=== PATIENT | female | born 1950 | race Hispanic/Latino ===

== ENCOUNTER 2017-09-24 14:03 | Observation (INO) | payer OTHER ==
[~2017-09-24] VITALS: Ht 152.4 cm; Wt 60.5 kg
[~2017-09-24 14:03] MED LIST: VYTORIN 10-101 EACH PO; Z.0.GABAPENTIN100 MG PO
--- OUTSIDE RECORDS SUMMARY | 2017-09-24 14:07 | XMS REPORT ---
Author Author [facility] Address Unknown Phone Unavailable Care Team Providers Care Law Librarian Name Role Phone MEGAN JEAN BAPTISTE Unavailable Unavailable Problems This patient has no known problems. Allergies, Adverse Reactions, Alerts This patient has no known allergies or adverse reactions. Medications This patient has no known medications. Results Test Description Test Time Test Comments Text Results Atomic Results Result Comments MAMMOGRAPHY DIGITAL SCR BILAT [place] [address] Patient Name: JIM LEA MR #: [id number] : 1950 Age/Sex: 66/F Req #: [id number] [facility] Physician: Ordered by: ITA MCMAHAN, MEGAN Liang MD Report #: [id number] Location: MAMMO Room/Bed: Procedure: [id number] MG/MAMMOGRAPHY DIGITAL SCR BILAT Exam Date: Exam Time: 1213 REPORT STATUS: Signed #[id number] - [id number] #BILATERAL DIGITAL SCREENING MAMMOGRAM WITH CAD : 02/15/2017 CLINICAL: Routine screening. Comparison is made to exams dated: 02/11/2016 mammogram, 02/05/2015 mammogram and 12/05/2013 mammogram - [facility]. Current study contains 4 films. There are scattered fibroglandular elements in both breasts. Current study was also evaluated with a Computer Aided Detection (CAD) system. There is a benign calcification in the left breast. No significant masses, calcifications, or other findings are seen in either breast. There has been no significant interval change. IMPRESSION: BENIGN There is no mammographic evidence of malignancy. A 1 year screening mammogram is recommended. The patient will be notified by letter of the results. Jolene mcdermott/delfino:03/03/2017 10:32:51 Demonstrator Sales: Emily GIBSON(Tab)(Jn), [facility] letter sent: Compared to Prior B9 Mammogram BI-RADS: 2 Benign Dictated By: JOLENE PALMER DO 1032 COPY TO: MEGAN JEAN BAPTISTE
[2017-09-24 15:05] LABS: BASOPHILS % 0.3 % (0.0-1.0); EOSINOPHILS % 0.3 % (0.0-6.0); LYMPHOCYTES # (AUTO) 5.5 (1.0-3.2); LYMPHOCYTES % 43.7 % (18.0-39.1); MEAN CORPUSCULAR HEMOGLOBIN 31.5 pg (28-32); MEAN CORPUSCULAR HGB CONC 33.3 g/dL (31-35); MEAN CORPUSCULAR VOLUME 94.6 fL (81-99); MONOCYTES # (AUTO) 1.1 (0.2-0.8); NEUTROPHILS # (AUTO) 5.8 (2.1-6.9); NEUTROPHILS % 46.1 % (38.7-80.0); PLATELET COUNT 198 x10e3/uL (140-360); RED BLOOD COUNT 4.44 x10e6/uL (3.6-5.1); RED CELL DISTRIBUTION WIDTH 12.4 % (11.7-14.4)
--- NOTE | 2017-09-24 15:10 | Diagnostic Imaging Report ---
Exam: Head CT without contrast History: Facial numbness. Comparison studies: None Technique: Axial images were obtained from the skull base to the vertex. Coronal and sagittal images reconstructed from the axial data. Intravenous contrast: None Findings: Scalp: No abnormalities. Bones: No fractures, blastic or lytic lesions. Brain sulci: Appropriate for age. Ventricles: Normal in size and configuration. No hydrocephalus. Extra-axial spaces: No masses, no fluid collection. Parenchyma: New mass, acute hemorrhage or acute or chronic cortical vascular insults. Subtle hypodensity in the right frontal jimenez radiata is nonspecific but may reflect mild chronic microvascular ischemic changes. Sellar/suprasellar region: No abnormalities. Craniocervical junction: Patent foramen magnum. No Chiari one malformation. Incidental findings: Atherosclerotic calcifications in the carotid siphons. IMPRESSION: 1. No acute intracranial abnormalities. 2. Specifically, no mass, acute hemorrhage or acute cortical vascular insult. 3. Mild chronic microvascular ischemic changes. Signed by: Dr. Rod Hager M.D. on 09/24/2017 3:07 PM
[2017-09-24 15:13] LABS: CLARITY,URINE CLEAR (CLEAR); COLOR,URINE YELLOW (YELLOW)
[2017-09-24 15:14] LABS: BILIRUBIN,URINE NEGATIVE (NEGATIVE); KETONES,URINE NEGATIVE (NEGATIVE); LEUKOCYTE ESTERASE ,URINE TRACE (NEGATIVE); NITRITE,URINE NEGATIVE (NEGATIVE); PROTEIN,URINE DIPSTICK NEGATIVE (NEGATIVE); URINE UROBILINOGEN 0.2 mg/dL (0.2 - 1)
[2017-09-24 15:17] LABS: INR 1.07; PROTHROMBIN TIME 13.1 seconds (11.9-14.5)
--- NOTE | 2017-09-24 15:17 | Diagnostic Imaging Report ---
EXAMINATION: CHEST SINGLE (PORTABLE) INDICATION: \S\CHEST PAIN \S\[id number] \S\1420 \S\Y COMPARISON: None FINDINGS: AP view TUBES and LINES: None. LUNGS: Lungs are well inflated. Lungs are clear. There is no evidence of pneumonia or pulmonary edema. PLEURA: No pleural effusion or pneumothorax. HEART AND MEDIASTINUM: The cardiomediastinal silhouette is unremarkable. BONES AND SOFT TISSUES: No acute osseous lesion. Ligamentous anchors overlying the right humeral head. Soft tissues are unremarkable. UPPER ABDOMEN: No free air under the diaphragm. IMPRESSION: No acute thoracic abnormality. Signed by: DR. Derick Willson MD on 09/24/2017 3:13 PM
[2017-09-24 15:18] LABS: PARTIAL THROMBOPLASTIN TIME 26.5 seconds (23.8-35.5)
[2017-09-24 15:26] LABS: ALANINE AMINOTRANSFERASE 35 IU/L (0-55); ALBUMIN 4.8 g/dL (3.5-5.0); ALBUMIN/GLOBULIN RATIO 1.4 (0.8-2.0); ALKALINE PHOSPHATASE 69 IU/L (40-150); ANION GAP 15.3 mmol/L (8-16); BLOOD UREA NITROGEN 15 mg/dL (7-26); BUN/CREATININE RATIO 20 (6-25); CALCIUM 10.7 mg/dL (8.4-10.2); CARBON DIOXIDE 28 mmol/L (22-29); CHLORIDE 100 mmol/L (98-107); CREATINE KINASE 152 IU/L (29-168); CREATININE, SERUM 0.74 mg/dL (0.57-1.11); EST GLOMERULAR FILTRATION RATE > 60 ML/MIN (60-); GLUCOSE 78 mg/dL (74-118); POTASSIUM 3.3 mmol/L (3.5-5.1); SODIUM 140 mmol/L (136-145)
[2017-09-24 15:31] LABS: EPITHELIAL CELLS,URINE FEW /LPF; MUCUS,URINE FEW (RARE); RBC,URINE 0-5 /HPF (0-5)
[2017-09-24 16:39] LABS: EOSINOPHILS % (MANUAL) 1 % (0-7); LYMPHOCYTES % (MANUAL) 63 % (19-48); MONOCYTES % (MANUAL) 5 % (3.4-9.0); NEUTROPHILS % (MANUAL) 30 % (40-74); NUCLEATED RED BLOOD CELLS 1; PLATELET ESTIMATE ADEQUATE; PLATELET MORPHOLOGY COMMENT NORMAL; RBC MORPHOLOGY COMMENT NORMAL
[2017-09-24] MEDS ORDERED: NIFEDIPINE 10 MG CAP PO ONE (18:00)
[2017-09-24] MEDS ORDERED: ASPIRIN 81 MG CHEW TAB PO ONE (18:45)
[2017-09-24] MEDS ORDERED: ONDANSETRON HCL INJ 2 MG/ML VIAL IV PRN (18:45)
[2017-09-24] MEDS ORDERED: NIFEDIPINE 10 MG CAP PO PRN (18:45)
[2017-09-24] MEDS: SODIUM CHLORIDE 0.9% 1000ML 1,000 ML IV SCH (19:01)
[2017-09-24 21:12] VITALS: BP 144/67
[2017-09-24 21:26] VITALS: BP 144/67
[2017-09-24 21:27] VITALS: BP 144/67
[2017-09-25] VITALS: BP 118/58
[2017-09-25] MEDS: SODIUM CHLORIDE 0.9% 1000ML 1,000 ML IV SCH (01:53)
[2017-09-25 02:35] LABS: CREATINE KINASE MB 1.5 ng/mL (0-5.0)
[2017-09-25 04:00] VITALS: BP 110/75
[2017-09-25 06:37] LABS: BASOPHILS % 0.6 % (0.0-1.0); EOSINOPHILS # (AUTO) 0.2 (0.0-0.4); EOSINOPHILS % 2.1 % (0.0-6.0); HEMATOCRIT 40.3 % (34.2-44.1); HEMOGLOBIN 13.2 g/dL (12.0-16.0); LYMPHOCYTES # (AUTO) 3.9 (1.0-3.2); LYMPHOCYTES % 55.6 % (18.0-39.1); MEAN CORPUSCULAR HEMOGLOBIN 31.2 pg (28-32); MEAN CORPUSCULAR HGB CONC 32.8 g/dL (31-35); MEAN CORPUSCULAR VOLUME 95.3 fL (81-99); MONOCYTES # (AUTO) 0.7 (0.2-0.8); MONOCYTES % 9.2 % (4.4-11.3); NEUTROPHILS # (AUTO) 2.3 (2.1-6.9); NEUTROPHILS % 32.1 % (38.7-80.0); PLATELET COUNT 184 x10e3/uL (140-360); RED BLOOD COUNT 4.23 x10e6/uL (3.6-5.1); RED CELL DISTRIBUTION WIDTH 12.7 % (11.7-14.4)
[2017-09-25 06:53] LABS: ANION GAP 12.4 mmol/L (8-16); BLOOD UREA NITROGEN 13 mg/dL (7-26); BUN/CREATININE RATIO 18 (6-25); CARBON DIOXIDE 27 mmol/L (22-29); CHLORIDE 107 mmol/L (98-107); CHOL/HDL RATIO 2.4 (3.0-3.6); CHOLESTEROL 166 MD/DL (0-199); CREATININE, SERUM 0.73 mg/dL (0.57-1.11); EST GLOMERULAR FILTRATION RATE > 60 ML/MIN (60-); GLUCOSE 89 mg/dL (74-118); HDL CHOLESTEROL 70 MG/DL (40-60); LDL CHOLESTEROL 74 MG/DL (60-130); MAGNESIUM 2.2 MG/DL (1.3-2.1); POTASSIUM 4.4 mmol/L (3.5-5.1); SODIUM 142 mmol/L (136-145); TRIGLYCERIDES 108 MG/DL (0-149)
[2017-09-25 07:37] VITALS: BP 142/70
[2017-09-25] MEDS ORDERED: ASPIRIN 81 MG ENTERIC COATED PO SCH (09:00)
[2017-09-25] MEDS ORDERED: LISINOPRIL 20 MG TAB PO SCH (09:00)
[2017-09-25 10:38] LABS: CREATINE KINASE MB 1.3 ng/mL (0-5.0)
[2017-09-25] MEDS ORDERED: LORAZEPAM INJ 2 MG/ML VIAL IV ONE (11:00)
[2017-09-25 11:38] VITALS: BP 184/88
--- NOTE | 2017-09-25 12:36 | Diagnostic Imaging Report ---
Exam: Brain MRI without IV contrast History: Right facial paresthesias. Comparison studies: Head CT 09/24/2017. Technique: Sagittal and axial T2 FS, axial T1 FLAIR, axial and coronal T2 FLAIR, axial T2*GRE and axial DWI. Intravenous contrast: None Findings: Scalp: Normal in signal. No masses. Bone marrow: Normal in signal intensity. Brain sulci: Appropriate for age. Ventricles: Normal in size. No hydrocephalus. Extra axial spaces: Mildly prominent extra-axial CSF space at the posterior left paramedian frontal convexity may represent small congenital arachnoid cyst. No other mass or fluid collection. Parenchyma: No mass, hemorrhage or acute ischemia. A few scattered T2 FLAIR hyperintense foci in the supratentorial white matter are nonspecific but most likely reflect mild chronic microvascular ischemic changes in a patient this age. Suprasellar region: No abnormalities. Craniocervical junction: Patent foramen magnum. No Chiari malformation. Vessels: Normal flow-voids in the arteries and sinuses. IMPRESSION: 1. No acute intracranial abnormalities. 2. Mild supratentorial chronic microvascular ischemic changes. Signed by: Dr. Rod Hager M.D. on 09/25/2017 12:32 PM
[2017-09-25 15:47] VITALS: BP 145/74
[2017-09-25 19:57] VITALS: BP 133/75
--- NOTE | 2017-09-25 22:59 | Discharge Summary ---
PRIMARY CARE DOCTOR: Dr. Alexis Kahn FINAL DIAGNOSIS: Right facial numbness of unclear etiology. SECONDARY DIAGNOSIS: Uncontrolled hypertension. URANIUM PROCESSING SUPERVISOR(S): Dr. Winter, neurology. PROCEDURES/STUDIES PERFORMED 1. MRI of the brain. 2. Head CT. HISTORY: Per [facility] and [facility]. HOSPITAL COURSE: Her right facial numbness lasted about 8 hours and resolved on its own. Patient was evaluated by neurology. We do not think that this is a transient ischemic attack. It is difficult to know for sure whether it was the uncontrolled hypertension that is causing her symptoms or her symptom was causing the hypertension. At this time, patient's blood pressure is controlled. At this time, we will now adjust her blood pressure medicine. Patient was instructed to follow up with her primary care doctor to continue to monitor her blood pressure. CONDITION ON DISCHARGE: Stable. DISCHARGE MEDICATIONS: Please see medication reconciliation form. FRAN MARTINEZ M.D. Job#: [id number] AMILCAR
[2017-09-26] VITALS: BP 147/84
--- NOTE | 2017-09-26 00:10 | Consultation ---
DATE OF CONSULTATION: September 25, 2017 NEUROLOGY CONSULT NOTE HISTORY OF PRESENT ILLNESS: Ms. Nicolas is a 66-year-old right-hand dominant woman with past medical history significant for hypertension and hyperlipidemia, who presented to the emergency center at [facility] on September 24, 2017 with numbness over the right side of the face. On September 22, 2017, the patient experienced the gradual onset of numbness over the right side of the face, especially the right V2 and V3 distributions. Ms. Nicolas does not endorse a visual field cut or other disturbance, dysarthria, aphasia, facial droop, hemiparesis, hemihypesthesia, gait or balance impairment, dizziness or confusion associated with the right facial numbness. She does report a headache, which is described as follows: The pain was located across the forehead and did not radiate. The pain was described as throbbing and rated an 8/10. Ms. Nicolas does not report photophobia, phonophobia, nausea or vomiting associated with the headache. The patient does not report a history of migraines or other headaches. She has not experienced similar symptoms previously. The facial numbness and headache persisted for approximately 7 hours. Ms. Nicolas reports the symptoms began to resolve when she took a blood pressure medication. Upon admission to the emergency center, the patient is afebrile with a blood pressure of 216/109 mmHg and the pulse was 65 beats per minute. The documentation of patient's general physical and neurological examination is not available for review at this time. A CT of the brain without contrast was performed, but did not show evidence of recent large territorial ischemia, hemorrhage, mass or mass effect. Ms. Nicolas was admitted to [facility] under observation status for further evaluation and treatment of her symptoms. REVIEW OF SYSTEMS: Facial numbness over the right V2 and V3 distributions, headache. Otherwise, the 12 point review of systems is negative. PAST MEDICAL HISTORY: Hypertension, hyperlipidemia. PAST SURGICAL HISTORY: Right rotator cuff repair, partial hysterectomy, hemorrhoidectomy. PAST HOSPITALIZATIONS: Surgeries/procedures as listed, childbirth times 2. FAMILY HISTORY: The patient's paternal and maternal grandparents are . Their medical histories are unknown. Ms. Nicolas's father is from coronary artery disease. Her mother is alive. She has coronary artery disease. Ms. Nicolas has multiple siblings. All are alive and healthy. The patient's 2 children are alive and healthy. SOCIAL HISTORY: The patient is . She completed school through the 6th grade in [place], which is equivalent to graduating high school in the [place]. 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 She does not report current or prior tobacco, alcohol or recreational drug use. HOME MEDICATION(S): Vytorin 10 per 10 mg by mouth daily. ALLERGIES: NO KNOWN DRUG ALLERGIES. NO KNOWN FOOD ALLERGIES. NO KNOWN ALLERGIES TO LATEX. NO KNOWN ALLERGIES TO IODINE OR OTHER CONTRAST MATERIALS. PHYSICAL EXAMINATION VITAL SIGNS: Height 60 inches. Weight 133 pounds. BMI 26.0 kg per meter squared. Blood pressure 133/75 mmHg. Pulse 71 beats per minute. Respiratory rate 20 breaths per minute. Oxygen saturation 97% on room air. GENERAL: The patient is awake and alert, does not appear distressed. HEENT: Normocephalic, atraumatic. Pupils are equal, round, and reactive to light. Moist mucous membranes. NECK: Supple. No appreciable thyromegaly, no appreciable carotid bruits. CARDIOVASCULAR: S1, S2. Regular rate and rhythm. No murmurs, rubs or gallops. RESPIRATORY: Clear to auscultation bilaterally. No wheezes, rhonchi or rales. EXTREMITIES: The skin is warm and dry. No clubbing, cyanosis or edema. The posterior tibial and dorsalis pedis pulses are 2+ and symmetric. SKIN: No rashes or lesions. NEUROLOGIC MEMORY/ATTENTION: The patient is awake and alert, oriented to person, place, time, and situation. CRANIAL NERVES: Cranial nerve I--not tested. Cranial nerve II, III, IV--pupils are equal and round react briskly to light (from 4 mm to 2 mm), extraocular movements intact. No nystagmus. Cranial nerve V--sensation to light touch and pinprick is intact in the bilateral V1 through V3 distributions. Strength of the temporalis and masseter muscles is within normal limits. Cranial nerve VII--the face is symmetric as are all facial movements. Strength is within normal limits. Cranial nerve VIII--hearing is intact to finger rub bilaterally. Cranial nerve XI, X--the soft palate elevates equally and symmetrically. Cranial nerve XI--normal strength of the bilateral sternocleidomastoid and trapezius muscles. Cranial nerve XII--the tongue protrudes midline and moves symmetrically from side to side. STRENGTH: Bulk is normal. Strength is 5/5 in the bilateral deltoids, biceps triceps, wrist flexors and extensors, finger flexors and extensors, intrinsic hand muscles, hip flexors, knee flexors and extensors, ankle dorsiflexion and plantar flexion, and intrinsic foot muscles. Tone is normal. DTRs: Deep tendon reflexes are 1+ and symmetric at the triceps biceps, brachioradialis, patellas and Achilles. Plantar responses are flexor bilaterally. Absent clonus. SENSATION: Sensation is intact to light touch and pinprick in both arms and both legs. CEREBELLAR: [id number]-[id number] and heel-carter movements are intact without dysmetria or other impairment. GAIT: Gait deferred. SPEECH: Spontaneous speech is normal without appreciable dysarthria or aphasia. Repetition is intact. INVOLUNTARY MOVEMENTS: None. PRONATOR DRIFT: None. LABORATORY DATA: Sodium 142, potassium 4.4, chloride 107, carbon dioxide 27, anion gap 12.4, BUN 13, creatinine 0.73, estimated GFR greater than 60, BUN to creatinine ratio 18, glucose 89, calcium 9.0, magnesium 2.2, total bilirubin 0.7, AST 30, ALT 35, alkaline phosphatase 69, total protein 8.3, albumin 4.8, globulin 3.5, albumin to globulin ratio 1.4. CK 152, 78, 64. CK-MB 2.10, 1.501, 1.30. Troponin-I less than 0.001, 0.004, 0.003. Total cholesterol 166, triglycerides 108, LDL cholesterol 74, HDL cholesterol 70. The CBC with differential and platelets reveals a white blood cell count of 7.08, with 32.1% lymphocytes, with 32.1% neutrophils, 55.6% lymphocytes, 9.2% monocytes, 2.1% eosinophils, and 0.6% basophils. The hemoglobin, hematocrit are 13.2 and 40.3, respectively. The platelet count is 184,000. PT 13.1, INR 1.07, PTT 26.5. A urinalysis reveals trace leukocyte esterase, 6 to 10 white blood cells. DIAGNOSTIC STUDIES 1. EKG, September 24, 2017: Normal sinus rhythm at 66 beats per minute. 2. CT of the brain without contrast September 24, 2017: On my review, there is no evidence of recent large territorial ischemia, hemorrhage, mass or mass effect. There are findings compatible with mild chronic small vessel ischemic disease. 3. Chest x-ray September 24, 2017: No acute thoracic abnormality. 4. MRI of brain, September 25, 2017: There is no evidence of recent large territorial ischemia hemorrhage, mass or mass effect. There are nonspecific T2/FLAIR hyperintensities compatible with mild chronic small vessel ischemic disease. 5. Echocardiogram, September 25, 2017: Ejection fraction 60% to 65%. Moderate aortic insufficiency. Mild mitral regurgitation and tricuspid regurgitation. 6. Bilateral carotid artery ultrasound with Dopplers, September 25, 2017: There is no evidence of atherosclerosis or hemodynamically significant stenosis. ASSESSMENT AND PLAN: Ms. Nicolas is a 66-year-old woman with past medical history significant for hypertension and hyperlipidemia admitted with right facial numbness (specifically, the right V2 and V3 distributions) and headache. Ms. Nicolas's symptoms resolved following treatment with an antihypertensive medication. The patient's neurological examination is nonfocal. Her laboratory data and other diagnostic studies have been reviewed and are documented above. Based on the patient's history and nonfocal neurological examination, there is low suspicion for a transient ischemic attack/stroke. Given her symptoms resolved following administration of antihypertensive medication, a diagnosis of hypertensive emergency is probable. Another possible diagnosis is complex migraine. Ms. Nicolas did report a severe throbbing headache associated with numbness in the right V2 and V3 distributions. At present, the patient's symptoms have resolved. As stated above, her neurological examination is nonfocal. There are no other recommendations from the neurology service at this time. Ms. Nicolas should follow up with her primary care physician for continued treatment of hypertension and hyperlipidemia. The patient may be discharged to home. Thank you for this consultation. TIME SPENT: 50 minutes. Job#: [id number] CQ LITZY
[2017-09-26 04:00] VITALS: BP 127/83
[2017-09-26 07:15] VITALS: BP 127/83
[2017-09-26 07:51] VITALS: BP 143/70
--- NOTE | 2017-09-26 11:12 | Cardiology Report ---
DATE OF STUDY: September 25, 2017 ECHOCARDIOGRAM M-MODE: Top normal left atrial size. Normal left ventricular wall thickness and contractility. Aortic sclerosis. Normal mitral and tricuspid valves. No pericardial effusion. SECTOR SCAN: Mildly enlarged left atrium. Normal left ventricular wall thickness and contractility. Normal aortic, mitral and tricuspid valves. No pericardial effusion. CARDIAC DOPPLER STUDY WITH COLOR: There is 1 to 2+ aortic regurgitation. Trace mitral and tricuspid regurgitation. CONCLUSIONS 1. Mild to moderate aortic regurgitation. 2. Trace mitral regurgitation with borderline dilated left atrium. 3. Trace tricuspid regurgitation. 4. Left ventricular ejection fraction is approximately 60%. Job#: [id number] cc: FRAN MARTINEZ MD
--- NOTE | 2017-09-26 11:15 | Cardiology Report ---
DATE OF STUDY: September 25, 2017 DOPPLER SCAN OF THE CAROTIDS Left carotid artery shows mild intimal thickening and plaquing without high-grade stenosis or flow impairment. Left vertebral flow appears antegrade. Right carotid artery shows mild intimal thickening and plaquing without high-grade stenosis or flow impairment. Right vertebral flow appears to be antegrade. CONCLUSIONS 1. No high-grade stenosis bilaterally. 2. Mild intimal thickening and plaquing bilaterally. 3. Vertebral flow appears to be in normal direction bilaterally. Job#: [id number] cc: FRAN MARTINEZ MD
== END 2017-09-26 08:05 | disposition home or self-care (01) ==
LOC: ER 14:03 → ERHOLD 18:56 → IMCU 20:37
PROVIDERS: ADMIT Internal Medicine; ATTEND Internal Medicine
DX: R20.2 Paresthesia of skin (principal); I10 Essential (primary) hypertension; R20.0 Anesthesia of skin; E78.5 Hyperlipidemia, unspecified; I16.1 Hypertensive emergency; N39.0 Urinary tract infection, site not specified
CPT/HCPCS: 36415; 70551; 80048; 80061; 82550; 82553; 83735; 84484; 85025; 93005; 93306; 93880; 99284; G0378 ×3; J2060; J7030 ×2

== ENCOUNTER 2017-09-28 23:15 | Emergency (ER) | payer OTHER ==
[~2017-09-28] VITALS: Ht 152.4 cm; Wt 60.3 kg
--- OUTSIDE RECORDS SUMMARY | 2017-09-28 23:19 | XMS REPORT | Summary of Care ---
Author Author [facility] Outpatient Imaging - [facility] Address Unknown Phone Unavailable Encounter HQ Hayes(JERRI) [id number] Date(s): 09/24/15 - 09/24/15 [facility] Outpatient Imaging - [facility] [address] [place] [address]- Discharge Disposition: Home Attending Physician: Sawyer Beal MD Vital Signs No data available for this section Problem List Condition Effective Dates Status Health Status Informant Hypercholesterolemia Active (Confirmed) Rotator cuff Active tear(Confirmed) Allergies, Adverse Reactions, Alerts Substance Reaction Severity Status NKDA Active NKFA Active Medications No data available for this section Results No data available for this section Immunizations No data available for this section Procedures Procedure Date Related Diagnosis Body Site Injection procedure for shoulder arthrography 09/24/[address]/MRI shoulder arthrography Miscellaneous operations1 1right shoulder surgery Social History Social History Type Response Smoking Status Never smoker; Exposure to Tobacco Smoke None; Cigarette Smoking Last 365 Days No; Reg Smoking Cessation Counseling Yes Assessment and Plan No data available for this section
--- OUTSIDE RECORDS SUMMARY | 2017-09-28 23:19 | XMS REPORT | Summary of Care ---
Author Author [facility] Outpatient Imaging - [place] Organization [facility] - [place] Address Unknown Phone Unavailable Encounter HQ Yudy_el(FIN) [id number] Date(s): 03/26/15 - 03/26/15 [facility] Outpatient Imaging - [place] [address] [place], [place] [id number] [place] [address] [phone] Discharge Disposition: Home Attending Physician: Ricci Moore MD Vital Signs No data available for [...] Procedures Procedure Date Related Diagnosis Body Site Miscellaneous operations1 1right shoulder surgery Social History Social History Type Response Smoking Status Never smoker; Exposure to Tobacco Smoke None; Cigarette Smoking Last 365 Days No; Reg Smoking Cessation Counseling Yes Assessment and Plan No data available for this section
--- OUTSIDE RECORDS SUMMARY | 2017-09-28 23:19 | XMS REPORT | Summary of Care ---
Author Organization Unknown Address Unknown Phone Unavailable Encounter GRUPO Koo(JERRI) [id number] Date(s): 10/08/14 - 10/09/14 [facility] [address] [place] [address]- Discharge Diagnosis: Atelectasis of right lung Discharge Disposition: Home Physician Attending: Latosha Darling DO Vital Signs 1 2 3 Most recent to oldest [Reference Range]: 152.4 cm (10/08/14 10:27 PM) Height 98.3 DegF (10/09/14 5:18 AM) 98.3 DegF (10/09/14 1:25 AM) 97.9 DegF (10/08/14 11:00 PM) Temperature Oral [96.4-99.1 DegF] 102/53 mmHg (10/09/14 5:18 AM) 146/80 mmHg *HI* (10/09/14 1:25 AM) 125/60 mmHg (10/08/14 11:00 PM) Blood Pressure [90-140/60-90 mmHg] 18 BRMIN (10/09/14 5:18 AM) 15 BRMIN (10/09/14 4:16 AM) 18 BRMIN (10/09/14 1:25 AM) Respiratory Rate [14-20 BRMIN] 78 bpm (10/09/14 5:18 AM) 81 bpm (10/09/14 1:25 AM) 73 bpm (10/08/14 11:00 PM) Peripheral Pulse Rate [60-100 bpm] 57.273 kg (10/08/14 10:27 PM) Weight 24.66 m2 (10/08/14 10:27 PM) Body Mass Index Problem List Condition Effective Dates Status Health Status Informant Hypercholesterolemia Active (Confirmed) Rotator cuff Active tear(Confirmed) Allergies, Adverse Reactions, Alerts Substance Reaction Severity Status NKDA Active NKFA Active Medications Ativan 0.25 mg, Route: IVP, Drug form: INJ, ONCE, Dosing Weight 57.273, kg, Priority: STAT, Start date: 10/09/14 2:22:00, Stop date: 10/09/14 2:22:00 Start Date: 10/09/14 Stop Date: 10/09/14 Status: Completed Levaquin 750 mg oral tablet 750 mg=1 tab, PO, Q24H, X 7 day, # 7 tab, 0 Refill(s) Start Date: 10/09/14 Stop Date: 10/16/14 Status: Ordered Results ELECTROLYTES Most recent to 1 oldest [Reference Range]: Sodium Lvl [135-145 134 mEq/L mEq/L] *LOW* (10/09/14 1:50 AM) Potassium Lvl 4.1 mEq/L [3.5-5.1 mEq/L] (10/09/14 1:50 AM) Chloride Lvl [95-109 100 mEq/L mEq/L] (10/09/14 1:50 AM) CO2 [24-32 mEq/L] 26 mEq/L (10/09/14 1:50 AM) AGAP [10.0-20.0 12.1 mEq/L mEq/L] (10/09/14 1:50 AM) CHEM PANEL Most recent to 1 oldest [Reference Range]: Creatinine Lvl 0.8 mg/dL [0.5-1.4 mg/dL] (10/09/14 1:50 AM) eGFR 79 mL/min/1.73m2 1 *NA* (10/09/14 1:50 AM) BUN [7-22 mg/dL] 13 mg/dL (10/09/14 1:50 AM) Glucose Lvl [70-99 174 mg/dL 2 mg/dL] *HI* (10/09/14 1:50 AM) Calcium Lvl 8.4 mg/dL [8.5-10.5 mg/dL] *LOW* (10/09/14 1:50 AM) 1Result Comment: The eGFR is calculated using the CKD-EPI formula. In most young , healthy individuals the eGFR will be >90 mL/min/1.73m2. The eGFR declines with age. An eGFR of 60-89 may be normal in some populations, particularly the elderly, for whom the CKD-EPI formula has not been extensively validated. Use of the eGFR is not recommended in the following populations: Individuals with unstable creatinine concentrations, including patients and those with serious co-morbid conditions. Patients with extremes in muscle mass or diet. The data above are obtained from the National Kidney Disease Education Program ( NKDEP) which additionally recommends that when the eGFR is used in patients with extremes of body mass index for purposes of drug dosing, the eGFR should be multiplied by the estimated BMI. 2Interpretive Data: Adult reference range values reflect the clinical guidelines of the [place] [employer]. CARDIAC ENZYMES Most recent to 1 oldest [Reference Range]: Troponin-I 0.03 ng/mL [0.00-0.40 ng/mL] (10/09/14 1:50 AM) HEMATOLOGY Most recent to 1 oldest [Reference Range]: WBC [3.7-10.4 K/CMM] 12.4 K/CMM *HI* (10/09/14 1:50 AM) RBC [4.20-5.40 3.33 M/CMM M/CMM] *LOW* (10/09/14 1:50 AM) Hgb [12.0-16.0 g/dL] 10.7 g/dL *LOW* (10/09/14 1:50 AM) Hct [36.0-48.0 %] 31.0 % *LOW* (10/09/14 1:50 AM) MCV [80.0-98.0 fL] 93.3 fL (10/09/14 1:50 AM) MCH [27.0-31.0 pg] 32.1 pg *HI* (10/09/14 1:50 AM) MCHC [32.0-36.0 34.4 g/dL g/dL] (10/09/14 1:50 AM) RDW [11.5-14.5 %] 13.0 % (10/09/14 1:50 AM) Platelet [133-450 164 K/CMM K/CMM] (10/09/14 1:50 AM) MPV [7.4-10.4 fL] 9.7 fL (10/09/14 1:50 AM) Segs [45.0-75.0 %] 79.4 % *HI* (10/09/14 1:50 AM) Lymphocytes 14.7 % [20.0-40.0 %] *LOW* (10/09/14 1:50 AM) Monocytes [2.0-12.0 5.3 % %] (10/09/14 1:50 AM) Eosinophils [0.0-4.0 0.1 % %] (10/09/14 1:50 AM) Basophils [0.0-1.0 0.5 % %] (10/09/14 1:50 AM) Segs-Bands # 9.9 K/CMM [1.5-8.1 K/CMM] *HI* (10/09/14 1:50 AM) Lymphocytes # 1.8 K/CMM [1.0-5.5 K/CMM] (10/09/14 1:50 AM) Monocytes # [0.0-0.8 0.7 K/CMM K/CMM] (10/09/14 1:50 AM) Basophils # [0.0-0.2 0.1 K/CMM K/CMM] (10/09/14 1:50 AM) PT [12.0-14.7 14.0 seconds seconds] (10/09/14 1:50 AM) INR [0.85-1.17] 1.08 3 (10/09/14 1:50 AM) 3Interpretive Data: RECOMMENDED RANGES FOR PROTIME INR: 2.0-3.0 for most medical and surgical thromboembolic states. 2.5-3.5 for artificial heart valves and recurrent embolism. INR SHOULD BE USED ONLY FOR PATIENTS ON STABLE ANTICOAGULANT THERAPY. Immunizations No data available for this section Procedures Procedure Date Related Diagnosis Body Site Miscellaneous operations1 1right shoulder surgery Social History Social History Type Response Smoking Status Never smoker; Exposure to Tobacco Smoke None; Cigarette Smoking Last 365 Days No; Reg Smoking Cessation Counseling Yes Assessment and Plan No data available for this section
--- OUTSIDE RECORDS SUMMARY | 2017-09-28 23:19 | XMS REPORT | Continuity of Care Document ---
Author Author [facility] Organization [facility] Address [address] [place] [address] Phone Unavailable Care Team Providers Care Civil Engineering Design Draftsperson Name Role Phone MEGAN JEAN BAPTISTE PCP Insurance Providers Guarantor Krysta Lea Address [address] [place] [address] Email PTDECLINED [facility]ayer [facility] Policy Number [id number] Subscriber's Name Krysta Lea Relationship 18 Self / Same As Patient Group Number [id number] Group Name [facility] Effective Date 01 Advance Directives Directive Response Recorded Date/Time Does the patient have an advance directive? No 09/24/17 9:33pm If yes, is advance directive on file with [facility]? No 09/24/17 9:33pm If not on file with [facility] will patient provide a copy? No 09/24/17 9:33pm Do you have a Directive to Physician? No 09/24/17 3:03pm Do you have a Medical Power of Water Quality Control Engineer? No 09/24/17 3:03pm Do you have an out of hospital Do Not Resuscitate Order? No 09/24/17 3:03pm Do you have any special needs we should be aware of? No 09/24/17 3:03pm Do you have a support person here with you today? Yes 09/24/17 3:03pm Did patient receive Notice of Privacy Practices? Yes 09/24/17 3:03pm Did patient receive patient rights and responsibilities? Yes 09/24/17 3:03pm Problems No problem information available. Medications Current Home Medications Medication Dose Units Route Directions Days Qty Instructions Start Date Ezetimibe/Simvastatin (Vytorin 10-10 Mg Tablet) 1 Each Tablet Unknown Dose Oral Daily Past Home Medications Medication Directions Ordered Status Gabapentin 100 Mg Capsule, 100 Mg Oral Daily Discontinued Social History Social History Problem Response Recorded Date/Time Onset Date Status Hx Psychiatric Problems No 09/24/2017 9:33pm Not Applicable Not Applicable Smoking Status Start Date Stop Date Never Smoker Hospital Discharge Instructions No hospital discharge instruction information available. Plan of Care Discharge Date 09/26/17 8:05am Disposition HOME, SELF-CARE Instructions/Education Provided Hypertension Prescriptions See Medication Section Additional Instructions/Education follow up with PCP within 1 week Resume activity and diet as tolerated continue home medications Functional Status Query Response Date Recorded Assistive Devices None September 24, 2017 9:27pm Ambulation Ability Independent September 24, 2017 9:27pm Toileting Ability Independent September 24, 2017 9:27pm Allergies, Adverse Reactions, Alerts No known allergies. Immunizations No immunization information available. Vital Signs Acute Vital Signs Vital Response Date/Time Temperature (Fahrenheit) 97.5 degrees F (97.6 - 99.5) 09/26/2017 7:51am Pulse Pulse Rate (adult) 66 bpm (60 - 90) 09/26/2017 7:51am Respiratory Rate 19 bpm (12 - 24) 09/26/2017 7:51am Blood Pressure 143/70 mm Hg 09/26/2017 7:51am Height 5 ft 0 in 09/24/2017 9:13pm Weight 133.31 lb 09/26/2017 1:22am Body Mass Index 26.0 kg/m^2 09/26/2017 1:22am Results Laboratory Results Test Name Result Units Flags Reference Collection Date/Time Result Date/ Time Comments White Blood Count 7.08 x10e3/uL 4.8-10.8 09/25/2017 6:09/25/2017 6 :46am Red Blood Count 4.23 x10e6/uL 3.6-5.1 09/25/2017 6:09/25/2017 6: 46am Hemoglobin 13.2 g/dL 12.0-16.0 09/25/2017 6:09/25/2017 6:46am Hematocrit 40.3 % 34.2-44.1 09/25/2017 6:09/25/2017 6:46am Mean Corpuscular Volume 95.3 fL 81-99 09/25/2017 6:09/25/2017 6: 46am Mean Corpuscular Hemoglobin 31.2 pg 28-32 09/25/2017 6:09/25/2017 6:46am Mean Corpuscular Hemoglobin Concent 32.8 g/dL 31-35 09/25/2017 6:09/25/2017 6:46am Red Cell Distribution Width 12.7 % 11.7-14.4 09/25/2017 6:2017 6:46am Platelet Count 184 x10e3/uL 140-360 09/25/2017 6:09/25/2017 6: 46am Neutrophils (%) (Auto) 32.1 % L 38.7-80.0 09/25/2017 6:09/25/2017 6 :46am Lymphocytes (%) (Auto) 55.6 % H 18.0-39.1 09/25/2017 6:09/25/2017 6 :46am Monocytes (%) (Auto) 9.2 % 4.4-11.3 09/25/2017 6:09/25/2017 6: 46am Eosinophils (%) (Auto) 2.1 % 0.0-6.0 09/25/2017 6:09/25/2017 6: 46am Basophils (%) (Auto) 0.6 % 0.0-1.0 09/25/2017 6:09/25/2017 6:46am IM GRANULOCYTES % 0.4 % 0.0-1.0 09/25/2017 6:09/25/2017 6:46am Neutrophils # (Auto) 2.3 2.1-6.9 09/25/2017 6:10am 09/25/2017 6:46am Lymphocytes # (Auto) 3.9 H 1.0-3.2 09/25/2017 6:10am 09/25/2017 6: 46am Monocytes # (Auto) 0.7 0.2-0.8 09/25/2017 6:10am 09/25/2017 6:46am Eosinophils # (Auto) 0.2 0.0-0.4 09/25/2017 6:10am 09/25/2017 6:46am Basophils # (Auto) 0.0 0.0-0.1 09/25/2017 6:10am 09/25/2017 6:46am Absolute Immature Granulocyte (auto 0.03 x10e3/uL 0-0.1 09/25/2017 6: 10am 09/25/2017 6:46am Differential Total Cells Counted 100 09/24/2017 2:30pm 09/24/2017 4 :39pm Neutrophils % (Manual) 30 % L 40-74 09/24/2017 2:30pm 09/24/2017 4:39pm Lymphocytes % (Manual) 63 % H 19-48 09/24/2017 2:30pm 09/24/2017 4:39pm Monocytes % (Manual) 5 % 3.4-9.0 09/24/2017 2:30pm 09/24/2017 4:39pm Eosinophils % (Manual) 1 % 0-7 09/24/2017 2:30pm 09/24/2017 4:39pm Reactive Lymphocytes 1 09/24/2017 2:30pm 09/24/2017 4:39pm Nucleated Red Blood Cells 1 09/24/2017 2:30pm 09/24/2017 4:39pm Platelet Estimate ADEQUATE 09/24/2017 2:30pm 09/24/2017 4:39pm Platelet Morphology Comment NORMAL 09/24/2017 2:30pm 09/24/2017 4: 39pm Red Cell Morphology Comment NORMAL 09/24/2017 2:30pm 09/24/2017 4: 39pm Prothrombin Time 13.1 seconds 11.9-14.5 09/24/2017 2:30pm 09/24/2017 3: 18pm Prothromb Time International Ratio 1.07 09/24/2017 2:2017 3:18pm Oral Anticoagulant Therapy INR Values: 1. Low Intensity Therapy 1.5 - 2.0 2. Moderate Intensity Therapy 2.0 - 3.0 3. High Intensity Therapy(1) 2.5 - 3.5 4. High Intensity Therapy(2) 3.0 - 4.0 5. Panic Value INR > 5.0 Activated Partial Thromboplast Time 26.5 seconds 23.8-35.5 09/24/2017 2: 09/24/2017 3:18pm Urine Color YELLOW YELLOW 09/24/2017 2:09/24/2017 3:14pm Urine Clarity CLEAR CLEAR 09/24/2017 2:09/24/2017 3:14pm Urine Specific [place] 1.010 1.010-1.025 09/24/2017 2:2017 3:14pm Urine pH 7 5 - 7 09/24/2017 2:09/24/2017 3:14pm Urine Leukocyte Esterase TRACE H NEGATIVE 09/24/2017 2:2017 3:14pm Urine Nitrite NEGATIVE NEGATIVE 09/24/2017 2:09/24/2017 3:14pm Urine Protein NEGATIVE NEGATIVE 09/24/2017 2:09/24/2017 3:14pm Urine Glucose (UA) NEGATIVE NEGATIVE 09/24/2017 2:09/24/2017 3: 14pm Urine Ketones NEGATIVE NEGATIVE 09/24/2017 2:09/24/2017 3:14pm Urine Urobilinogen 0.2 mg/dL 0.2 - 1 09/24/2017 2:09/24/2017 3: 14pm Urine Bilirubin NEGATIVE NEGATIVE 09/24/2017 2:09/24/2017 3: 14pm Urine Blood NEGATIVE NEGATIVE 09/24/2017 2:09/24/2017 3:14pm Urine WBC 6-10 /HPF H 0-5 09/24/2017 2:09/24/2017 3:31pm Urine RBC 0-5 /HPF 0-5 09/24/2017 2:09/24/2017 3:31pm Urine Bacteria NONE /HPF NONE 09/24/2017 2:09/24/2017 3:31pm Urine Epithelial Cells FEW /LPF NONE 09/24/2017 2:09/24/2017 3: 31pm Urine Mucus FEW H RARE 09/24/2017 2:09/24/2017 3:31pm Sodium Level 142 mmol/L 136-145 09/25/2017 6:09/25/2017 7:11am Potassium Level 4.4 mmol/L # 3.5-5.1 09/25/2017 6:09/25/2017 7:11am Chloride Level 107 mmol/L 98-107 09/25/2017 6:09/25/2017 7:11am Carbon Dioxide Level 27 mmol/L -09/25/2017 6:09/25/2017 7: 11am Anion Gap 12.4 mmol/L 8-09/25/2017 6:09/25/2017 7:11am Blood Urea Nitrogen 13 mg/dL 11-2209/25/2017 6:09/25/2017 7:11am Creatinine 0.73 mg/dL 0.57-1.11 09/25/2017 6:09/25/2017 7:11am BUN/Creatinine Ratio 18 10-2209/25/2017 6:09/25/2017 7:11am Estimat Glomerular Filtration Rate > 60 ML/MIN 09/25/2017 6: 7:11am Ranges were taken from the National Kidney Disease Education Program and the National Kid[employer] Foundation literature. Reference ranges: 60 or greater: Normal 16-59 (for 3 consecutive months): Chronic kidney disease 15 or less: Kidney failure Glucose Level 89 mg/dL 74-118 09/25/2017 6:09/25/2017 7:11am Calcium Level 9.0 mg/dL # 8.4-10.2 09/25/2017 6:09/25/2017 7:11am Magnesium Level 2.2 MG/DL H 1.3-2.1 09/25/2017 6:09/25/2017 7:11am Total Bilirubin 0.7 mg/dL 0.2-1.2 09/24/2017 2:09/24/2017 3:26pm Aspartate Amino Transf (AST/SGOT) 30 IU/L 5-34 09/24/2017 2:302017 3:26pm Alanine Aminotransferase (ALT/SGPT) 35 IU/L 0-55 09/24/2017 2:30pm 3:26pm Total Protein 8.3 g/dL H 6.5-8.1 09/24/2017 2:30pm 09/24/2017 3:26pm Albumin 4.8 g/dL 3.5-5.0 09/24/2017 2:30pm 09/24/2017 3:26pm Globulin 3.5 g/dL 2.3-3.5 09/24/2017 2:30pm 09/24/2017 3:26pm Albumin/Globulin Ratio 1.4 0.8-2.0 09/24/2017 2:30pm 09/24/2017 3: 26pm Alkaline Phosphatase 69 IU/L 40-150 09/24/2017 2:30pm 09/24/2017 3: 26pm Triglycerides Level 108 MG/DL 0-149 09/25/2017 6:10am 09/25/2017 7: 11am Cholesterol Level 166 MD/DL 0-199 09/25/2017 6:10am 09/25/2017 7:11am Less than 200 mg/dL Low Risk 201 - 239 mg/dL Borderline Risk 240 mg/dl and greater High Risk LDL Cholesterol 74 MG/DL 60-130 09/25/2017 6:10am 09/25/2017 7:11am HDL Cholesterol 70 MG/DL H 40-60 09/25/2017 6:10am 09/25/2017 7:11am Cholesterol/HDL Ratio 2.4 L 3.0-3.6 09/25/2017 6:10am 09/25/2017 7: 11am Creatine Kinase 64 IU/L 29-168 09/25/2017 10:05am 09/25/2017 10:34am Creatine Kinase MB 1.30 ng/mL 0-5.0 09/25/2017 10:05am 09/25/2017 10: 41am Troponin I 0.003 ng/mL 0-0.300 09/25/2017 10:05am 09/25/2017 10:41am Procedures Procedure Status Date Provider(s) Computed tomography of brain without radiopaque contrast Active 09/24/17 SHARON RHOADES NP Magnetic resonance imaging of brain without contrast Active 09/25/17 YAO MCKENZIE MD Encounters Encounter Location Arrival/Admit Date Discharge/Depart Date Attending Provider Discharged Inpatient (obs[facility] 09/24/17 6:56pm 8:05am FRAN MARTINEZ MD Registered Clinic [facility] 02/15/17 11:45am MEGAN JEAN BAPTISTE
--- OUTSIDE RECORDS SUMMARY | 2017-09-28 23:19 | XMS REPORT | Summary of Care ---
Author Author [facility] Outpatient Imaging [facility] Outpatient [facility] Address Unknown Phone Unavailable Encounter [facility] Yudy_el(JERRI) [id number] Date(s): 12/08/14 - 12/08/14 [facility] Outpatient Imaging [address] [id number]- [phone] Discharge Disposition: Home Attending Physician: Josué Garcia Vital Signs No data available for this [...]
--- OUTSIDE RECORDS SUMMARY | 2017-09-28 23:19 | XMS REPORT | Summary of Care ---
Author Organization Unknown Address Unknown Phone Unavailable Encounter GRU[facility] Koo(JERRI) [id number] Date(s): 10/08/14 - 10/08/[address] [address]- Discharge Disposition: Home Physician Attending: Sawyer Beal MD Physician_Referring: Sawyer Beal MD Vital Signs 1 2 3 Most recent to oldest [Reference Range]: 152.4 cm (10/07/14 2:27 PM) Height 122/58 mmHg (10/08/14 3:25 PM) 112/56 mmHg (10/08/14 3:15 PM) 132/59 mmHg (10/08/14 3:00 PM) Blood Pressure [90-140/60-90 mmHg] 16 BRMIN (10/08/14 3:25 PM) 15 BRMIN (10/08/14 3:15 PM) 14 BRMIN (10/08/14 3:00 PM) Respiratory Rate [14-20 BRMIN] 71 bpm (10/08/14 11:15 AM) Peripheral Pulse Rate [60-100 bpm] 58.182 kg (10/07/14 2:27 PM) Weight 25.05 m2 (10/07/14 2:27 PM) Body Mass Index Problem List Condition Effective Dates Status Health Status Informant Hypercholesterolemia Active (Confirmed) Rotator cuff Active tear(Confirmed) Allergies, Adverse Reactions, Alerts Substance Reaction Severity Status NKDA Active NKFA Active Medications acetaminophen 1,000 mg, 100 mL, Route: IVPB, Drug form: INJ, ONCE, Dosing Weight 58.182, kg, PRN Pain Score 1-3, Start date: 10/08/14 11:20:00, Duration: 1 doses or times, Stop date: Limited # of times Notes: Infuse over 15 minutesDo not exceed 4gm/day of acetaminophen MEDICATION WASTE Product Size: 1000 mgProduct Wasted: ___ mg Start Date: 10/08/14 Stop Date: 10/08/14 Status: Discontinued albuterol 0.083% inhalation solution 4.98 mg, 6 mL, Route: NEB, Drug form: SOLN, RQ8H, Dosing Weight 58.182, kg, PRN Wheezing, Start date: 10/08/14 11:20:00, Duration: 30 day, Stop date: 11/07/14 11:19:00 Notes: SEE RT DOCUMENTATION (Same as: Sana) Start Date: 10/08/14 Stop Date: 10/08/14 Status: Discontinued albuterol 0.083% inhalation solution 2.49 mg, 3 mL, Route: NEB, Drug form: SOLN, Q20Min, Dosing Weight 58.182, kg, PRN Wheezing, Priority: STAT, Start date: 10/08/14 11:20:00, Duration: 30 day, Stop date: 11/07/14 11:19:00 Notes: SEE RT DOCUMENTATION (Same as: Sana) Start Date: 10/08/14 Stop Date: 10/08/14 Status: Discontinued Ancef 2 gm, 100 mL, Route: IVPB, Drug form: INJ, ONCE, Dosing Weight 58.182, kg, Start date: 10/08/14 11:38:00, Duration: 1 doses or times, Stop date: 10/08/14 11:38:00 Notes: Same as: Ancef Start Date: 10/08/14 Stop Date: 10/08/14 Status: Completed flumazenil 0.2 mg, 2 mL, Route: IVP, Drug form: INJ, PRN, Dosing Weight 58.182, kg, PRN Benzodiazepine Reversal, Initial dose, Start date: 10/08/14 11:20:00, Duration: 30 day, Stop date: 11/07/14 11:19:00 Notes: (Same as: Romazicon) Start Date: 10/08/14 Stop Date: 10/08/14 Status: Discontinued hydrALAZINE 10 mg, 0.5 mL, Route: IVP, Drug form: INJ, Q20Min, Dosing Weight 58.182, kg, PRN Elevated BP, Start date: 10/08/14 11:20:00, Duration: 2 doses or times, Stop date: Limited # of times Notes: (Same as: Apresoline)Push over 5 minutes Start Date: 10/08/14 Stop Date: 10/08/14 Status: Discontinued hydromorphone 0.5 mg, 0.25 mL, Route: IVP, Drug form: INJ, Q5Min, Dosing Weight 58.182, kg, PRN Pain Score 7-10, Start date: 10/08/14 11:20:00, Duration: 4 doses or times, Stop date: Limited # of times Notes: (Same as: Dilaudid) Start Date: 10/08/14 Stop Date: 10/08/14 Status: Discontinued Lactated Ringers Injection IV 1,000 mL 1,000 mL, Rate: 25 ml/hr, Infuse over: 40 hr, Route: IV, Dosing Weight 58.182 kg , Total Volume: 1,000, Start date: 10/08/14 11:38:00, Duration: 30 day, Stop date: 11/07/14 11:37:00 Start Date: 10/08/14 Stop Date: 10/08/14 Status: Discontinued lidocaine 1% 0.5 mL, Route: INTRADERM, Dosing Weight 58.182, kg, ONCALL, Start date: 12:00:00, Duration: 1 doses or times Start Date: 10/08/14 Stop Date: 10/08/14 Status: Completed meperidine 12.5 mg, 0.25 mL, Route: IVP, Drug form: INJ, Q30Min, Dosing Weight 58.182, kg, PRN Other -See Comment, For shivering, Start date: 10/08/14 11:20:00, Duration: 2 doses or times, Stop date: Limited # of times Notes: (Same As: Demerol) Start Date: 10/08/14 Stop Date: 10/08/14 Status: Discontinued morphine Sulfate 2 mg, 0.25 mL, Route: IVP, Drug form: INJ, Q5Min, Dosing Weight 58.182, kg, PRN Pain Score 4-6, Start date: 10/08/14 11:20:00, Duration: 5 doses or times, Stop date: Limited # of times Notes: (Same as: MORPhine Sulfate) Start Date: 10/08/14 Stop Date: 10/08/14 Status: Discontinued naloxone 0.04 mg, 0.1 mL, Route: IVP, Drug form: INJ, Q2MIN, Dosing Weight 58.182, kg, PRN Narcotic Reversal, Start date: 10/08/14 11:20:00, Duration: 8 doses or times , Stop date: Limited # of times Notes: Same as Narcan Start Date: 10/08/14 Stop Date: 10/08/14 Status: Discontinued ondansetron 4 mg, 2 mL, Route: IVP, Drug form: INJ, ONCE, Dosing Weight 58.182, kg, PRN Nausea & Vomiting, Start date: 10/08/14 11:20:00 Notes: (Same as: Zofran) MEDICATION WASTE Product Size: 4 mgProduct Wasted: ___ mg Start Date: 10/08/14 Stop Date: 10/08/14 Status: Discontinued promethazine + Sodium Chloride 0.9% IV 50 mL 6.25 mg, 0.25 mL, Route: IVPB, ONCE, Dosing Weight 58.182, kg, PRN Nausea & Vomiting, Start date: 10/08/14 11:20:00 Notes: Do not give IV push. (Same as: Phenergan) Start Date: 10/08/14 Stop Date: 10/08/14 Status: Discontinued Vytorin 10 mg-20 mg oral tablet 1 tab, PO, Daily, # 30 tab, 0 Refill(s) Start Date: 10/07/14 Status: Ordered Results CHEM PANEL Most recent to 1 oldest [Reference Range]: Glucose Lvl [70-99 74 mg/dL 1 mg/dL] (10/07/14 3:23 PM) 1Interpretive Data: Adult reference range values reflect the clinical guidelines of the [place] [employer]. HEMATOLOGY Most recent to 1 oldest [Reference Range]: Hgb [12.0-16.0 g/dL] 12.7 g/dL (10/07/14 3:23 PM) Hct [36.0-48.0 %] 38.8 % (10/07/14 3:23 PM) Immunizations No data available for this section Procedures Procedure Date Related Diagnosis Body Site Miscellaneous operations1 1right shoulder surgery Social History Social History Type Response Smoking Status Never smoker; Exposure to Tobacco Smoke None; Cigarette Smoking Last 365 Days No; Reg Smoking Cessation Counseling Yes Assessment and Plan No data available for this section
--- OUTSIDE RECORDS SUMMARY | 2017-09-28 23:19 | XMS REPORT | Summary of Care ---
Author Organization Unknown Address Unknown Phone Unavailable Encounter [facility]ER[facility]) [id number] Date(s): 10/14/14 - 10/15/14 [id number] [place] [address]- Discharge Disposition: Home Physician Attending: Quirino Stuart MD Physician Admitting: Quirino Stuart MD Vital Signs 1 2 3 Most recent to oldest [Reference Range]: 152.4 cm (10/14/14 8:20 PM) 154.94 cm (10/14/14 12:23 PM) Height 98.1 DegF (10/15/14 4:38 PM) 98.5 DegF (10/15/14 12:28 PM) 99.4 DegF *HI* (10/15/14 7:57 AM) Temperature Oral [96.4-99.1 DegF] 130/84 mmHg (10/15/14 4:38 PM) 137/82 mmHg (10/15/14 3:26 PM) 126/79 mmHg (10/15/14 12:28 PM) Blood Pressure [90-140/60-90 mmHg] 18 BRMIN (10/15/14 4:38 PM) 20 BRMIN (10/15/14 3:26 PM) 18 BRMIN (10/15/14 12:28 PM) Respiratory Rate [14-20 BRMIN] 80 bpm (10/15/14 4:38 PM) 76 bpm (10/15/14 3:26 PM) 65 bpm (10/15/14 12:28 PM) Peripheral Pulse Rate [60-100 bpm] 58.1 kg (10/14/14 8:20 PM) 59.091 kg (10/14/14 12:23 PM) Weight 25.02 m2 (10/14/14 8:20 PM) 24.61 m2 (10/14/14 12:23 PM) Body Mass Index Problem List Condition Effective Dates Status Health Status Informant Hypercholesterolemia Active (Confirmed) Rotator cuff Active tear(Confirmed) Allergies, Adverse Reactions, Alerts Substance Reaction Severity Status NKDA Active NKFA Active Medications acetaminophen 650 mg, 2 tab, Route: PO, Drug form: TAB, Q4H, Dosing Weight 59.091, kg, PRN Pain 1-3/Temp > 100.4 F, Start date: 10/14/14 17:58:00, Duration: 30 day, Stop date: 11/13/14 17:57:00 Notes: Do not exceed 4 gm/day. (Same as: Tylenol) Start Date: 10/14/14 Stop Date: 10/15/14 Status: Discontinued acetaminophen-hydrocodone 325 mg-5 mg oral tablet 1 tab, Route: PO, Drug Form: TAB, Dosing Weight 59.091, kg, Q4H, PRN Pain Score 1-3, Start date: 10/14/14 17:58:00, Duration: 30 day, Stop date: 11/13/14 17:57: 00 Notes: (Same as: Crosby 325/5) Do not exceed 4gm/day of acetaminophen. Start Date: 10/14/14 Stop Date: 10/15/14 Status: Discontinued BD Normal Saline Flush 10 mL, Route: IV, Drug Form: INJ, PRN, PRN Line Flush, Start date: 10/14/14 19: 23:00, Duration: 30 day, Stop date: 11/13/14 19:22:00 Notes: (Same as: BD Posiflush) Start Date: 10/14/14 Stop Date: 10/15/14 Status: Discontinued BD Normal Saline Flush 5 mL, Route: IV, Drug Form: INJ, PRN, PRN Line Flush, Start date: 10/14/14 19:23 :00, Duration: 30 day, Stop date: 11/13/14 19:22:00 Notes: (Same as: BD Posiflush) Start Date: 10/14/14 Stop Date: 10/15/14 Status: Discontinued docusate 100 mg, 1 cap, Route: PO, Drug form: CAP, BID, Dosing Weight 59.091, kg, PRN Constipation, Start date: 10/14/14 17:58:00, Duration: 30 day, Stop date: 17:57:00 Notes: (Same as: Colace) (Do Not Crush) Start Date: 10/14/14 Stop Date: 10/15/14 Status: Discontinued enoxaparin 40 mg, 0.4 mL, Route: SUB-Q, Drug form: INJ, [id number], Dosing Weight 59.091, kg , Start date: 10/14/14 18:00:00, Duration: 30 day, Stop date: 11/12/14 18:00:00 Notes: (Same as: Lovenox) Start Date: 10/14/14 Stop Date: 10/15/14 Status: Discontinued ezetimibe-simvastatin 02/16 1 tab, Route: PO, Drug Form: TAB, Dosing Weight 59.091, kg, Daily, Start date: 10/15/14 9:00:00, Duration: 30 day, Stop date: 11/13/14 9:00:00 Start Date: 10/15/14 Stop Date: 10/14/14 Status: Deleted ondansetron 4 mg, 2 mL, Route: IVP, Drug form: INJ, Q4H, Dosing Weight 59.091, kg, PRN Nausea & Vomiting, Start date: 10/14/14 17:58:00, Duration: 30 day, Stop date: 11/13/14 17:57:00 Notes: (Same as: Zofran) MEDICATION WASTE Product Size: 4 mgProduct Wasted: ___ mg Start Date: 10/14/14 Stop Date: 10/15/14 Status: Discontinued Saline Flush 0.9% 10 ml, Route: IVP, Drug Form: INJ, Dosing Weight 59.091, kg, PRN, PRN Line Flush , Start date: 10/14/14 17:59:00, Duration: 30 day, Stop date: 11/13/14 17:58:00 Start Date: 10/14/14 Stop Date: 10/14/14 Status: Deleted Saline Flush 0.9% 10 ml, Route: IVP, Drug Form: INJ, Dosing Weight 59.091, kg, Q12H, Start date: 10/14/14 21:00:00, Duration: 30 day, Stop date: 11/13/14 9:00:00 Start Date: 10/14/14 Stop Date: 10/14/14 Status: Deleted Saline Flush 0.9% 10 mL, Route: IVP, Drug Form: INJ, Dosing Weight 59.091, kg, PRN, PRN Line Flush , Start date: 10/14/14 13:36:00, Duration: 30 day, Stop date: 11/13/14 13:35:00 Notes: (Same as: BD Posiflush) Start Date: 10/14/14 Stop Date: 10/14/14 Status: Discontinued Sodium Chloride 0.9% IV 25 mL, Route: IV, Start date: 10/14/14 19:23:00, Duration: 30 day, Stop date: 19:22:00, PRN Line Flush Start Date: 10/14/14 Stop Date: 10/15/14 Status: Discontinued Zetia 10 mg, 1 tab, Route: PO, Drug form: TAB, QPM, Start date: 10/15/14 17:00:00, Duration: 30 day, Stop date: 11/13/14 17:00:00 Notes: (Same as: Zetia) Start Date: 10/15/14 Stop Date: 10/15/14 Status: Discontinued Zocor 20 mg, 1 tab, Route: PO, Drug form: TAB, QPM, Start date: 10/15/14 17:00:00, Duration: 30 day, Stop date: 11/13/14 17:00:00 Notes: (Same as: Zocor) Start Date: 10/15/14 Stop Date: 10/15/14 Status: Discontinued Results ELECTROLYTES 1 2 3 Most recent to oldest [Reference Range]: 141 mEq/L (10/15/14 3:08 AM) 141 mEq/L (10/14/14 1:50 PM) Sodium Lvl [135-145 mEq/L] 3.7 mEq/L (10/15/14 3:08 AM) 3.4 mEq/L *LOW* (10/14/14 1:50 PM) Potassium Lvl [3.5-5.1 mEq/L] 108 mEq/L (10/15/14 3:08 AM) 106 mEq/L (10/14/14 1:50 PM) Chloride Lvl [95-109 mEq/L] 25 mEq/L (10/15/14 3:08 AM) 26 mEq/L (10/14/14 1:50 PM) CO2 [24-32 mEq/L] 11.7 mEq/L (10/15/14 3:08 AM) 12.4 mEq/L (10/14/14 1:50 PM) AGAP [10.0-20.0 mEq/L] CHEM PANEL 1 2 3 Most recent to oldest [Reference Range]: 0.6 mg/dL (10/15/14 3:08 AM) 0.6 mg/dL (10/14/14 1:50 PM) Creatinine Lvl [0.5-1.4 mg/dL] 98 mL/min/1.73m2 1 *NA* (10/15/14 3:08 AM) 98 mL/min/1.73m2 2 *NA* (10/14/14 1:50 PM) eGFR 21 mg/dL (10/15/14 3:08 AM) 23 mg/dL *HI* (10/14/14 1:50 PM) BUN [7-22 mg/dL] 38 *HI* (10/14/14 1:50 PM) B/C Ratio [6-25] 111 mg/dL 3 *HI* (10/15/14 3:08 AM) 110 mg/dL 4 *HI* (10/14/14 1:50 PM) Glucose Lvl [70-99 mg/dL] 7.9 g/dL (10/14/14 1:50 PM) Total Protein [6.4-8.4 g/dL] 4.0 g/dL (10/14/14 1:50 PM) Albumin Lvl [3.5-5.0 g/dL] 3.9 g/dL (10/14/14 1:50 PM) Globulin [2.0-4.0 g/dL] 1.0 (10/14/14 1:50 PM) A/G Ratio [0.7-1.6] 8.5 mg/dL (10/15/14 3:08 AM) 8.9 mg/dL (10/14/14 1:50 PM) Calcium Lvl [8.5-10.5 mg/dL] 2.3 mg/dL (10/15/14 3:08 AM) 2.2 mg/dL (10/14/14 1:50 PM) Magnesium Lvl [1.8-2.4 mg/dL] 53 unit/L (10/14/14 1:50 PM) ALT [0-65 unit/L] 46 unit/L *HI* (10/14/14 1:50 PM) AST [0-37 unit/L] 93 unit/L (10/14/14 1:50 PM) Alk Phos [39-136 unit/L] 0.4 mg/dL (10/14/14 1:50 PM) Bili Total [0.2-1.3 mg/dL] 1Result Comment: The eGFR is calculated using [...] should be multiplied by the estimated BMI. 2Result Comment: The eGFR is calculated using the [...] should be multiplied by the estimated BMI. 3Interpretive Data: Adult reference range values reflect the clinical guidelines of the [place] [employer]. 4Interpretive Data: Adult reference range values reflect the clinical guidelines of the [place] [employer]. CARDIAC ENZYMES 1 2 3 Most recent to oldest [Reference Range]: 61 unit/L (10/15/14 3:05 AM) 88 unit/L (10/14/14 1:50 PM) Total CK [12-191 unit/L] 0.7 ng/mL (10/14/14 1:50 PM) CK MB [0.5-3.6 ng/mL] 0.8 (10/14/14 1:50 PM) CK MB Index [0.0-2.5] <0.02 ng/mL (10/15/14 3:05 AM) <0.02 ng/mL (10/14/14 1:50 PM) Troponin-I [0.00-0.40 ng/mL] 22 pg/mL 5 (10/14/14 1:50 PM) BNP [<=100 pg/mL] 5Interpretive Data: Elevated results are in line with increasing severity of congestive heart failure. Minor elevations between 100 and 300 may be seen with Myocardial Ischemia, Sodium retaining drugs, and compensated/treated heart failure. URINE AND STOOL 1 2 3 Most recent to oldest [Reference Range]: Clear (10/14/14 1:50 PM) UA Turbidity [Clear] Colorless *NA* (10/14/14 1:50 PM) UA Color [Yellow] 7.0 (10/14/14 1:50 PM) UA pH [5.0-8.0] 1.005 (10/14/14 1:50 PM) UA Spec Grav [<=1.030] Negative mg/dL *NA* (10/14/14 1:50 PM) UA Glucose [Negative mg/dL] Negative (10/14/14 1:50 PM) UA Blood [Negative] Negative mg/dL *NA* (10/14/14 1:50 PM) UA Ketones [Negative mg/dL] Negative mg/dL (10/14/14 1:50 PM) UA Protein [Negative mg/dL] <=1.0 mg/dL *NA* (10/14/14 1:50 PM) UA Urobilinogen [0.1-1.0 mg/dL] Negative *NA* (10/14/14 1:50 PM) UA Bili [Negative] Trace *ABN* (10/14/14 1:50 PM) UA Leuk Est [Negative] Negative (10/14/14 1:50 PM) UA Nitrite [Negative] 3 /HPF (10/14/14 1:50 PM) UA WBC [0-5 /HPF] 1 /HPF (10/14/14 1:50 PM) UA RBC [0-2 /HPF] Few /HPF *NA* (10/14/14 1:50 PM) UA Bacteria [None Seen /HPF] Occasional /LPF *NA* (10/14/14 1:50 PM) UA Sq Epi [Few /LPF] HEMATOLOGY 1 2 3 Most recent to oldest [Reference Range]: 5.9 K/CMM (10/15/14 3:08 AM) 7.1 K/CMM (10/14/14 1:50 PM) WBC [3.7-10.4 K/CMM] 2.99 M/CMM *LOW* (10/15/14 3:08 AM) 3.38 M/CMM *LOW* (10/14/14 1:50 PM) RBC [4.20-5.40 M/CMM] 9.2 g/dL *LOW* (10/15/14 3:08 AM) 10.7 g/dL *LOW* (10/14/14 1:50 PM) Hgb [12.0-16.0 g/dL] 28.4 % *LOW* (10/15/14 3:08 AM) 31.9 % *LOW* (10/14/14 1:50 PM) Hct [36.0-48.0 %] 94.7 fL (10/15/14 3:08 AM) 94.4 fL (10/14/14 1:50 PM) MCV [80.0-98.0 fL] 30.9 pg (10/15/14 3:08 AM) 31.6 pg *HI* (10/14/14 1:50 PM) MCH [27.0-31.0 pg] 32.6 g/dL (10/15/14 3:08 AM) 33.5 g/dL (10/14/14 1:50 PM) MCHC [32.0-36.0 g/dL] 13.8 % (10/15/14 3:08 AM) 13.4 % (10/14/14 1:50 PM) RDW [11.5-14.5 %] 219 K/CMM (10/15/14 3:08 AM) 218 K/CMM (10/15/14 3:08 AM) 256 K/CMM (10/14/14 1:50 PM) Platelet [133-450 K/CMM] 9.8 fL (10/15/14 3:08 AM) 9.4 fL (10/14/14 1:50 PM) MPV [7.4-10.4 fL] 45.0 % (10/15/14 3:08 AM) 64.2 % (10/14/14 1:50 PM) Segs [45.0-75.0 %] 0.0 % (10/15/14 3:08 AM) Bands [0.0-11.0 %] 40.0 % (10/15/14 3:08 AM) 25.3 % (10/14/14 1:50 PM) Lymphocytes [20.0-40.0 %] 0.0 % (10/15/14 3:08 AM) Atypical Lymphs [<=0.0 %] 9.0 % (10/15/14 3:08 AM) 7.4 % (10/14/14 1:50 PM) Monocytes [2.0-12.0 %] 6.0 % *HI* (10/15/14 3:08 AM) 2.4 % (10/14/14 1:50 PM) Eosinophils [0.0-4.0 %] 0.7 % (10/14/14 1:50 PM) Basophils [0.0-1.0 %] 2.7 K/CMM (10/15/14 3:08 AM) 4.5 K/CMM (10/14/14 1:50 PM) Segs-Bands # [1.5-8.1 K/CMM] 2.4 K/CMM (10/15/14 3:08 AM) 1.8 K/CMM (10/14/14 1:50 PM) Lymphocytes # [1.0-5.5 K/CMM] 0.5 K/CMM (10/15/14 3:08 AM) 0.5 K/CMM (10/14/14 1:50 PM) Monocytes # [0.0-0.8 K/CMM] 0.4 K/CMM (10/15/14 3:08 AM) 0.2 K/CMM (10/14/14 1:50 PM) Eosinophils # [0.0-0.5 K/CMM] 0.0 K/CMM (10/14/14 1:50 PM) Basophils # [0.0-0.2 K/CMM] 1+ *ABN* (10/15/14 3:08 AM) 1+ *ABN* (10/14/14 1:50 PM) Macrocyte [None Seen] Moderate *ABN* (10/15/14 3:08 AM) Large Plt [None Seen] 12.3 seconds (10/14/14 1:50 PM) PT [12.0-14.7 seconds] 0.92 6 (10/14/14 1:50 PM) INR [0.85-1.17] 1.24 ug/mL FEU 7 *NA* (10/14/14 1:50 PM) D-Dimer 33.3 seconds 8 (10/15/14 3:08 AM) 20.6 seconds 9 *LOW* (10/14/14 1:50 PM) PTT [22.9-35.8 seconds] 6Interpretive Data: RECOMMENDED RANGES FOR PROTIME INR: 2.0-3.0 for most medical and surgical thromboembolic states. 2.5-3.5 for artificial heart valves and recurrent embolism. INR SHOULD BE USED ONLY FOR PATIENTS ON STABLE ANTICOAGULANT THERAPY. 7Interpretive Data: In DIC, quantitative D-Dimer is generally greater than 0.66 ug/mL FEU. Values of quantitative D-Dimer less than 0.40 ug/mL FEU have been reported to be associated with a low probability of deep vein thrombosis/pulmonary embolism. This test alone should not be used to rule out DVT/PE. 8Interpretive Data: Heparin Therapeutic Range: 57 - 92 Seconds 9Interpretive Data: Heparin Therapeutic Range: 57 - 92 Seconds Immunizations No data available for this section Procedures Procedure Date Related Diagnosis Body Site Miscellaneous operations1 1right shoulder surgery Social History Social History Type Response Smoking Status Never smoker; Exposure to Tobacco Smoke None; Cigarette Smoking Last 365 Days No; Reg Smoking Cessation Counseling Yes Assessment and Plan No data available for this section
[2017-09-29] MEDS ORDERED: NIFEDIPINE 10 MG CAP PO PRN (00:30)
[2017-09-29 00:45] LABS: BASOPHILS % 0.4 % (0.0-1.0); EOSINOPHILS # (AUTO) 0.4 (0.0-0.4); EOSINOPHILS % 5.5 % (0.0-6.0); HEMATOCRIT 41.3 % (34.2-44.1); LYMPHOCYTES # (AUTO) 2.3 (1.0-3.2); LYMPHOCYTES % 29.5 % (18.0-39.1); MEAN CORPUSCULAR HEMOGLOBIN 31.1 pg (28-32); MEAN CORPUSCULAR HGB CONC 33.9 g/dL (31-35); MEAN CORPUSCULAR VOLUME 91.8 fL (81-99); MONOCYTES % 12.6 % (4.4-11.3); NEUTROPHILS % 51.7 % (38.7-80.0); PLATELET COUNT 174 x10e3/uL (140-360); RED CELL DISTRIBUTION WIDTH 12.1 % (11.7-14.4)
[2017-09-29 01:04] LABS: ALANINE AMINOTRANSFERASE 56 IU/L (0-55); ALBUMIN 4.7 g/dL (3.5-5.0); ALBUMIN/GLOBULIN RATIO 1.4 (0.8-2.0); ALKALINE PHOSPHATASE 78 IU/L (40-150); ANION GAP 13.2 mmol/L (8-16); BLOOD UREA NITROGEN 10 mg/dL (7-26); BUN/CREATININE RATIO 14 (6-25); CALCIUM 10.2 mg/dL (8.4-10.2); CARBON DIOXIDE 28 mmol/L (22-29); CHLORIDE 98 mmol/L (98-107); CREATINE KINASE 86 IU/L (29-168); CREATININE, SERUM 0.74 mg/dL (0.57-1.11); EST GLOMERULAR FILTRATION RATE > 60 ML/MIN (60-); GLUCOSE 128 mg/dL (74-118); POTASSIUM 4.2 mmol/L (3.5-5.1); SODIUM 135 mmol/L (136-145)
--- NOTE | 2017-09-29 02:07 | Diagnostic Imaging Report ---
CHEST 2 VIEWS, Technique: CHEST 2 VIEWS Comparison: 09/24/2017 Clinical history: \S\HTN, TINGLING TO FACE \[id number] \S\0130 \S\Y DISCUSSION: Stable appearance of the heart, mediastinum, lungs and pleural spaces. Right humeral anchor screws again noted. IMPRESSION: No acute abnormality Signed by: Dr Carlotta Demarco MD on 09/29/2017 2:04 AM
[2017-09-29 02:58] VITALS: BP 132/76
[2017-09-29 12:46] LABS: INR 0.93; PARTIAL THROMBOPLASTIN TIME 25.4 seconds (23.8-35.5); PROTHROMBIN TIME 10.2 seconds (11.9-14.5)
== END 2017-09-29 03:10 | disposition home or self-care (01) ==
LOC: ER 23:15
DX: I10 Essential (primary) hypertension (principal); R51 Headache; R20.0 Anesthesia of skin
CPT/HCPCS: 36415; 71046; 80053; 82550; 82553; 84484; 85025; 85610; 85730; 99284

== ENCOUNTER → 2017-11-19 | Outpatient (CLI) | payer OTHER | LOC: MAMMO 08:16 | PROVIDERS: ATTEND Family Medicine | DX: Z12.31 Encounter for screening mammogram for malignant neoplasm of breast (principal) ==

== ENCOUNTER → 2017-12-14 | Outpatient (CLI) | payer OTHER ==
[~2017-12-14] MED LIST changes: +IOPAMIDOL 370 MG/ML 200 ML INFUS..BTL INJ ONE; +SODIUM CHLORIDE 0.9% 100 ML 100 ML ONE
[2017-12-14 10:32] LABS: BLOOD UREA NITROGEN 16 mg/dL (7-26); BUN/CREATININE RATIO 21 (6-25); CREATININE, SERUM 0.76 mg/dL (0.57-1.11); EST GLOMERULAR FILTRATION RATE > 60 ML/MIN (60-)
--- NOTE | 2017-12-14 13:16 | Diagnostic Imaging Report ---
PROCEDURE: CTA ABD/PEL/BILATERAL LOWER EXT RUNOFF W \T\ W/O CONTRAST COMPARISON:None. INDICATIONS:RIGHT LEG CLAUDICATION TECHNIQUE: Multi-detector CT technology with Dose Reduction was employed. Images were obtained after the administration of 100 cc of Isovue-370 intravenously. For optimization of anatomic evaluation, multiplanar and volume rendering reconstructions were performed. Advanced 3-D off-line postprocessing were performed on a dedicated stand-alone workstation under the direct supervision of the interpreting physician. FINDINGS: Abdominal aorta and iliac vessels: Scattered atherosclerotic changes are present throughout the abdominal aorta and bilateral lower extremity runoff. The superior mesenteric, inferior mesenteric, and celiac arteries are patent. Bilateral renal arteries are patent. The common, internal, and external iliac arteries are patent bilaterally. Femoral-popliteal and run off vessels: Right side: Occlusion of the right SFA just past its origin with a large profunda collateral reconstituting the SFA at the abductor canal. Patent popliteal artery and three-vessel runoff extending to the foot. Left side: The SFA is patent. Popliteal artery is patent. Anterior tibial and peroneal arteries extend to the foot. Posterior tibial artery occludes in the proximal calf. Abdominal and Pelvic soft-tissues and organs: Lung bases: No focal consolidation or parenchymal mass. No pleural effusion or pneumothorax Liver: Normal parenchyma. No focal mass. Two adjacent cysts are present in segment III-IV of the liver. Biliary: Normal gallbladder. No intrahepatic or extrahepatic biliary duct dilation. Spleen: No splenomegaly. No focal mass. Pancreas: Normal enhancement. No pancreatic duct dilation. No focal mass or peripancreatic soft tissue inflammatory changes. Adrenal Glands: No adrenal nodules. Kidneys: No obstructing calculi, hydronephrosis, or solid mass. GI: The stomach, small bowel and colon are unremarkable. No air-fluid levels. Normal appendix. A moderate amount of retained feces limits intraluminal evaluation of the colon. Peritoneum/Retroperitoneum: No pneumoperitoneum or free intraperitoneal fluid. No lymphadenopathy. No drainable fluid collection. Reproductive Organs: Normal. Musculoskeletal: No acute sclerotic or lucent lesion. Degenerative changes of the lumbar spine. Loose body in the right knee joint. CONCLUSION: 1. Occlusion of the left SFA with reconstitution distally by profunda collaterals. 2. Three vessel runoff extending to the right foot. 3. Patent left SFA with a two-vessel calf runoff and occlusion of the proximal posterior tibial artery. Karthik Nava D.O. Dictated by: Karthik Nava D.O. on 12/14/2017 at 13:22 Electronically approved by: Karthik Nava D.O. on 12/14/2017 at 13:22
== END ==
LOC: CT 09:40
PROVIDERS: ATTEND Surgery
DX: I73.9 Peripheral vascular disease, unspecified (principal)
CPT/HCPCS: 36415; 75635; 82565; 84520; Q9967

== ENCOUNTER → 2017-12-25 | Day surgery (SDC) | payer OTHER ==
[2017-12-24 13:14] LABS: BASOPHILS % 0.7 % (0.0-1.0); EOSINOPHILS # (AUTO) 0.4 (0.0-0.4); EOSINOPHILS % 6.7 % (0.0-6.0); HEMATOCRIT 37.1 % (34.2-44.1); HEMOGLOBIN 12.8 g/dL (12.0-16.0); LYMPHOCYTES # (AUTO) 2.7 (1.0-3.2); LYMPHOCYTES % 45.2 % (18.0-39.1); MEAN CORPUSCULAR HEMOGLOBIN 31.8 pg (28-32); MEAN CORPUSCULAR HGB CONC 34.5 g/dL (31-35); MEAN CORPUSCULAR VOLUME 92.3 fL (81-99); MONOCYTES # (AUTO) 0.6 (0.2-0.8); MONOCYTES % 9.7 % (4.4-11.3); NEUTROPHILS # (AUTO) 2.2 (2.1-6.9); NEUTROPHILS % 37.4 % (38.7-80.0); PLATELET COUNT 199 x10e3/uL (140-360); RED BLOOD COUNT 4.02 x10e6/uL (3.6-5.1); RED CELL DISTRIBUTION WIDTH 12.4 % (11.7-14.4)
[2017-12-24 13:33] LABS: ALANINE AMINOTRANSFERASE 44 IU/L (0-55); ALBUMIN 4.3 g/dL (3.5-5.0); ALBUMIN/GLOBULIN RATIO 1.2 (0.8-2.0); ALKALINE PHOSPHATASE 70 IU/L (40-150); ANION GAP 15.9 mmol/L (8-16); BLOOD UREA NITROGEN 14 mg/dL (7-26); BUN/CREATININE RATIO 18 (6-25); CALCIUM 10.6 mg/dL (8.4-10.2); CARBON DIOXIDE 29 mmol/L (22-29); CHLORIDE 98 mmol/L (98-107); CHOL/HDL RATIO 2.4 (3.0-3.6); CHOLESTEROL 163 MD/DL (0-199); CREATININE, SERUM 0.77 mg/dL (0.57-1.11); EST GLOMERULAR FILTRATION RATE > 60 ML/MIN (60-); GLUCOSE 94 mg/dL (74-118); HDL CHOLESTEROL 68 MG/DL (40-60); LDL CHOLESTEROL 70 MG/DL (60-130); POTASSIUM 3.9 mmol/L (3.5-5.1); SODIUM 139 mmol/L (136-145); TRIGLYCERIDES 127 MG/DL (0-149)
[~2017-12-25] VITALS: Ht 152.4 cm; Wt 60.8 kg
[2017-12-25] VITALS (17 sets, daily range): BP systolic 67–149; BP diastolic 38–76
[~2017-12-25] MED LIST changes: +ALPRAZOLAM 0.5 MG TAB ONE; +AMLODIPINE BESYL5 MG PO; +CARVEDILOL12.5 MG PO; +DIPHENHYDRAMINE HCL 25 MG CAP ONE; +FENTANYL CITRATE/PF 100MCG/2 ML INJ ONE; +FLUMAZENIL 0.5MG/ 5ML VIAL ONE; +HEPARIN SOD (PORCINE) 1000 UNIT/ML 30ML ONE; +HEPARIN SOD/SOD CHLORIDE 2,000 ML ONE; +HYDROCHLOROTHIA25 MG PO; +IOPAMIDOL 300MG/ML 100 ML INFUS..BTL IV ONE; -IOPAMIDOL 370 MG/ML 200 ML INFUS..BTL INJ ONE; +LIDOCAINE HCL 2% LOCAL 20 ML VIAL ONE; +METOPROLOL SUCC25 MG PO; +MIDAZOLAM HCL 2 MG/2 ML VIAL ONE; +NALOXONE HCL INJ 0.4 MG/ML AMP ONE; +NITROGLYCERIN/D5W 200 MCG/ML 250 ML ONE; +PROTAMINE SULFATE 10 MG/ML 5 ML VIAL ONE; -SODIUM CHLORIDE 0.9% 100 ML 100 ML ONE; +SODIUM CHLORIDE 0.9% 1000ML 1,000 ML ONE; +SODIUM CHLORIDE 0.9% 50ML 50 ML ONE; +VERAPAMIL HCL 2.5 MG/ML 2 ML VIAL ONE; +VYTORIN 10-201 EACH PO
--- OUTSIDE RECORDS SUMMARY | 2018-01-31 04:44 | XMS REPORT | Clinical Summary ---
Author Author [employer] [facility] [employer] Address Unknown Phone Unavailable Care Team Providers Care Ordnance Mechanic Name Role Phone Andrew Kahn MD PCP Allergies No Known Allergies Current Medications Prescription Sig. Disp. Refills Start End Date Status Date carvedilol (COREG) 6.25 Take 1 tablet (6.25 mg 60 tablet 3 10/15/19 11/14/19 MG tablet total) by mouth 2 (two) 18 18 times a day for 30 days. amLODIPine (NORVASC) 5 mg Take 1 tablet (5 mg 60 tablet 3 10/15/19 11/14/19 tablet total) by mouth 2 (two) 18 18 times a day for 30 days. hydroCHLOROthiazide Take 1 tablet (25 mg 30 tablet 0 10/15/19 (HYDRODIURIL) 25 MG total) by mouth daily for 18 18 tablet 30 days. ALPRAZolam (XANAX) 0.25 Take 1 tablet (0.25 mg 5 tablet 0 10/15/19 10/20/19 MG tablet total) by mouth nightly 18 18 as needed for anxiety for up to 5 days. Active Problems Problem Noted Date Chest pain 10/12/2017 Essential hypertension 10/12/2017 Mixed hyperlipidemia 10/12/2017 Encounters Date Type Specialty Care Team Description 10/14/2017 Patient Quality Nicol Madrigal RN Outreach 10/12/2017 Emergency General Internal Medicine Jose Yi Essential hypertension Piter Jones MD (Primary Dx); 10/14/2017 Ida Boyd Sr., Chest pain, unspecified MD type; Bradycardia; Anxiety; Other chest pain; Mixed hyperlipidemia after 12/24/2016 Social History Tobacco Use Types Packs/Day Years Used Date Never Smoker Smokeless Tobacco: Never Used Alcohol Use Drinks/Week oz/Week Comments No Sex Assigned at Date Recorded Not on file Last Filed Vital Signs Vital Sign Reading Time Taken Blood Pressure 109/55 10/14/2017 10:22 AM CDT Pulse 60 10/14/2017 10:22 AM CDT Temperature 36.2 C (97.1 F) 10/14/2017 10:22 AM CDT Respiratory Rate 18 10/14/2017 10:22 AM CDT Oxygen Saturation 98% 10/14/2017 10:22 AM CDT Inhaled Oxygen - - Concentration Weight - - Height - - Body Mass Index - - Plan of Treatment Health Maintenance Due Date Last Done Comments BREAST CANCER SCREENING 12/09/2001 COLON CANCER SCREENING 12/09/2001 SHINGRIX VACCINE (#1) 12/09/2001 ZOSTER VACCINE 2011 PNEUMOCOCCAL 12/09/2016 POLYSACCHARIDE VACCINE AGE 65 AND OVER PNEUMOCOCCAL-13 12/09/2016 INFLUENZA VACCINE 11/28/2017 Procedures Procedure Name Priority Date/Time Associated Diagnosis Comments ECG 12-LEAD STAT 10/14/2017 Results for this 10:15 AM CDT procedure are in the results section. MAGNESIUM LEVEL Routine 10/14/2017 Results for this 4:00 AM CDT procedure are in the results section. CORTISOL LEVEL, RANDOM Routine 10/14/2017 Results for this 4:00 AM CDT procedure are in the results section. ZZESTIMATED GFR Routine 10/14/2017 Results for this 4:00 AM CDT procedure are in the results section. BASIC METABOLIC PANEL Routine 10/14/2017 Results for this 4:00 AM CDT procedure are in the results section. HC COMPLETE BLD COUNT Routine 10/14/2017 Results for this W/AUTO DIFF 4:00 AM CDT procedure are in the results section. ECG 12-LEAD Routine 10/13/2017 Results for this 5:56 PM CDT procedure are in the results section. ECG 12-LEAD Routine 10/13/2017 Results for this 5:55 PM CDT procedure are in the results section. ECHOCARDIOGRAM 2D Routine 10/13/2017 Results for this COMPLETE W MMODE SPECTRAL 9:14 AM CDT procedure are in the COLOR DOPPLER ([id number]) results section. HC COMPLETE BLD COUNT Routine 10/13/2017 Results for this W/AUTO DIFF 6:00 AM CDT procedure are in the results section. CORTISOL LEVEL, AM Routine 10/13/2017 Results for this 4:00 AM CDT procedure are in the results section. ZZESTIMATED GFR Routine 10/13/2017 Results for this 4:00 AM CDT procedure are in the results section. T4, FREE Routine 10/13/2017 Results for this 4:00 AM CDT procedure are in the results section. THYROID STIMULATING Routine 10/13/2017 Results for this HORMONE 4:00 AM CDT procedure are in the results section. LIPID PANEL Routine 10/13/2017 Results for this 4:00 AM CDT procedure are in the results section. BASIC METABOLIC PANEL Routine 10/13/2017 Results for this 4:00 AM CDT procedure are in the results section. VMA AND HVA, URINE Routine 10/12/2017 Results for this 10:41 PM CDT procedure are in the results section. 17-KETOSTEROIDS, URINE Routine 10/12/2017 Results for this 10:41 PM CDT procedure are in the results section. US RENAL DOPPLER STAT 10/12/2017 Results for this 8:30 PM CDT procedure are in the results section. US RENAL STAT 10/12/2017 Results for this 8:30 PM CDT procedure are in the results section. TROPONIN STAT 10/12/2017 Results for this 6:57 PM CDT procedure are in the results section. XR CHEST 2 VW STAT 10/12/2017 Results for this 2:47 PM CDT procedure are in the results section. THYROID STIMULATING STAT 10/12/2017 Results for this HORMONE 2:17 PM CDT procedure are in the results section. T4, FREE STAT 10/12/2017 Results for this 2:17 PM CDT procedure are in the results section. ZZESTIMATED GFR STAT 10/12/2017 Results for this 2:17 PM CDT procedure are in the results section. B NATRIURETIC PEPTIDE STAT 10/12/2017 Results for this 2:17 PM CDT procedure are in the results section. TROPONIN STAT 10/12/2017 Results for this 2:17 PM CDT procedure are in the results section. COMPREHENSIVE METABOLIC STAT 10/12/2017 Results for this PANEL 2:17 PM CDT procedure are in the results section. HC COMPLETE BLD COUNT STAT 10/12/2017 Results for this W/AUTO DIFF 2:17 PM CDT procedure are in the results section. ECG 12-LEAD STAT 10/12/2017 Results for this 1:41 PM CDT procedure are in the results section. after 12/24/2016 Results * ECG 12 lead (10/14/2017 10:15 AM) Only the most recent of 4 results within the time period is included. Ventricular rate 62 [facility] Atrial rate 62 [facility] UT interval 142 [facility] QRSD interval 72 [facility] QT interval 420 [facility] QTC interval 426 [facility] P axis 1 -26 [facility] QRS axis 1 5 [facility] T wave axis 14 [facility] EKG impression Normal sinus [facility] MUSE rhythm-Nonspecific ST abnormality-Abnormal ECG-In automated comparison with ECG of 14-OCT-2017 10:13,-No significant change was found- Performing Organization Address City/[facility] Phone Number [facility] [address] [place] [address] * Estimated GFR (10/14/2017 4:00 AM) Only the most recent of 3 results within the time period is included. GFR Non Af Amer >90 mL/min/1.73 m2 [facility] DEPARTMENT OF PATHOLOGY AND GENOMIC MEDICINE GFR Af Amer >90 mL/min/1.73 m2 [facility] DEPARTMENT OF Comment: PATHOLOGY AND Chronic kidney disease: <60 GENOMIC MEDICINE mL/min/1.73m2 Kidney failure: <15 mL/min/1.73m2 The estimated GFR is calculated from the IDMS-traceable Modification of Diet in Renal Disease Equation. The accuracy of the calculation is poor when the creatinine is normal. Calculated values >90 mL/min/1.73m2 are not reported. This equation has not been validated in children (<18 years), women, the elderly (>70 years), or ethnic groups other than Caucasians and Americans. Specimen Plasma specimen Performing Organization Address City/[facility]ode Phone Number [facility] DEPARTMENT OF [address] [place] [address] PATHOLOGY AND GENOMIC MEDICINE * CBC with platelet and differential (10/14/2017 4:00 AM) Only the most recent of 3 results within the time period is included. WBC 6.73 4.50 - 11.00 k/uL [facility] DEPARTMENT OF PATHOLOGY AND GENOMIC MEDICINE RBC 4.23 4.20 - 5.50 m/uL [facility] DEPARTMENT OF PATHOLOGY AND GENOMIC MEDICINE HGB 13.2 12.0 - 16.0 g/dL [facility] DEPARTMENT OF PATHOLOGY AND GENOMIC MEDICINE HCT 38.8 37.0 - 47.0 % [facility] DEPARTMENT OF PATHOLOGY AND GENOMIC MEDICINE MCV 91.7 82.0 - 100.0 fL [facility] DEPARTMENT OF PATHOLOGY AND GENOMIC MEDICINE MCH 31.2 27.0 - 34.0 pg [facility] DEPARTMENT OF PATHOLOGY AND GENOMIC MEDICINE MCHC 34.0 31.0 - 37.0 g/dL [facility] DEPARTMENT OF PATHOLOGY AND GENOMIC MEDICINE RDW - SD 41.4 37.0 - 55.0 fL [facility] DEPARTMENT OF PATHOLOGY AND GENOMIC MEDICINE MPV 11.9 8.8 - 13.2 fL [facility] DEPARTMENT OF PATHOLOGY AND GENOMIC MEDICINE Platelet count 204 150 - 400 k/uL [facility] DEPARTMENT OF PATHOLOGY AND GENOMIC MEDICINE Nucleated RBC 0.00 /100 WBC [facility] DEPARTMENT OF PATHOLOGY AND GENOMIC MEDICINE Neutrophils 59.3 39.0 - 69.0 % [facility] DEPARTMENT OF PATHOLOGY AND GENOMIC MEDICINE Lymphocytes 30.8 25.0 - 45.0 % [facility] DEPARTMENT OF PATHOLOGY AND GENOMIC MEDICINE Monocytes 8.2 0.0 - 10.0 % [facility] DEPARTMENT OF PATHOLOGY AND GENOMIC MEDICINE Eosinophils 1.3 0.0 - 5.0 % [facility] DEPARTMENT OF PATHOLOGY AND GENOMIC MEDICINE Basophils 0.3 0.0 - 1.0 % [facility] DEPARTMENT OF PATHOLOGY AND GENOMIC MEDICINE Immature granulocytes 0.1Comment: "Immature 0.0 - 1.0 % [facility] DEPARTMENT OF granulocytes" (promyelocytes, PATHOLOGY AND myelocytes, metamyelocytes) GENOMIC MEDICINE Specimen Blood Performing Organization Address City/[facility] [place] [address] PATHOLOGY AND GENOMIC MEDICINE * Magnesium level (10/14/2017 4:00 AM) Magnesium 2.1 1.6 - 2.4 mg/dL [facility] DEPARTMENT OF PATHOLOGY AND GENOMIC MEDICINE Specimen Plasma specimen Narrative Performed At MG ADDED BY SOFI FRYE/Mau 10/14/2017 10:26 NA [facility] DEPARTMENT OF PATHOLOGY AND GENOMIC MEDICINE Performing Organization Address City/[facility]/[place] [address] PATHOLOGY AND GENOMIC MEDICINE * Cortisol level, random (10/14/2017 4:00 AM) Cortisol, random 6 ug/dL [facility] DEPARTMENT OF Comment: PATHOLOGY AND Reference Ranges are not GENOMIC MEDICINE established for non-timed Cortisol levels. Reference Range for Timed Cortisol: 6 - 10 AM 6 - 18 ug/dl 4 - 8 PM 3 - 11 ug/dl Specimen Plasma specimen Performing Organization Address [facility] [address] PATHOLOGY AND GENOMIC MEDICINE * Basic metabolic panel (10/14/2017 4:00 AM) Only the most recent of 2 results within the time period is included. Sodium 135 135 - 148 mEq/L [facility] DEPARTMENT OF PATHOLOGY AND GENOMIC MEDICINE Potassium 3.4 (L) 3.5 - 5.0 mEq/L [facility] DEPARTMENT OF PATHOLOGY AND GENOMIC MEDICINE Chloride 95 (L) 98 - 112 mEq/L [facility] DEPARTMENT OF PATHOLOGY AND GENOMIC MEDICINE CO2 23 (L) 24 - 31 mEq/L [facility] DEPARTMENT OF PATHOLOGY AND GENOMIC MEDICINE Anion gap 17@ANIO (H) 7 - 15 mEq/L [facility] DEPARTMENT OF PATHOLOGY AND GENOMIC MEDICINE BUN 17 8 - 23 mg/dL [facility] DEPARTMENT OF PATHOLOGY AND GENOMIC MEDICINE Creatinine 0.6 0.5 - 0.9 mg/dL [facility] DEPARTMENT OF PATHOLOGY AND GENOMIC MEDICINE Glucose 112 (H) 65 - 99 mg/dL [facility] DEPARTMENT OF PATHOLOGY AND GENOMIC MEDICINE Calcium 9.7 8.8 - 10.2 mg/dL [facility] DEPARTMENT OF PATHOLOGY AND GENOMIC MEDICINE Specimen Plasma specimen Performing Organization Address [facility] [place] [address] PATHOLOGY AND GENOMIC MEDICINE * Echocardiogram complete w contrast and 3D if needed (10/13/2017 9:14 AM) Narrative Performed At Echocardiography Report [facility] [address] [place] [address] Pat.Name: KRYSTA LEA Pat.ID: [id number] .Date: 10/13/2017 Refer.MD: IDA BOYD MD Exam Time: 8:35:00 AM Study Type:Routine Echo Height: 60in Weight: 135lb BSA: 1.58 m2 Age: 8 1950,66Y Sex: FEMALE BP: 132/58 HR: 48 bpm Sonogrphr: SUNDAY Garvin Pat. Stat.:Inpatient Room: [facility] Study Status:Final Echo Event ID:[id number] Order ID: [id number] Reason for Study:Chest Pain Procedures:2D Echo, Colorflow Doppler, Intravenous Definity Contrast Race: C SUMMARY: LV EF is normal. Overall wall motion is normal. Mild aortic regurgitation. FINDINGS: LV: LV size is normal. LV EF is normal. Overall wall motion is normal. Estimated EF is 55-59%. RV: RV size is normal. RV systolic function is normal. LA: LA size is normal. RA: RA size is normal. AO: Aortic root diameter is normal. KAY: No pericardial effusion. AV: No structural AV abnormalities noted. Mild aortic regurgitation. MV: No structural MV abnormalities noted. PV: Pulmonic valve not well seen. TV: No structural TV abnormalities noted. A trace of tricuspid regurgitation Prakash: LV relaxation is reduced, appropriate for age. LV filling pressure is normal. MEASUREMENTS: 2D Parasternal Long [place] LVOT 1.9 cm LA Ds 3.5 cm LVIDd 3.7 cm Index 2.4 cm/m Ao An 2.3 cm LVIDs 2.3 cm Ao Rtd 2.8 cm Index 1.8 cm/m LV%fs 37.8 % LV Mass 104.6 g (87-129) IVSd 1 cm LVM Index 66.2 g/m2 LVPWd 0.9 cm RWT 0.5 LA Sng Plane LA Area 16.7 cm2 (8.8-23.4) LA Vol 46.4 ml Index 29.4 ml/m LA LngAx 4.9 cm DOPPLER LVOT Stroke Vol LVOT 1.9 cm LVOT CO 3.3 l/min LVOT TVI 24.5 cm LVOT CI 2.1 l/m/m2 LVOT Tm 431 msec HR 47 bpm LVOT SV 69.5 ml Signed 10/13/2017 04:13 PM Anurag Valdes M.D. Procedure Note Interface, Radiology Results In - 10/13/2017 4:13 PM CDT Echocardiography Report [address] [place] [address] Pat.Name: KRYSTA LEA Pat.ID: [id number] .Date: 10/13/2017 Refer.MD: IDA BOYD MD Exam Time: 8:35:00 AM Study Type:Routine Echo Height: 60in Weight: 135lb BSA: 1.58 m2 Age: 8 1950,66Y Sex: FEMALE BP: 132/58 HR: 48 bpm Sonogrphr: SUNDAY Garvin Pat. Stat.:Inpatient Room: [facility] Study Status:Final Echo Event ID:[id number] Order ID: [id number] Reason for Study:Chest Pain Procedures:2D Echo, Colorflow Doppler, Intravenous Definity Contrast Race: C SUMMARY: LV EF is normal. Overall wall motion is normal. Mild aortic regurgitation. FINDINGS: LV: LV size is normal. LV EF is normal. Overall wall motion is normal. Estimated EF is 55-59%. RV: RV size is normal. RV systolic function is normal. LA: LA size is normal. RA: RA size is normal. AO: Aortic root diameter is normal. KAY: No pericardial effusion. AV: No structural AV abnormalities noted. Mild aortic regurgitation. MV: No structural MV abnormalities noted. PV: Pulmonic valve not well seen. TV: No structural TV abnormalities noted. A trace of tricuspid regurgitation Prakash: LV relaxation is reduced, appropriate for age. LV filling pressure is normal. MEASUREMENTS: 2D Parasternal Long [place] LVOT 1.9 cm LA Ds 3.5 cm LVIDd 3.7 cm Index 2.4 cm/m Ao An 2.3 cm LVIDs 2.3 cm Ao Rtd 2.8 cm Index 1.8 cm/m LV%fs 37.8 % LV Mass 104.6 g (87-129) IVSd 1 cm LVM Index 66.2 g/m2 LVPWd 0.9 cm RWT 0.5 LA Sng Plane LA Area 16.7 cm2 (8.8-23.4) LA Vol 46.4 ml Index 29.4 ml/m LA LngAx 4.9 cm DOPPLER LVOT Stroke Vol LVOT 1.9 cm LVOT CO 3.3 l/min LVOT TVI 24.5 cm LVOT CI 2.1 l/m/m2 LVOT Tm 431 msec HR 47 bpm LVOT SV 69.5 ml Signed 10/13/2017 04:13 PM Anurag Valdes M.D. Performing Organization Address City/[facility]/Zipcode Phone Number [facility] [address] [place] [address] * Cortisol level, AM (10/13/2017 4:00 AM) Cortisol, AM 12 6 - 18 ug/dL [facility] DEPARTMENT OF PATHOLOGY AND GENOMIC MEDICINE Specimen Plasma specimen Performing Organization Address City/[facility]/Zipcode Phone Number [facility] DEPARTMENT [address] [address] PATHOLOGY AND GENOMIC MEDICINE * Thyroid stimulating hormone (10/13/2017 4:00 AM) Only the most recent of 2 results within the time period is included. TSH 3.70 0.27 - 4.20 uIU/mL [facility] DEPARTMENT OF PATHOLOGY AND GENOMIC MEDICINE Specimen Plasma specimen Performing Organization Address City/[facility] [place] [address] PATHOLOGY AND GENOMIC MEDICINE * T4, free (10/13/2017 4:00 AM) Only the most recent of 2 results within the time period is included. T4, free 1.3 0.9 - 1.7 ng/dL [facility] DEPARTMENT OF PATHOLOGY AND GENOMIC MEDICINE Specimen Plasma specimen Performing Organization Address City/[facility] [place] [address] PATHOLOGY AND GENOMIC MEDICINE * Lipid panel (10/13/2017 4:00 AM) Cholesterol 191 <200 mg/dL [facility] DEPARTMENT OF PATHOLOGY AND GENOMIC MEDICINE Triglycerides 125 <150 mg/dL [facility] DEPARTMENT OF PATHOLOGY AND GENOMIC MEDICINE HDL cholesterol 72 >40 mg/dL [facility] DEPARTMENT OF PATHOLOGY AND GENOMIC MEDICINE LDL cholesterol 95Comment: Result obtained by <100 mg/dL [facility] DEPARTMENT OF direct LDL measurement PATHOLOGY AND GENOMIC MEDICINE Lipid panel SeeBelow [facility] DEPARTMENT OF interpretation Comment: PATHOLOGY AND Total Cholesterol GENOMIC MEDICINE (mg/dL) <200 Desirable 200-239 Borderline -high >=240 High Triglycerides (mg/dL) <150 Normal 150-199 Borderline -high 200-499 High >=500 Very high HDL Cholesterol (mg/dL) <40 Low (male) <40 Low (female) LDL Cholesterol (mg/dL) <100 Optimal 100-129 Near or above optimal 130-159 Borderline -high 160-189 High >=190 Very high Risk Catergories that modify LDL goals. Risk Catergories LDL goal (mg/dL) CHD and CHD risk equivalent <100 (10-year risk >20%) Multiple (2+) risk factors <130 (10-year risk=<20%) 0-1 risk factors <160 (<10-year risk) Defining levels of lipids in metabolic syndrome Triglycerides >=150 mg/dL HDL Cholesterol Men <40 mg/dL Women <40 mg/dL Non-HDL cholesterol is a second target for therapy in persons with high triglycerides (>=200 mg/dL) Specimen Plasma specimen Performing Organization Address City/State/Zipcode Phone Number [facility] DEPARTMENT OF [address] [place] [address] PATHOLOGY AND GENOMIC MEDICINE * VMA and HVA, urine (10/12/2017 10:41 PM) Collection length Random hr [facility] Comment: Corrected result; previously reported as RANDOM on 10/15/2017 at 09:09 by V/AUT Corrected result; previously reported as 2247 on 10/13/2017 at 00:17 by V/AUT Total volume, urine Random mL [facility] Comment: Corrected result; previously reported as RANDOM on 10/15/2017 at 09:09 by V/AUT Corrected result; previously reported as 120 on 10/13/2017 at 00:17 by V/AUT VMA, urine Not Applicable 0.0 - 7.0 mg/d [facility] HVA, urine Not Applicable 0.0 - 15.0 mg/d [facility] Creatinine, urine mg/dL 25 mg/dL [facility] Comment: Performed by [facility], [address] [place] [id number] [email or web address], Preet Shelton MD - Lab. Director Creatinine, urine mg/day Not Applicable 500 - 1400 mg/d [facility] VMA and HVA See Note [facility] interpretation Comment: INTERPRETIVE INFORMATION: VMA and HVA, Urine Vanillylmandelic acid (VMA) and homovanillic acid (HVA) results are expressed as a ratio to creatinine excretion (mg/g [employer]PER). VMA and HVA mass per day (mg/d) is not reported on specimens from patients younger than 18 years of age, for random specimens, urine collection periods other than 24 hours, or for urine volumes less than 400 mL/d. No reference interval is available for results reported in units of mg/L. Slight or moderate increases in catecholamine metabolites may be due to extreme anxiety, essential hypertension, intense physical exercise, or drug interactions. Significant increase of one or more catecholamine metabolites (several times the upper reference limit) is associated with an increased probability of a secreting neuroendocrine tumor. Test developed and characteristics determined by [facility]. See Compliance Statement B: I-MD/CS VMA, urine 2 0 - 6 mg/gCR [facility] Comment: REFERENCE INTERVAL: VMA, Urine mg/g GROUNDS KEEPER Access complete set of age- and/or gender-specific reference intervals for this test in the [facility] Test Directory ([facility]). HVA, urine 4 0 - 8 mg/gCR [facility] Comment: REFERENCE INTERVAL: HVA, Urine mg/g GROUNDS KEEPER Access complete set of age- and/or gender-specific reference intervals for this test in the [facility] Test Directory ([facility]). Performed by [facility], [address] [place] [address] [email or web address], Preet Shelton MD - Lab. Director Specimen Urine Performing Organization Address City/State/Zipcode Phone Number [facility] [address] [place] [address] * 17-Ketosteroids, urine (10/12/2017 10:41 PM) Collection length Random hr [facility] Comment: Corrected result; previously reported as RANDOM on 10/15/2017 at 09:09 by V/AUT Corrected result; previously reported as 2247 on 10/13/2017 at 00:17 by V/AUT Total volume, urine Random mL [facility] Comment: Corrected result; previously reported as RANDOM on 10/15/2017 at 09:09 by V/AUT Corrected result; previously reported as 120 on 10/13/2017 at 00:17 by V/AUT 17-ketosteroids mg/l <1.0 mg/L [facility] Comment: INTERPRETIVE INFORMATION: 17-Ketosteroids, Urine Reference intervals for random urine samples (mg/L)are not available. 17-ketosteroids mg/day Not Applicable 3.2 - 10.6 mg/d [facility] Comment: The optimal specimen for this test is a 24-hour urine collection. Mass per day calculations are only reported if the collection time is between 20 and 28 hours. Because the collection time is outside the optimal time interval we have not calculated the excretion rate per day. Please call Client Services at extension [phone] for recalculation if this information is incorrect. REFERENCE INTERVAL: 17-Ketosteroids - mg/day Access complete set of age- and/or gender-specific reference intervals for this test in the [facility] Test Directory ([facility]). Creatinine, urine mg/dL 25 mg/dL [facility] Comment: Performed by [facility], [address] [place] [address] [email or web address], Preet Shelton MD - Lab. Director Creatinine, urine mg/day Not Applicable 500 - 1400 mg/d [facility] Specimen Urine Performing Organization Address City/State/Zipcode Phone Number [facility] [address] [place] [address] * US Renal Doppler (10/12/2017 8:30 PM) Narrative Performed At EXAMINATION: US RENAL DOPPLER RADIANT CLINICAL HISTORY: HTN renal artery stenosis rule out TECHNIQUE: Examination includes a full duplex Doppler scan of the renal vessels (real-time B mode grayscale, Doppler spectral analysis, and Doppler color flow imaging). COMPARISON: None. FINDINGS: Abdominal aorta peak systolic velocity: 93 centimeters per second Main right renal artery peak systolic velocity: 100.6 centimeters per second. Ratio with abdominal aorta: 1.1 The left renal artery peak systolic velocity: 67.3 centimeters per second. Ratio with abdominal aorta: 0.7 Early systolic peaks: Present bilaterally. Main renal veins:Patent bilaterally. RIGHT kidney: Acceleration time: 0.04-0.05 seconds Acceleration index: 229.0-353.1 centimeters per second squared Resistive index: 0.62-0.74 LEFT kidney: Acceleration time: 0.03-0.05 seconds Acceleration index: 270.5-379.6 centimeters per second squared Resistive index: 0.71-0.73 IMPRESSION: No ultrasound findings of significant renal artery stenosis. [id number] Procedure Note Interface, Radiology Results Incoming - 10/12/2017 9:19 PM CDT EXAMINATION: US RENAL DOPPLER CLINICAL HISTORY: HTN renal artery stenosis rule out TECHNIQUE: Examination includes a full duplex Doppler scan of the renal vessels (real-time B mode grayscale, Doppler spectral analysis, and Doppler color flow imaging). COMPARISON: None. FINDINGS: Abdominal aorta peak systolic velocity: 93 centimeters per second Main right renal artery peak systolic velocity: 100.6 centimeters per second. Ratio with abdominal aorta: 1.1 The left renal artery peak systolic velocity: 67.3 centimeters per second. Ratio with abdominal aorta: 0.7 Early systolic peaks: Present bilaterally. Main renal veins:Patent bilaterally. RIGHT kidney: Acceleration time: 0.04-0.05 seconds Acceleration index: 229.0-353.1 centimeters per second squared Resistive index: 0.62-0.74 LEFT kidney: Acceleration time: 0.03-0.05 seconds Acceleration index: 270.5-379.6 centimeters per second squared Resistive index: 0.71-0.73 IMPRESSION: No ultrasound findings of significant renal artery stenosis. [id number] Performing Organization Address [facility] [place] [facility] [address] [place] [address] * US Renal (10/12/2017 8:30 PM) Narrative Performed At EXAMINATION: US RENAL [facility] CLINICAL HISTORY: HTN r o renal artery stenosis COMPARISON: None. FINDINGS: Ultrasound the kidneys and urinary bladder. The right kidney measures 10.2 x 4.0 x 4.4 cm with a cortical thickness of 1.1 cm. The left kidney measures 11.0 x 4.9 x 4.8 cm with a cortical thickness of 1.4 cm. Cortical echogenicity is within normal limits bilaterally. No stones or hydronephrosis bilaterally. No obvious renal mass. No perinephric fluid collections. Color flow detected to both kidneys. The urinary bladder is fluid-filled. IMPRESSION: No sonographic abnormality. [facility]-[id number] Procedure Note [facility], Radiology Results Incoming - 10/12/2017 9:16 PM CDT EXAMINATION: US RENAL CLINICAL HISTORY: HTN r o renal artery stenosis COMPARISON: None. FINDINGS: Ultrasound the kidneys and urinary bladder. The right kidney measures 10.2 x 4.0 x 4.4 cm with a cortical thickness of 1.1 cm. The left kidney measures 11.0 x 4.9 x 4.8 cm with a cortical thickness of 1.4 cm. Cortical echogenicity is within normal limits bilaterally. No stones or hydronephrosis bilaterally. No obvious renal mass. No perinephric fluid collections. Color flow detected to both kidneys. The urinary bladder is fluid-filled. IMPRESSION: No sonographic abnormality. [facility]-[id number] Performing Organization Address [facility] Phone Number [facility] [address] [place] [address] * Troponin (10/12/2017 6:57 PM) Only the most recent of 2 results within the time period is included. Troponin <0.30 0.00 - 0.30 ng/mL [facility] DEPARTMENT OF Comment: PATHOLOGY AND 0.30 - 1.49 GENOMIC MEDICINE ng/ml May indicate increased risk of acute coronary syndrome. >=1.5 ng/ml Consistent with acute myocardial infarction. The diagnostic value of a single normal or non-diagnostic result is questionable. Serial samples at 2-6 hour intervals are required to rule out acute myocardial injury. Specimen Plasma specimen Performing Organization Address City/[facility] Phone Number [facility] DEPARTMENT OF [address] [place] [phone] PATHOLOGY AND GENOMIC MEDICINE * XR Chest 2 Vw (10/12/2017 2:47 PM) Narrative Performed At EXAMINATION: XR CHEST 2 VW [facility] CLINICAL HISTORY: SHORTNESS OF BREATH COMPARISON: None. FINDINGS: Two views of the chest demonstrate normal cardiomediastinal silhouette. Pulmonary vasculature is within normal limits. Minimum left basilar platelike subsegmental atelectasis is seen. There is no evidence of consolidation or pleural effusion.. Regional osseous structures is unremarkable. IMPRESSION: Minimum left basilar platelike subsegmental atelectasis. No radiographic evidence of acute cardiopulmonary process or pneumonia. [id number] Procedure Note Interface, Radiology Results Incoming - 10/12/2017 2:52 PM CDT EXAMINATION: XR CHEST 2 VW CLINICAL HISTORY: SHORTNESS OF BREATH COMPARISON: None. FINDINGS: Two views of the chest demonstrate normal cardiomediastinal silhouette. Pulmonary vasculature is within normal limits. Minimum left basilar platelike subsegmental atelectasis is seen. There is no evidence of consolidation or pleural effusion.. Regional osseous structures is unremarkable. IMPRESSION: Minimum left basilar platelike subsegmental atelectasis. No radiographic evidence of acute cardiopulmonary process or pneumonia. [id number] Performing Organization Address City/[facility]/Zipcode Phone Number [facility] [address] [place] [address] * B natriuretic peptide (10/12/2017 2:17 PM) BNP 268 (H) 0 - 100 pg/mL [facility] DEPARTMENT OF PATHOLOGY AND GENOMIC MEDICINE Specimen Blood Performing Organization Address City/[facility]/Zipcode Phone Number [place] [phone] [place] [address] PATHOLOGY AND GENOMIC MEDICINE * Comprehensive metabolic panel (10/12/2017 2:17 PM) Sodium 137 135 - 148 mEq/L [facility] DEPARTMENT OF PATHOLOGY AND GENOMIC MEDICINE Potassium 4.1 3.5 - 5.0 mEq/L [facility] DEPARTMENT OF PATHOLOGY AND GENOMIC MEDICINE Chloride 100 98 - 112 mEq/L [facility] DEPARTMENT OF PATHOLOGY AND GENOMIC MEDICINE CO2 25 24 - 31 mEq/L [facility] DEPARTMENT OF PATHOLOGY AND GENOMIC MEDICINE Anion gap 12@ANIO 7 - 15 mEq/L [facility] DEPARTMENT OF PATHOLOGY AND GENOMIC MEDICINE BUN 12 8 - 23 mg/dL [facility] DEPARTMENT OF PATHOLOGY AND GENOMIC MEDICINE Creatinine 0.9 0.5 - 0.9 mg/dL [facility] DEPARTMENT OF PATHOLOGY AND GENOMIC MEDICINE Glucose 105 (H) 65 - 99 mg/dL [facility] DEPARTMENT OF PATHOLOGY AND GENOMIC MEDICINE Calcium 9.0 8.8 - 10.2 mg/dL [facility] DEPARTMENT OF PATHOLOGY AND GENOMIC MEDICINE Protein 6.7 6.3 - 8.3 g/dL [facility] DEPARTMENT OF Comment: PATHOLOGY AND GENOMIC MEDICINE 4.6-7.0 g/dL 1 week 4.4-7.6 g/dL 7 months-1year 5.1-7.3 g/dL 1-2 years 5.6-7 .5 g/dL >3 years 6.0-8 .0 g/dL 18-150 6.3-8.3 g/dL Albumin 3.7 3.5 - 5.0 g/dL [facility] DEPARTMENT OF PATHOLOGY AND GENOMIC MEDICINE A/G ratio 1.2 0.7 - 3.8 [facility] DEPARTMENT OF PATHOLOGY AND GENOMIC MEDICINE Alkaline phosphatase 66 35 - 104 U/L [facility] DEPARTMENT OF PATHOLOGY AND GENOMIC MEDICINE AST 72 (H) 10 - 35 U/L [facility] DEPARTMENT OF PATHOLOGY AND GENOMIC MEDICINE ALT 54 (H) 5 - 50 U/L [facility] DEPARTMENT OF PATHOLOGY AND GENOMIC MEDICINE Total bilirubin 0.3 0.0 - 1.2 mg/dL [facility] DEPARTMENT OF PATHOLOGY AND GENOMIC MEDICINE Specimen Plasma specimen Performing Organization Address City/State/Zipcode Phone Number [facility] DEPARTMENT [address] [place] [address] PATHOLOGY AND GENOMIC MEDICINE after 12/24/2016 Insurance Payer Benefit Subscriber ID Type Phone Address Plan / Group ABHINAV LA OPEN xxxxxxxxxxx O ACCESS/NET WORK
--- OUTSIDE RECORDS SUMMARY | 2018-01-31 04:45 | XMS REPORT | Continuity of Care Document ---
Author Author [facility] Organization [facility] Address [address] [place] [address] Phone Unavailable Care Team Providers Care Machinist Helper Name Role Phone MEGAN JEAN BAPTISTE PCP Insurance Providers Guarantor Krysta Lea Address [address] [place] [address] Email [email or web address] [facility] Policy Number [id number] Subscriber's Name Krysta Lea Relationship 18 Self / Same As Patient Group Number [id number] Group Name [facility] Effective Date 01 Advance Directives Directive Response Recorded Date/Time Does the patient have an advance directive? No 09/24/17 9:33pm If yes, is advance directive on file with [facility]? No 09/24/17 9:33pm If not on file with [facility] will patient provide a copy? Yes 09/29/17 4:18am Do you have a Directive to Physician? No 09/29/17 4:18am Do you have a Medical Power of Manager Cosmetic? No 09/29/17 4:18am Do you have an out of hospital Do Not Resuscitate Order? No 09/29/17 4:18am Do you have any special needs we should be aware of? No 09/29/17 4:18am Do you have a support person here with you today? Yes 09/29/17 4:18am Did patient receive Notice of Privacy Practices? Yes 09/29/17 4:18am Did patient receive patient rights and responsibilities? Yes 09/29/17 4:18am Problems No problem information available. Medications Current [...] No 09/24/2017 9:33pm Not Applicable Not Applicable Hospital Discharge Instructions No hospital discharge instruction information available. Plan of Care Discharge Date 09/29/17 3:10am Disposition HOME, SELF-CARE Condition at Discharge Stable Instructions/Education Provided Hypertension Forms Provided Work/School Excuse Prescriptions See Medication Section Additional Instructions/Education TAKE MEDICATION PRESCRIBED FOLLOW UP WITH YOUR DOCTOR NEXT WEEK Functional Status No functional status information available. Allergies, Adverse Reactions, Alerts No known allergies. Immunizations No immunization information available. Vital Signs Acute Vital Signs Vital Response Date/Time Temperature (Fahrenheit) 97.9 degrees F (97.6 - 99.5) 09/29/2017 2:58am Pulse Pulse Rate (adult) 76 bpm (60 - 90) 09/29/2017 2:58am Respiratory Rate 18 bpm (12 - 24) 09/29/2017 2:58am Blood Pressure 132/76 mm Hg 09/29/2017 2:58am Height 5 ft 0 in 09/28/2017 11:42pm Weight 133 lb 09/28/2017 11:42pm Body Mass Index 26.0 kg/m^2 09/28/2017 11:42pm Results Laboratory Results Test Name Result Units Flags Reference Collection Date/Time Result Date/ Time Comments Differential Total Cells Counted 100 09/24/2017 2:30pm 09/24/2017 4 :39pm Neutrophils % (Manual) 30 % L 40-74 09/24/2017 2:30pm 09/24/2017 4:39pm Lymphocytes % (Manual) 63 % H 19-48 09/24/2017 2:30pm 09/24/2017 4:39pm Monocytes % (Manual) 5 % 3.4-9.0 09/24/2017 2:30pm 09/24/2017 4:39pm Eosinophils % (Manual) 1 % 0-7 09/24/2017 2:3009/24/2017 4:39pm Reactive Lymphocytes 1 09/24/2017 2:09/24/2017 4:39pm Nucleated Red Blood Cells 1 09/24/2017 2:09/24/2017 4:39pm Platelet Estimate ADEQUATE 09/24/2017 2:30pm 09/24/2017 4:39pm Platelet Morphology Comment NORMAL 09/24/2017 2:30pm 09/24/2017 4: 39pm Red Cell Morphology Comment NORMAL 09/24/2017 2:30pm 09/24/2017 4: 39pm Prothrombin Time 13.1 seconds 11.9-14.5 09/24/2017 2:3009/24/2017 3: 18pm Prothromb Time International Ratio 1.07 [...] CLEAR CLEAR 09/24/2017 2:09/24/2017 3:14pm Urine Specific [place] 1.010 1.010-1.025 09/24/2017 2:2017 3:14pm Urine pH [...] Mucus FEW H RARE 09/24/2017 2:09/24/2017 3:31pm Magnesium Level 2.2 MG/DL H 1.3-2.1 09/25/2017 6:10am 09/25/2017 7:11am Triglycerides Level 108 MG/DL 0-149 09/25/2017 6:10a09/25/2017 7: 11am Cholesterol Level 166 MD/DL 0-199 09/25/2017 6:09/25/2017 7:11am Less than 200 mg/dL Low Risk 201 - 239 mg/dL Borderline Risk 240 mg/dl and greater High Risk LDL Cholesterol 74 MG/DL 60-130 09/25/2017 6:10a09/25/2017 7:11am HDL Cholesterol 70 MG/DL H 40-60 09/25/2017 6:10a09/25/2017 7:11am Cholesterol/HDL Ratio 2.4 L 3.0-3.6 09/25/2017 6:10a09/25/2017 7: 11am White Blood Count 7.76 x10e3/uL 4.8-10.8 09/29/2017 12:26am 09/29/2017 12:50am Red Blood Count 4.50 x10e6/uL 3.6-5.1 09/29/2017 12:26am 09/29/2017 12: 50am Hemoglobin 14.0 g/dL 12.0-16.0 09/29/2017 12:09/29/2017 12:50am Hematocrit 41.3 % 34.2-44.1 09/29/2017 12:09/29/2017 12:50am Mean Corpuscular Volume 91.8 fL 81-99 09/29/2017 12:09/29/2017 12: 50am Mean Corpuscular Hemoglobin 31.1 pg 28-32 09/29/2017 12:2017 12:50am Mean Corpuscular Hemoglobin Concent 33.9 g/dL 31-35 09/29/2017 12:09/29/2017 12:50am Red Cell Distribution Width 12.1 % 11.7-14.4 09/29/2017 12:2017 12:50am Platelet Count 174 x10e3/uL 140-360 09/29/2017 12:09/29/2017 12: 50am Neutrophils (%) (Auto) 51.7 % 38.7-80.0 09/29/2017 12:09/29/2017 12:50am Lymphocytes (%) (Auto) 29.5 % 18.0-39.1 09/29/2017 12:09/29/2017 12:50am Monocytes (%) (Auto) 12.6 % H 4.4-11.3 09/29/2017 12:09/29/2017 12 :50am Eosinophils (%) (Auto) 5.5 % 0.0-6.0 09/29/2017 12:09/29/2017 12: 50am Basophils (%) (Auto) 0.4 % 0.0-1.0 09/29/2017 12:09/29/2017 12: 50am IM GRANULOCYTES % 0.3 % 0.0-1.0 09/29/2017 12:09/29/2017 12:50am Neutrophils # (Auto) 4.0 2.1-6.9 09/29/2017 12:09/29/2017 12: 50am Lymphocytes # (Auto) 2.3 1.0-3.2 09/29/2017 12:09/29/2017 12: 50am Monocytes # (Auto) 1.0 H 0.2-0.8 09/29/2017 12:09/29/2017 12: 50am Eosinophils # (Auto) 0.4 0.0-0.4 09/29/2017 12:09/29/2017 12: 50am Basophils # (Auto) 0.0 0.0-0.1 09/29/2017 12:09/29/2017 12:50am Absolute Immature Granulocyte (auto 0.02 x10e3/uL 0-0.1 09/29/2017 12: 09/29/2017 12:50am Sodium Level 135 mmol/L L 136-145 09/29/2017 12:09/29/2017 1:12am Potassium Level 4.2 mmol/L 3.5-5.1 09/29/2017 12:09/29/2017 1: 12am Chloride Level 98 mmol/L 98-107 09/29/2017 12:09/29/2017 1:12am Carbon Dioxide Level 28 mmol/L 22-29 09/29/2017 12:09/29/2017 1: 12am Anion Gap 13.2 mmol/L 8-16 09/29/2017 12:09/29/2017 1:12am Blood Urea Nitrogen 10 mg/dL 7-09/29/2017 12:09/29/2017 1:12am Creatinine 0.74 mg/dL 0.57-1.11 09/29/2017 12:09/29/2017 1:12am BUN/Creatinine Ratio 14 6-25 09/29/2017 12:09/29/2017 1:12am Estimat Glomerular Filtration Rate > 60 ML/MIN 60- 09/29/2017 12:09/29/2017 1:12am Ranges were taken from the National Kidney Disease Education Program and the National Kidney Foundation literature. Reference ranges: 60 or greater: Normal 16-59 (for 3 consecutive months): Chronic kidney disease 15 or less: Kidney failure Glucose Level 128 mg/dL H 74-118 09/29/2017 12:09/29/2017 1:12am Calcium Level 10.2 mg/dL 8.4-10.2 09/29/2017 12:09/29/2017 1:12am Total Bilirubin 0.8 mg/dL 0.2-1.2 09/29/2017 12:09/29/2017 1:12am Aspartate Amino Transf (AST/SGOT) 54 IU/L H 5-34 09/29/2017 12:05/2017 1:12am Alanine Aminotransferase (ALT/SGPT) 56 IU/L H 0-55 09/29/2017 12: 1:12am Total Protein 8.1 g/dL 6.5-8.1 09/29/2017 12:09/29/2017 1:12am Albumin 4.7 g/dL 3.5-5.0 09/29/2017 12:09/29/2017 1:12am Globulin 3.4 g/dL 2.3-3.5 09/29/2017 12:09/29/2017 1:12am Albumin/Globulin Ratio 1.4 0.8-2.0 09/29/2017 12:09/29/2017 1: 12am Alkaline Phosphatase 78 IU/L 40-150 09/29/2017 12:09/29/2017 1: 12am Creatine Kinase 86 IU/L 29-168 09/29/2017 12:09/29/2017 1:12am Creatine Kinase MB 2.30 ng/mL 0-5.0 09/29/2017 12:09/29/2017 1: 12am Troponin I < 0.001 ng/mL 0-0.300 09/29/2017 12:09/29/2017 1:12am Procedures Procedure Status Date Provider(s) Computed tomography of brain without radiopaque contrast Active 09/24/17 SHARON RHOADES NP Magnetic resonance imaging of brain without contrast Active 09/25/17 YAO MCKENZIE MD X-ray of chest, two views Active 09/29/17 HUGH CABELLO MD Encounters Encounter Location Arrival/Admit Date Discharge/Depart Date Attending Provider Departed Emergency Room [facility] 09/28/17 11:15pm 09/29 3:10am HUGH CABELLO MD Discharged Inpatient (obs) [facility] 09/24/17 6:56pm 8:05am FRAN MARTINEZ MD Registered Clinic [facility] 02/15/17 11:45am MEGAN JEAN BAPTISTE
--- NOTE | 2018-02-01 14:44 | Operative Report ---
DATE OF PROCEDURE: December 25, 2017 INDICATIONS: Peripheral arterial disease. PROCEDURES PERFORMED: 1. Abdominal aortogram. 2. Bilateral lower extremity angiograms. 3. Deployment of left groin Mynx. Access obtained in the left femoral artery. 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 Attempts to cross the right superficial femoral artery chronic total occlusion failed despite multiple attempts. Ultrasound-guided access was then obtained in the right anterior tibial artery. Retrograde dissection was performed. However, we were unable to recannulate the femoral artery. The patient's left groin was repaired using Mynx. She was referred to vascular surgery for fem/pop bypass. Job#: [id number]
== END | disposition home or self-care (01) ==
LOC: CATH LAB 12:49
PROVIDERS: ATTEND Internal Medicine
DX: I70.203 Unspecified atherosclerosis of native arteries of extremities, bilateral legs (principal); I70.92 Chronic total occlusion of artery of the extremities
CPT/HCPCS: 36415; 37224; 75716; 80053; 80061; 85025; C1769 ×3; C1887; J1644; J2001; J2250; J2720; J7030; Q9967; J2310

== ENCOUNTER → 2018-03-22 | Outpatient (CLI) | payer OTHER ==
[~2018-03-22] MED LIST changes: -ALPRAZOLAM 0.5 MG TAB ONE; -DIPHENHYDRAMINE HCL 25 MG CAP ONE; -FENTANYL CITRATE/PF 100MCG/2 ML INJ ONE; -FLUMAZENIL 0.5MG/ 5ML VIAL ONE; -HEPARIN SOD (PORCINE) 1000 UNIT/ML 30ML ONE; -HEPARIN SOD/SOD CHLORIDE 2,000 ML ONE; -IOPAMIDOL 300MG/ML 100 ML INFUS..BTL IV ONE; -LIDOCAINE HCL 2% LOCAL 20 ML VIAL ONE; -MIDAZOLAM HCL 2 MG/2 ML VIAL ONE; -NALOXONE HCL INJ 0.4 MG/ML AMP ONE; -NITROGLYCERIN/D5W 200 MCG/ML 250 ML ONE; -PROTAMINE SULFATE 10 MG/ML 5 ML VIAL ONE; -SODIUM CHLORIDE 0.9% 1000ML 1,000 ML ONE; -SODIUM CHLORIDE 0.9% 50ML 50 ML ONE; -VERAPAMIL HCL 2.5 MG/ML 2 ML VIAL ONE
--- NOTE | 2018-03-22 14:29 | Diagnostic Imaging Report ---
EXAM: Renal Duplex Ultrasound INDICATION: Hypertensive urgency. Renal artery stenosis? COMPARISON: None TECHNIQUE: Color Doppler and waveform spectral analysis were obtained of the right and left kidneys. FINDINGS: Examination is somewhat limited due to lack of visualization of the distal aorta, proximal right renal artery and left renal artery at the ostium due to shadowing from overlying gas. Aorta PSV = 89.2 cm/sec maximally at the level of the celiac artery/SMA Right Kidney: 10.9 cm in length. Main renal artery PSV: Proximal = not measured Mid = 28.3 cm/sec Distal = 40 cm/sec Intrarenal (segmental or interlobar) arteries: Acceleration time: Normal Resistive index: Normal RA PSV/aorta PSV ratio (RAR) = 0.54 Left Kidney: 11.2 cm in length. Main renal artery PSV: Proximal = 61.5 cm/sec Mid = 56.2 cm/sec Distal = 48.1 cm/sec Intrarenal (segmental or interlobar) arteries: Acceleration time: Normal Resistive index: Normal RA PSV/aorta PSV ratio (RAR) = 0.69 Main Renal Veins: Flow Present Incidental note is made of a mildly complex septated left hepatic lobe cyst measuring 2.8 x 1.5 x 2.3 cm. IMPRESSION: No sonographic evidence of renal artery stenosis or renal thrombosis. Signed by: Dr. Nicolas Enriquez M.D. on 03/22/2018 2:25 PM
== END ==
LOC: US 10:19
PROVIDERS: ATTEND Internal Medicine Interventional Cardiology
DX: I10 Essential (primary) hypertension (principal)
CPT/HCPCS: 93976

== ENCOUNTER → 2018-03-28 | Outpatient (CLI) | payer OTHER ==
--- NOTE | 2018-04-04 08:21 | Diagnostic Imaging Report ---
#[id number] - [id number] #BILATERAL DIGITAL SCREENING MAMMOGRAM WITH CAD: 03/28/2018 CLINICAL: Routine screening. Comparison is made to exams dated: 02/15/2017 mammogram and 02/05/2015 mammogram - [facility]. Current study contains 4 films. The tissue of both breasts is predominantly fatty. Current study was also evaluated with a Computer Aided Detection (CAD) system. There is a benign calcification in the left breast. No significant masses, calcifications, or other findings are seen in either breast. There has been no significant interval change. IMPRESSION: BENIGN There is no mammographic evidence of malignancy. A 1 year screening mammogram is recommended. The patient will be notified by letter of the results. Karthik mcdermott/valerie:04/03/2018 12:48:33 Hamper Maker: Emily MOSLEY)(Jn), [facility] letter sent: Compared to Prior B9 Mammogram BI-RADS: 2 Benign
== END ==
LOC: MAMMO 14:04
PROVIDERS: ATTEND Family Medicine
DX: Z12.31 Encounter for screening mammogram for malignant neoplasm of breast (principal)
CPT/HCPCS: 77067

== ENCOUNTER → 2019-04-09 | Outpatient (CLI) | payer OTHER | LOC: MAMMO 14:13 | PROVIDERS: ATTEND Family Medicine | DX: Z12.31 Encounter for screening mammogram for malignant neoplasm of breast (principal) | CPT/HCPCS: 77067 ==

== ENCOUNTER 2020-03-02 15:24 | Observation (INO) | payer MEDICARE, OTHER ==
[~2020-03-02] VITALS: Ht 152.4 cm; Wt 63.5 kg
[2020-03-02] MEDS ORDERED: ASPIRIN 81 MG CHEW TAB PO ONE (15:45)
--- NOTE | 2020-03-02 15:47 | NUR ---
PATIENT EVALUATED BY DR. ESPARZA PRIOR TO GOING TO CT HEAD SCAN
--- NOTE | 2020-03-02 16:15 | Emergency Department Note ---
History of Present Illnes History of Present Illness Chief Complaint: Neurological History of Present Illness This is a 69 year old female sent to the ED from [facility] for bilateral lower extremity paresthesias. Patient states she is having some weakness in upper and lower extremities that began several hours ago. Patient states symptoms are partially resolved. Chief Complaint Comment 2 1/2 HRS AGO BEGAN HAVING INTERMITTENT NUMBNESS AND TINGLING TO HER FACE ARMS AND LEGS ALONG WITH WEAKNESS. HER TOOK HER TO DR. SEE OFFICE AND THEY SENT HERHERE. PATIENT AMBULATED IN TO ER. 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 Any updates have been documented here. Past Medical History Recent Fever: No Clinical Suspicion of Infectio: No New/Unexplained Change in Ment: No Past Medical History: Hypertension, Hyperlipedemia Other Medical History: CHOLESTEROL PAD Past Surgical History: Appendectomy, Hysterectomy Other Surgery: RIGHT SHOULDER LIPO FEM POP BYPASS Social History Smoking Cessation: Never Smoker Counseling Performed: No Alcohol Use: None Any Illegal Drug Use: No Physically hurt or threatened: No Other Last Tetanus: 08/07/2012 Any Pre-Existing Lines (PICC,: No Review of Systems Review of Systems Constitutional: Reports no symptoms, Reports weakness EENTM: Reports no symptoms Cardiovascular: Reports no symptoms Respiratory: Reports no symptoms Gastrointestinal: Reports no symptoms Genitourinary: Reports no symptoms Musculoskeletal: Reports no symptoms Integumentary: Reports no symptoms Neurological: Reports as per HPI, Reports paresthesia Psychological: Reports no symptoms Endocrine: Reports no symptoms Hematological/Lymphatic: Reports no symptoms Physical Exam Related Data Allergies: Coded Allergies: No Known Allergies (Unverified , 09/24/17) Triage Vital Signs Vital Signs Date Time Temp Pulse Resp B/P (MAP) Pulse Ox O2 Delivery O2 Flow Rate FiO2 03/02/20 15:37 98.7 50 18 180/62 100 Room Air Vital signs reviewed: Yes Physical Exam CONSTITUTIONAL Constitutional: Present well-developed, Present well-nourished HENT HENT: Present normocephalic, Present atraumatic, Present oropharynx clear/moist, Present nose normal HENT L/R: Present left ext ear normal, Present right ext ear normal EYES Eyes: Reports PERRL, Reports conjunctivae normal NECK Neck: Present ROM normal PULMONARY Pulmonary: Present effort normal, Present breath sounds normal CARDIOVASCULAR Cardiovascular: Present regular rhythm, Present heart sounds normal, Present capillary refill normal, Present normal rate GASTROINTESTINAL Abdominal: Present soft, Present nontender, Present bowel sounds normal GENITOURINARY Genitourinary: Present exam deferred SKIN Skin: Present warm, Present dry MUSCULOSKELETAL Musculoskeletal: Present ROM normal NEUROLOGICAL Neurological: Present alert, Present oriented x 3, Present no gross motor or sensory deficits PSYCHOLOGICAL Psychological: Present mood/affect normal, Present judgement normal Results Laboratory Lab results reviewed: Yes Imaging Imaging results reviewed: Yes Assessment & Plan Medical Decision Making MDM 61-year-old female arrived to the ED with nonspecific paresthesias to bilateral lower extremities. Concerns of possible CVA versus TIA. Patient admitted for further workup and management. 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 03/03/20 Reported Medications Carvedilol (CARVEDILOL) 12.5 Mg Tablet, 6.25 MG PO BID, #60 TAB 12/24/17 Ezetimibe/Simvastatin (VYTORIN 10-20 MG TABLET) 1 Each Tablet, 1 TAB PO 12/24/17 Discontinued Reported Medications Potassium Chloride (POTASSIUM CHLORIDE) 10 Meq Tab.er.prt, 50 MEQ PO BID, TAB 03/03/20 Amlodipine Besylate (AMLODIPINE BESYLATE) 5 Mg Tablet, 5 MG PO BID, #30 TAB 12/24/17 Hydrochlorothiazide (HYDROCHLOROTHIAZIDE) 25 Mg Tablet, 25 MG PO DAILY, #30 TAB 12/24/17 Medications in the ED Aspirin 81 mg PRN ONCE PO ; Start 03/02/20 at 15:45; Stop 03/02/20 at 15:46; Status DC RISHI ESPARZA DO Mar 02, 2020 16:20
--- NOTE | 2020-03-02 16:26 | Diagnostic Imaging Report ---
Examination: CT head without contrast Clinical Indication: ^Y ^CVA ^[id number] ^1530. Technique: Transaxial noncontrast images from the skull base through the vertex were obtained. Sagittal and coronal reformatted images were done. Dose modulation, iterative reconstruction, and/or weight based adjustment of the mA/kV was utilized to reduce the radiation dose to as low as reasonably achievable. Comparison: Brain MRI dated 09/25/[address] dated 09/24/2017. Findings: Scalp: No abnormalities. Bones: Intact. No fractures. No blastic or lytic lesions. Brain sulci: Appropriate for patient's age. Ventricles: Normal in size and configuration. No hydrocephalus. . Extra-axial space: No abnormalities. Parenchyma: There are patchy areas of low-attenuation within subcortical and periventricular white matter, nonspecific, but could represent microvascular ischemic disease. No masses, hemorrhage, or acute or chronic cortical based vascular insults. Suprasellar region: No abnormalities. Craniocervical junction: The foramen magnum is patent. No Chiari one malformation. Impression: 1. No acute intracranial finding when compared to prior head CT dated 09/24/2017. 2. Mild chronic microvascular ischemic change. Signed by: Dr. Sherry Hicks M.D. on 03/02/2020 4:23 PM
--- NOTE | 2020-03-02 16:30 | NUR ---
IV STICKS X 2, UNSUCCESFUL. PATIENT REFUSING ANOTHER IV. HER BP IS 180'S. DR. ESPARZA AWARE AND SPOKE WITH BURAK AND TOLD HER PRESSURE RUNS HIGH
--- NOTE | 2020-03-02 16:40 | NUR ---
LAB AT BEDSIDE OBTAINING BLOOD
[2020-03-02 16:52] LABS: BASOPHILS % 0.4 % (0.0-1.0); EOSINOPHILS # (AUTO) 0.3 (0.0-0.4); EOSINOPHILS % 4.1 % (0.0-6.0); LYMPHOCYTES # (AUTO) 2.2 (1.0-3.2); LYMPHOCYTES % 28.7 % (18.0-39.1); MEAN CORPUSCULAR HEMOGLOBIN 31.3 pg (28-32); MEAN CORPUSCULAR HGB CONC 33.3 g/dL (31-35); MONOCYTES # (AUTO) 0.8 (0.2-0.8); MONOCYTES % 10.8 % (4.4-11.3); NEUTROPHILS # (AUTO) 4.2 (2.1-6.9); NEUTROPHILS % 55.7 % (38.7-80.0); PLATELET COUNT 175 x10e3/uL (140-360); RED BLOOD COUNT 3.83 x10e6/uL (3.6-5.1); RED CELL DISTRIBUTION WIDTH 12.4 % (11.7-14.4)
[2020-03-02 17:02] LABS: INR 0.94; PROTHROMBIN TIME 13.1 seconds (11.9-14.5)
[2020-03-02 17:04] LABS: BILIRUBIN,URINE NEGATIVE (NEGATIVE); CLARITY,URINE CLEAR (CLEAR); COLOR,URINE YELLOW (YELLOW); KETONES,URINE NEGATIVE (NEGATIVE); LEUKOCYTE ESTERASE ,URINE NEGATIVE (NEGATIVE); NITRITE,URINE NEGATIVE (NEGATIVE); PROTEIN,URINE DIPSTICK NEGATIVE (NEGATIVE); URINE UROBILINOGEN 0.2 mg/dL (0.2 - 1)
[2020-03-02 17:11] LABS: ALANINE AMINOTRANSFERASE 39 IU/L (0-55); ALBUMIN 4.4 g/dL (3.5-5.0); ALBUMIN/GLOBULIN RATIO 1.4 (0.8-2.0); ALKALINE PHOSPHATASE 72 IU/L (40-150); ANION GAP 14.3 mmol/L (8-16); BLOOD UREA NITROGEN 22 mg/dL (7-26); BUN/CREATININE RATIO 26 (6-25); CALCIUM 9.2 mg/dL (8.4-10.2); CARBON DIOXIDE 28 mmol/L (22-29); CHLORIDE 98 mmol/L (98-107); CREATINE KINASE 187 IU/L (29-168); CREATININE, SERUM 0.85 mg/dL (0.57-1.11); EST GLOMERULAR FILTRATION RATE > 60 ML/MIN (60-); GLUCOSE 112 mg/dL (74-118); POTASSIUM 4.3 mmol/L (3.5-5.1); SODIUM 136 mmol/L (136-145)
[2020-03-02 17:20] LABS: EPITHELIAL CELLS,URINE RARE /LPF; RBC,URINE 0-5 /HPF (0-5)
[2020-03-02 17:21] LABS: MUCUS,URINE FEW (RARE)
--- NOTE | 2020-03-02 18:10 | NUR ---
Patient arrived on floor via wheelchair, no apparent distress, pt oriented with the room, pt denies pain 0/10.
[2020-03-02 18:23] VITALS: BP 161/63
--- NOTE | 2020-03-02 19:16 | NUR ---
Report given to on coming nurse. Pt lying in bed semi-fowlers and no apparent distress. Pt denies pain 0/10.
[2020-03-02 20:00] VITALS: BP 135/67
[2020-03-02] MEDS ORDERED: ONDANSETRON HCL INJ 2MG/ML 2ML 2 MG/ML VIAL IV PRN (20:00)
[2020-03-02] MEDS ORDERED: HYDRALAZINE HCL 20 MG/ML VIAL IV PRN (20:00)
[2020-03-02] MEDS ORDERED: ACETAMINOPHEN 325 MG TAB PO PRN (20:00)
[2020-03-02 20:10] VITALS: BP 150/63
--- NOTE | 2020-03-02 20:10 | NUR ---
As per the request from radiology tried to reach [facility] regarding MRI stat.but could not.call placed to [facility] regarding mri stat .told ok to do in the morning.
[2020-03-02] MEDS ORDERED: EZETIMIBE 10 MG TAB PO SCH (21:00)
[2020-03-02] MEDS ORDERED: SIMVASTATIN 20 MG TAB PO SCH (21:00)
--- NOTE | 2020-03-02 21:25 | NUR ---
Admission assessment done.aaox4.no resp.distress noted.no pain voiced.tele #[address]iv to right forarm is patent.bed locked and in lowest position.phone and call light within reach.instructed to call for assistance as needed.
[2020-03-02 22:04] VITALS: BP 135/67
[2020-03-02 22:32] VITALS: BP 135/67
[2020-03-03] VITALS (9 sets, daily range): BP systolic 129–150; BP diastolic 59–70
--- NOTE | 2020-03-03 00:09 | NUR ---
Blood sanford and sent to the lab for cardiac markers.patient tolerated well.
[2020-03-03 00:32] LABS: CREATINE KINASE MB 2.2 ng/mL (0-5.0)
[2020-03-03] MEDS ORDERED: POTASSIUM CHLO10 ME1 PO (01:12)
--- NOTE | 2020-03-03 06:09 | NUR ---
CONSULTS NOTIFIED TO .
[2020-03-03 06:46] LABS: CHOL/HDL RATIO 2.5 (3.0-3.6)
[2020-03-03 06:55] LABS: CREATINE KINASE MB 1.8 ng/mL (0-5.0)
--- NOTE | 2020-03-03 07:00 | Diagnostic Imaging Report ---
EXAMINATION: CHEST SINGLE (PORTABLE) INDICATION: ^Y ^cva ^[id number] ^1530 COMPARISON: 09/29/2017 FINDINGS: AP view TUBES and LINES: None. LUNGS: Lungs are well inflated. Mild left basilar haziness. Mild central vascular congestion. Unchanged right upper lung field tiny nodular density, likely a calcified granuloma. PLEURA: No pleural effusion or pneumothorax. HEART AND MEDIASTINUM: The cardiomediastinal silhouette is unremarkable. BONES AND SOFT TISSUES: No acute osseous lesion. Right humeral head anchor screws and lucency are again seen. Soft tissues are unremarkable. UPPER ABDOMEN: No free air under the diaphragm. IMPRESSION: Mild left basilar haziness, could represent prominent cardiac fat-pad or lingular atelectasis/scarring. Less likely to represent pneumonia. Mild central vascular congestion. Signed by: Dr. Abdirashid Chacon MD on 03/03/2020 6:57 AM
[2020-03-03] MEDS ORDERED: AMLODIPINE BESYLATE 5 MG TAB PO SCH (09:00)
[2020-03-03] MEDS ORDERED: CARVEDILOL 12.5 MG TAB PO SCH (09:00)
[2020-03-03] MEDS ORDERED: HYDROCHLOROTHIAZIDE 25 MG TAB PO SCH (09:00)
[2020-03-03] MEDS ORDERED: ATIVAN0.5 MG PO (09:08)
[2020-03-03] MEDS ORDERED: ESIDRIX25 MG PO (09:08)
[2020-03-03] MEDS: FAMOTIDINE 20 MG TAB PO SCH ×2 (10:31→16:23)
[2020-03-03] MEDS ORDERED: LORAZEPAM INJ 2 MG/ML VIAL IV PRN (11:00)
--- NOTE | 2020-03-03 11:54 | NUR ---
tele removed for mri
--- NOTE | 2020-03-03 12:10 | NUR ---
Discontinuing PT services since patient is independent in functional mobility. Thank you Addendum: 03/03/20 at 1211 by Huy broderick PT Amended: Links added.
--- NOTE | 2020-03-03 12:21 | Consultation ---
DATE OF CONSULTATION: 03/03/2020 Cardiac consultation note REASON FOR CONSULT: Weakness, dizziness, and possible TIA. CHIEF COMPLAINT: Weakness, dizziness, numbness and tingling around mouth. HISTORY OF PRESENT ILLNESS: The patient is a 69-year-old female, no prior cardiovascular issues, hypertension, and PAD who presents with episode at home of generalized weakness, dizziness, and numbness and tingling around her face and mouth. Denies any loss of consciousness or fall or trauma. No previous history of cardiovascular issues. Denies any palpitations. REVIEW OF SYSTEMS: No fevers, chills, or cough. SOCIAL HISTORY: Does not smoke, drink, or abuse drugs. FAMILY HISTORY: Noncontributory. OUTPATIENT MEDICATIONS: Reviewed. ALLERGIES: NO KNOWN DRUG ALLERGIES. PHYSICAL EXAMINATION: VITAL SIGNS: Temperature afebrile, pulse 57, respiratory rate 20, blood pressure 142/61, and saturating 98% on room air. GENERAL: A well-developed, well-nourished, no acute distress. CARDIOVASCULAR: Regular rate and rhythm. No murmurs, rubs, or gallops. LUNGS: Clear to auscultation anteriorly. ABDOMEN: Soft, nontender, nondistended. NEURO AND PSYCH: Alert, oriented to person, place, and time. Normal affect. INPATIENT MEDICATIONS: Reviewed. LABORATORY DATA: Reviewed. Troponins were negative. TELEMETRY: The telemetry data was personally reviewed and interpreted by me demonstrates sinus bradycardia, heart rates in the 45 range, improves with activity to about 70-75. IMAGING DATA: Reviewed. Carotid Dopplers and echocardiogram are essentially normal. CT head showed no acute findings. MRI brain is pending. ASSESSMENT: 1. Bradycardia. 2. Presyncope. 3. Possible transient ischemic attack. 4. Hypertension. 5. Hyperlipidemia. PLAN: We will change her carvedilol over to amlodipine to help avoid any bradycardia issues. MRI of the brain is pending. Echo so far did not show any major abnormalities and carotid Dopplers did not show any significant stenoses. If MRI brain is suspicious for any embolic strokes, we will consider performing a SHRUTHI. Otherwise, continue current cardiovascular medications. Thank you for this consult. We will continue to follow. MD LAUREN ChoudhuryP/MODNagi /[id number]
--- NOTE | 2020-03-03 14:45 | Diagnostic Imaging Report ---
Examination: MRI BRAIN WO CONTRAST History: Weakness Comparison studies: Head CT performed March 02, 2020 Technique: Sagittal T2; axial DWI, FLAIR, GRE or SWI, T1, Coronal FLAIR. Intravenous contrast: None Findings: Significant motion artifact on several sequences. Scalp: No abnormal signal. No masses. Bone marrow: Normal in signal intensity. Brain volume: Adequate for age. No volume loss. Ventricles: Normal in size and configuration. No hydrocephalus. Extra-axial spaces: No abnormalities. Parenchyma: There are patchy and punctate areas of T2/FLAIR hyperintensity in the periventricular and subcortical white matter, nonspecific. No masses, hemorrhage, or acute vascular insults. Suprasellar and sellar region: No abnormalities. Craniocervical junction: No abnormalities. The foramen magnum is patent. No Chiari malformations. Vessels: Normal flow-voids in the arteries and sinuses. Additional findings:None. IMPRESSION: Despite limitation, no acute intracranial abnormalities. Chronic microvascular ischemic change. Signed by: Dr. Sherry Hicks M.D. on 03/03/2020 2:42 PM
[2020-03-04] MEDS ORDERED: AMLODIPINE BESYLATE 5 MG TAB PO SCH (09:00)
--- OUTSIDE RECORDS SUMMARY | 2020-03-04 19:06 | XMS REPORT | Clinical Summary ---
Author Author [facility] Address Unknown Phone Unavailable Care Team Providers Care Boat Outfitting Supervisor Name Role Phone PCP Unavailable Allergies No Known Allergies Medications End Date Status Medication Sig Dispensed Refills Start Date Active ezetimibe-simvastatin Take 1 tablet 3 11/05/19 1 (VYTORIN) 10-20 mg per by mouth 8 tablet daily. Active ALPRAZolam (XANAX) 0.25 Take 0.25 mg 0 10/14/ 201 MG tablet by mouth 8 daily as needed for ANXIETY. Active carvedilol (COREG) 6.25 Take 6.25 mg 4 12/11/ 201 MG tablet by mouth 2 8 (two) times daily. Active hydroCHLOROthiazide Take 25 mg by 0 (HYDRODIURIL) 25 MG mouth daily. tablet Active amLODIPine (NORVASC) 5 MG Take 5 mg by 2 /0 /201 tablet mouth daily. 8 Active omega-3 acid ethyl esters Take 2 3 /0 (LOVAZA) 1 gram capsule capsules by 8 mouth 2 (two) times daily. Active potassium chloride SA Take 20 mEq 0 01/13/20 1 (K-DUR,KLOR-CON) 20 MEQ by mouth 8 tablet daily. 05/29/2019 gabapentin (NEURONTIN) Take 1 120 capsule 0 300 MG capsule capsule (300 9 mg total) by mouth nightly May increase to BID after a week or two if there is no improvement. Active Problems Problem Noted Date PVD (peripheral vascular disease) with claudication 01/21/2018 Social History Date Tobacco Use Types Packs/Day Years Used Never Smoker Smokeless Tobacco: Never Used Tobacco Cessation: Counseling Given: No Drinks/Week oz/Week Comments Alcohol Use No Sex Assigned at Date Recorded Not on file Last Filed Vital Signs Not on file Plan of Treatment Health Maintenance Due Date Last Done Comments BREAST CANCER SCREENING 1950 COLON CANCER SCREENING 1950 COLONOSCOPY PNEUMOCOCCAL 65+ YRS (1 12/09/2016 of 1 - [id number]) INFLUENZA VACCINE (#1) 2019 Implants Device Identifier Shelf Expiration Date Model / Serial / L ot Implanted Type Area Manufactur er [id number] / / [id number] Surgcel 2x14in Lf Strl - Cement/Tyrone Right: Leg J [id number] ler/Adhesi &J:ETHICON Implanted: Qty: 1 on 01/21/2018 by Sheree Olivas MD at [facility] [id number] 08/02/2021 [id number] / [id number] / Grft Eptfe-Heparin Rng 2km30vf Graft/Patc Right: Leg WL GORE & [id number] - [id number] ASSC:MED Implanted: Qty: 1 on 01/21/2018 by Sheree Perez MD at [facility] Results Not on fileafter 03/02/2019 Insurance Type Payer Benefit Subscriber ID Effective Phone Address Plan / Dates Group HMO/POS CIGNA - MGD CARE CIGNA [id number] 2017-P HMO/POS/OP resent EN ACCESS Advance Directives For more information, please contact: [phone] Date Inactivated Comments Code Status Date Activated 01/24/2018 5:18 PM Full Code 01/21/2018 4:24 PM This code status was determined by: Patient 01/21/2018 4:24 PM Full Code 01/21/2018 9:00 AM This code status was determined by: Patient
--- OUTSIDE RECORDS SUMMARY | 2020-03-04 19:06 | XMS REPORT | Clinical Summary ---
Author Author [facility] Address Unknown Phone Unavailable Care Team Providers Care Passenger Service Manager Name Role Phone Alexis Kahn MD PCP Allergies No Known Active Allergies Medications No known medications Active Problems Problem Noted Date Chest pain 10/12/2017 Essential hypertension 10/12/2017 Mixed hyperlipidemia 10/12/2017 Medical History Medical History Date Comments Hypertension HLD (hyperlipidemia) Social History Date Tobacco Use Types Packs/Day Years Used Never Smoker Smokeless Tobacco: Never Used Drinks/Week oz/Week Comments Alcohol Use No Sex Assigned at Date Recorded Not on file Last Filed Vital Signs Not on file Plan of Treatment Health Maintenance Due Date Last Done Comments BREAST CANCER SCREENING 12/09/2001 COLONOSCOPY SCREENING 12/09/2001 SHINGLES VACCINES (#1) 12/09/2001 65+ PNEUMOCOCCAL VACCINE 12/09/2016 (1 of 1 - PPSV23) INFLUENZA VACCINE 11/29/2019 Results Not on fileafter 03/02/2019 Insurance Type Payer Benefit Subscriber ID Effective Phone Address Plan / Dates Group HMO CIGNA CIGNA OPEN [id number] 2005-P ACCESS/NET resent WORK Advance Directives For more information, please contact: [phone] 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
--- OUTSIDE RECORDS SUMMARY | 2020-03-04 19:06 | XMS REPORT | Continuity of Care Document ---
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 NEAR SYNCOPE, SOB Active 10/14/[address] [facility] Discharge Diagnosis: Atelectasis of right lung 10/09/2014 10/12/2014 [facility] CHEST DISCOMFRONT Active 10/08/2014 [facility] [id number], RIGHT SHOULDER ROTATO Active 10/06/[address] [facility] Hypercholesterolemia (disorder) Active Problem [facility] [place],[facility] [place],[facility] Rotator cuff syndrome (disorder) Active Problem [facility] [place],[facility] Day,[facility] Medications Medication Details Route Status Patient Instructions Ordering Provider Order Date Source Zocor Notes: (Same as: Zocor) Inactive 10/15/[address] [facility] Zetia Notes: (Same as: Francisco Javier) Inactive 10/15/[address] [facility] ezetimibe 10 MG / Simvastatin 20 MG Oral Tablet 1 tab, Route: PO, Drug Form: TAB, Dosing Weight 59.091, kg, Daily, Start date: 10/15/14 9:00:00, Duration: 30 day, Stop date: 11/13/14 9:00:00 No Longer Active 10/15/[address] [facility] Saline Flush 0.9% 10 ml, Route : IVP, Drug Form: INJ, Dosing Weight 59.091, kg, Q12H, Start date: 10/14/14 21:00:00, Duration: 30 day, Stop date: 11/13/14 9:00:00 Inactive 10/15/[address] [facility] Sodium Chloride 0.9% IV 25 mL, Route: IV, Start date: 10/14/14 19:23:00, Duration: 30 day, Stop date: 11/13/14 19:22:00, PRN Line Flush No Longer Active 10/15/[address] [facility] BD Normal Saline Flush Notes: (Same as: BD Posiflush) No Longer Active 10/15/[address] [facility] Enoxaparin Notes: (Same as: Lo venox) No Longer Active 10/14/[address] [facility] Saline Flush 0.9% 10 ml, Route : IVP, Drug Form: INJ, Dosing Weight 59.091, kg, PRN, PRN Line Flush, Start date: 10/14/14 17:59:00, Duration: 30 day, Stop date: 11/13/14 17:58:00 Inactive 10/14/[address] [facility] Docusate Notes: (Same as: Cola ce) (Do Not Crush) No Longer Active 10/14/[address] [facility] Ondansetron Notes: (Same as: Radha abdi) MEDICATION WASTE Product Size: 4 mg Product Wasted: ___ mg No Longer Active 10/14/[address] [facility] Acetaminophen 325 MG / Hydrocodone Bandar trate 5 MG Oral Tablet Notes: (Same as: [place] 325/5) Do not ex ceed 4gm/day of acetaminophen. No Longer Active 10/14/[address] [facility] Acetaminophen Notes: Do not ex ceed 4 gm/day. (Same as: Tylenol) No Longer Active 10/14/[address] [facility] Saline Flush 0.9% Notes: (Same as: BD Posiflush) Inactive 10/14/[address] [facility] Levofloxacin 750 MG Oral Tablet [Levaquin] 750 mg = 1 tab, PO, Q24H, X 7 day, # 7 tab, 0 Refill(s) Active 10/09/2014 [facility] Ativan 0.25 mg, Route: IVP, Dr ug form: INJ, ONCE, Dosing Weight 57.273, kg, Priority: STAT, Start date: 10/09/14 2:22:00, Stop date: 10/09/14 2:22:00 Inactive 10/09/2014 [facility] lidocaine 1% 0.5 mL, Route: IN TRADERM, Dosing Weight 58.182, kg, ONCALL, Start date: 10/08/14 12:00:00, Duration: 1 doses or times Inactive 10/08/[address] [facility] Calcium Chloride 0.0014 MEQ/ML / Potassi um Chloride 0.004 MEQ/ML / Sodium Chloride 0.103 MEQ/ML / Sodium Lactate 0.028 MEQ/ML Injectable Solution 1,000 mL, Rate: 25 ml/hr, Infuse over: 4 0 hr, Route: IV, Dosing Weight 58.182 kg, Total Volume: 1,000, Start date: 10/08/14 11:38:00, Duration: 30 day, Stop date: 11/07/14 11:37:00 Inactive 10/08/[address] [facility] Ancef Notes: Same as: Ancef Inactive 10/08/[address] [facility] Albuterol 0.83 MG/ML Inhalant Solution Notes: SEE RT DOCUMENTATION (Same as: Proventil) Inactive 10/08/[address] [facility] Ondansetron Notes: (Same as: Radha abdi) MEDICATION WASTE Product Size: 4 mg Product Wasted: ___ mg Inactive 10/08/[address] [facility] Promethazine Notes: Do not giv e IV push. (Same as: Phenergan) Inactive 10/08/[address] [facility] Naloxone Notes: Same as Narcan Inactive 10/08/[address] [facility] Flumazenil Notes: (Same as: Ro mazicon) Inactive 10/08/[address] [facility] Meperidine Notes: (Same As: De merol) Inactive 10/08/[address] [facility] Hydromorphone Notes: (Same as: Dilaudid) Inactive 10/08/[address] [facility] Morphine Notes: (Same as: MORP bhavana Sulfate) Inactive 10/08/[address] [facility] Acetaminophen Notes: Infuse ov er 15 minutes Do not exceed 4gm/day of acetaminophen MEDICATION WASTE Product Size: 1000 mg Product Wasted: ___ mg Inactive 10/08/[address] [facility] Hydralazine Notes: (Same as: A presoline) Push over 5 minutes Inactive 10/08/[address] [facility] ezetimibe 10 MG / Simvastatin 20 MG Oral Tablet [Vytorin 02/16] 1 tab, PO, Daily, # 30 tab, 0 Refill(s) Active 10/07/[address] [facility] Allergies, Adverse Reactions, Alerts Substance Category Reaction Severity Reaction type Status Date Reported Comments Source NKFA Assertion Drug allergy Active [facility] Immunizations No Data Provided for This Section Results Order Name Results Value Reference Range Date Interpretation Comments Source CHEM PANEL Magnesium Lvl 2.3 1.8 - 2.4 10/15/[address] [facility] ELECTROLYTES AGAP 11.7 10.0 - 20.0 10/15/[address] [facility] ELECTROLYTES Glucose Lvl 111 70 - 99 10/15/2014 <sup>3</sup>Interpretive Data: Adult ref erence range values reflect the clinical guidelines
of the [place] [employer]. [facility] ELECTROLYTES BUN 21 7 - 22 10/15/[address] [facility] ELECTROLYTES CO2 25 24 - 32 10/15/[address] [facility] ELECTROLYTES eGFR 98 10/15/2014 <sup>1</sup>Result Comment: The eGFR is calculated using the CKD-EPI formula. In most young, healthy individuals the eGFR will be >90 mL/min/1.73m2. The eGFR declines with age. An eGFR of 60-89 may be normal in some populations, particularly the elderly, for whom the CKD-EPI formula has not been extensively validated. Use of the eGFR is not recommended in the following populations:& lt;br/>
Individuals with unstable creatinine concentrations, including patients and those with serious co-morbid conditions.

Patients with extremes in muscle mass or diet.

The data above are obtained from the National Kidney Disease Education Program (NKDEP) which additionally recommends that when the eGFR is used in patients with extremes of body mass index for purposes of drug dosing, the eGFR should be multiplied by the estimated BMI. [facility] ELECTROLYTES Sodium Lvl 141 135 - 145 10/15/[address] [facility] ELECTROLYTES Calcium Lvl 8.5 8.5 - 10.5 10/15/[address] [facility] ELECTROLYTES Chloride Lvl 108 95 - 109 10/15/[address] [facility] ELECTROLYTES Potassium Lvl 3.7 3.5 - 5.1 10/15/[address] [facility] ELECTROLYTES Creatinine Lvl 0.6 0.5 - 1.4 10/15/2014 [facility] MCHC 32.6 32.0 - 36.0 10/15/2014 [facility] RDW 13.8 11.5 - 14.5 10/15/2014 [facility] Platelet 219 133 - 450 10/15/2014 [facility] MPV 9.8 7.4 - 10.4 10/15/2014 [facility] Hgb 9.2 12.0 - 16.0 10/15/2014 [facility] Hct 28.4 36.0 - 48.0 10/15/[address] [facility] HEMATOLOGY MCV 94.7 80.0 - 98.0 10/15/2014 [facility] MCH 30.9 27.0 - 31.0 10/15/[address] [facility] HEMATOLOGY WBC 5.9 3.7 - 10.4 10/15/2014 [facility] RBC 2.99 4.20 - 5.40 10/15/2014 [facility] PTT 33.3 22.9 - 35.8 10/15/2014 <sup>8</sup>Interpretive Data: Heparin T herapeutic Range: 57 - 92 Seconds [facility] Platelet 218 133 - 450 10/15/2014 [facility] Eosinophils # 0.4 0.0 - 0.5 10/15/2014 [facility] Segs-Bands # 2.7 1.5 - 8.1 10/15/2014 [facility] Lymphocytes # 2.4 1.0 - 5.5 10/15/2014 [facility] Monocytes # 0.5 0.0 - 0.8 10/15/2014 [facility] Large Plt Moder ate *ABN* (10/15/14 3:08 AM) None Seen 10/15/2014 [facility] Eosinophils 6.0 0.0 - 4.0 10/15/2014 [facility] Atypical Lymphs 0.0 <=0.0 % 10/15/2014 [facility] Macrocyte 1+ *ABN* (10/15/14 3:08 AM) None Seen 10/15/2014 [facility] Monocytes 9.0 2.0 - 12.0 10/15/[address] [facility] HEMATOLOGY Segs 45.0 45.0 - 75.0 10/15/[address] [facility] HEMATOLOGY Bands 0.0 0.0 - 11.0 10/15/[address] [facility] HEMATOLOGY Lymphocytes 40.0 20.0 - 40.0 10/15/[address] [facility] CARDIAC ENZYMES Total CK 61 12 - 191 10/15/[address] [facility] CARDIAC ENZYMES Troponin-I <0.02 0.00 - 0.40 10/15/[address] [facility] CARDIAC ENZYMES CK MB Index 0.8 0.0 - 2.5 10/14/[address] [facility] CARDIAC ENZYMES Troponin-I <0.02 0.00 - 0.40 10/14/[address] [facility] CARDIAC ENZYMES Total CK 88 12 - 191 10/14/[address] [facility] CARDIAC ENZYMES CK MB 0.7 0.5 - 3.6 10/14/[address] [facility] CARDIAC ENZYMES BNP 22 <=100 pg/mL 10/14/2014 <sup>5</sup>Interpretive Data: Elevated results are in line with increasing severity of
congestive heart failure. Minor elevations between 100 and 300
may be seen with Myocardial Ischemia, Sodium retaining drugs,
and compensated/treated heart failure. [facility] CHEM PANEL eGFR 98 10/14/2014 <sup>2</sup>Result Comment: The eGFR is calculated using the CKD-EPI formula. In most young, healthy individuals the eGFR will be >90 mL/min/1.73m2. The eGFR declines with age. An eGFR of 60-89 may be normal in some populations, particularly the elderly, for whom the CKD-EPI formula has not been extensively validated. Use of the eGFR is not recommended in the following populations:& lt;br/>
Individuals with unstable creatinine concentrations, including patients and those with serious co-morbid conditions.

Patients with extremes in muscle mass or diet.

The data above are obtained from the National Kidney Disease Education Program (NKDEP) which additionally recommends that when the eGFR is used in patients with extremes of body mass index for purposes of drug dosing, the eGFR should be multiplied by the estimated BMI. [facility] CHEM PANEL Chloride Lvl 106 95 - 109 10/14/[address] [facility] CHEM PANEL Creatinine Lvl 0.6 0.5 - 1.4 10/14/[address] [facility] CHEM PANEL Calcium Lvl 8.9 8.5 - 10.5 10/14/[address] [facility] CHEM PANEL Sodium Lvl 141 135 - 145 10/14/[address] [facility] CHEM PANEL Potassium Lvl 3.4 3.5 - 5.1 10/14/[address] [facility] CHEM PANEL Bili Total 0.4 0.2 - 1.3 10/14/[address] [facility] CHEM PANEL AGAP 12.4 10.0 - 20.0 10/14/[address] [facility] CHEM PANEL B/C Ratio 38 6 - 25 10/14/[address] [facility] CHEM PANEL Globulin 3.9 2.0 - 4.0 10/14/[address] [facility] CHEM PANEL A/G Ratio 1.0 0.7 - 1.6 10/14/[address] [facility] CHEM PANEL ALT 53 0 - 65 10/14/[address] [facility] CHEM PANEL AST 46 0 - 37 10/14/[address] [facility] CHEM PANEL Alk Phos 93 39 - 136 10/14/[address] [facility] CHEM PANEL Glucose Lvl 110 70 - 99 10/14/2014 <sup>4</sup>Interpretive Data: Adult ref erence range values reflect the clinical guidelines
of the [place] [employer]. [facility] CHEM PANEL Total Protein 7.9 6.4 - 8.4 10/14/[address] [facility] CHEM PANEL Albumin Lvl 4.0 3.5 - 5.0 10/14/[address] [facility] CHEM PANEL BUN 23 7 - 22 10/14/[address] [facility] CHEM PANEL CO2 26 24 - 32 10/14/[address] [facility] CHEM PANEL Magnesium Lvl 2.2 1.8 - 2.4 10/14/[address] [facility] HEMATOLOGY D-Dimer 1.24 10/14/2014 <sup>7</sup>Interpretive Data: In DIC, quantitative D-Dimer is generally greater than
0.66 ug/mL FEU. Values of quantitative D-Dimer less than
0.40 ug/mL FEU have been reported to be associated with a low
probability of deep vein thrombosis/pulmonary embolism.
This test alone should not be used to rule out DVT/PE. [facility] HEMATOLOGY INR 0.92 0.85 - 1.17 10/14/2014 <sup>6</sup>Interpretive Data: RECOMMEND ED RANGES FOR PROTIME INR:
2.0- 3.0 for most medical and surgical thromboembolic states.
2.5-3.5 for artificial heart valves and recurrent embolism.

INR SHOULD BE USED ONLY FOR PATIENTS ON STABLE ANTICOAGULANT THERAPY. [facility] HEMATOLOGY PT 12.3 12.0 - 14.7 10/14/2014 [facility] PTT 20.6 22.9 - 35.8 10/14/2014 <sup>9</sup>Interpretive Data: Heparin T herapeutic Range: 57 - [address] [facility] HEMATOLOGY Platelet 256 133 - 450 10/14/2014 [facility] MPV 9.4 7.4 - 10.4 10/14/2014 [facility] RDW 13.4 11.5 - 14.5 10/14/[address] [facility] HEMATOLOGY MCV 94.4 80.0 - 98.0 10/14/2014 [facility] Hct 31.9 36.0 - 48.0 10/14/2014 [facility] Hgb 10.7 12.0 - 16.0 10/14/2014 [facility] MCHC 33.5 32.0 - 36.0 10/14/2014 [facility] MCH 31.6 27.0 - 31.0 10/14/[address] [facility] HEMATOLOGY RBC 3.38 4.20 - 5.40 10/14/2014 [facility] WBC 7.1 3.7 - 10.4 10/14/2014 [facility] Macrocyte 1+ *ABN* (10/14/14 1:50 PM) None Seen 10/14/[address] [facility] HEMATOLOGY Basophils # 0.0 0.0 - 0.2 10/14/[address] [facility] HEMATOLOGY Eosinophils # 0.2 0.0 - 0.5 10/14/[address] [facility] HEMATOLOGY Segs 64.2 45.0 - 75.0 10/14/[address] [facility] HEMATOLOGY Monocytes 7.4 2.0 - 12.0 10/14/[address] [facility] HEMATOLOGY Lymphocytes 25.3 20.0 - 40.0 10/14/[address] [facility] HEMATOLOGY Basophils 0.7 0.0 - 1.0 10/14/[address] [facility] HEMATOLOGY Eosinophils 2.4 0.0 - 4.0 10/14/2014 [facility] Monocytes # 0.5 0.0 - 0.8 10/14/[address] [facility] HEMATOLOGY Lymphocytes # 1.8 1.0 - 5.5 10/14/[address] [facility] HEMATOLOGY Segs-Bands # 4.5 1.5 - 8.1 10/14/[address] [facility] URINE AND STOOL UA Urobilinogen <=1.0 mg/dL 0.1 - 1.0 10/14/[address] [facility] URINE AND STOOL UA Leuk Est Trace *ABN* (10/14/14 1:50 PM) Negative 10/14/[address] [facility] URINE AND STOOL UA RBC 1 0 - 2 10/14/[address] [facility] URINE AND STOOL UA Nitrite Negative (10/14/14 1:50 PM) Negative 10/14/[address] [facility] URINE AND STOOL UA Blood Negative (10/14/14 1:50 PM) Negative 10/14/[address] [facility] URINE AND STOOL UA Sq Epi Occasional /LPF Few /LPF 10/14/[address] [facility] URINE AND STOOL UA WBC 3 0 - 5 10/14/[address] [facility] URINE AND STOOL UA Bacteria Few /HPF None Seen /HPF 10/14/[address] [facility] URINE AND STOOL UA Color Colorless *NA* (10/14/14 1:50 PM) Yellow 10/14/[address] [facility] URINE AND STOOL UA pH 7.0 5.0 - 8.0 10/14/[address] [facility] URINE AND STOOL UA Turbidity Clear (10/14/14 1:50 PM) Clear 10/14/[address] [facility] URINE AND STOOL UA Ketones Negative mg/dL Negative mg/dL 10/14/2014 [facility] URINE AND STOOL UA Spec Grav 1.005 <=1.030 10/14/[address] [facility] URINE AND STOOL UA Bili Negative *NA* (10/14/14 1:50 PM) Negative 10/14/[address] [facility] URINE AND STOOL UA Protein Negative mg/dL Negative mg/dL 10/14/2014 [facility] URINE AND STOOL UA Glucose Negative mg/dL Negative mg/dL 10/14/2014 [facility] CARDIAC ENZYMES Troponin-I 0.03 0.00 - 0.40 10/09/2014 [facility] CHEM PANEL BUN 13 7 - 22 10/09/2014 [facility] CHEM PANEL eGFR 79 10/09/2014 <sup>1</sup>Result Comment: The eGFR is calculated using the CKD-EPI formula. In most young, healthy individuals the eGFR will be >90 mL/min/1.73m2. The eGFR declines with age. An eGFR of 60-89 may be normal in some populations, particularly the elderly, for whom the CKD-EPI formula has not been extensively validated. Use of the eGFR is not recommended in the following populations:& lt;br/>
Individuals with unstable creatinine concentrations, including patients and those with serious co-morbid conditions.

Patients with extremes in muscle mass or diet.

The data above are obtained from the National Kidney Disease Education Program (NKDEP) which additionally recommends that when the eGFR is used in patients with extremes of body mass index for purposes of drug dosing, the eGFR should be multiplied by the estimated BMI. [facility] CHEM PANEL Glucose Lvl 174 70 - 99 10/09/2014 <sup>2</sup>Interpretive Data: Adult ref erence range values reflect the clinical guidelines
of the [place] [employer]. [facility] CHEM PANEL Creatinine Lvl 0.8 0.5 - 1.4 10/09/2014 [facility] CHEM PANEL Sodium Lvl 134 135 - 145 10/09/2014 [facility] CHEM PANEL Potassium Lvl 4.1 3.5 - 5.1 10/09/2014 [facility] CHEM PANEL Chloride Lvl 100 95 - 109 10/09/2014 [facility] CHEM PANEL CO2 26 24 - 32 10/09/2014 [facility] CHEM PANEL Calcium Lvl 8.4 8.5 - 10.5 10/09/2014 [facility] CHEM PANEL AGAP 12.1 10.0 - 20.0 10/09/2014 [facility] HEMATOLOGY PT 14.0 12.0 - 14.7 10/09/2014 [facility] HEMATOLOGY INR 1.08 0.85 - 1.17 10/09/2014 <sup>3</sup>Interpretive Data: RECOMMEND ED RANGES FOR PROTIME INR:
2.0- 3.0 for most medical and surgical thromboembolic states.
2.5-3.5 for artificial heart valves and recurrent embolism.

INR SHOULD BE USED ONLY FOR PATIENTS ON STABLE ANTICOAGULANT THERAPY. [facility] HEMATOLOGY Hgb 10.7 12.0 - 16.0 10/09/2014 [facility] RBC 3.33 4.20 - 5.40 10/09/2014 [facility] HEMATOLOGY WBC 12.4 3.7 - 10.4 10/09/2014 [facility] RDW 13.0 11.5 - 14.5 10/09/2014 [facility] MCHC 34.4 32.0 - 36.0 10/09/2014 [facility] Platelet 164 133 - 450 10/09/2014 [facility] MPV 9.7 7.4 - 10.4 10/09/2014 [facility] MCH 32.1 27.0 - 31.0 10/09/2014 [facility] Hct 31.0 36.0 - 48.0 10/09/2014 [facility] MCV 93.3 80.0 - 98.0 10/09/2014 [facility] HEMATOLOGY Segs 79.4 45.0 - 75.0 10/09/2014 [facility] Lymphocytes 14.7 20.0 - 40.0 10/09/2014 [facility] Monocytes 5.3 2.0 - 12.0 10/09/2014 [facility] HEMATOLOGY Eosinophils 0.1 0.0 - 4.0 10/09/2014 [facility] Basophils 0.5 0.0 - 1.0 10/09/2014 [facility] Basophils # 0.1 0.0 - 0.2 10/09/2014 [facility] Segs-Bands # 9.9 1.5 - 8.1 10/09/2014 [facility] Monocytes # 0.7 0.0 - 0.8 10/09/2014 [facility] Lymphocytes # 1.8 1.0 - 5.5 10/09/2014 [facility] CHEM PANEL Glucose Lvl 74 70 - 99 10/07/2014 <sup>1</sup>Interpretive Data: Adult ref erence range values reflect the clinical guidelines
of the [place] [employer]. [facility] HEMATOLOGY Hct 38.8 36.0 - 48.0 10/07/[address] [facility] HEMATOLOGY Hgb 12.7 12.0 - 16.0 10/07/[address] [facility] Pathology Reports No Data Provided for This Section Diagnostic Reports Report Value Date Source Abdomen complete US Patient Na me: JIM LEA : 1950; Age: 67 years y/o Female MR: [id number] Study: Abdomen complete US 08/09/2018 7:13 CDT Ordering Physician: Ling Ritchie MD Comparison: None Clinical Indication: - Generalized abdominal pain; The pancreas head and body have a normal sonographic appearance; the tail is obscured by shadowing from overlying bowel gas. The visualized abdominal aorta and IVC are unremarkable. No gallstones are demonstrated. The gallbladder has a normal sonographic appearance. Septated cyst is present at the left hepatic lobe measuring 2.5 x 2.5 x 2.0 cm. The liver has an otherwise normal sonographic appearance. The span of the liver is 11 cm. No intrahepatic duct dilatation demonstrated. Common duct caliber is 5 mm which is normal. The right kidney measures 9.3 x 4.5 x 5cm. Left kidney measures 11.2 x 4.7 x 4.9cm. The spleen measures 7.7 x 3.1 x 3.8 cm. Granulomatous calcification at the spleen. Kidneys and spleen have an otherwise normal sonographic appearance. Flow at the main portal vein is hepatopedal. IMPRESSION: 1. No gallstones. 2. Septated cyst is present at the left hepatic lobe measuring 2.5 x 2.5 x 2.0 cm. 3. Splenic granulomatous calcifications. SL: [id number] 08/09/2018 [facility] Shoulder w contrast MRI EXAM: MR ARTHROGRAM RIGHT SHOULDER DATE: 09/24/2015 9:31 AM CDT INDICATION: dislocation COMPARISON: Right shoulder MR arthrogram 12/08/2014 TECHNIQUE: Fluoroscopy-guided arthrogram was performed prior to MRI. Please see the corresponding report for further details. Axial, oblique coronal, and oblique sagittal MR images of the shoulder. IV contrast: None. FINDINGS: ROTATOR CUFF AND ASSOCIATED STRUCTURES Rotator cuff: Postsurgical changes from supraspinatus rotator cuff repair. There has been partial thickness re-tear at the site of repair with retraction of the articular sided fibers by a maximum of 3 cm to the level of the medial humeral head (series 701 images 7, 8). There is a focal full-thickness perforation at the site of repair. Tendinosis of the subscapularis without marlin tearing. Bursa: Small subacromial-subdeltoid bursal effusion. Musculature: There is moderate supraspinatus atrophy, unchanged from prior exam. Acromioclavicular joint: There are moderate degenerative changes of the acromioclavicular joint. A type 1 acromion configuration is noted. There is no anterior or lateral acromial downsloping. OSSEOUS STRUCTURES Small Hill-Sachs lesion is present. There is mild bone marrow edema at the posterior superior humeral head. LONG BICIPITAL TENDON Postsurgical changes from biceps tenodesis are noted. GLENOHUMERAL JOINT Joint fluid: There is small glenohumeral joint effusion. Cartilage and Bone: Mild fissuring of the anterior-inferior glenoid cartilage in the region of labral screw placement. Labrum: Scarring of the anteroinferior labrum. There is synovial thickening adjacent to the anterior-inferior labrum (series 501 image 11, series 701 images 7-11). No displaced labral tear. No paralabral cysts are seen. Other support structures: No capsular or ligamentous abnormality is seen. OTHER FINDINGS: None. IMPRESSION: 1. Partial-thickness articular sided re- tear of the supraspinatus rotator cuff repair with 3 cm of maximal tendon retraction. There is moderate atrophy of the supraspinatus muscle. 2. Prior anteroinferior labral repair. T here is scarring of the anteroinferior labrum with adjacent synovitis. No displaced labral tear. 3. Fissuring of the cartilage in the ant eroinferior glenoid at site of labral suture anchors. 4. Small acute on chronic Hill-Sachs les ion. 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 Appropriate time out procedures were performed. The skin was prepped and draped in the usual fashion under aseptic precautions. 1% lidocaine was utilized for local anesthesia. Under fluoroscopic guidance a 25 gauge long spinal needle was used to access the shoulder joint. 1 mL of Omnipaque 240 was injected under fluoroscopic guidance to confirm intra- articular needle placement. 6 mL of a mixture of 0.1 mL Omniscan wit h 10 mL of saline, and 4 mL of 0.2% ropivacaine were drawn into a 10 mL syringe. 5 mL of this mixture was injected into the shoulder joint. No immediate complications. FLUORO TIME: 0.3 minutes FINDINGS: A normal shoulder joint was outlined IMPRESSION: Technically successful fluoroscopy-guided right shoulder injection for MR arthrogram. 09/24/2015 [facility] Bone Density DXA [employer] MA - Bone Density D[employer] MA BONE DENSITY EVALUATION: 03/26/2015 CLINICAL DATA: Post menopausal. RISK FACTORS: Maternal history of osteoporosis. FINDINGS: Bone density evaluation was performed 03/26/2015 on the AP L1-L4 region of spine using a Hologic unit. The BMD average for the exam is 0.856 g/cm2. The T-score is -1.70 and the Z-score is -0.10. This matches the World Health Organization's criteria for osteopenia and places the patient at a medium risk for fracture. An additional bone density evaluation was performed 03/26/2015 on the right femur neck using a Hologic unit. The BMD average for the exam is 0.613 g/cm2. The T-score is -2.10 and the Z-score is -0.80. This matches the World Health Organization's criteria for osteopenia and places the patient at a medium risk for fracture. An additional bone density evaluation was performed 03/26/2015 on the right hip using a Hologic unit. The BMD average for the exam is 0.690 g/cm2. The T-score is -2.10 and the Z-score is -1.00. This matches the World Health Organization's criteria for osteopenia and places the patient at a medium risk for fracture. An additional bone density evaluation was performed 03/26/2015 on the left femur neck using a Hologic unit. The BMD average for the exam is 0.611 g/cm2. The T- score is -2.10 and the Z-score is -0.90. This matches the World Health Organization's criteria for osteopenia and places the patient at a medium risk for fracture. An additional bone density evaluation was performed 03/26/2015 on the left hip using a Hologic unit. The BMD average for the exam is 0.727 g/cm2. The T-score is -1.80 and the Z-score is -0.70. This matches the World Health Organization's criteria for osteopenia and places the patient at a medium risk for fracture. IMPRESSION: OSTEOPENIA Patient is at medium risk for fracture. This exam was dictated and interpreted by [id number] for TERRENCE Montero 15. Abelardo Hou M.D., cm/valerie:03/30/2015 13:03:14 Sign Installer: Melissa MOSLEY)(Jn), [facility] 03/26/2015 [facility] Shoulder arthrogram DX EXAM: S [facility] arthrogram HISTORY: 726.2 Other Affections of Shoulder Region, Not Elsewhere Classified COMPARISON: None Fluoro time: 4 seconds Findings: Risks, benefits and alternatives of the procedure were explained to the patient and the patient consented. Time out was performed as usual. The right shoulder was prepped and draped in the usual sterile fashion after obtaining consent from the patient. 1% lidocaine without epinephrine was used for local anesthesia. Under fluoroscopic guidance, a 22 gauge LP needle was introduced into the right shoulder joint. Approximately 10 cc of a mixture of gadolinium and Omnipaque-300 was infused. The needle was removed and there were no immediate complications. Patient was taken to the MR suite for MR arthrogram. IMPRESSION: Intraarticular gadolinium injection of the right shoulder for MR arthrogram. [facility] EXAMIN ATION: MR right shoulder with contrast HISTORY: Right shoulder pain; rotator cuff tear status post repair; internal derangement; rotator cuff tear; superior glenoid labral lesion FINDINGS: Prior MRI dated 10/03/2011 is reviewed. Fluoroscopic images from arthrogram dated same day are reviewed. Multiplanar, multisequence magnetic resonance imaging of the right shoulder is performed with a local coil following the intra-articular administration of contrast which is dictated separately. Transverse, oblique coronal, and oblique sagittal images are obtained. Biceps: Instrumented biceps tenodesis as demonstrated with an orthopedic anchor along the anterior aspect of the humeral neck. Labrum: There is degenerative fraying of the inferior right glenoid labral tissue. The remainder of the right glenoid labrum is intact. Rotator cuff tendons: Postoperative changes of right rotator cuff repair are demonstrated with an orthopedic anchor within the humeral head. There is residual tendinopathy of the supraspinatus and infraspinatus tendons, but no recurrent high-grade partial-thickness or full-thickness tear. There is no tendinous retraction. The teres minor tendon is intact. There also postsurgical changes from repair of the superior fibers of the subscapularis tendon transfixed with an orthopedic anchor. There is no recurrent subscapularis tendon tear. Acromio-osseous outlet: There is a type II acromion without a subacromial spur. The coracoclavicular ligament is intact. Muscles: There is edema within the supraspinatus muscle belly is nonspecific, but may represent a low-grade muscle strain. There is otherwise normal signal intensity and muscle bulk of the rotator cuff musculature. Cartilage: There is mild degenerative arthrosis of acromioclavicular joint. There is no focal high-grade glenohumeral chondral defect. Bone: No fractures identified. Soft tissue: There is a small amount of fluid in the subacromial-subdeltoid bursa. IMPRESSION: 1. Postoperative changes of right rotato r cuff repair with residual tendinopathy of the right supraspinatus and infraspinatus tendons, but no recurrent high- grade partial-thickness tear, full-thickness tear, or tendinous retraction. 2. Postoperative changes of repair of th e superior fibers of the right subscapularis tendon transfixed with an orthopedic anchor without recurrent subscapularis tendon tear. 3. Mild nonspecific edema within the sup raspinatus muscle belly which may or present a low-grade muscle strain. Otherwise, normal signal intensity and muscle bulk of the rotator cuff musculature. 4. Instrumented right biceps tenodesis. 5. Degenerative fraying of the inferior right glenoid labral tissue without focal high-grade glenohumeral chondrosis. 6. Mild right acromioclavicular degenera tive arthrosis. 7. Mild right subacromial subdeltoid bur sitis. 12/08/2014 [facility] Carotid artery Doppler bilat US EXAM: CAROTID DOPPLER ULTRASOUND DATE: Oct 15, 2014 10:09:12 AM . CLINICAL INDICATION: Syncope and collapse. ADDITIONAL DATA: None COMPARISON: None TECHNIQUE: The extracranial carotid arteries were evaluated with color and spectral Doppler. FINDINGS: There is no significant atheromatous plaque burden identified. Right side: CCA-116 cm/sec. ICA-114 cm/sec. Ratio: 1.0. ECA-antegrade Vertebral artery-antegrade Left side: CCA-93 cm/sec. ICA-98 cm/sec. Ratio: 1.1. ECA-antegrade. Vertebral artery-antegrade IMPRESSION: No visualized plaque burden, abnormal ratio, or elevated velocity to suggest significant stenosis. According to the 2002 Consensus criteria: <50% stenosis: PSV <125 cm/sec, EDV <40cm/sec, ICA:CCA ratio <2 50-69% stenosis: PSV 125-230cm/sec, EDV 40-100cm/sec, ICA:CCA ratio 2-4 >70% stenosis: PSV >230cm/sec, EDV >100cm/sec, ICA:CCA ratio >4 10/15/[address] [facility] Brain wo contrast CT Exam: CT scan of the brain without contrast Reason for Exam: Syncope Comparison Exam: None Technique: Multiple axial images were obtained of the brain. 5 mm slices were acquired without injection of intravenous contrast. Reformatted sagittal and coronal images were obtained for additional diagnostic information. Total exam DLP = 736 mGy-cm. Discussion: No abnormal fluid collections, space-occupying lesions, hydrocephalus, or midline shift. No evidence seen for acute cortical-based ischemic infarct or intra-axial/extra-axial hematoma. No skull fractures identified. The orbits are unremarkable. The visualized portions of the paranasal sinuses are clear. Impression: 1. No acute intracranial abnormalities appreciated. 10/14/[address] [facility] Chest Pulmonary Embolism CTA EXAM: Chest CTA pulm emb HISTORY: Shortness of Breath COMPARISON: 10/09/[address] imaging of the chest was obtained using the pulmonary embolus protocol. Intravenous contrast was administered per protocol. Sagittal and coronal reformats were reviewed. DLP 233. FINDINGS: The mediastinum is unremarkable without adenopathy, mass or evidence of aneurysm. No pulmonary arterial filling defect is seen to suggest pulmonary embolus. No pericardial or pleural effusion is seen. There are mild dependent changes within the lungs. The airways are clear. No concerning osseous lesion is seen. Upper abdomen demonstrates probable hepatic cysts. IMPRESSION: No CT evidence of pulmonary embolus. 10/14/[address] [facility] Chest 1view DX Exam: Chest x-r ay, one view Reason for Exam: Chest pain Comparison Exam: Chest x-ray 10/09/2014 Discussion: Cardiomediastinal silhouette is within normal limits. Both hemidiaphragms well visualized. No pulmonary edema or pleural effusions. No focal lung consolidations. No acute bony abnormalities. The patient is status post right rotator cuff surgery. Impression: 1. No acute cardiopulmonary abnormaliti es. 10/14/[address] [facility] Chest Pulmonary Embolism CTA HISTORY: Chest pain. CHEST CT with IV contrast. 3-D CTA post process reformat imaging for evaluation pulmonary arteries. FINDINGS: No pulmonary embolus appreciated. Right diaphragm elevated. Adjacent right lower lobe atelectasis and/or infiltrate. No central bronchial obstruction or endobronchial lesion. No pleural or pericardial effusion. No mediastinal or hilar mass or adenopathy. No thoracic aortic aneurysm or dissection. Limited visualized upper abdomen demonstrates several hepatic hypodensities which are probably cysts. (Largest 2.6 cm in the left lobe.) IMPRESSION: No evidence for pulmonary embolus. Elevated right diaphragm. Right lower lobe atelectasis or infiltrate. Correlate clinically for pneumonia. SL:12 10/09/2014 [facility] Chest 2 views DX HISTORY: Shor tness of breath. Chest 2 views. No previous chest radiograph for comparison Right diaphragm elevated. Right basilar atelectasis. No pleural effusion. Heart size normal. Surgical anchor screws in the right humeral head. IMPRESSION: Right diaphragm elevated. Right basilar atelectasis. SL:10/09/2014 [facility] Consultation Notes No Data Provided for This Section Discharge Summaries No Data Provided for This Section History and Physicals No Data Provided for This Section Vital Signs Vital Sign Value Date Comments Source Temperature Oral (F) 98.1 F 10/15/[address] [facility] Heart Rate 80 10/15/[address] [facility] Respitory Rate 18 10/15/[address] [facility] Systolic (mm Hg) 130 10/15/[address] [facility] Diastolic (mm Hg) 84 10/15/[address] [facility] Systolic (mm Hg) 137 10/15/[address] [facility] Diastolic (mm Hg) 82 10/15/[address] [facility] Respitory Rate 20 10/15/[address] [facility] Heart Rate 76 10/15/[address] [facility] Systolic (mm Hg) 126 10/15/[address] [facility] Diastolic (mm Hg) 79 10/15/[address] [facility] Respitory Rate 18 10/15/[address] [facility] Heart Rate 65 10/15/[address] [facility] Temperature Oral (F) 98.5 F 10/15/[address] [facility] Temperature Oral (F) 99.4 F 10/15/[address] [facility] BMI Calculated 25.02 10/15/[address] [facility] Weight 58.1 10/15/[address] [facility] Height 152.4 cm 10/15/[address] [facility] BMI Calculated 24.61 10/14/[address] [facility] Weight 59.091 10/14/[address] [facility] Height 154.94 cm 10/14/[address] [facility] Temperature Oral (F) 98.3 F 10/09/2014 [facility] Respitory Rate 18 10/09/2014 [facility] Heart Rate 78 10/09/2014 [facility] Systolic (mm Hg) 102 10/09/2014 [facility] Diastolic (mm Hg) 53 10/09/2014 [facility] Respitory Rate 15 10/09/2014 [facility] Temperature Oral (F) 98.3 F 10/09/2014 [facility] Respitory Rate 18 10/09/2014 [facility] Systolic (mm Hg) 146 10/09/2014 [facility] Diastolic (mm Hg) 80 10/09/2014 [facility] Heart Rate 81 10/09/2014 [facility] Heart Rate 73 10/09/2014 [facility] Systolic (mm Hg) 125 10/09/2014 [facility] Diastolic (mm Hg) 60 10/09/2014 [facility] Temperature Oral (F) 97.9 F 10/09/2014 [facility] Weight 57.273 10/09/2014 [facility] BMI Calculated 24.66 10/09/2014 [facility] Height 152.4 cm 10/09/2014 [facility] Systolic (mm Hg) 122 10/08/[address] [facility] Diastolic (mm Hg) 58 10/08/[address] [facility] Respitory Rate 16 10/08/[address] [facility] Systolic (mm Hg) 112 10/08/[address] [facility] Diastolic (mm Hg) 56 10/08/[address] [facility] Respitory Rate 15 10/08/[address] [facility] Systolic (mm Hg) 132 10/08/[address] [facility] Diastolic (mm Hg) 59 10/08/[address] [facility] Respitory Rate 14 10/08/[address] [facility] Heart Rate 71 10/08/[address] [facility] Weight 58.182 10/07/[address] [facility] BMI Calculated 25.05 10/07/[address] [facility] Height 152.4 cm 10/07/[address] [facility] Encounters Location Location Details Encounter Type Encounter Number Reason For Visit Attending Provider ADM Date DC Date Status Source [facility] OBS Day Surgery [id number] Sawyer Beal 10/08/2014 10/08/2014 [facility] [id number] Latosha Darling 10/09/2014 10/09/2014 [facility] OBS Observation Patient [id number] Quirino Stuart 10/14/2014 10/16/2014 [facility] [id number] Josué Garcia 12/08/2014 12/09/2014 [facility] [place] Outpt Diag Services [id number] Ricci Moore 03/26/2015 [facility]/27/[facility] [place] Outpt Diag [facility] [id number] Sawyer Beal 09/24/2015 09/25/[facility] Outpatient [id number] Ling Maguireshima 08/09/2018 08/10/2018 [facility] Procedures Procedure Code Date Perfomer Comments Source Injection procedure for shoulder arthrog ender or enhanced CT/MRI shoulder arthrography 66561 09/24/2015 [facility] Miscellaneous operations<sup>1</sup> [id number] right shou lder surgery [facility] [place],[facility], [facility], [facility] Day,[facility] Assessment and Plan No Data Provided for This Section Plan of Care No Data Provided for This Section Social History Social History Date Source Social History TypeResponse Smoking Status Never smoker; Exposure to Tobacco Smoke None; Cigarette Smoking Last 365 Days No; Reg Smoking Cessation Counseling Yes entered on: 10/14/14 10/14/2014 [facility] Social History TypeResponse Smoking Status Never smoker; Exposure to Tobacco Smoke None; Cigarette Smoking Last 365 Days No; Reg Smoking Cessation Counseling Yes 10/14/2014 [facility] Social History TypeResponse Smoking Status Never smoker; Exposure to Tobacco Smoke None; Cigarette Smoking Last 365 Days No; Reg Smoking Cessation Counseling Yes 10/14/2014 [facility] Day Social History TypeResponse Smoking Status Never smoker; Exposure to Tobacco Smoke None; Cigarette Smoking Last 365 Days No; Reg Smoking Cessation Counseling Yes 10/14/2014 [facility] Social History TypeResponse Smoking Status Never smoker; Exposure to Tobacco Smoke None; Cigarette Smoking Last 365 Days No; Reg Smoking Cessation Counseling Yes 10/14/[address] [facility] Family History No Data Provided for This Section Advance Directives No Data Provided for This Section Functional Status No Data Provided for This Section
--- OUTSIDE RECORDS SUMMARY | 2020-03-04 19:06 | XMS REPORT | Continuity of Care Document ---
Author Author [facility] t Organization [facility] Address [address] [place] [id number] Phone Unavailable Care Team Providers Care Pipe Manufacture Supervisor Name Role Phone MEGAN JEAN BAPTISTE PCP KALE WILLAMS Attphys Unavailable RACHAEL MOODY Attphys Unavailable Tab Ritchie Attphys MELANIE SUMNER Attphys Unavailable DEBBIE PRADO Attphys Unavailable Nagi MARIE Attphys Unavailable Irma CABELLO Attphys Unavailable Byron MARTINEZ Attphys Unavailable MEGAN JEAN BAPTISTE Attphys Unavailable Evan Beal Attphys Tomeka Moore Attphys Dudley Garcia Attphys Unavailable Bright Sutart Attphys Abelino Darling Attphys KALE WILLAMS Admphys Unavailable DEBBIE PRADO Admphys Unavailable Byron MARTINEZ Admphys Unavailable Bright Stuart Admphys Payers Payer Name Policy Type Policy Number Effective Date Expiration Date Tomeka Neal o [id number] 2001 00:00:00 [facility] Problems Condition Name Condition Details Condition Category Status Onset Date Resolution Date Last Treatment Date Treating Clinician Comments Source DX: ABDOMINAL PAIN DX: ABDOMINAL PAIN Active 08/06/2018 [facility] Diagnosis Active 2018-08-06 00:00:00 2018-08-09 06:46:00 Orquidea Hogan PVD (peripheral vascular disease) with claudication PV D (peripheral vascular disease) with claudication Disease Active 2018-01-21 00:00:00 [facility] Chest pain Chest pain Disease Active 2017-10-12 00:00:00 Jose J Mccormick Essential hypertension Essential hypertension Disease Active 2017-10-12 00:00:[address] Mixed hyperlipidemia Mixed hyperlipidemia Disease Active 00:00:00 Jose J Mccormick Z13.820 - ENCOUNTER FOR SCREENING FOR OS Z13.820 - ENCOUNTER FOR SCREENING FOR OS Active 03/22/2015 SAHIL Gaspar Diagnosis Active 2015-03-22 00:01:00 2015-03-26 09:20:00 [facility] FACE NUMBNESS,NEAR SYNCOPE,SOB FACE NUMBNESS,NEAR SYNCOPE,SOB Active 10/14/2014 [facility] Diagnosis Active 2014-10-14 00:00:00 2014-10-14 18:28:00 Orquidea Hogan NEAR SYNCOPE, SOB NEAR SYNCOPE, SOB Active 10/14/2014 [facility] Diagnosis Active 2014-10-14 00:00:00 2014-10-15 13:52:00 Orquidea Hogan CHEST DISCOMFRONT CHES T DISCOMFRONT Active 10/08/2014 [facility] Diagnosis Active 2014-10-08 00:00:00 2014-10-08 23:55:00 [facility] [id number], RIGHT SHOULDER ROTATO [id number], RIGHT SHOULDER ROTATO Active 10/06/2014 [facility] Diagnosis Active 2014-10-06 00:00:00 2014-10-08 09:39:00 Orquidea Hogan Hypercholesterolemia (disorder) Hypercholesterolemia (disorder) Active Problem 08/11/2018 SAHIL Gaspar,[facility], SAHIL [facility], SAHIL Day,[facility] Problem Active 2018-08-11 22:42:03 [facility] Rotator cuff syndrome (disorder) Rotator cuff syndrome (disorder) Active Problem 08/11/2018 SAHIL Gaspar,[facility], SAHIL Day,[facility] Problem Active 2018-08-11 22:42:03 [facility] Discharge Diagnosis: Atelectasis of right lung Discharge Diagnosis: Atelectasis of right lung 10/09/2014 10/12/2014 [facility] Problem 2014-10-09 05:00:00 2014-10-12 07:09:32 2014-10-12 07:09:32 [facility] Allergies, Adverse Reactions, Alerts Allergy Name Allergy Type Status Severity Reaction(s) Onset Date Inacti ve Date Treating Clinician Comments Source No Known Allergies DA Active U 2018-07-03 00:00:00 [facility] No Known Allergies DA Active U 2018-01-12 00:00:00 [facility] No Known Allergies DA Active U 2017-09-23 00:00:00 [facility] NKFA NKFA Active [facility] Social History Social Habit Start Date Stop Date Quantity Comments Source Sex Assigned At [facility] Tobacco use and exposure 2018-02-27 00:00:00 2018-02-27 00:00:00 Jaya messer used [facility] Alcohol intake 2018-02-27 00:00:00 2018-02-27 00:00:00 Current non-drinker of alcohol (finding) [facility] Sange r Smoking Status Start Date Stop Date Source Never smoker [facility] Medications Ordered Medication Name Filled Medication Name Start Date Stop Da te Current Medication? Ordering Clinician Indication Dosage Frequency Signature (SIG) Comments Components Source hydroCHLOROthiazide (HYDRODIURIL) 25 MG tablet 2018-05-29 13:11: 33 Yes 25mg QD Take 25 mg by mouth daily. [facility] gabapentin (NEURONTIN) 300 MG capsule 2018-05-29 00:00 :00 2019-05-29 23:59:00 No 300mg QD Take 1 capsule (300 mg total) by mouth nightly May increase to BID after a week or two if there is no improvement. [facility] potassium chloride SA (K-DUR,KLOR-CON) 20 MEQ tablet 2 00:00:00 Yes 20meq QD Take 20 mEq by mouth daily. [facility] carvedilol (COREG) 6.25 MG tablet 2017-12-11 00:00:00 Yes 6.25mg Q.5D Take 6.25 mg by mouth 2 (two) times daily. [facility] amLODIPine (NORVASC) 5 MG tablet 2017-12-04 00:00:00 Yes 5mg QD Take 5 mg by mouth daily. [facility] omega-3 acid ethyl esters (LOVAZA) 1 gram capsule 2017-11-29 00:00:00 Yes 2{capsule} Q.5D Take 2 capsules by mouth 2 (two) times daily. [facility] ezetimibe-simvastatin (VYTORIN) 10-20 mg per tablet 11-04 00:00:00 Yes 1{tbl} QD Take 1 tablet by mouth daily. [facility] ALPRAZolam (XANAX) 0.25 MG tablet 2017-10-14 00:00:00 Yes .25mg Take 0.25 mg by mouth daily as needed for ANXIETY. [facility] Zocor 2014-10-15 22:00:00 No Notes: (Same a s: Zocor) [facility] Zetia 2014-10-15 22:00:00 No Notes: (Same a s: Francisco Javier) [facility] ezetimibe 10 MG / Simvastatin 20 MG Oral Tablet 2014-10-15 14:00 :00 No 1 tab, Route: PO, Drug Form: TAB, Dosing Weight 59.091, kg, Daily, Start date: 10/15/14 9:00:00, Duration: 30 day, Stop date: 11/13/14 9:00:00 Orquidea Hogan Saline Flush 0.9% 2014-10-15 02:00:00 No 10 ml, Route: IVP, Drug Form: INJ, Dosing Weight 59.091, kg, Q12H, Start date: 10/14/14 21:00:00, Duration: 30 day, Stop date: 11/13/14 9:00:00 Orquidea Hogan Sodium Chloride 0.9% IV 2014-10-15 00:23:00 No 25 mL, Route: IV, Start date: 10/14/14 19:23:00, Duration: 30 day, Stop date: 11/13/14 19:22:00, PRN Line Flush [facility] BD Normal Saline Flush 2014-10-15 00:23:00 No Notes: (Same as: BD Posiflush) [facility] Enoxaparin 2014-10-14 23:00:00 No Notes: (S burton as: Lovenox) [facility] Saline Flush 0.9% 2014-10-14 22:59:00 No 10 ml, Route: IVP, Drug Form: INJ, Dosing Weight 59.091, kg, PRN, PRN Line Flush, Start date: 10/14/14 17:59:00, Duration: 30 day, Stop date: 11/13/14 17:58:00 [facility] Docusate 2014-10-14 22:58:00 No Notes: (Same as: Colace) (Do Not Crush) [facility] Ondansetron 2014-10-14 22:58:00 No Notes: (Same as: Zofran) MEDICATION WASTE Product Size: 4 mg Product Wasted: ___ mg [facility] Acetaminophen 325 MG / Hydrocodone Bitartrate 5 MG Oral Tabl et 2014-10-14 22:58:00 No Notes: (Sa me as: [place] 325/5) Do not exceed 4gm/day of acetaminophen. [facility] Acetaminophen 2014-10-14 22:58:00 No Notes: Do not exceed 4 gm/day. (Same as: Tylenol) [facility] Saline Flush 0.9% 2014-10-14 18:36:00 No Notes: (Same as: BD Posiflush) [facility] Levofloxacin 750 MG Oral Tablet [Levaquin] 2014-10-09 09:49:00 Yes 750 mg = 1 tab, PO, Q24H, X 7 day, # 7 tab, 0 Refill(s) Orquidea Hogan Ativan 2014-10-09 07:22:00 No 0.25 mg, Route: IVP, Drug form: INJ, ONCE, Dosing Weight 57.273, kg, Priority: STAT, Start date: 10/09/14 2:22:00, Stop date: 10/09/14 2:22:00 [facility] lidocaine 1% 2014-10-08 17:00:00 No 0.5 mL, Route: INTRADERM, Dosing Weight 58.182, kg, ONCALL, Start date: 10/08/14 12:00:00, Duration: 1 doses or times [facility] Calcium Chloride 0.0014 MEQ/ML / Potassi um Chloride 0.004 MEQ/ML / Sodium Chloride 0.103 MEQ/ML / Sodium Lactate 0.028 MEQ/ML Injectable Solution 2014-10-08 16:38:00 No 1,000 mL, Rate: 25 ml/hr, Infuse over: 40 hr, Route: IV, Dosing Weight 58.182 kg, Total Volume: 1,000, Start date: 10/08/14 11:38:00, Duration: 30 day, Stop date: 11/07/14 11:37:00 Orquidea Hogan Ancef 2014-10-08 16:38:00 No Notes: Same as : Ancjosé antonio [facility] Albuterol 0.83 MG/ML Inhalant Solution 2014-10-08 16:20:00 No Notes: SEE RT DOCUMENTATION (Same as: Proventil) [facility] Ondansetron 2014-10-08 16:20:00 No Notes: (Same as: Zofran) MEDICATION WASTE Product Size: 4 mg Product Wasted: ___ mg [facility] Promethazine 2014-10-08 16:20:00 No Notes: Do not give IV push. (Same as: Phenergan) [facility] Naloxone 2014-10-08 16:20:00 No Notes: Same as Narcan [facility] Flumazenil 2014-10-08 16:20:00 No Notes: (S burton as: Romazicon) [facility] Meperidine 2014-10-08 16:20:00 No Notes: (S burton As: Demerol) [facility] Hydromorphone 2014-10-08 16:20:00 No Notes: (Same as: Dilaudid) [facility] Morphine 2014-10-08 16:20:00 No Not es: (Same as: MORPhine Sulfate) [facility] Acetaminophen 2014-10-08 16:20:00 No Notes: Infuse over 15 minutes Do not exceed 4gm/day of acetaminophen MEDICATION WASTE Product Size: 1000 mg Product Wasted: ___ mg Lisa Gandhiann Hydralazine 2014-10-08 16:20:00 No Notes: (Same as: Apresoline) Push over 5 minutes Orquidea Hoffman ezetimibe 10 MG / Simvastatin 20 MG Oral Tablet [Vytorin 10/ 20] 2014-10-07 19:29:00 Yes 1 tab, PO, Daily, # 30 tab, 0 Refill(s) [facility] Ezetimibe/Simvastatin (Vytorin 10-10 Mg Tablet) 1 Each Tablet Ezetimibe/Simvastatin (Vytorin 10-10 Mg Tablet) 1 Each Tablet Ye s Daily [facility] Gabapentin 100 Mg Capsule, 100 Mg Oral Gabapentin 100 Mg Capsule , 100 Mg Oral 2014-09-21 00:00:00 No 100 Daily [facility] Vital Signs Vital Name Observation Time Observation Value Comments Source Temperature Oral (F) 2014-10-15 21:38:00 98.1 F [facility] Heart Rate 2014-10-15 21:38:00 [facility] Respitory Rate 2014-10-15 21:38:00 [facility] Systolic (mm Hg) 2014-10-15 21:38:00 [facility] Diastolic (mm Hg) 2014-10-15 21:38:00 [facility] Systolic (mm Hg) 2014-10-15 20:26:00 Ino [facility] Diastolic (mm Hg) 2014-10-15 20:26:00 [facility] Respitory Rate 2014-10-15 20:26:00 [facility] Heart Rate 2014-10-15 20:26:00 [facility] Systolic (mm Hg) 2014-10-15 17:28:00 [facility] Diastolic (mm Hg) 2014-10-15 17:28:00 [facility] Respitory Rate 2014-10-15 17:28:00 [facility] Heart Rate 2014-10-15 17:28:00 [facility] Temperature Oral (F) 2014-10-15 17:28:00 98.5 F [facility] Temperature Oral (F) 2014-10-15 12:57:00 99.4 F [facility] BMI Calculated 2014-10-15 01:20:00 [facility] Weight 2014-10-15 01:20:00 [facility] Height 2014-10-15 01:20:00 152.4 cm [facility] BMI Calculated 2014-10-14 17:23:00 [facility] Weight 2014-10-14 17:23:00 [facility] Height 2014-10-14 17:23:00 154.94 cm [facility] Temperature Oral (F) 2014-10-09 10:18:00 98.3 F [facility] Respitory Rate 2014-10-09 10:18:00 [facility] Heart Rate 2014-10-09 10:18:00 [facility] Systolic (mm Hg) 2014-10-09 10:18:00 [facility] Diastolic (mm Hg) 2014-10-09 10:18:00 [facility] Respitory Rate 2014-10-09 09:16:00 [facility] Temperature Oral (F) 2014-10-09 06:25:00 98.3 F [facility] Respitory Rate 2014-10-09 06:25:00 [facility] Systolic (mm Hg) 2014-10-09 06:25:00 [facility] Diastolic (mm Hg) 2014-10-09 06:25:00 [facility] Heart Rate 2014-10-09 06:25:00 [facility] Heart Rate 2014-10-09 04:00:00 [facility] Systolic (mm Hg) 2014-10-09 04:00:00 [facility] Diastolic (mm Hg) 2014-10-09 04:00:00 [facility] Temperature Oral (F) 2014-10-09 04:00:00 97.9 F [facility] Weight 2014-10-09 03:27:00 [facility] BMI Calculated 2014-10-09 03:27:00 [facility] Height 2014-10-09 03:27:00 152.4 cm [facility] Systolic (mm Hg) 2014-10-08 20:25:00 [facility] Diastolic (mm Hg) 2014-10-08 20:25:00 [facility] Respitory Rate 2014-10-08 20:25:00 [facility] Systolic (mm Hg) 2014-10-08 20:15:00 [facility] Diastolic (mm Hg) 2014-10-08 20:15:00 [facility] Respitory Rate 2014-10-08 20:15:00 [facility] Systolic (mm Hg) 2014-10-08 20:00:00 [facility] Diastolic (mm Hg) 2014-10-08 20:00:00 [facility] Respitory Rate 2014-10-08 20:00:00 [facility] Heart Rate 2014-10-08 16:15:00 [facility] Weight 2014-10-07 19:27:00 [facility] BMI Calculated 2014-10-07 19:27:00 [facility] Height 2014-10-07 19:27:00 152.4 cm [facility] Procedures Procedure Date / Time Performed Performing Clinician [facility] e X-ray of chest, two views 2017-09-29 00:00:00 HUGH CABELLO [facility] Magnetic resonance imaging of brain without contrast 2017-08 00:00:00 YAO MCKENZIE [facility] Computed tomography of brain without radiopaque contrast 201 12-03-27 00:00:00 SHARON RHOADES [facility] Injection procedure for shoulder arthrog ender or enhanced CT/MRI shoulder arthrography 2015-09-24 14:20:09 [facility] Miscellaneous operations<sup>1</sup> [facility] Plan of Care Planned Activity Planned Date Details Comments Source Future Scheduled Test 2019-12-30 00:00:00 INFLUENZA VACCINE (#1) [code = INFLUENZA VACCINE (#1)] [facility] Future Scheduled Test 2019-11-29 00:00:00 INFLUENZA VACCINE [code = INFLUENZA VACCINE] [facility] Future Scheduled Test 2016-12-09 00:00:00 65+ PNEUMOCOCCAL V ACCINE (1 of 1 - PPSV23) [code = 65+ PNEUMOCOCCAL VACCINE (1 of 1 - PPSV23)] [facility] Future Scheduled Test 2016-12-09 00:00:00 PNEUMOCOCCAL 65+ Y RS (1 of 1 - [id number] PCV13) [code = PNEUMOCOCCAL 65+ YRS (1 of 1 - [id number] PCV13)] [facility] Future Scheduled Test 2001-12-09 00:00:00 BREAST CANCER SCRE ENING [code = BREAST CANCER SCREENING] [facility] Future Scheduled Test 2001-12-09 00:00:00 COLONOSCOPY SCREEN ING [code = COLONOSCOPY SCREENING] [facility] Scheduled Test 2001-12-09 00:00:00 SHINGLES VACCINES (#1) [code = SHINGLES VACCINES (#1)] [facility] Scheduled Test 1950 00:00:00 Screening for [facility] neoplasm of breast (procedure) [code = 377888519] [facility] Future Scheduled Test 1950 00:00:00 Screening for clary gnant neoplasm of colon (procedure) [code = 257261310] [facility] Encounters Start Date/Time End Date/Time Encounter Type Admission Type Attendi [facility] Care Department Encounter ID Source 2018-08-09 06:46:00 2018-08-09 23:59:00 [id number] 2018-08-09 06:46:00 2018-08-09 06:46:00 Outpatient MHSE [id number] 2017-09-28 23:15:00 2017-09-29 03:10:00 Departed Emergency Room 1 HUGH CABELLO [facility] [id number] [facility] 2017-09-24 18:56:00 2017-09-26 08:05:00 Discharged Inpatient (obs) 1 FRAN MARTINEZ [facility] [id number] [facility] 2017-02-15 11:45:00 2017-02-15 11:45:00 Registered Clinic MEGAN HOLLINS [facility] [id number] [facility] 2015-09-24 08:12:00 2015-09-24 23:59:00 Outpatient Sawyer Santos [id number] 2015-03-26 09:12:00 2015-03-26 23:59:00 Outpatient Ricci Moore HOIP HOIP [id number] 2014-12-08 08:48:00 2014-12-08 23:59:00 Outpatient Josué Garcia [id number] 2014-10-14 12:15:00 2014-10-15 20:30:00 Outpatient Quirino Stuart Zakanjana MHIE MHIE [id number] 2014-10-08 22:23:00 2014-10-09 05:47:00 Outpatient Latosha Darling MHIE MHIE [id number] 2014-10-08 09:37:00 2014-10-08 16:40:00 Outpatient Sawyer Beal IE IE [id number] Results Test Description Test Time Test Comments Results Result Comments Source MRI BRAIN WO 2020-03-03 14:40:00 [facility] : 1950 Sex: F [place] [address] Patient Name: Byron HAIDER MR #: [id number] : 1950 Age/Sex: 69/F Req #: [id number] [facility] Physician: KALE WILLAMS MD Ordered by: Osiel Ponce NP Report #: [id number] Location: MED/SURG2 Room/Bed: 208-1 Procedure: [id number] MRI/MRI BRAIN WO Exam Date: Exam Time: REPORT STATUS: Signed Examination: MRI BRAIN WO CONTRAST History: Weakness Comparison studies: Head CT performed March 02, 2020 Technique: Sagittal T2; axial DWI, FLAIR, GRE or SWI, T1, Coronal FLAIR. Intravenous contrast: None Findings: Significant motion artifact on several sequences. Scalp: No abnormal signal. No masses. Bone marrow: Normal in signal intensity. Brain volume: Adequate for age. No volume loss. Ventricles: Normal in size and configuration. No hydrocephalus. Extra- axial spaces: No abnormalities. Parenchyma: There are patchy and punctate areas of T2/FLAIR hyperintensity in the periventricular and subcort ical white matter, nonspecific. No masses, hemorrhage, or acute vascular insults. Suprasellar and sellar region: No abnormalities. Craniocervical junction: No abnormalities. The foramen magnum is patent. No Chiari malformations. Vessels: Normal flow-voids in the arteries and sinuses. Additional findings:None. IMPRESSION: Despite limitation, no acute intracranial abnormalities. Chronic microvascular ischemic change. Signed by: Dr. Sherry Hicks M.D. on 03/03/2020 2:42 PM Dictated By: SHERRY SANDERS MD 41 Transcribed By: JENISE on 03/03/201441 COPY TO: OSIEL PONCE NP CHEST SINGLE (PORTABLE) 2020-03-03 06:53:00 [facility] : 1950 Sex: F [facility] [address] [place] [address] Patient Name: Byron HAIDER MR #: [id number] : 1950 Age/Sex: 69/F Req #: [id number] [facility] Physician: KALE WILLAMS MD Ordered by: RISHI ESPARZA DO Report #: [id number] Location: [facility] Room/Bed: [facility] Procedure: [id number] DX/CHEST SINGLE (PORTABLE) Exam Date: 03/02/20 Exam Time: 1530 REPORT STATUS: Signed EXAMINATION: CHEST SINGLE (PO RTABLE) INDICATION: Y cva [id number] COMPARISON: 09/29/2017 FINDINGS: AP view TUBES and LINES: None. LUNGS: Lungs are well inflated. Mild left basilar haziness. Mild central vascular congestion. Unchanged right upper lung field tiny nodular density, likely a calcified granuloma. PLEURA: No pleural effusion or pneumothorax. HEART AND MEDIASTINUM: The cardiomediastinal silhouette is unremarkable. BONES AND SOFT TISSUES: No acute osseous lesion. Right humeral head anchor screws and lucency are again seen. Soft tissues are unremarkable. UPPER ABDOMEN: No free air under the diaphragm. IMPRESSION: Mild left basilar haziness, could represent prominent cardiac fat-pad or lingular atelectasis/scarring. Less likely to represent pneumonia. Mild central vascular congestion. Signed by: Dr. Ellen Mehta MD on 03/03/2020 6:57 AM Dictated By: ELLEN MEHTA MD 6 Transcribed By: JENISE on 03/03/20656 COPY TO: RISHI ESPARZA DO CT BRAIN WO 2020-03-02 16:21:00 [facility] : 1950 Sex: F [place] [address] Patient Name: Byron HAIDER MR #: [id number] : 1950 Age/Sex: 69/F Req #: [id number] Adm Physician: KALE WLILAMS MD Ordered by: RISHI ESPARZA DO Report #: [id number] Location: [facility] Room/Bed: [place] [address] Procedure: [id number] CT/CT BRAIN WO Exam Date: 03/02/20 Exam Time: 1530 REPORT STATUS: Signed Examination: CT head without contrast Clinical Indication: Y CVA [id number]. Technique: Transaxial noncontrast images from the skull base through the vertex were obtained. Sagittal and coronal reformatted images were done. Dose modulation, iterative reconstruction, and/or weight based adjustment of the mA/kV was utilized to reduce the radiation dose to as low as reasonably achievable. Comparison: Brain MRI dated 09/25/[address] dated 09/24/2017. Findings: Scalp: No abnormalities. Bones: Intact. No fractures. No blastic or lytic lesions. Brain sulci: Appropriate for patient's age. Ventricles: Normal in size and configuration. No hydrocephalus. . Extra-axial space: No abnormalities. Parenchyma: There are patchy areas of low-attenuation within subcortical and periventricular white matter, nonspecific, but could represent microvascular ischemic disease. No masses, hemorrhage, or acute or chronic cortical based vascular insults. Suprasellar region: No abnormalities. Craniocervical junction: The foramen magnum is patent. No Chiari one malformation. Impression: 1. No acute intracranial finding when compared to prior head CT dated 09/24/2017. 2. Mild chronic microvascular ischemic change. Signed by: Dr. Sherry Hicks M.D. on 03/02/2020 4:23 PM Dictated By: SHERRY SANDERS MD 1623 Transcribed By: JENISE on 03/02/20 1623 COPY TO: RISHI ESPARZA DO MAMMOGRAPHY DIGITAL SCR BILAT 2019-04-09 15:06:00 [place] [address] Patient Name: JIM LEA MR #: [id number] : 1950 Age/Sex: 68/F Req #: [id number] Adm Physician: Ordered by: RACHAEL MOODY MD Report #: [id number] Location: [facility] Room/Bed: Procedure: [id number] MG/MAMMOGRAPHY DIGITAL SCR BILAT Exam Date: 04/09/19 Exam Time: 1421 REPORT STATUS: Signed #[id number] - [id number] #BILATERAL DIGITAL SCREENING MAMMOGRAM WITH CAD: 04/09/2019 CLINICAL: Routine screening. Comparison is made to exams dated: 03/28/2018 mammogram and 02/15/2017 mammogram - [facility]. There are scattered fibroglandular elements in both breasts. Current study was also evaluated with a Computer Aided Detection (CAD) system. There are benign lymph nodes in both breasts. There also is a benign calcification in the left breast. No significant masses, calcifications, or other findings are seen in either breast. There has been no significant interval change. IMPRESSION: BENIGN There is no mammographic evidence of malignancy. A 1 year screening mammogram is recommended. The patient will be notified by letter of the results. MONICO marr/valerie:04/21/2019 17:23:26 Director Mobile: Emily MOSLEY)(M), [facility] letter sent: Compared to Prior B9 Mammogram BI-RADS: 2 Farzad ign Dictated By: MONICO BALLARD MD 22 Transcribed By: VALERIE on 04/21/191722 COPY TO: RACHAEL MOODY MD COMPREHENSIVE METABOLIC PANEL 2018-10-13 00:29:00 Test Item SODIUM (test code = NA) 136 mmol/L 136-145 N POTASSIUM (test code = K) 4.2 mmol/L 3.5-5.1 N CHLORIDE (test code = CL) 101 mmol/L 101-109 N CARBON DIOXIDE (test code = CO2) 29.1 mmol/L 21-32 N ANION GAP (test code = GAP) 10 mmol/L 10-20 N GLUCOSE (test code = GLU) 118 mg/dL 74-106 H BLOOD UREA NITROGEN (test code = BUN) 12 mg/dL 3-21 N CREATININE (test code = CREAT) 0.58 mg/dL 0.55-1.3 N BUN/CREATININE RATIO (test code = BUN/CREA) 20.7 10-20 H TOTAL PROTEIN (test code = PROT) 7.6 g/dL 6.5-8.4 N ALBUMIN (test code = ALB) 3.7 g/dL 3.4-4.8 N GLOBULIN (test code = GLOB) 3.9 G/DL 1-10 N ALBUMIN/GLOBULIN RATIO (test code = A/G) 0.95 RATIO 0.75-1.50 N CALCIUM (test code = CA) 8.1 mg/dL 8.4-10.2 L BILIRUBIN TOTAL (test code = BILT) 0.30 mg/dL 0.0-1.0 N SGOT/AST (test code = AST) 35 U/L 6-32 H SGPT/ALT (test code = ALT) 44 U/L 12-78 N N ote: Change in REFERENCE RANGE due to new reagent method. ALKALINE PHOSPHATASE TOTAL (test code = ALKP) 70 U/L 38-126 N [id number] 00:29:00* Test Item Value Reference Range Interpretation Comments TROPONIN-I (test code = TROPI) <0.015 ng/mL 0.00-0.056 N COMPREHENSIVE METABOLIC [id number] 00:17:00* Test Item Value Reference Range Interpretation Comments SODIUM (test code = NA) 136 mmol/L 136-145 N POTASSIUM (test code = K) 4.2 mmol/L 3.5-5.1 N CHLORIDE (test code = CL) 101 mmol/L 101-109 N CARBON DIOXIDE (test code = CO2) 29.1 mmol/L 21-32 N ANION GAP (test code = GAP) 10 mmol/L 10-20 N GLUCOSE (test code = GLU) 118 mg/dL 74-106 H BLOOD UREA NITROGEN (test code = BUN) 12 mg/dL 3-21 N CREATININE (test code = CREAT) 0.58 mg/dL 0.55-1.3 N BUN/CREATININE RATIO (test code = BUN/CREA) 20.7 10-20 H TOTAL PROTEIN (test code = PROT) gram/dL 6.4-8.2 ALBUMIN (test code = ALB) g/dL 3.4-5.0 GLOBULIN (test code = GLOB) g/dL 2.7-4.2 ALBUMIN/GLOBULIN RATIO (test code = A/G) 0.75-1.50 CALCIUM (test code = CA) 8.1 mg/dL 8.4-10.2 L BILIRUBIN TOTAL (test code = BILT) mg/dL 0.2-1.2 SGOT/AST (test code = AST) IUnit/L 15-37 SGPT/ALT (test code = ALT) U/L 10-69 ALKALINE PHOSPHATASE TOTAL (test code = ALKP) IUnit/L 45-117 [id number] 00:17:00* Test Item Value Reference Range Interpretation Comments TROPONIN-I (test code = TROPI) ng/mL 0-0.045 CBC W/AUTO [id number] 00:07:00* Test Item Value Reference Range Interpretation Comments WHITE BLOOD CELL (test code = WBC) 5.9 K/mm3 4.5-12.5 N RED BLOOD CELL (test code = RBC) 3.96 mill/mm3 3.7-5.2 N HEMOGLOBIN (test code = HGB) 12.4 gram/dL 11.5-15.5 N HEMATOCRIT (test code = HCT) 37.1 % 36.0-46.0 N MEAN CELL VOLUME (test code = MCV) 93.7 fL 80-98 N MEAN CELL HGB (test code = MCH) 31.3 picogram 27.0-33.0 N MEAN CELL HGB CONCETRATION (test code = MCHC) 33.4 gram/dL 33.0-36. 0 N RED CELL DISTRIBUTION WIDTH (test code = RDW) 12.0 % 11.6-16. 2 N RED CELL DISTRIBUTION WIDTH SD (test code = RDW-SD) 42.0 fL 37 .0-51.0 N PLATELET COUNT (test code = PLT) 179 K/mm3 150-450 N MEAN PLATELET VOLUME (test code = MPV) 10.7 fL 6.7-11.0 N NEUTROPHIL % (test code = NT%) 37.8 % 39.0-69.0 L LYMPHOCYTE % (test code = LY%) 42.2 % 25.0-55.0 N MONOCYTE % (test code = MO%) 13.3 % 0.0-10.0 H EOSINOPHIL % (test code = EO%) 6.0 % 0.0-5.0 H BASOPHIL % (test code = BA%) 0.5 % 0.0-1.0 N NEUTROPHIL # (test code = NT#) 2.23 K/mm3 1.8-7.7 N LYMPHOCYTE # (test code = LY#) 2.48 K/mm3 1.0-5.0 N MONOCYTE # (test code = MO#) 0.78 K/mm3 0-0.8 N EOSINOPHIL # (test code = EO#) 0.35 K/mm3 0.0-0.5 N BASOPHIL # (test code = BA#) 0.03 K/mm3 0.0-0.2 N MANUAL DIFF REQUIRED (test code = MDIFF) NO CBC W/O [id number] 06:48:00* Test Item Value Reference Range Interpretation Comments WHITE BLOOD CELL (test code = WBC) 7.1 K/mm3 4.5-12.5 N RED BLOOD CELL (test code = RBC) 3.94 mill/mm3 3.7-5.2 N HEMOGLOBIN (test code = HGB) 12.4 gram/dL 11.5-15.5 N HEMATOCRIT (test code = HCT) 37.6 % 36.0-46.0 N MEAN CELL VOLUME (test code = MCV) 95.4 fL 80-98 N MEAN CELL HGB (test code = MCH) 31.5 picogram 27.0-33.0 N MEAN CELL HGB CONCETRATION (test code = MCHC) 33.0 gram/dL 33.0-36. 0 N RED CELL DISTRIBUTION WIDTH (test code = RDW) 13.3 % 11.6-16. 2 N PLATELET COUNT (test code = PLT) 233 K/mm3 150-450 N MEAN PLATELET VOLUME (test code = MPV) 11.3 fL 6.7-11.0 H BASIC METABOLIC [id number] 06:29:00* Test Item Value Reference Range Interpretation Comments SODIUM (test code = NA) 140 mmol/L 136-145 N POTASSIUM (test code = K) 4.6 mmol/L 3.5-5.1 N CHLORIDE (test code = CL) 106.0 mmol/L 98-107 N CARBON DIOXIDE (test code = CO2) 28.0 mmol/L 21-32 N ANION GAP (test code = GAP) 10.6 10-20 N GLUCOSE (test code = GLU) 126 mg/dL 74-106 H BLOOD UREA NITROGEN (test code = BUN) 18 mg/dL 7-18 N GLOMERULAR FILTRATION RATE (test code = GFR) > 60 mL/min >=60 Estimated GFR by using Modified MDRD formula.Chronic kidney disease is defined as either kidney damageor GFR <60 mL/min/1.73 m2 for >3 months. CREATININE (test code = CREAT) 0.70 mg/dL 0.55-1.02 N Note change in reference range due to change in reagent. BUN/CREATININE RATIO (test code = BUN/CREA) 25.9 10-20 H CALCIUM (test code = CA) 9.1 mg/dL 8.5-10.1 N HEPATIC FUNCTION [id number] 06:29:00* Test Item Value Reference Range Interpretation Comments TOTAL PROTEIN (test code = PROT) 8.3 gram/dL 6.4-8.2 H ALBUMIN (test code = ALB) 3.5 g/dL 3.4-5.0 N GLOBULIN (test code = GLOB) 4.8 gram/dL 2.7-4.2 H ALBUMIN/GLOBULIN RATIO (test code = A/G) 0.7 0.75-1.50 L BILIRUBIN TOTAL (test code = BILT) 0.30 mg/dL 0.0-1.0 N BILIRUBIN DIRECT (test code = BILD) 0.12 mg/dL 0.0-0.20 N SGOT/AST (test code = AST) 30 IUnit/L 15-37 N SGPT/ALT (test code = ALT) 33 IUnit/L 12-78 N ALKALINE PHOSPHATASE TOTAL (test code = ALKP) 83 IUnit/L 45-117 N Note change in reference range due to change in reagent. [id number] 06:29:00* Test Item Value Reference Range Interpretation Comments LIPASE (test code = LIP) 187 U/L 73.0-393.0 N BASIC METABOLIC [id number] 06:22:00* Test Item Value Reference Range Interpretation Comments SODIUM (test code = NA) 140 mmol/L 136-145 N POTASSIUM (test code = K) 4.6 mmol/L 3.5-5.1 N CHLORIDE (test code = CL) 106.0 mmol/L 98-107 N CARBON DIOXIDE (test code = CO2) mmol/L 21-32 ANION GAP (test code = GAP) 10-20 GLUCOSE (test code = GLU) mg/dL 74-106 BLOOD UREA NITROGEN (test code = BUN) mg/dL 7-18 GLOMERULAR FILTRATION RATE (test code = GFR) mL/min >=60 CREATININE (test code = CREAT) mg/dL 0.55-1.02 BUN/CREATININE RATIO (test code = BUN/CREA) 10-20 CALCIUM (test code = CA) mg/dL 8.5-10.1 HEPATIC FUNCTION [id number] 06:22:00* Test Item Value Reference Range Interpretation Comments TOTAL PROTEIN (test code = PROT) gram/dL 6.4-8.2 ALBUMIN (test code = ALB) g/dL 3.4-5.0 GLOBULIN (test code = GLOB) gram/dL 2.7-4.2 ALBUMIN/GLOBULIN RATIO (test code = A/G) 0.75-1.50 BILIRUBIN TOTAL (test code = BILT) mg/dL 0.0-1.0 BILIRUBIN DIRECT (test code = BILD) mg/dL 0.0-0.20 SGOT/AST (test code = AST) IUnit/L 15-37 SGPT/ALT (test code = ALT) IUnit/L 12-78 ALKALINE PHOSPHATASE TOTAL (test code = ALKP) IUnit/L 45-117 [id number] 06:22:00* Test Item Value Reference Range Interpretation Comments LIPASE (test code = LIP) U/L 73.0-393.0 URINALYSIS [id number] 05:07:00* Test Item Value Reference Range Interpretation Comments UA COLOR (test code = COLU) STRAW YELLOW UA APPEARANCE (test code = APPU) CLEAR CLEAR UA GLUCOSE DIPSTICK (test code = DGLUU) NEGATIVE mg/dL NEGATIVE UA BILIRUBIN DIPSTICK (test code = BILU) NEGATIVE mg/dL NEGATIVE UA KETONE DIPSTICK (test code = KETU) Negative mg/dL NEGATIVE UA SPECIFIC GRAVITY (test code = SGU) 1.005 1.001-1.035 UA BLOOD DIPSTICK (test code = ISAIAS) Negative NEGATIVE UA PH DIPSTICK (test code = RODRIGO) 7.0 5.0-8.0 UA PROTEIN DIPSTICK (test code = PROU) Negative mg/dL NEGATIVE UA UROBILINIOGEN DIPSTICK (test code = URO) NEGATIVE mg/dL NEGATIVE UA NITRITE DIPSTICK (test code = BETTY) NEGATIVE NEGATIVE UA LEUKOCYTE ESTERASE W REFLEX (test code = LEUUR) NEGATIVE NEG ATIVE UA WBC (test code = WBCU) 0-5 #/HPF 0-5 UA RBC (test code = RBCU) 0-2 #/HPF 0-5 Urine Source? Clean CatchCOMPREHENSIVE METABOLIC [id number] 10:56:00* Test Item Value Reference Range Interpretation Comments SODIUM (test code = NA) 142 mmol/L 136-145 N POTASSIUM (test code = K) 4.3 mmol/L 3.5-5.1 N CHLORIDE (test code = CL) 103.0 mmol/L 98-107 N CARBON DIOXIDE (test code = CO2) 30.0 mmol/L 21-32 N ANION GAP (test code = GAP) 13.3 10-20 N GLUCOSE (test code = GLU) 90 mg/dL 74-106 N BLOOD UREA NITROGEN (test code = BUN) 14 mg/dL 7-18 N GLOMERULAR FILTRATION RATE (test code = GFR) > 60 mL/min >=60 Estimated GFR by using Modified MDRD formula.Chronic kidney disease is defined as either kidney damageor GFR <60 mL/min/1.73 m2 for >3 months. CREATININE (test code = CREAT) 0.60 mg/dL 0.55-1.02 N Note change in reference range due to change in reagent. BUN/CREATININE RATIO (test code = BUN/CREA) 22.1 10-20 H TOTAL PROTEIN (test code = PROT) 7.6 gram/dL 6.4-8.2 N ALBUMIN (test code = ALB) 3.9 g/dL 3.4-5.0 N GLOBULIN (test code = GLOB) 3.7 gram/dL 2.7-4.2 N ALBUMIN/GLOBULIN RATIO (test code = A/G) 1.1 0.75-1.50 N CALCIUM (test code = CA) 8.9 mg/dL 8.5-10.1 N BILIRUBIN TOTAL (test code = BILT) 0.40 mg/dL 0.0-1.0 N SGOT/AST (test code = AST) 47 IUnit/L 15-37 H SGPT/ALT (test code = ALT) 53 IUnit/L 12-78 N ALKALINE PHOSPHATASE TOTAL (test code = ALKP) 81 IUnit/L 45-117 N Note change in reference range due to change in reagent. COMPREHENSIVE METABOLIC [id number] 10:45:00* Test Item Value Reference Range Interpretation Comments SODIUM (test code = NA) 142 mmol/L 136-145 N POTASSIUM (test code = K) 4.3 mmol/L 3.5-5.1 N CHLORIDE (test code = CL) 103.0 mmol/L 98-107 N CARBON DIOXIDE (test code = CO2) mmol/L 21-32 ANION GAP (test code = GAP) 10-20 GLUCOSE (test code = GLU) mg/dL 74-106 BLOOD UREA NITROGEN (test code = BUN) mg/dL 7-18 GLOMERULAR FILTRATION RATE (test code = GFR) mL/min >=60 CREATININE (test code = CREAT) mg/dL 0.55-1.02 BUN/CREATININE RATIO (test code = BUN/CREA) 10-20 TOTAL PROTEIN (test code = PROT) gram/dL 6.4-8.2 ALBUMIN (test code = ALB) g/dL 3.4-5.0 GLOBULIN (test code = GLOB) gram/dL 2.7-4.2 ALBUMIN/GLOBULIN RATIO (test code = A/G) 0.75-1.50 CALCIUM (test code = CA) mg/dL 8.5-10.1 BILIRUBIN TOTAL (test code = BILT) mg/dL 0.0-1.0 SGOT/AST (test code = AST) IUnit/L 15-37 SGPT/ALT (test code = ALT) IUnit/L 12-78 ALKALINE PHOSPHATASE TOTAL (test code = ALKP) IUnit/L 45-117 - XR CHEST 2 [id number] 10:26:00 FAX: Marco A Calixto MD [phone] [place]: O St: PRE FAX: Rachael Abdalla MD [phone] Name: JIM LEA [facility] : 1950 Age/S: 67/F [address] [facility] Unit #: [id number] Loc: [place] [address] Phys: Marco A Dobson MD Acct: [id number] Dis Date: Status: PRE SDC PHONE #: [phone] Exam Date: 06/18/2018 09 FAX #: [phone] Reason: PRE OP EXAMS: CPT CODE: [id number] XR CHEST 2 V 57629 HISTORY: Preop. COMPARISON: July 25, 2017. AP and lateral view of the chest: No acute infiltrates, effusion or congestion. Cardiac and the mediastinal silhouette are normal. DJD of the dorsal spine IMPRESSION: No acute infiltrates, effusion or congestion. at 1026 Reported and signed by: Arnoldo Rincon M.D. CC: Marco A Dobson M.D.; Feliciano Moody Technologist: MELANY Brantley) Trnscrd Date/Time/By: 06/18/2018 (1026) : By: [email or web address] Orig Print D/T: S: 06/18/2018 (4355) PAGE 1 Signed Report CBC W/AUTO [id number] 10:13:00* Test Item Value Reference Range Interpretation Comments WHITE BLOOD CELL (test code = WBC) 4.3 K/mm3 4.5-12.5 L RED BLOOD CELL (test code = RBC) 3.98 mill/mm3 3.7-5.2 N HEMOGLOBIN (test code = HGB) 12.4 gram/dL 11.5-15.5 N HEMATOCRIT (test code = HCT) 37.7 % 36.0-46.0 N MEAN CELL VOLUME (test code = MCV) 94.7 fL 80-98 N MEAN CELL HGB (test code = MCH) 31.2 picogram 27.0-33.0 N MEAN CELL HGB CONCETRATION (test code = MCHC) 32.9 gram/dL 33.0-36. 0 L RED CELL DISTRIBUTION WIDTH (test code = RDW) 13.6 % 11.6-16. 2 N RED CELL DISTRIBUTION WIDTH SD (test code = RDW-SD) 48.2 fL 37 .0-51.0 N PLATELET COUNT (test code = PLT) 159 K/mm3 150-450 N MEAN PLATELET VOLUME (test code = MPV) 10.5 fL 6.7-11.0 N NEUTROPHIL % (test code = NT%) 34.1 % 39.0-69.0 L IMMATURE GRANULOCYTE % (test code = IG%) 0.2 % 0.0-5.0 N LYMPHOCYTE % (test code = LY%) 45.1 % 25.0-55.0 N MONOCYTE % (test code = MO%) 12.6 % 0.0-10.0 H EOSINOPHIL % (test code = EO%) 7.5 % 0.0-5.0 H BASOPHIL % (test code = BA%) 0.5 % 0.0-1.0 N NUCLEATED RBC % (test code = NRBC%) 0.0 % 0-0 N NEUTROPHIL # (test code = NT#) 1.46 K/mm3 1.8-7.7 L IMMATURE GRANULOCYTE # (test code = IG#) 0.01 x10 3/uL 0-0.03 N LYMPHOCYTE # (test code = LY#) 1.93 K/mm3 1.0-5.0 N MONOCYTE # (test code = MO#) 0.54 K/mm3 0-0.8 N EOSINOPHIL # (test code = EO#) 0.32 K/mm3 0.0-0.5 N BASOPHIL # (test code = BA#) 0.02 K/mm3 0.0-0.2 N NUCLEATED RBC # (test code = NRBC#) 0.00 K/mm3 0.0-0.1 N MAMMOGRAPHY DIGITAL SCR [id number] 15:02:00 [place] [address] Patient Name: JIM LEA MR #: [id number] : 1950 Age/Sex: 67/F Req #: [id number] [facility] Physician: Ordered by: RACHAEL MOODY MD Report #: [id number] Location: MAMMO Room/Bed: Procedure: 1129-00 05 MG/MAMMOGRAPHY DIGITAL SCR BILAT Exam Date: 03/28/18 Exam Time: 1407 REPORT STATUS: Signed #[id number] - [id number] #BILATERAL DIGITAL SCREENING MAMMOGRAM WITH CAD: 03/28/2018 CLINICAL: Routine screening. Comparison is made to exams dated: 02/15/2017 mammogram and 02/05/2015 mammogram - [facility]. Current study contains 4 films. The tissue of both renard asts is predominantly fatty. Current study was also evaluated with a Compute r Aided Detection (CAD) system. There is a benign calcification in the left breast. No significant masses, calcifications, or other findings are seen in either breast. There has been no significant interval change. IMPRESSI ON: BENIGN There is no mammographic evidence of malignancy. A 1 year screenin g mammogram is recommended. The patient will be notified by letter of the res ults. Jolene mcdermott/valerie:04/03/2018 12:48:33 Director Mobile: Emily GIBSON(R)(M), [facility] letter sent: Compared to Prior B9 Mammogram BI-RADS: 2 Benign Dictated By: JOLENE PALMER DO 47 COPY TO: SAMANTHA MOODY SE, MD RENAL/LIVER DOPPLER [id number] 14:18:[address] [place], [place] [address] Patient Name: JIM LEA MR #: [id number] : 0 1950 Age/Sex: 67/F Req #: [id number] Adm Physician: Ordered by: MELANIE SUMNER MD Report #: [id number] Location: US Room/Bed: Procedure: US/US RENAL/LIVER DOPPLER LTD Exam Date: Exam Ti me: REPORT STATUS: Signed EXAM: Renal Duplex Ultrasound INDICATION: Hypertensive urgency. Renal artery stenos is? COMPARISON: None TECHNIQUE: Color Doppler and waveform spectral analysis were obtained of the right and left kidneys. FINDINGS: Examination is somewhat limited due to lack of visualization of the distal aorta, proximal right renal artery and left renal artery at the ostium due to shadowing from overlying gas. Aorta PSV = 89.2 cm/sec maximally at the level of the celiac artery/SMA Right Kidney: 10.9 cm in length. Main renal artery PSV: Proximal = not measured Mid = 28.3 cm/sec Distal = 40 cm/sec Intrarenal (segmental or interlobar) arteries: Acceleration time: Normal Resistive ind ex: Normal RA PSV/aorta PSV ratio (RAR) = 0.54 Left Kidney: 11.2 cm in length. Main renal artery PSV: Proximal = 61.5 cm/sec Mid = 56.2 cm /sec Distal = 48.1 cm/sec Intrarenal (segmental or interlobar) arteries: Acceleration time: Normal Resistive index: Normal RA PSV/aorta PSV ratio (RAR) = 0.69 Main Renal Veins: Flow Present Incidental note is made of a mildly complex septated left hepatic lobe cyst measuring 2.8 x 1.5 x 2.3 cm. IMPRESSION: No sonographic evidence of renal artery stenosis or renal thrombosis. Signed by: Dr. Nicolas Billings M.D. on 03/22/2018 2:25 PM Dictated By: NEGRO BILLINGS MD, MD 24 Transcribed By: JENISE on 03/22/181424 CO PY TO: MELANIE SUMNER MD [id number] 07:21:00* Test Item Value Reference Range Interpretation Comments MAGNESIUM (BEAKER) (test code = 627) 2.0 mg/dL 1.6-2.6 BASIC METABOLIC [id number] 07:21:00* Test Item Value Reference Range Interpretation Comments SODIUM (BEAKER) (test code = 381) 137 meq/L 136-145 POTASSIUM (BEAKER) (test code = 379) 3.6 meq/L 3.5-5.1 CHLORIDE (BEAKER) (test code = 382) 106 meq/L 98-107 CO2 (BEAKER) (test code = 355) 24 meq/L 22-29 BLOOD UREA NITROGEN (BEAKER) (test code = 354) 6 mg/dL 7-21 L CREATININE (BEAKER) (test code = 358) 0.59 mg/dL 0.57-1.25 GLUCOSE RANDOM (BEAKER) (test code = 652) 91 mg/dL 70-105 CALCIUM (BEAKER) (test code = 697) 8.6 mg/dL 8.4-10.2 EGFR (BEAKER) (test code = 1092) 102 mL/min/1.73 sq m ESTIMATED GFR IS NOT ACCURATE CREATININE CLEARANCE IN PREDICTING GLOMERULAR FILTRATION RATE. ESTIMATED GFR IS NOT APPLICABLE FOR DIALYSIS PATIENTS. CBC W/PLT COUNT & AUTO [id number] 06:43:00* Test Item Value Reference Range Interpretation Comments WHITE BLOOD CELL COUNT (BEAKER) (test code = 775) 5.3 K/ L 3.5- 10.5 RED BLOOD CELL COUNT (BEAKER) (test code = 761) 2.98 M/ L 3.93-5 .22 L HEMOGLOBIN (BEAKER) (test code = 410) 9.5 GM/DL 11.2-15.7 L HEMATOCRIT (BEAKER) (test code = 411) 29.3 % 34.1-44.9 L MEAN CORPUSCULAR VOLUME (BEAKER) (test code = 753) 98.3 fL 79. 4-94.8 H MEAN CORPUSCULAR HEMOGLOBIN (BEAKER) (test code = 751) 31.9 pg 25.6-32.2 MEAN CORPUSCULAR HEMOGLOBIN CONC (BEAKER) (test code = 752) 32.4 GM/DL 32.2-35.5 RED CELL DISTRIBUTION WIDTH (BEAKER) (test code = 412) 13.6 % 11.7-14.4 PLATELET COUNT (BEAKER) (test code = 756) 124 K/CU MM 150-450 L MEAN PLATELET VOLUME (BEAKER) (test code = 754) 11.2 fL 9.4-12 .3 NUCLEATED RED BLOOD CELLS (BEAKER) (test code = 413) 0 /100 WBC 0 -0 NEUTROPHILS RELATIVE PERCENT (BEAKER) (test code = 429) 46 % LYMPHOCYTES RELATIVE PERCENT (BEAKER) (test code = 430) 36 % MONOCYTES RELATIVE PERCENT (BEAKER) (test code = 431) 12 % EOSINOPHILS RELATIVE PERCENT (BEAKER) (test code = 432) 5 % BASOPHILS RELATIVE PERCENT (BEAKER) (test code = 437) 1 % NEUTROPHILS ABSOLUTE COUNT (BEAKER) (test code = 670) 2.45 K/ L 1.56-6.13 LYMPHOCYTES ABSOLUTE COUNT (BEAKER) (test code = 414) 1.89 K/ L 1.18-3.74 MONOCYTES ABSOLUTE COUNT (BEAKER) (test code = 415) 0.61 K/ L 0. 24-0.36 H EOSINOPHILS ABSOLUTE COUNT (BEAKER) (test code = 416) 0.27 K/ L 0.04-0.36 BASOPHILS ABSOLUTE COUNT (BEAKER) (test code = 417) 0.04 K/ L 0. 01-0.08 IMMATURE GRANULOCYTES-RELATIVE PERCENT (BEAKER) (test code = 2801) 0 % 0-1 URINALYSIS W/ REFLEX URINE [id number] 23:49:00* Test Item Value Reference Range Interpretation Comments COLOR (BEAKER) (test code = 470) Yellow CLARITY (BEAKER) (test code = 469) Clear SPECIFIC GRAVITY UA (BEAKER) (test code = 468) 1.009 1.001-1 .035 PH UA (BEAKER) (test code = 467) 7.0 5.0-8.0 PROTEIN UA (BEAKER) (test code = 464) Negative Negative GLUCOSE UA (BEAKER) (test code = 365) Negative Negative KETONES UA (BEAKER) (test code = 371) Negative Negative BILIRUBIN UA (BEAKER) (test code = 462) Negative Negative BLOOD UA (BEAKER) (test code = 461) Negative Negative NITRITE UA (BEAKER) (test code = 465) Negative Negative LEUKOCYTE ESTERASE UA (BEAKER) (test code = 466) Negative Negat ghazala UROBILINOGEN UA (BEAKER) (test code = 463) 0.2 mg/dL 0.2-1.0 RBC UA (BEAKER) (test code = 519) < /HPF WBC UA (BEAKER) (test code = 520) 2 /HPF BACTERIA (BEAKER) (test code = 517) Rare MUCUS (BEAKER) (test code = 1574) Rare SQUAMOUS EPITHELIAL (BEAKER) (test code = 516) < /HPF SOURCE(BEAKER) (test code = 2795) [id number] 05:44:00* Test Item Value Reference Range Interpretation Comments MAGNESIUM (BEAKER) (test code = 627) 2.1 mg/dL 1.6-2.6 BASIC METABOLIC [id number] 05:44:00* Test Item Value Reference Range Interpretation Comments SODIUM (BEAKER) (test code = 381) 138 meq/L 136-145 POTASSIUM (BEAKER) (test code = 379) 3.8 meq/L 3.5-5.1 CHLORIDE (BEAKER) (test code = 382) 105 meq/L 98-107 CO2 (BEAKER) (test code = 355) 26 meq/L 22-29 BLOOD UREA NITROGEN (BEAKER) (test code = 354) 8 mg/dL 7-21 CREATININE (BEAKER) (test code = 358) 0.62 mg/dL 0.57-1.25 GLUCOSE RANDOM (BEAKER) (test code = 652) 109 mg/dL 70-105 H CALCIUM (BEAKER) (test code = 697) 8.5 mg/dL 8.4-10.2 EGFR (BEAKER) (test code = 1092) 96 mL/min/1.73 sq m ESTIMATED GFR IS NOT ACCURATE CREATININE CLEARANCE IN PREDICTING GLOMERULAR FILTRATION RATE. ESTIMATED GFR IS NOT APPLICABLE FOR DIALYSIS PATIENTS. CBC W/PLT COUNT & AUTO [id number] 05:23:00* Test Item Value Reference Range Interpretation Comments WHITE BLOOD CELL COUNT (BEAKER) (test code = 775) 5.5 K/ L 3.5- 10.5 RED BLOOD CELL COUNT (BEAKER) (test code = 761) 2.94 M/ L 3.93-5 .22 L HEMOGLOBIN (BEAKER) (test code = 410) 9.5 GM/DL 11.2-15.7 L HEMATOCRIT (BEAKER) (test code = 411) 29.0 % 34.1-44.9 L MEAN CORPUSCULAR VOLUME (BEAKER) (test code = 753) 98.6 fL 79. 4-94.8 H MEAN CORPUSCULAR HEMOGLOBIN (BEAKER) (test code = 751) 32.3 pg 25.6-32.2 H MEAN CORPUSCULAR HEMOGLOBIN CONC (BEAKER) (test code = 752) 32.8 GM/DL 32.2-35.5 RED CELL DISTRIBUTION WIDTH (BEAKER) (test code = 412) 13.9 % 11.7-14.4 PLATELET COUNT (BEAKER) (test code = 756) 120 K/CU MM 150-450 L MEAN PLATELET VOLUME (BEAKER) (test code = 754) 10.9 fL 9.4-12 .3 NUCLEATED RED BLOOD CELLS (BEAKER) (test code = 413) 0 /100 WBC 0 -0 NEUTROPHILS RELATIVE PERCENT (BEAKER) (test code = 429) 55 % LYMPHOCYTES RELATIVE PERCENT (BEAKER) (test code = 430) 29 % MONOCYTES RELATIVE PERCENT (BEAKER) (test code = 431) 13 % EOSINOPHILS RELATIVE PERCENT (BEAKER) (test code = 432) 3 % BASOPHILS RELATIVE PERCENT (BEAKER) (test code = 437) 0 % NEUTROPHILS ABSOLUTE COUNT (BEAKER) (test code = 670) 2.99 K/ L 1.56-6.13 LYMPHOCYTES ABSOLUTE COUNT (BEAKER) (test code = 414) 1.58 K/ L 1.18-3.74 MONOCYTES ABSOLUTE COUNT (BEAKER) (test code = 415) 0.72 K/ L 0. 24-0.36 H EOSINOPHILS ABSOLUTE COUNT (BEAKER) (test code = 416) 0.14 K/ L 0.04-0.36 BASOPHILS ABSOLUTE COUNT (BEAKER) (test code = 417) 0.01 K/ L 0. 01-0.08 IMMATURE GRANULOCYTES-RELATIVE PERCENT (BEAKER) (test code = 2801) 0 % 0-1 HEMOGLOBIN [id number] 05:30:00* Test Item Value Reference Range Interpretation Comments HEMOGLOBIN A1C (BEAKER) (test code = 368) 5.1 % 4.3-6.1 BASIC METABOLIC [id number] 23:18:00* Test Item Value Reference Range Interpretation Comments SODIUM (BEAKER) (test code = 381) 132 meq/L 136-145 L POTASSIUM (BEAKER) (test code = 379) 3.4 meq/L 3.5-5.1 L CHLORIDE (BEAKER) (test code = 382) 96 meq/L 98-107 L CO2 (BEAKER) (test code = 355) 27 meq/L 22-29 BLOOD UREA NITROGEN (BEAKER) (test code = 354) 12 mg/dL 7-21 CREATININE (BEAKER) (test code = 358) 0.65 mg/dL 0.57-1.25 GLUCOSE RANDOM (BEAKER) (test code = 652) 132 mg/dL 70-105 H CALCIUM (BEAKER) (test code = 697) 8.5 mg/dL 8.4-10.2 EGFR (BEAKER) (test code = 1092) 91 mL/min/1.73 sq m ESTIMATED GFR IS NOT ACCURATE CREATININE CLEARANCE IN PREDICTING GLOMERULAR FILTRATION RATE. ESTIMATED GFR IS NOT APPLICABLE FOR DIALYSIS PATIENTS. POTASSIUM-STAT [id number] 23:00:00* Test Item Value Reference Range Interpretation Comments POTASSIUM (BEAKER) (test code = 379) 3.2 meq/L 3.6-5.5 L CBC W/PLT COUNT & AUTO [id number] 22:55:00* Test Item Value Reference Range Interpretation Comments WHITE BLOOD CELL COUNT (BEAKER) (test code = 775) 7.8 K/ L 3.5- 10.5 RED BLOOD CELL COUNT (BEAKER) (test code = 761) 3.48 M/ L 3.93-5 .22 L HEMOGLOBIN (BEAKER) (test code = 410) 11.1 GM/DL 11.2-15.7 L HEMATOCRIT (BEAKER) (test code = 411) 33.4 % 34.1-44.9 L MEAN CORPUSCULAR VOLUME (BEAKER) (test code = 753) 96.0 fL 79. 4-94.8 H MEAN CORPUSCULAR HEMOGLOBIN (BEAKER) (test code = 751) 31.9 pg 25.6-32.2 MEAN CORPUSCULAR HEMOGLOBIN CONC (BEAKER) (test code = 752) 33.2 GM/DL 32.2-35.5 RED CELL DISTRIBUTION WIDTH (BEAKER) (test code = 412) 13.6 % 11.7-14.4 PLATELET COUNT (BEAKER) (test code = 756) 173 K/CU MM 150-450 MEAN PLATELET VOLUME (BEAKER) (test code = 754) 10.7 fL 9.4-12 .3 NUCLEATED RED BLOOD CELLS (BEAKER) (test code = 413) 0 /100 WBC 0 -0 NEUTROPHILS RELATIVE PERCENT (BEAKER) (test code = 429) 77 % LYMPHOCYTES RELATIVE PERCENT (BEAKER) (test code = 430) 14 % MONOCYTES RELATIVE PERCENT (BEAKER) (test code = 431) 8 % EOSINOPHILS RELATIVE PERCENT (BEAKER) (test code = 432) 0 % BASOPHILS RELATIVE PERCENT (BEAKER) (test code = 437) 0 % NEUTROPHILS ABSOLUTE COUNT (BEAKER) (test code = 670) 6.00 K/ L 1.56-6.13 LYMPHOCYTES ABSOLUTE COUNT (BEAKER) (test code = 414) 1.07 K/ L 1.18-3.74 L MONOCYTES ABSOLUTE COUNT (BEAKER) (test code = 415) 0.65 K/ L 0. 24-0.36 H EOSINOPHILS ABSOLUTE COUNT (BEAKER) (test code = 416) 0.01 K/ L 0.04-0.36 L BASOPHILS ABSOLUTE COUNT (BEAKER) (test code = 417) 0.02 K/ L 0. 01-0.08 IMMATURE GRANULOCYTES-RELATIVE PERCENT (BEAKER) (test code = 2801) 1 % 0-1 POTASSIUM-STAT [id number] 17:59:00* Test Item Value Reference Range Interpretation Comments POTASSIUM (BEAKER) (test code = 379) 2.8 meq/L 3.6-5.5 L BASIC METABOLIC [id number] 17:41:00* Test Item Value Reference Range Interpretation Comments SODIUM (BEAKER) (test code = 381) 138 meq/L 136-145 POTASSIUM (BEAKER) (test code = 379) 2.4 meq/L 3.5-5.1 LL CHLORIDE (BEAKER) (test code = 382) 102 meq/L 98-107 CO2 (BEAKER) (test code = 355) 25 meq/L 22-29 BLOOD UREA NITROGEN (BEAKER) (test code = 354) 9 mg/dL 7-21 CREATININE (BEAKER) (test code = 358) 0.59 mg/dL 0.57-1.25 GLUCOSE RANDOM (BEAKER) (test code = 652) 143 mg/dL 70-105 H CALCIUM (BEAKER) (test code = 697) 8.4 mg/dL 8.4-10.2 EGFR (BEAKER) (test code = 1092) 102 mL/min/1.73 sq m ESTIMATED GFR IS NOT ACCURATE CREATININE CLEARANCE IN PREDICTING GLOMERULAR FILTRATION RATE. ESTIMATED GFR IS NOT APPLICABLE FOR DIALYSIS PATIENTS. BASIC METABOLIC [id number] 12:41:00* Test Item Value Reference Range Interpretation Comments SODIUM (BEAKER) (test code = 381) 137 meq/L 136-145 POTASSIUM (BEAKER) (test code = 379) 3.6 meq/L 3.5-5.1 CHLORIDE (BEAKER) (test code = 382) 99 meq/L 98-107 CO2 (BEAKER) (test code = 355) 26 meq/L 22-29 BLOOD UREA NITROGEN (BEAKER) (test code = 354) 15 mg/dL 7-21 CREATININE (BEAKER) (test code = 358) 0.85 mg/dL 0.57-1.25 GLUCOSE RANDOM (BEAKER) (test code = 652) 90 mg/dL 70-105 CALCIUM (BEAKER) (test code = 697) 10.3 mg/dL 8.4-10.2 H EGFR (BEAKER) (test code = 1092) 67 mL/min/1.73 sq m ESTIMATED GFR IS NOT ACCURATE CREATININE CLEARANCE IN PREDICTING GLOMERULAR FILTRATION RATE. ESTIMATED GFR IS NOT APPLICABLE FOR DIALYSIS PATIENTS. CBC (HEMOGRAM ONLY)2018-01-03 12:17:00* Test Item Value Reference Range Interpretation Comments WHITE BLOOD CELL COUNT (BEAKER) (test code = 775) 6.9 K/ L 3.5- 10.5 RED BLOOD CELL COUNT (BEAKER) (test code = 761) 3.15 M/ L 3.93-5 .22 L HEMOGLOBIN (BEAKER) (test code = 410) 10.1 GM/DL 11.2-15.7 L HEMATOCRIT (BEAKER) (test code = 411) 30.5 % 34.1-44.9 L MEAN CORPUSCULAR VOLUME (BEAKER) (test code = 753) 96.8 fL 79. 4-94.8 H MEAN CORPUSCULAR HEMOGLOBIN (BEAKER) (test code = 751) 32.1 pg 25.6-32.2 MEAN CORPUSCULAR HEMOGLOBIN CONC (BEAKER) (test code = 752) 33.1 GM/DL 32.2-35.5 RED CELL DISTRIBUTION WIDTH (BEAKER) (test code = 412) 13.3 % 11.7-14.4 PLATELET COUNT (BEAKER) (test code = 756) 302 K/CU MM 150-450 MEAN PLATELET VOLUME (BEAKER) (test code = 754) 10.3 fL 9.4-12 .3 NUCLEATED RED BLOOD CELLS (BEAKER) (test code = 413) 0 /100 WBC 0 -0 CTA ABD/PEL/RUN [id number] 13:22:00 [place] [address] Patient Name: JIM LEA MR #: [id number] : 1950 Age/Sex: 67/F Req #: [id number] Adm Physician: Ordered by: RIANNA MARIE MD Report #: [id number] Location: CT Room/Bed: Procedure: [id number] CT/CTA ABD/PEL/RUN OFF Franklyn stephens Date: 12/14/17 Exam Time: 1101 REPORT STATUS: Signed PROCEDURE: CTA ABD/PEL/BILATERAL LOWER EXT RUNOFF W T W/O CONTRAST COMPARISON: None. INDICATIONS: RIGHT LEG CLAUDICATION TECH NIQUE: Multi-detector CT technology with Dose Reduction was employed. Images were obtained after the administration of 100 cc of Isovue-370 intravenously. For optimization of anatomic evaluation, multiplanar and volume rendering re constructions were performed. Advanced 3-D off-line postprocessing were perfo rmed on a dedicated stand-alone workstation under the direct supervision of t he interpreting physician. FINDINGS: Abdominal aorta and iliac vessel s: Scattered atherosclerotic changes are present throughout the abdominal a vi and bilateral lower extremity runoff. The superior mesenteric, inferior mesenteric, and celiac arteries are patent. Bilateral renal arteries are major nt. The common, internal, and external iliac arteries are patent bilateral ly. Femoral-popliteal and run off vessels: Right side: Occlusion of the right SFA just past its origin with a large profunda collateral reconstituti ng the SFA at the abductor canal. Patent popliteal artery and three-vessel ru noff extending to the foot. Left side: The SFA is patent. Popliteal artery is patent. Anterior tibial and peroneal arteries extend to the foot. Posteri or tibial artery occludes in the proximal calf. Abdominal and Pelvic so ft-tissues and organs: Lung bases: No focal consolidation or parenchymal mass. No pleural effusion or pneumothorax Liver: Normal parenchyma. No focal mas s. Two adjacent cysts are present in segment III-IV of the liver. Biliary: Normal gallbladder. No intrahepatic or extrahepatic biliary duct dilation. Spleen: No splenomegaly. No focal mass. Pancreas: Normal enhancement. No panc reatic duct dilation. No focal mass or peripancreatic soft tissue inflammator y changes. Adrenal Glands: No adrenal nodules. Kidneys: No obstructing calcu li, hydronephrosis, or solid mass. GI: The stomach, small bowel and colon are unremarkable. No air-fluid levels. Normal appendix. A moderate amount of ret ained feces limits intraluminal evaluation of the colon. Peritoneum/Retrop eritoneum: No pneumoperitoneum or free intraperitoneal fluid. No lymphadenopa thy. No drainable fluid collection. Reproductive Organs: Normal. Musculoske letal: No acute sclerotic or lucent lesion. Degenerative changes of the lumba r spine. Loose body in the right knee joint. CONCLUSION: 1. Occlusion o f the left SFA with reconstitution distally by profunda collaterals. 2. Thr ee vessel runoff extending to the right foot. 3. Patent left SFA with a two-v essel calf runoff and occlusion of the proximal posterior tibial artery. Jolene Palmer D.O. Dictated by: Jolene Palmer D.O. on 12/14/2017 at 13:22 Electronically approved by: Jolene Palmer D.O. on 12/14/2017 at 13 :22 Dictated By: JOLENE PALMER DO 1322 Transcribed By: JOAQUIM on 12/14/17 1322 C OPY TO: RIANNA MARIE MD Sodium [id number] 01:12:00* Test Item Value Reference Range Interpretation Comments Sodium Level (test code = 2951-2) 135 136-145 L [facility]Pot[facility] Upllw8330-20-72 01:12:00* Test Item Value Reference Range Interpretation Comments Potassium Level (test code = 2823-3) 4.2 3.5-5.1 [facility] HospitalChloride Dxxer9667-38-51 01:12:00* Test Item Value Reference Range Interpretation Comments Chloride Level (test code = 2075-0) 98 98-107 [facility] HospitalCarbon Dioxide Eueff1235-86-04 01:12:00* Test Item Value Reference Range Interpretation Comments Carbon Dioxide Level (test code = 2028-9) 28 22-29 [facility] HospitalAnion Iqb3680-23-06 01:12:00* Test Item Value Reference Range Interpretation Comments Anion Gap (test code = 38605-0) 13.2 8-16 [facility] HospitalBlood Urea Txecegcd7929-25-79 01:12:00* Test Item Value Reference Range Interpretation Comments Blood Urea Nitrogen (test code = 3094-0) 10 7-26 [facility] HospitalCreatinine2018-06-02 01:12:00* Test Item Value Reference Range Interpretation Comments Creatinine (test code = 2160-0) 0.74 0.57-1.11 [facility] HospitalBUN/Creatinine Kyzcd9554-37-89 01:12:00* Test Item Value Reference Range Interpretation Comments BUN/Creatinine Ratio (test code = 3097-3) 14 6-25 [facility] HospitalEstimat Glomerular Filtration Rate 2017-09-29 01:12:00* Test Item Value Reference Range Interpretation Comments Estimat Glomerular Filtration Rate (test code = 21773-1) 60- >60 Ranges were taken from the National Kidney Disease Education Program and the [facility] Kidney Foundation literature.Reference ranges:60 or greater: Tquzks66-62 ( for 3 consecutive months): Chronic kidney disease 15 or less: Kidney failureCHI Freestone Medical CenterGlucose Fzxgs1255-45-19 01:12:00* Test Item Value Reference Range Interpretation Comments Glucose Level (test code = NRH3698) 128 74-118 H [facility] HospitalCalcium Lffkm3869-52-33 01:12:00* Test Item Value Reference Range Interpretation Comments Calcium Level (test code = 35320-5) 10.2 8.4-10.2 [facility] HospitalTotal Qibyppgrd1677-50-64 01:12:00* Test Item Value Reference Range Interpretation Comments Total Bilirubin (test code = 1975-2) 0.8 0.2-1.2 [facility] HospitalAspartate Amino Transf (AST/SGOT) 2017-09-29 01:12:00* Test Item Value Reference Range Interpretation Comments Aspartate Amino Transf (AST/SGOT) (test code = Aspartate Amino Transf (AST/SGOT)) 54 5-34 H [facility] HospitalAlanine Aminotransferase (ALT/SGPT) 2017-09-29 01:12:00* Test Item Value Reference Range Interpretation Comments Alanine Aminotransferase (ALT/SGPT) (test code = 1742-6) 56 0-55 H [facility] HospitalTotal Wwqadlh6300-89-13 01:12:00* Test Item Value Reference Range Interpretation Comments Total Protein (test code = 2885-2) 8.1 6.5-8.1 [facility] HospitalAlbumin2018-06-02 01:12:00* Test Item Value Reference Range Interpretation Comments Albumin (test code = 1751-7) 4.7 3.5-5.0 [facility] HospitalGlobulin2018-06-02 01:12:00* Test Item Value Reference Range Interpretation Comments Globulin (test code = 05063-0) 3.4 2.3-3.5 [facility] HospitalAlbumin/Globulin Gjjcq2594-72-53 01:12:00 * Test Item Value Reference Range Interpretation Comments Albumin/Globulin Ratio (test code = 1759-0) 1.4 0.8-2.0 [facility] HospitalAlkaline Czjmlxfaikt0233-13-69 01:12:00* Test Item Value Reference Range Interpretation Comments Alkaline Phosphatase (test code = 6768-6) 78 40-150 [facility] HospitalCreatine Wbpsok2443-69-21 01:12:00* Test Item Value Reference Range Interpretation Comments Creatine Kinase (test code = 2157-6) 86 29-168 [facility] HospitalCreatine Kinase [id number] 01:12:00* Test Item Value Reference Range Interpretation Comments Creatine Kinase MB (test code = 88079-5) 2.30 0-5.0 [facility] HospitalTroponin T4527-34-56 01:12:00* Test Item Value Reference Range Interpretation Comments Troponin I (test code = WVW1845) -0.001 0-0.300 [facility] HospitalWhite Blood Ihmfl7008-25-54 00:50:00* Test Item Value Reference Range Interpretation Comments White Blood Count (test code = 6690-2) 7.76 4.8-10.8 [facility] HospitalRed Blood Oxvtk2609-86-46 00:50:00* Test Item Value Reference Range Interpretation Comments Red Blood Count (test code = 789-8) 4.50 3.6-5.1 [facility] HospitalHemoglobin2018-06-02 00:50:00* Test Item Value Reference Range Interpretation Comments Hemoglobin (test code = 65188-8) 14.0 12.0-16.0 [facility] HospitalHematocrit2018-06-02 00:50:00* Test Item Value Reference Range Interpretation Comments Hematocrit (test code = 4544-3) 41.3 34.2-44.1 [facility] HospitalMean Corpuscular Fbzawp3167-24-99 00:50:00* Test Item Value Reference Range Interpretation Comments Mean Corpuscular Volume (test code = 787-2) 91.8 81-99 [facility] HospitalMean Corpuscular Erbvvqxrlv7440-45-74 00:50:00* Test Item Value Reference Range Interpretation Comments Mean Corpuscular Hemoglobin (test code = 785-6) 31.1 28-32 [facility] HospitalMean Corpuscular Hemoglobin Concent 2017-09-29 00:50:00* Test Item Value Reference Range Interpretation Comments Mean Corpuscular Hemoglobin Concent (test code = 786-4) 33.9 31-35 [facility] HospitalRed Cell Distribution Skukv5081-41-68 00:50:00* Test Item Value Reference Range Interpretation Comments Red Cell Distribution Width (test code = 15749-0) 12.1 11.7 -14.4 [facility] HospitalPlatelet Zwcrh3205-53-21 00:50:00* Test Item Value Reference Range Interpretation Comments Platelet Count (test code = 777-3) 174 140-360 [facility] HospitalNeutrophils (%) (Auto)2017-09-29 00:50:00 * Test Item Value Reference Range Interpretation Comments Neutrophils (%) (Auto) (test code = 02324-5) 51.7 38.7-80.0 [facility] HospitalLymphocytes (%) (Auto)2017-09-29 00:50:00 * Test Item Value Reference Range Interpretation Comments Lymphocytes (%) (Auto) (test code = 736-9) 29.5 18.0-39.1 [facility] HospitalMonocytes (%) (Auto)2017-09-29 00:50:00* Test Item Value Reference Range Interpretation Comments Monocytes (%) (Auto) (test code = 5905-5) 12.6 4.4-11.3 H [facility] HospitalEosinophils (%) (Auto)2017-09-29 00:50:00 * Test Item Value Reference Range Interpretation Comments Eosinophils (%) (Auto) (test code = 713-8) 5.5 0.0-6.0 [facility] HospitalBasophils (%) (Auto)2017-09-29 00:50:00* Test Item Value Reference Range Interpretation Comments Basophils (%) (Auto) (test code = 706-2) 0.4 0.0-1.0 [facility] HospitalIM GRANULOCYTES %2017-09-29 00:50:00* Test Item Value Reference Range Interpretation Comments IM GRANULOCYTES % (test code = IM GRANULOCYTES %) 0.3 0.0- 1.0 [facility] HospitalNeutrophils # (Auto)2017-09-29 00:50:00* Test Item Value Reference Range Interpretation Comments Neutrophils # (Auto) (test code = 751-8) 4.0 2.1-6.9 [facility] HospitalLymphocytes # (Auto)2017-09-29 00:50:00* Test Item Value Reference Range Interpretation Comments Lymphocytes # (Auto) (test code = 63964-8) 2.3 1.0-3.2 [facility] HospitalMonocytes # (Auto)2017-09-29 00:50:00* Test Item Value Reference Range Interpretation Comments Monocytes # (Auto) (test code = 742-7) 1.0 0.2-0.8 H [facility] HospitalEosinophils # (Auto)2017-09-29 00:50:00* Test Item Value Reference Range Interpretation Comments Eosinophils # (Auto) (test code = 711-2) 0.4 0.0-0.4 [facility] HospitalBasophils # (Auto)2017-09-29 00:50:00* Test Item Value Reference Range Interpretation Comments Basophils # (Auto) (test code = 704-7) 0.0 0.0-0.1 [facility] HospitalAbsolute Immature Granulocyte (auto 2017-09-29 00:50:00* Test Item Value Reference Range Interpretation Comments Absolute Immature Granulocyte (auto (jess t code = Absolute Immature Granulocyte (auto) 0.02 0-0.1 [facility] HospitalCreatine Kinase [id number] 10:41:00* Test Item Value Reference Range Interpretation Comments Creatine Kinase MB (test code = 66531-3) 1.30 0-5.0 [facility] HospitalTroponin [id number] 10:41:00* Test Item Value Reference Range Interpretation Comments Troponin I (test code = DQR3369) 0.003 0-0.300 [facility] HospitalCreatine Rxjkae6635-52-54 10:34:00* Test Item Value Reference Range Interpretation Comments Creatine Kinase (test code = 2157-6) 64 29-168 [facility] Gqmue1226-31-55 07:11:00* Test Item Value Reference Range Interpretation Comments Sodium Level (test code = 2951-2) 142 136-145 [facility] HospitalPotassium Mmivn4481-51-69 07:11:00* Test Item Value Reference Range Interpretation Comments Potassium Level (test code = 2823-3) 4.4 3.5-5.1 [facility] HospitalChloride Hchji2544-19-75 07:11:00* Test Item Value Reference Range Interpretation Comments Chloride Level (test code = 2075-0) 107 98-107 [facility] HospitalCarbon Dioxide Gbbas4598-88-69 07:11:00* Test Item Value Reference Range Interpretation Comments Carbon Dioxide Level (test code = 2028-9) 27 22-29 [facility] HospitalAnion Zjs9830-39-48 07:11:00* Test Item Value Reference Range Interpretation Comments Anion Gap (test code = 18077-0) 12.4 8-16 [facility] HospitalBlood Urea Aiekxzih3046-85-65 07:11:00* Test Item Value Reference Range Interpretation Comments Blood Urea Nitrogen (test code = 3094-0) 13 7-26 [facility] HospitalCreatinine2018-05-29 07:11:00* Test Item Value Reference Range Interpretation Comments Creatinine (test code = 2160-0) 0.73 0.57-1.11 [facility] HospitalBUN/Creatinine Yslqw3158-50-34 07:11:00* Test Item Value Reference Range Interpretation Comments BUN/Creatinine Ratio (test code = 3097-3) 18 6-25 [facility] HospitalEstimat Glomerular Filtration Rate 2017-09-25 07:11:00* Test Item Value Reference Range Interpretation Comments Estimat Glomerular Filtration Rate (test code = 30691-3) 60- >60 Ranges were taken from the National Kidney Disease Education Program and the [facility] Kidney Foundation literature.Reference ranges:60 or greater: Enixkq60-00 ( for 3 consecutive months): Chronic kidney disease 15 or less: Kidney failureEastland Memorial HospitalGlucose Nlhcw4233-20-07 07:11:00* Test Item Value Reference Range Interpretation Comments Glucose Level (test code = LEU9478) 89 74-118 [facility] HospitalCalcium Ajmfc7378-72-44 07:11:00* Test Item Value Reference Range Interpretation Comments Calcium Level (test code = 08621-7) 9.0 8.4-10.2 [facility] HospitalMagnesium Lawks5282-37-43 07:11:00* Test Item Value Reference Range Interpretation Comments Magnesium Level (test code = 67757-5) 2.2 1.3-2.1 H [facility] HospitalTriglycerides Uyotf0206-01-35 07:11:00* Test Item Value Reference Range Interpretation Comments Triglycerides Level (test code = 2571-8) 108 0-149 [facility] HospitalCholesterol Klenf7809-45-20 07:11:00* Test Item Value Reference Range Interpretation Comments Cholesterol Level (test code = 2093-3) 166 0-199 Less than 200 mg/dL Low Kdyv802 - 239 mg/dL Borderline Iftf559 m g/dl and greater High Risk [facility] HospitalLDL Isjsjlmjmyu0203-39-94 07:11:00* Test Item Value Reference Range Interpretation Comments LDL Cholesterol (test code = 2089-1) 74 60-130 [facility] HospitalHDL Wuzgkrswfgn1716-51-44 07:11:00* Test Item Value Reference Range Interpretation Comments HDL Cholesterol (test code = 2085-9) 70 40-60 H [facility] HospitalCholesterol/HDL Yxzbj4273-59-94 07:11:00 * Test Item Value Reference Range Interpretation Comments Cholesterol/HDL Ratio (test code = 9830-1) 2.4 3.0-3.6 L [facility] HospitalMagnesium Ocpuj9073-11-89 07:11:00* Test Item Value Reference Range Interpretation Comments Magnesium Level (test code = 40940-9) 2.2 1.3-2.1 H [facility] HospitalTriglycerides Ovjqz1945-24-10 07:11:00* Test Item Value Reference Range Interpretation Comments Triglycerides Level (test code = 2571-8) 108 0-149 [facility] HospitalCholesterol Eleno4660-29-54 07:11:00* Test Item Value Reference Range Interpretation Comments Cholesterol Level (test code = 2093-3) 166 0-199 Less than 200 mg/dL Low Mjmn208 - 239 mg/dL Borderline Eqmk315 m g/dl and greater High Risk [facility] HospitalLDL Qljjeclnxlp8919-24-72 07:11:00* Test Item Value Reference Range Interpretation Comments LDL Cholesterol (test code = 2089-1) 74 60-130 [facility] HospitalHDL Famdgphiufd7180-32-50 07:11:00* Test Item Value Reference Range Interpretation Comments HDL Cholesterol (test code = 2085-9) 70 40-60 H [facility] HospitalCholesterol/HDL Djcdh6553-20-96 07:11:00 * Test Item Value Reference Range Interpretation Comments Cholesterol/HDL Ratio (test code = 9830-1) 2.4 3.0-3.6 L [facility] HospitalWhite Blood Aeitd4904-86-51 06:46:00* Test Item Value Reference Range Interpretation Comments White Blood Count (test code = 6690-2) 7.08 4.8-10.8 [facility] HospitalRed Blood Zstuv9845-06-84 06:46:00* Test Item Value Reference Range Interpretation Comments Red Blood Count (test code = 789-8) 4.23 3.6-5.1 [facility] HospitalHemoglobin2018-05-29 06:46:00* Test Item Value Reference Range Interpretation Comments Hemoglobin (test code = 17585-2) 13.2 12.0-16.0 [facility] HospitalHematocrit2018-05-29 06:46:00* Test Item Value Reference Range Interpretation Comments Hematocrit (test code = 4544-3) 40.3 34.2-44.1 [facility] HospitalMean Corpuscular Jkevoy0328-51-07 06:46:00* Test Item Value Reference Range Interpretation Comments Mean Corpuscular Volume (test code = 787-2) 95.3 81-99 [facility] HospitalMean Corpuscular Kynboxesxu2563-98-19 06:46:00* Test Item Value Reference Range Interpretation Comments Mean Corpuscular Hemoglobin (test code = 785-6) 31.2 28-32 [facility] HospitalMean Corpuscular Hemoglobin Concent 2017-09-25 06:46:00* Test Item Value Reference Range Interpretation Comments Mean Corpuscular Hemoglobin Concent (test code = 786-4) 32.8 31-35 [facility] HospitalRed Cell Distribution Alwfo4122-60-25 06:46:00* Test Item Value Reference Range Interpretation Comments Red Cell Distribution Width (test code = 11474-4) 12.7 11.7 -14.4 [facility] HospitalPlatelet Rclwf8891-07-96 06:46:00* Test Item Value Reference Range Interpretation Comments Platelet Count (test code = 777-3) 184 140-360 [facility] HospitalNeutrophils (%) (Auto)2017-09-25 06:46:00 * Test Item Value Reference Range Interpretation Comments Neutrophils (%) (Auto) (test code = 49471-1) 32.1 38.7-80.0 L [facility] HospitalLymphocytes (%) (Auto)2017-09-25 06:46:00 * Test Item Value Reference Range Interpretation Comments Lymphocytes (%) (Auto) (test code = 736-9) 55.6 18.0-39.1 H [facility] HospitalMonocytes (%) (Auto)2017-09-25 06:46:00* Test Item Value Reference Range Interpretation Comments Monocytes (%) (Auto) (test code = 5905-5) 9.2 4.4-11.3 [facility] HospitalEosinophils (%) (Auto)2017-09-25 06:46:00 * Test Item Value Reference Range Interpretation Comments Eosinophils (%) (Auto) (test code = 713-8) 2.1 0.0-6.0 [facility] HospitalBasophils (%) (Auto)2017-09-25 06:46:00* Test Item Value Reference Range Interpretation Comments Basophils (%) (Auto) (test code = 706-2) 0.6 0.0-1.0 [facility] HospitalIM GRANULOCYTES %2017-09-25 06:46:00* Test Item Value Reference Range Interpretation Comments IM GRANULOCYTES % (test code = IM GRANULOCYTES %) 0.4 0.0- 1.0 [facility] HospitalNeutrophils # (Auto)2017-09-25 06:46:00* Test Item Value Reference Range Interpretation Comments Neutrophils # (Auto) (test code = 751-8) 2.3 2.1-6.9 [facility] HospitalLymphocytes # (Auto)2017-09-25 06:46:00* Test Item Value Reference Range Interpretation Comments Lymphocytes # (Auto) (test code = 18245-2) 3.9 1.0-3.2 H [facility] HospitalMonocytes # (Auto)2017-09-25 06:46:00* Test Item Value Reference Range Interpretation Comments Monocytes # (Auto) (test code = 742-7) 0.7 0.2-0.8 [facility] HospitalEosinophils # (Auto)2017-09-25 06:46:00* Test Item Value Reference Range Interpretation Comments Eosinophils # (Auto) (test code = 711-2) 0.2 0.0-0.4 [facility] HospitalBasophils # (Auto)2017-09-25 06:46:00* Test Item Value Reference Range Interpretation Comments Basophils # (Auto) (test code = 704-7) 0.0 0.0-0.1 [facility] HospitalAbsolute Immature Granulocyte (auto 2017-09-25 06:46:00* Test Item Value Reference Range Interpretation Comments Absolute Immature Granulocyte (auto (jess t code = Absolute Immature Granulocyte (auto) 0.03 0-0.1 [facility] HospitalDifferential Total Cells Counted 2017-09-24 16:39:00* Test Item Value Reference Range Interpretation Comments Differential Total Cells Counted (test code = Differen tial Total Cells Counted) 100 [facility] HospitalNeutrophils % (Manual)2017-09-24 16:39:00 * Test Item Value Reference Range Interpretation Comments Neutrophils % (Manual) (test code = 74436-2) 30 40-74 L [facility] HospitalLymphocytes % (Manual)2017-09-24 16:39:00 * Test Item Value Reference Range Interpretation Comments Lymphocytes % (Manual) (test code = 737-7) 63 19-48 H [facility] HospitalMonocytes % (Manual)2017-09-24 16:39:00* Test Item Value Reference Range Interpretation Comments Monocytes % (Manual) (test code = 744-3) 5 3.4-9.0 [facility] HospitalEosinophils % (Manual)2017-09-24 16:39:00 * Test Item Value Reference Range Interpretation Comments Eosinophils % (Manual) (test code = 714-6) 1 0-7 [facility] HospitalReactive Licuvvivpms1025-58-34 16:39:00* Test Item Value Reference Range Interpretation Comments Reactive Lymphocytes (test code = 28225-5) 1 [facility] HospitalNucleated Red Blood Vxmim5878-14-85 16:39:00* Test Item Value Reference Range Interpretation Comments Nucleated Red Blood Cells (test code = 07939-0) 1 [facility] HospitalPlatelet Blwszomx6957-95-33 16:39:00* Test Item Value Reference Range Interpretation Comments Platelet Estimate (test code = 93061-6) ADEQUATE [facility] HospitalPlatelet Morphology Zixcluh2886-42-10 16:39:00* Test Item Value Reference Range Interpretation Comments Platelet Morphology Comment (test code = 04773-8) NORMAL [facility] HospitalRed Cell Morphology Wmmjkpy7387-43-48 16:39:00* Test Item Value Reference Range Interpretation Comments Red Cell Morphology Comment (test code = 6742-1) NORMAL [facility] HospitalDifferential Total Cells Counted 2017-09-24 16:39:00* Test Item Value Reference Range Interpretation Comments Differential Total Cells Counted (test code = Differen tial Total Cells Counted) 100 [facility] HospitalNeutrophils % (Manual)2017-09-24 16:39:00 * Test Item Value Reference Range Interpretation Comments Neutrophils % (Manual) (test code = 98229-0) 30 40-74 L [facility] % ([facility]ual)2017-09-24 16:39:00 * Test Item Value Reference Range Interpretation Comments Lymphocytes % (Manual) (test code = 737-7) 63 19-48 H [facility] % (Manual)2017-09-24 16:39:00* Test Item Value Reference Range Interpretation Comments Monocytes % (Manual) (test code = 744-3) 5 3.4-9.0 [facility]osin[facility] % ([facility]ual)2017-09-24 16:39:00 * Test Item Value Reference Range Interpretation Comments Eosinophils % (Manual) (test code = 714-6) 1 0-7 [facility]Reactive Mniopfouikm6907-46-98 16:39:00* Test Item Value Reference Range Interpretation Comments Reactive Lymphocytes (test code = 46397-5) 1 [facility] HospitalNucleated Red Blood Ueeik3640-25-65 16:39:00* Test Item Value Reference Range Interpretation Comments Nucleated Red Blood Cells (test code = 94829-6) 1 [facility] HospitalPlatelet Jltpkcxx7704-94-51 16:39:00* Test Item Value Reference Range Interpretation Comments Platelet Estimate (test code = 07293-3) ADEQUATE [facility] HospitalPlatelet Morphology Jpzkljm3961-70-14 16:39:00* Test Item Value Reference Range Interpretation Comments Platelet Morphology Comment (test code = 97840-0) NORMAL [facility] HospitalRed Cell Morphology Kyfyfvx8315-26-97 16:39:00* Test Item Value Reference Range Interpretation Comments Red Cell Morphology Comment (test code = 6742-1) NORMAL [facility] HospitalUrine GJL7979-41-29 15:31:00* Test Item Value Reference Range Interpretation Comments Urine WBC (test code = 5821-4) 6-10 0-5 H [facility] WAN6222-85-54 15:31:00* Test Item Value Reference Range Interpretation Comments Urine RBC (test code = 15031-6) 0-5 0-5 [facility] Xkzxiycb9800-47-92 15:31:00* Test Item Value Reference Range Interpretation Comments Urine Bacteria (test code = 22170-1) NONE NONE [facility] Epithelial Orolq7831-12-93 15:31:00 * Test Item Value Reference Range Interpretation Comments Urine Epithelial Cells (test code = 79592-7) FEW NONE [facility] Lcath9650-24-00 15:31:00* Test Item Value Reference Range Interpretation Comments Urine Mucus (test code = 8247-9) FEW RARE H [facility] KZA8275-34-03 15:31:00* Test Item Value Reference Range Interpretation Comments Urine WBC (test code = 5821-4) 6-10 0-5 H [facility] JPV9794-99-51 15:31:00* Test Item Value Reference Range Interpretation Comments Urine RBC (test code = 74145-6) 0-5 0-5 [facility] Neugewrb9959-74-95 15:31:00* Test Item Value Reference Range Interpretation Comments Urine Bacteria (test code = 69546-1) NONE NONE [facility] Epithelial Mfobb4735-96-32 15:31:00 * Test Item Value Reference Range Interpretation Comments Urine Epithelial Cells (test code = 26934-4) FEW NONE [facility] Zygol3798-15-79 15:31:00* Test Item Value Reference Range Interpretation Comments Urine Mucus (test code = 8247-9) FEW RARE H [facility] HospitalTotal Yyxeoobed2148-22-42 15:26:00* Test Item Value Reference Range Interpretation Comments Total Bilirubin (test code = 1975-2) 0.7 0.2-1.2 [facility] HospitalAspartate Amino Transf (AST/SGOT) 2017-09-24 15:26:00* Test Item Value Reference Range Interpretation Comments Aspartate Amino Transf (AST/SGOT) (test code = Aspartate Amino Transf (AST/SGOT)) 30 5-34 [facility] HospitalAlanine Aminotransferase (ALT/SGPT) 2017-09-24 15:26:00* Test Item Value Reference Range Interpretation Comments Alanine Aminotransferase (ALT/SGPT) (test code = 1742-6) 35 0-55 [facility] HospitalTotal Vmwbplo2776-49-79 15:26:00* Test Item Value Reference Range Interpretation Comments Total Protein (test code = 2885-2) 8.3 6.5-8.1 H [facility] HospitalAlbumin2018-05-28 15:26:00* Test Item Value Reference Range Interpretation Comments Albumin (test code = 1751-7) 4.8 3.5-5.0 [facility] HospitalGlobulin2018-05-28 15:26:00* Test Item Value Reference Range Interpretation Comments Globulin (test code = 10297-0) 3.5 2.3-3.5 [facility] HospitalAlbumin/Globulin Pdssv7175-20-60 15:26:00 * Test Item Value Reference Range Interpretation Comments Albumin/Globulin Ratio (test code = 1759-0) 1.4 0.8-2.0 [facility] HospitalAlkaline Fezysvmprsl9660-31-49 15:26:00* Test Item Value Reference Range Interpretation Comments Alkaline Phosphatase (test code = 6768-6) 69 40-150 [facility] HospitalProthrombin Lyql1177-65-93 15:18:00* Test Item Value Reference Range Interpretation Comments Prothrombin Time (test code = 5902-2) 13.1 11.9-14.5 [facility] HospitalProthromb Time International Ratio 2017-09-24 15:18:00* Test Item Value Reference Range Interpretation Comments Prothromb Time International Ratio (test code = 6301-6) 1.07 Oral Anticoagulant Therapy INR Values:1. Low Intensity Therapy 1.5 - 2.02 . Moderate Intensity Therapy 2.0 - 3.03. High Intensity Therapy(1) 2.5 - 3. 54. High Intensity Therapy(2) 3.0 - 4.05. Panic Value INR > 5.0 [facility] HospitalActivated Partial Thromboplast Time 2017-09-24 15:18:00* Test Item Value Reference Range Interpretation Comments Activated Partial Thromboplast Time (test code = 47913-1) 26.5 23.8-35.5 [facility] HospitalProthrombin Tpqh4180-40-18 15:18:00* Test Item Value Reference Range Interpretation Comments Prothrombin Time (test code = 5902-2) 13.1 11.9-14.5 [facility] HospitalProthromb Time International Ratio 2017-09-24 15:18:00* Test Item Value Reference Range Interpretation Comments Prothromb Time International Ratio (test code = 6301-6) 1.07 Oral Anticoagulant Therapy INR Values:1. Low Intensity Therapy 1.5 - 2.02 . Moderate Intensity Therapy 2.0 - 3.03. High Intensity Therapy(1) 2.5 - 3. 54. High Intensity Therapy(2) 3.0 - 4.05. Panic Value INR > 5.0 [facility] HospitalActivated Partial Thromboplast Time 2017-09-24 15:18:00* Test Item Value Reference Range Interpretation Comments Activated Partial Thromboplast Time (test code = 00439-2) 26.5 23.8-35.5 [facility] HospitalUrine Zvjhp6388-65-68 15:14:00* Test Item Value Reference Range Interpretation Comments Urine Color (test code = 5778-6) YELLOW YELLOW [facility] HospitalUrine Hcthveh3111-39-75 15:14:00* Test Item Value Reference Range Interpretation Comments Urine Clarity (test code = 89779-8) CLEAR CLEAR [facility] HospitalUrine Specific Yyoewrp0294-94-27 15:14:00 * Test Item Value Reference Range Interpretation Comments Urine Specific [place] (test code = 5811-5) 1.010 1.010-1.02 5 [facility] HospitalUrine qC6861-37-46 15:14:00* Test Item Value Reference Range Interpretation Comments Urine pH (test code = 35110-4) 7 5-7 [facility] Leukocyte Wwwmmbks8667-53-12 15:14:00* Test Item Value Reference Range Interpretation Comments Urine Leukocyte Esterase (test code = 5799-2) TRACE NEGATIVE H [facility] Lvttqng2099-19-35 15:14:00* Test Item Value Reference Range Interpretation Comments Urine Nitrite (test code = 26022-6) NEGATIVE NEGATIVE [facility] Gxuxyal1650-22-24 15:14:00* Test Item Value Reference Range Interpretation Comments Urine Protein (test code = 5804-0) NEGATIVE NEGATIVE [facility] Glucose (UA)2017-09-24 15:14:00* Test Item Value Reference Range Interpretation Comments Urine Glucose (UA) (test code = 2349-9) NEGATIVE NEGATIVE [facility] Lqyjzdc8779-13-23 15:14:00* Test Item Value Reference Range Interpretation Comments Urine Ketones (test code = 04152-6) NEGATIVE NEGATIVE [facility] Itkiqcijlulf8415-75-04 15:14:00* Test Item Value Reference Range Interpretation Comments Urine Urobilinogen (test code = 43633-5) 0.2 0.2-1 [facility] Bwguajltt6933-94-98 15:14:00* Test Item Value Reference Range Interpretation Comments Urine Bilirubin (test code = 1978-6) NEGATIVE NEGATIVE [facility] Smcsu1659-92-43 15:14:00* Test Item Value Reference Range Interpretation Comments Urine Blood (test code = 54021-7) NEGATIVE NEGATIVE [facility] Izvlf5007-22-96 15:14:00* Test Item Value Reference Range Interpretation Comments Urine Color (test code = 5778-6) YELLOW YELLOW [facility] HospitalU[facility] Dmimzhq6161-51-13 15:14:00* Test Item Value Reference Range Interpretation Comments Urine Clarity (test code = 16466-4) CLEAR CLEAR [facility] HospitalU[facility] Specific Uvfitfe7878-01-25 15:14:00 * Test Item Value Reference Range Interpretation Comments Urine Specific [place] (test code = 5811-5) 1.010 1.010-1.02 5 [facility] zK0706-04-11 15:14:00* Test Item Value Reference Range Interpretation Comments Urine pH (test code = 31120-4) 7 5-7 [facility] Leukocyte Elhzhqrg7700-02-98 15:14:00* Test Item Value Reference Range Interpretation Comments Urine Leukocyte Esterase (test code = 5799-2) TRACE NEGATIVE H [facility] Jritgoz4707-70-78 15:14:00* Test Item Value Reference Range Interpretation Comments Urine Nitrite (test code = 54714-9) NEGATIVE NEGATIVE [facility] Tqawafg7903-32-81 15:14:00* Test Item Value Reference Range Interpretation Comments Urine Protein (test code = 5804-0) NEGATIVE NEGATIVE [facility] Glucose (UA)2017-09-24 15:14:00* Test Item Value Reference Range Interpretation Comments Urine Glucose (UA) (test code = 2349-9) NEGATIVE NEGATIVE [facility] Jatewgv9138-49-74 15:14:00* Test Item Value Reference Range Interpretation Comments Urine Ketones (test code = 78057-6) NEGATIVE NEGATIVE [facility] Jofjervfzlqs2625-31-30 15:14:00* Test Item Value Reference Range Interpretation Comments Urine Urobilinogen (test code = 72198-0) 0.2 0.2-1 [facility] Glypmfaqm6945-11-48 15:14:00* Test Item Value Reference Range Interpretation Comments Urine Bilirubin (test code = 1978-6) NEGATIVE NEGATIVE [facility] Gyuqw5680-79-44 15:14:00* Test Item Value Reference Range Interpretation Comments Urine Blood (test code = 97282-5) NEGATIVE NEGATIVE [facility]CHE[facility] FKBKX3366-02-96 08:08:002.3[facility] DyzomzyDBGTRAVSXJYY1975-80-20 08:08:0011.7[facility] XujjkunCAHVSPJCVEZF4210-58-62 08:08:50109Dofekjbd AyhduaaQVSEVFUZBYSQ5909-77-61 08:08:0021[facility] WRSYRNNCYQFO2113-22-77 08:08:0025[facility] UuyjdnzJQXOPSDUNKRO2615-73-10 08:08:00 98[facility] GlnsybbFEXSLWJOKTBJ5755-41-13 08:08:16792Uqswukxj HermannELECTROLYTES 2014-10-15 08:08:008.5[facility] HjxwvwsRSNMLDTMPCOZ2483-94-18 08:08:12231Upiochpi TaydjpaLDKGAVVMWLLP7081-57-70 08:08:003.7[facility] JrcugcnMIZAYHPQPCJB9855-90-53 08:08:000.6[facility] PkpwijiTVZRIASNZW1006-25-14 08:08:0032.6[facility] XOFMCRETCJ8252-50-03 08:08:0013.8[facility] SoacpchTEVTDFZCWG3544-67-90 08:08:00 219[facility] JqpjgxuNFCODFAGSH3175-86-11 08:08:009.8[facility] HermannHEMATOLOGY 2014-10-15 08:08:009.2[facility] CayprkzSBSVDTPUJA2019-98-84 08:08:0028.4[facility] JcsloszWKKCXFBRRG0302-54-72 08:08:0094.7[facility] VworvweLAXTZVFVMY5973-97-41 08:08:00* Test Item Value Reference Range Interpretation Comments MCH (test code = MCH) 30.9 pg 27.0-31.0 [facility] ScflhviFEDLZXAJST5603-75-61 08:08:005.9[facility] HermannHEMATOLOGY 2014-10-15 08:08:002.99[facility] QhebkbhGHJJDNCDQH7495-45-56 08:08:00* Test Item Value Reference Range Interpretation Comments PTT (test code = PTT) 33.3 s 22.9-35.8 [facility] FrrhehwSDKAYWEUGS8331-48-19 08:08:25729Ndbqfgrg HermannHEMATOLOGY 2014-10-15 08:08:000.4[facility] EzkyialZEJUYDZUHC6999-05-78 08:08:002.7[facility] WalzrngAPCGEFANEP1565-76-56 08:08:002.4[facility] GmeaosgPLRROOCGRO1093-73-98 08:08:000.5[facility] KoaapstSZVHYZZXRS6868-80-60 08:08:00Moderate *ABN*(10/15/14 3:08 AM)[facility] YiimwbfVFRVMRDCTQ4498-58-03 08:08:006.0[facility] NONYBJXPFN9110-63-48 08:08:000.0[facility] VlnyuwqYUEWSILHOZ7444-76-24 08:08:001+ *ABN*(10/15/14 3:08 AM)[facility] EjsjrlkYBHRGBPAFU1331-97-06 08:08:009.0[facility] RkdvronXAYVBPPIIQ6879-82-23 08:08:0045.0[facility] CrgyrqsZMOTTSHMMY0976-72-36 08:08:000.0[facility] MswsrfbJLPSLUMPAB8756-40-76 08:08:0040.0[facility] CARDIAC ZQAKXKY7733-25-21 08:05:0061[facility] HermannCARDIAC YUYYPEY1128-99-67 08:05:00<0.02[facility] HermannCARDIAC JDLEBIE3776-38-48 18:50:000.8[facility] HermannCARDIAC CAOIYBO8664-59-97 18:50:00<0.02[facility] HermannCARDIAC ENZYMES 2014-10-14 18:50:0088[facility] HermannCARDIAC PIVXHTE9446-67-59 18:50:000.7 [facility]annCARDIAC BKFCNAH2872-56-69 18:50:0022[facility] HermannCHEM PANEL 2014-10-14 18:50:0098[facility] HermannCHEM HDEIM0828-74-99 18:50:28335Kuistsup HermannCHEM THUUB6857-08-17 18:50:000.6[facility] HermannCHEM TBYCV7432-88-80 18:50:008.9[facility] HermannCHEM ROKDM6910-71-53 18:50:41416Pdhonjqn HermannCHEM EEMRM3031-05-48 18:50:003.4[facility] HermannCHEM QOPSX3646-24-78 18:50:000.4 [facility]annCHEM XCUSR5007-48-19 18:50:0012.4[facility] HermannCHEM PANEL 2014-10-14 18:50:0038[facility] HermannCHEM CQYAE8251-60-32 18:50:003.9[facility] HermannCHEM OQKQY9202-68-78 18:50:001.0[facility] HermannCHEM HMWQO8602-82-86 18:50:0053[facility] HermannCHEM UFTPY2051-51-97 18:50:0046[facility] HermannCHEM NTPRM6095-70-54 18:50:0093[facility] HermannCHEM RFZSH6624-34-26 18:50:30272 [facility] HermannCHEM GNUBT6400-12-98 18:50:007.9[facility] HermannCHEM PANEL 2014-10-14 18:50:004.0[facility] HermannCHEM XTBFA7117-50-59 18:50:0023[facility] HermannCHEM TKVMF9180-72-03 18:50:0026[facility] HermannCHEM RTDIU5806-31-68 18:50:002.2[facility] GscqwhyBFQOLWVIQM1194-61-52 18:50:001.24[facility] GVFAKMWDJQ8428-99-75 18:50:000.92[facility] HhotuiqMVNGYXFODK4276-07-61 18:50:00* Test Item Value Reference Range Interpretation Comments PT (test code = PT) 12.3 s 12.0-14.7 [facility] PbijrjfBCFMUBZYWZ1709-49-40 18:50:00* Test Item Value Reference Range Interpretation Comments PTT (test code = PTT) 20.6 s 22.9-35.8 [facility] RhjupsgMTLYFIORAH0537-02-44 18:50:59569Zstmqpns HermannHEMATOLOGY 2014-10-14 18:50:009.4[facility] VwsjxdaGFAMKUTJZO0104-19-93 18:50:0013.4[facility] IbzxkkrPZMDAALPSE7422-64-93 18:50:0094.4[facility] ZqpundbZCCGNHHUKA9745-73-77 18:50:0031.9[facility] SbouflvHLVUEGZFDY0728-53-93 18:50:0010.7[facility] HBFHDGFCKZ7230-58-82 18:50:0033.5[facility] PsrbydeGISNEXCRKD4559-81-76 18:50:00* Test Item Value Reference Range Interpretation Comments MCH (test code = MCH) 31.6 pg 27.0-31.0 [facility] KrtfjeeDBLKTQATIK5239-03-06 18:50:003.38[facility] HermannHEMATOLOGY 2014-10-14 18:50:007.1[facility] FyszheyLBTLDKYTNP4012-17-95 18:50:001+ *ABN*(10/14/14 1:50 PM)[facility] WskeqebHNPIYAQRFT9039-77-96 18:50:000.0[facility] OtydjvjCFNSDKUUNF1757-09-08 18:50:000.2[facility] VvmcbypSGIIOCEJYS7997-89-39 18:50:0064.2[facility] HzmyuzxKAKMYXJLQO3515-28-16 18:50:007.4[facility] JUSRVIPVTF0328-95-13 18:50:0025.3[facility] SuujwvfNKGZQOHYUJ2075-28-80 18:50:00 0.7[facility] SgjlgfqDGWTFVDXIH8717-92-13 18:50:002.4[facility] HermannHEMATOLOGY 2014-10-14 18:50:000.5[facility] GhgdgmfIMVSQPOREE5781-28-32 18:50:001.8[facility] EuroolmZOAPNKEVHG4386-51-85 18:50:004.5[facility] HermannURINE AND YIXFO3424-69-86 18:50:00Trace *ABN*(10/14/14 1:50 PM)[facility]annURINE AND SVGHE4992-35-32 18:50:001[facility]annURINE AND OKOMP3387-25-81 18:50:00Negative (10/14/14 1:50 PM)[facility]annUR[facility] AND HYQIJ2583-88-88 18:50:00Negative (10/14/14 1:50 PM)[facility]annUR[facility] AND PGANQ7542-89-17 18:50:003[facility]annURINE AND BKUCJ9565-65-78 18:50:00Colorless *NA*(10/14/14 1:50 PM)[facility]annUR[facility] AND NUSXE4801-52-37 18:50:007.0[facility]annURINE AND EQRAC2441-00-40 18:50:00 Clear (10/14/14 1:50 PM)[facility]annUR[facility] AND VWZQI3052-89-58 18:50:001.005 [facility]annUR[facility] AND UEDDX6472-61-50 18:50:00Negative *NA*(10/14/14 1:50 PM) [facility]annCARDIAC VEDGIWW1221-03-30 06:50:000.03[facility] HermannCHEM PANEL 2014-10-09 06:50:0013[facility] HermannCHEM XRGAX2512-67-98 06:50:0079[facility] HermannCHEM KVRJD9480-99-29 06:50:66302Wnyzlojs HermannCHEM CWQSF6647-14-09 06:50:000.8[facility] HermannCHEM SRGJY9806-85-37 06:50:85623Awremzhn HermannCHEM RNOPC3449-16-83 06:50:004.1[facility] HermannCHEM XTJSN8504-68-45 06:50:11178 [facility] HermannCHEM PBADY6339-33-26 06:50:0026[facility] HermannCHEM PANEL 2014-10-09 06:50:008.4[facility] HermannCHEM KKBYH8349-85-74 06:50:0012.1[facility] ZopadubEDOLKZBXWB2342-09-82 06:50:00* Test Item Value Reference Range Interpretation Comments PT (test code = PT) 14.0 s 12.0-14.7 [facility] KcewdeoVLLKPZEPJC8536-84-10 06:50:001.08[facility] HermannHEMATOLOGY 2014-10-09 06:50:0010.7[facility] FyfboygIAXBIGQJOM4561-43-44 06:50:003.33[facility] XswtxkfDDNKQXGATP0251-25-18 06:50:0012.4[facility] EmduytxWHOVJHPYUR4966-14-11 06:50:0013.0[facility] BilzzemVMHIAMZZZN2204-83-70 06:50:0034.4[facility] ZZFEZKJVBL8197-60-70 06:50:12831Xhviazzv LfxhpbbWHLCXWVHNT1627-93-75 06:50:009.7 [facility] YlnkaxqYYBZDUBKQV2786-78-38 06:50:00* Test Item Value Reference Range Interpretation Comments MCH (test code = MCH) 32.1 pg 27.0-31.0 [facility] XlxikhgQMRUSLPMLJ0237-82-65 06:50:0031.0[facility] HermannHEMATOLOGY 2014-10-09 06:50:0093.3[facility] OxwpszzAQUFGTKAZW0537-80-98 06:50:0079.4[facility] HxnfuhwVPOFFXTDOO4309-11-98 06:50:0014.7[facility] YngiikjAGHHKVTDZE9729-97-53 06:50:005.3[facility] CvslrijRHXJHZFHQX4499-86-60 06:50:000.1[facility] FXZBBOMMNX7399-48-26 06:50:000.5[facility] EmibtheYJSGPABRSP9386-06-61 06:50:000.1 [facility] LvhkbosSWKGLNRIXI4848-03-69 06:50:009.9[facility] HermannHEMATOLOGY 2014-10-09 06:50:000.7[facility] QhxeazhYFLOEVZANT2773-59-25 06:50:001.8[facility] HermannCHEM XSEEH7338-49-76 20:23:0074[facility] EaekxxtJAMCFQYMAA8226-62-88 20:23:0038.8[facility] XlyixeaGTLCHFGEDZ3778-47-61 20:23:0012.7[facility] CHEST 2 VIEWS [facility] [address] [id number] Patient Name: JIM LEA MR #: [id number] : 1950 Age/Sex: 66/F Req #: [id number] Adm Physician: Ordered by: HUGH CABELLO MD Report #: [id number] Location: Room/Bed: Procedure: DX/CHEST 2 VIEWS Exam Date : 09/29/17 Exam Time: 0130 REPORT STATUS: Deya d CHEST 2 VIEWS, Technique: CHEST 2 VIEWS Comparison: 09/24/2017 Clinical history: S HTN, TINGLING TO FACE S [id number] S 0130 S Y DISCU SSION: Stable appearance of the heart, mediastinum, lungs and pleural spaces. Right humeral anchor screws again noted. IMPRESSION: No acute abnormali ty Signed by: Dr Taryn Moreno MD on 09/29/2017 2:04 AM Dictated By: TARYN MORENO MD 020 4 Transcribed By: JENISE on 09/29/17 0204 COPY TO: HUGH CABELLO MRI BRAIN [place] [address] Patient Name: JIM LEA MR #: [id number] : 1950 Age/Sex: 66/F Req #: [id number] Adm Physician: FRAN MARTINEZ MD Ordered by: YAO MCKENZIE MD Report #: [id number] Location: [facility] Room/Bed: [place] [address] Procedure: [id number] M RI/MRI BRAIN WO Exam Date: Exam Time: REPORT STATUS: Signed Exam: Brain MRI without IV contrast History: Right facial paresthesias. Comparison studies: Head CT 09/24/2017. Technique: Sagitt al and axial T2 FS, axial T1 FLAIR, axial and coronal T2 FLAIR, axial T2*GRE a nd axial DWI. Intravenous contrast: None Findings: Scalp: Normal in signal. No masses. Bone marrow: Normal in signal intensity. Brain sulci: Appropriate for age. Ventricles: Normal in size. No hydrocephalus. Extra axi al spaces: Mildly prominent extra-axial CSF space at the posterior left parame damaris frontal convexity may represent small congenital arachnoid cyst. No other mass or fluid collection. Parenchyma: No mass, hemorrhage or acute ische ant. A few scattered T2 FLAIR hyperintense foci in the supratentorial white ma tter are nonspecific but most likely reflect mild chronic microvascular ischem ic changes in a patient this age. Suprasellar region: No abnormalities. C raniocervical junction: Patent foramen magnum. No Chiari malformation. Vessel s: Normal flow-voids in the arteries and sinuses. IMPRESSION: 1. No a cute intracranial abnormalities. 2. Mild supratentorial chronic microvascular ischemic changes. Signed by: Dr. Pilar Dawn M.D. on 09/25/2017 12:32 PM Dictated By: PILAR DAWN MD 1232 Transcribed By: JENISE on 09/25/17 1232 COPY TO: YAO MCKENZIE MD ECHO COMPLETE (ECHOCARDIOGRAM) [place] [address] Patient Name : JIM LEA MR #: [id number] : 1950 Age/Sex: 66/F Adm Physician : FRAN MARTINEZ MD Admit Date : 09/24/17 Location : [facility] Room/Bed : [address] REPORT: Cardiology Report DATE OF STUDY: September 25, 2017 ECHOCARDIOGRAM M-MODE: Top nor mal left atrial size. Normal left ventricular wall thickness and contractili ty. Aortic sclerosis. Normal mitral and tricuspid valves. No pericardial e ffusion. SECTOR SCAN: Mildly enlarged left atrium. Normal left ventricula r wall thickness and contractility. Normal aortic, mitral and tricuspid valv es. No pericardial effusion. CARDIAC DOPPLER STUDY WITH COLOR: There is 1 to 2+ aortic regurgitation. Trace mitral and tricuspid regurgitation. CONCLUSIONS 1. Mild to moderate aortic regurgitation. 2. Trace mitral regurgitation with borderline dilated left atrium. 3. Trace tricuspid regurgi tation. 4. Left ventricular ejection fraction is approximately 60%. Job#: [id number] cc: FRAN MARTINEZ MD Signature Date Dictated By: EROS BARRAZA MD Transcribed By: [facility] on 09/26/17 <Electronically signed by EROS BARRAZA MD>< <Signature on File>>09/27/17 0911 COPY TO: CAROTID DOPPLER [place] [address] Patient Name : JIM LEA MR #: [id number] : 1950 Age/Sex: 66/F Adm Physi ajith : FRAN MARTINEZ MD Admit Date : 09/24/17 Location : [facility] Room/Bed : [address] REPORT: Cardiology Report DATE OF STUDY: September 25, 2017 DOPPLER SCAN OF THE CAROTIDS Left carotid artery shows mild intimal thickening and plaquing without high-grade stenosis or flow impairment. Left vertebral flow appears antegrade. Ri ght carotid artery shows mild intimal thickening and plaquing without high-gr peter stenosis or flow impairment. Right vertebral flow appears to be antegrad e. CONCLUSIONS 1. No high-grade stenosis bilaterally. 2. Mild intimal t hickening and plaquing bilaterally. 3. Vertebral flow appears to be in normal direction bilaterally. 11:0 1 Job#: [id number] cc: FRAN MARTINEZ MD Signature Date Dictated By: EROS BARRAZA MD Transcribed By: [facility] on 09/26/17 < Electronically signed by EROS BARRAZA MD><<Signature on File>>09/27/17 0911 COPY TO: CHEST SINGLE (PORTABLE) [place] [address] Patient Name: JIM LEA MR #: [id number] : 1950 Age/Sex: 66/F Req #: [id number] Adm Physician: Ordered by: YAO MCKENZIE MD Report #: [id number] Location: ER Room/Bed: Procedure: [id number] DX/CHEST SINGLE (PORTABLE) E xam Date: 09/24/17 Exam Time: 1420 REPORT STATU S: Signed EXAMINATION: CHEST SINGLE (PORTABLE) INDICATION: COMPARISON: None FINDINGS: AP view TUBES and LINES: None. LUNGS: Lungs are well inflated. Lungs are clear. There is no evidence of pneumonia or pulmonary edema. PLEURA: No pleural effusion or pneumothorax. HEART AND MEDIASTINUM: The cardiomediastinal silhouette is unremarkable. BONES AND SOFT TISSUES: No acute osseous lesion. Lig amentous anchors overlying the right humeral head. Soft tissues are unremarkab le. UPPER ABDOMEN: No free air under the diaphragm. IMPRESSION: No acute thoracic abnormality. Signed by: DR. Derick Neal MD on 09/24 3:13 PM Dictated By: DERICK NEAL MD 12 Transcribed By: JENISE on 09/24/171512 COPY TO: YAO MCKENZIE MD CT BRAIN WO [place] [address] Patient Name: JIM LEA MR #: [id number] : 1950 Age/Sex: 66/F Req #: [id number] Adm Physician: Ordered by: SHARON RHOADES NP Report #: [id number] Location: ER Room/Bed: Procedure: [id number] CT/CT BRAIN WO Exam Date: Exam Time: 1420 REPORT STATUS: Signed Exam: Head CT without contrast History: Facial numbness. Comparison studie s: None Technique: Axial images were obtained from the skull base to the vertex. Coronal and sagittal images reconstructed from the axial data. Intr avenous contrast: None Findings: Scalp: No abnormalities. Bones: No fractures, blastic or lytic lesions. Brain sulci: Appropriate for age. Ve ntricles: Normal in size and configuration. No hydrocephalus. Extra-axial spac es: No masses, no fluid collection. Parenchyma: New mass, acute hemorrh age or acute or chronic cortical vascular insults. Subtle hypodensity in the r ight frontal jimenez radiata is nonspecific but may reflect mild chronic microv ascular ischemic changes. Sellar/suprasellar region: No abnormalities. Cr aniocervical junction: Patent foramen magnum. No Chiari one malformation. I ncidental findings: Atherosclerotic calcifications in the carotid siphons. IMPRESSION: 1. No acute intracranial abnormalities. 2. Specificall y, no mass, acute hemorrhage or acute cortical vascular insult. 3. Mild chron ic microvascular ischemic changes. Signed by: Dr. Pilar Dawn M.D. on 3:07 PM Dictated By: PILAR DAWN MD Transcribed By: JENISE on 09/24/172 COPY TO: SHARON RHOADES NP MAMMOGRAPHY DIGITAL SCR BILAT [place] [address] Patient Name: JIM LEA MR #: [id number] : 0 1950 Age/Sex: 66/F Req #: [id number] Adm Physician: Ordered by: ITA MCMAHAN, MEGAN Liang MD Report #: [id number] Location: MAMMO Room/Bed: Procedure: [id number] MG/MAMMOGRAPHY DIGITAL SCR BILAT Exam Date: 02/15/17 Exam Time: 1213 REPORT STATUS: Signed #[id number] - [id number] #BILATERAL DIGITAL SCRE ENING MAMMOGRAM WITH CAD: 02/15/2017 CLINICAL: Routine screening. Jacek rison is made to exams dated: 02/11/2016 mammogram, 02/05/2015 mammogram and 12/05 mammogram - [facility]. Current study contains 4 films. There are scattered fibroglandular elements in both breasts. C urrent study was also evaluated with a Computer Aided Detection (CAD) system. There is a benign calcification in the left breast. No significant masses, calcifications, or other findings are seen in either breast. There has been no significant interval change. IMPRESSION: BENIGN There is no mammograp hic evidence of malignancy. A 1 year screening mammogram is recommended. The patient will be notified by letter of the results. Jolene mcdermott/valerie:03/03/2017 10:32:51 Director Mobile: Emily GIBSON(R)(M), [facility] letter sent: Compared to Prior B9 Mammogram BI-RADS: 2 Benign Dictated By: JOLENE PALMER DO El ectronically Signed By: JOLENE PALMER DO on 03/03/17 1032 Transcribed By: TOMMY Yang on 03/03/17 1032 COPY TO: MEGAN JEAN BAPTISTE
--- OUTSIDE RECORDS SUMMARY | 2020-03-04 19:08 | XMS REPORT | Continuity of Care Document ---
Author Author [employer] JIM Mack [facility] [employer] Address Unknown Phone Unavailable Care Team Providers Care Backshoe Person Name Role Phone [facility] [employer] Unavailable Un available Problems Problem Status Onset Date Classification Date Reported Comments Source DX: ABDOMINAL PAIN Active 08/06/2018 [facility] Z13.820 - ENCOUNTER FOR SCREENING FOR OS Active 03/22/2015 [facility] FACE NUMBNESS,NEAR SYNCOPE,SOB Active 10/14/2014 [facility] NEAR SYNCOPE, SOB Active 10/14/2014 [facility] Discharge Diagnosis: Atelectasis of right lung 10/09/2014 10/12/2014 [facility] CHEST DISCOMFRONT Active 10/08/2014 [facility] [id number], RIGHT SHOULDER ROTATO Active 10/06/2014 [facility] Hypercholesterolemia (disorder) Active Problem [facility] [place] Day,[facility] Rotator cuff syndrome (disorder) Active Problem [facility] [place] Day,[facility] Medications Medication Details Route Status Patient Instructions Ordering Provider Order Date Source Zocor Notes: (Same as: Zocor) Inactive 10/15/2014 [facility] Zetia Notes: (Same as: Francisco Javier) Inactive 10/15/2014 [facility] ezetimibe 10 MG / Simvastatin 20 MG Oral Tablet 1 tab, Route: PO, Drug Form: TAB, Dosing Weight 59.091, kg, Daily, Start date: 10/15/14 9:00:00, Duration: 30 day, Stop date: 11/13/14 9:00:00 No Longer Active 10/15/2014 [facility] Saline Flush 0.9% 10 ml, Route : IVP, Drug Form: INJ, Dosing Weight 59.091, kg, Q12H, Start date: 10/14/14 21:00:00, Duration: 30 day, Stop date: 11/13/14 9:00:00 Inactive 10/15/2014 [facility] Sodium Chloride 0.9% IV 25 mL, Route: IV, Start date: 10/14/14 19:23:00, Duration: 30 day, Stop date: 11/13/14 19:22:00, PRN Line Flush No Longer Active 10/15/2014 [facility] BD Normal Saline Flush Notes: (Same as: BD Posiflush) No Longer Active 10/15/2014 [facility] Enoxaparin Notes: (Same as: Lo venox) No Longer Active 10/14/2014 [facility] Saline Flush 0.9% 10 ml, Route : IVP, Drug Form: INJ, Dosing Weight 59.091, kg, PRN, PRN Line Flush, Start date: 10/14/14 17:59:00, Duration: 30 day, Stop date: 11/13/14 17:58:00 Inactive 10/14/2014 [facility] Docusate Notes: (Same as: Cola ce) (Do Not Crush) No Longer Active 10/14/2014 [facility] Ondansetron Notes: (Same as: Radha abdi) MEDICATION WASTE Product Size: 4 mg Product Wasted: ___ mg No Longer Active 10/14/2014 [facility] Acetaminophen 325 MG / Hydrocodone Bandar trate 5 MG Oral Tablet Notes: (Same as: Horace 325/5) Do not ex ceed 4gm/day of acetaminophen. No Longer Active 10/14/2014 [facility] Acetaminophen Notes: Do not ex ceed 4 gm/day. (Same as: Tylenol) No Longer Active 10/14/2014 [facility] Saline Flush 0.9% Notes: (Same as: BD Posiflush) Inactive 10/14/2014 [facility] Levofloxacin 750 MG Oral Tablet [Levaquin] 750 mg = 1 tab, PO, Q24H, X 7 day, # 7 tab, 0 Refill(s) Active 10/09/2014 [facility] Ativan 0.25 mg, Route: IVP, Dr ug form: INJ, ONCE, Dosing Weight 57.273, kg, Priority: STAT, Start date: 10/09/14 2:22:00, Stop date: 10/09/14 2:22:00 Inactive 10/09/2014 [facility] lidocaine 1% 0.5 mL, Route: IN TRADERM, Dosing Weight 58.182, kg, ONCALL, Start date: 10/08/14 12:00:00, Duration: 1 doses or times Inactive 10/08/2014 [facility] Calcium Chloride 0.0014 MEQ/ML / Potassi um Chloride 0.004 MEQ/ML / Sodium Chloride 0.103 MEQ/ML / Sodium Lactate 0.028 MEQ/ML Injectable Solution 1,000 mL, Rate: 25 ml/hr, Infuse over: 4 0 hr, Route: IV, Dosing Weight 58.182 kg, Total Volume: 1,000, Start date: 10/08/14 11:38:00, Duration: 30 day, Stop date: 11/07/14 11:37:00 Inactive 10/08/2014 [facility] Ancef Notes: Same as: Ancef Inactive 10/08/2014 [facility] Albuterol 0.83 MG/ML Inhalant Solution Notes: SEE RT DOCUMENTATION (Same as: Proventil) Inactive 10/08/2014 [facility] Ondansetron Notes: (Same as: Radha abdi) MEDICATION WASTE Product Size: 4 mg Product Wasted: ___ mg Inactive 10/08/2014 [facility] Promethazine Notes: Do not giv e IV push. (Same as: Phenergan) Inactive 10/08/2014 [facility] Naloxone Notes: Same as Narcan Inactive 10/08/2014 [facility] Flumazenil Notes: (Same as: Ro mazicon) Inactive 10/08/2014 [facility] Meperidine Notes: (Same As: De merol) Inactive 10/08/2014 [facility] Hydromorphone Notes: (Same as: Dilaudid) Inactive 10/08/2014 [facility] Morphine Notes: (Same as: MORP bhavana Sulfate) Inactive 10/08/2014 [facility] Acetaminophen Notes: Infuse ov er 15 minutes Do not exceed 4gm/day of acetaminophen MEDICATION WASTE Product Size: 1000 mg Product Wasted: ___ mg Inactive 10/08/2014 [facility] Hydralazine Notes: (Same as: A presoline) Push over 5 minutes Inactive 10/08/2014 [facility] ezetimibe 10 MG / Simvastatin 20 MG Oral Tablet [Vytorin 02/16] 1 tab, PO, Daily, # 30 tab, 0 Refill(s) Active 10/07/2014 [facility] Allergies, Adverse Reactions, Alerts Substance Category Reaction Severity Reaction type Status Date Reported Comments Source NKFA Assertion Drug allergy Active [facility] Immunizations No Data Provided for This Section Results Order Name Results Value Reference Range Date Interpretation Comments Source CHEM PANEL Magnesium Lvl 2.3 1.8 - 2.4 10/15/2014 [facility] ELECTROLYTES AGAP 11.7 10.0 - 20.0 10/15/2014 [facility] ELECTROLYTES Glucose Lvl 111 70 - 99 10/15/2014 <sup>3</sup>Interpretive Data: Adult ref erence range values reflect the clinical guidelines
of the [place] [employer]. [facility] ELECTROLYTES BUN 21 7 - 22 10/15/2014 [facility] ELECTROLYTES CO2 25 24 - 32 10/15/2014 [facility] ELECTROLYTES eGFR 98 10/15/2014 <sup>1</sup>Result Comment: The [...] should be multiplied by the estimated BMI. [facility] ELECTROLYTES Sodium Lvl 141 135 - 145 10/15/2014 [facility] ELECTROLYTES Calcium Lvl 8.5 8.5 - 10.5 10/15/2014 [facility] ELECTROLYTES Chloride Lvl 108 95 - 109 10/15/2014 [facility] ELECTROLYTES Potassium Lvl 3.7 3.5 - 5.1 10/15/2014 [facility] ELECTROLYTES Creatinine Lvl 0.6 0.5 - 1.4 10/15/2014 [facility] MCHC 32.6 32.0 - 36.0 10/15/2014 [facility] RDW 13.8 11.5 - 14.5 10/15/2014 [facility] Platelet 219 133 - 450 10/15/2014 [facility] MPV 9.8 7.4 - 10.4 10/15/2014 [facility] Hgb 9.2 12.0 - 16.0 10/15/2014 [facility] Hct 28.4 36.0 - 48.0 10/15/2014 [facility] HEMATOLOGY MCV 94.7 80.0 - 98.0 10/15/2014 [facility] MCH 30.9 27.0 - 31.0 10/15/2014 [facility] HEMATOLOGY WBC 5.9 3.7 - 10.4 10/15/2014 [facility] RBC 2.99 4.20 - 5.40 10/15/2014 [facility] PTT 33.3 22.9 - 35.8 10/15/2014 <sup>8</sup>Interpretive Data: Heparin T herapeutic Range: 57 - 92 Seconds [facility] Platelet 218 133 - 450 10/15/2014 [facility] Eosinophils # 0.4 0.0 - 0.5 10/15/2014 [facility] Segs-Bands # 2.7 1.5 - 8.1 10/15/2014 [facility] Lymphocytes # 2.4 1.0 - 5.5 10/15/2014 [facility] Monocytes # 0.5 0.0 - 0.8 10/15/2014 [facility] Large Plt Moder ate *ABN* (10/15/14 3:08 AM) None Seen 10/15/2014 [facility] Eosinophils 6.0 0.0 - 4.0 10/15/2014 [facility] Atypical Lymphs 0.0 <=0.0 % 10/15/2014 [facility] Macrocyte 1+ *ABN* (10/15/14 3:08 AM) None Seen 10/15/2014 [facility] Monocytes 9.0 2.0 - 12.0 10/15/2014 [facility] HEMATOLOGY Segs 45.0 45.0 - 75.0 10/15/2014 [facility] HEMATOLOGY Bands 0.0 0.0 - 11.0 10/15/2014 [facility] HEMATOLOGY Lymphocytes 40.0 20.0 - 40.0 10/15/2014 [facility] CARDIAC ENZYMES Total CK 61 12 - 191 10/15/2014 [facility] CARDIAC ENZYMES Troponin-I <0.02 0.00 - 0.40 10/15/2014 [facility] CARDIAC ENZYMES CK MB Index 0.8 0.0 - 2.5 10/14/2014 [facility] CARDIAC ENZYMES Troponin-I <0.02 0.00 - 0.40 10/14/2014 [facility] CARDIAC ENZYMES Total CK 88 12 - 191 10/14/2014 [facility] CARDIAC ENZYMES CK MB 0.7 0.5 - 3.6 10/14/2014 [facility] CARDIAC ENZYMES BNP 22 <=100 pg/mL 10/14/2014 <sup>5</sup>Interpretive Data: Elevated results are in line with increasing severity of
congestive heart failure. Minor elevations between 100 and 300
may be seen with Myocardial Ischemia, Sodium retaining drugs,
and compensated/treated heart failure. [facility] CHEM PANEL eGFR 98 10/14/2014 <sup>2</sup>Result Comment: [...] should be multiplied by the estimated BMI. [facility] CHEM PANEL Chloride Lvl 106 95 - 109 10/14/2014 [facility] CHEM PANEL Creatinine Lvl 0.6 0.5 - 1.4 10/14/2014 [facility] CHEM PANEL Calcium Lvl 8.9 8.5 - 10.5 10/14/2014 [facility] CHEM PANEL Sodium Lvl 141 135 - 145 10/14/2014 [facility] CHEM PANEL Potassium Lvl 3.4 3.5 - 5.1 10/14/2014 [facility] CHEM PANEL Bili Total 0.4 0.2 - 1.3 10/14/2014 [facility] CHEM PANEL AGAP 12.4 10.0 - 20.0 10/14/2014 [facility] CHEM PANEL B/C Ratio 38 6 - 25 10/14/2014 [facility] CHEM PANEL Globulin 3.9 2.0 - 4.0 10/14/2014 [facility] CHEM PANEL A/G Ratio 1.0 0.7 - 1.6 10/14/2014 [facility] CHEM PANEL ALT 53 0 - 65 10/14/2014 [facility] CHEM PANEL AST 46 0 - 37 10/14/2014 [facility] CHEM PANEL Alk Phos 93 39 - 136 10/14/2014 [facility] CHEM PANEL Glucose Lvl 110 70 - 99 10/14/2014 <sup>4</sup>Interpretive Data: Adult ref erence range values reflect the clinical guidelines
of the [place] [employer]. [facility] CHEM PANEL Total Protein 7.9 6.4 - 8.4 10/14/2014 [facility] CHEM PANEL Albumin Lvl 4.0 3.5 - 5.0 10/14/2014 [facility] CHEM PANEL BUN 23 7 - 22 10/14/2014 [facility] CHEM PANEL CO2 26 24 - 32 10/14/2014 [facility] CHEM PANEL Magnesium Lvl 2.2 1.8 - 2.4 10/14/2014 [facility] HEMATOLOGY D-Dimer 1.24 10/14/2014 <sup>7</sup>Interpretive Data: In DIC, quantitative D-Dimer is generally greater than
0.66 ug/mL FEU. Values of quantitative D-Dimer less than
0.40 ug/mL FEU have been reported to be associated with a low
probability of deep vein thrombosis/pulmonary embolism.
This test alone should not be used to rule out DVT/PE. [facility] HEMATOLOGY INR 0.92 0.85 - 1.17 10/14/2014 <sup>6</sup>Interpretive Data: RECOMMEND ED RANGES FOR PROTIME INR:
2.0- 3.0 for most medical and surgical thromboembolic states.
2.5-3.5 for artificial heart valves and recurrent embolism.

INR SHOULD BE USED ONLY FOR PATIENTS ON STABLE ANTICOAGULANT THERAPY. [facility] HEMATOLOGY PT 12.3 12.0 - 14.7 10/14/2014 [facility] PTT 20.6 22.9 - 35.8 10/14/2014 <sup>9</sup>Interpretive Data: Heparin T herapeutic Range: 57 - 92 Seconds [facility] HEMATOLOGY Platelet 256 133 - 450 10/14/2014 [facility] MPV 9.4 7.4 - 10.4 10/14/2014 [facility] RDW 13.4 11.5 - 14.5 10/14/2014 [facility] HEMATOLOGY MCV 94.4 80.0 - 98.0 10/14/2014 [facility] Hct 31.9 36.0 - 48.0 10/14/2014 [facility] Hgb 10.7 12.0 - 16.0 10/14/2014 [facility] MCHC 33.5 32.0 - 36.0 10/14/2014 [facility] MCH 31.6 27.0 - 31.0 10/14/2014 [facility] HEMATOLOGY RBC 3.38 4.20 - 5.40 10/14/2014 [facility] WBC 7.1 3.7 - 10.4 10/14/2014 [facility] Macrocyte 1+ *ABN* (10/14/14 1:50 PM) None Seen 10/14/2014 [facility] HEMATOLOGY Basophils # 0.0 0.0 - 0.2 10/14/2014 [facility] HEMATOLOGY Eosinophils # 0.2 0.0 - 0.5 10/14/2014 [facility] HEMATOLOGY Segs 64.2 45.0 - 75.0 10/14/2014 [facility] HEMATOLOGY Monocytes 7.4 2.0 - 12.0 10/14/2014 [facility] HEMATOLOGY Lymphocytes 25.3 20.0 - 40.0 10/14/2014 [facility] HEMATOLOGY Basophils 0.7 0.0 - 1.0 10/14/2014 [facility] HEMATOLOGY Eosinophils 2.4 0.0 - 4.0 10/14/2014 [facility] Monocytes # 0.5 0.0 - 0.8 10/14/2014 [facility] HEMATOLOGY Lymphocytes # 1.8 1.0 - 5.5 10/14/2014 [facility] HEMATOLOGY Segs-Bands # 4.5 1.5 - 8.1 10/14/2014 [facility] URINE AND STOOL UA Urobilinogen <=1.0 mg/dL 0.1 - 1.0 10/14/2014 [facility] URINE AND STOOL UA Leuk Est Trace *ABN* (10/14/14 1:50 PM) Negative 10/14/2014 [facility] URINE AND STOOL UA RBC 1 0 - 2 10/14/2014 [facility] URINE AND STOOL UA Nitrite Negative (10/14/14 1:50 PM) Negative 10/14/2014 [facility] URINE AND STOOL UA Blood Negative (10/14/14 1:50 PM) Negative 10/14/2014 [facility] URINE AND STOOL UA Sq Epi Occasional /LPF Few /LPF 10/14/2014 [facility] URINE AND STOOL UA WBC 3 0 - 5 10/14/2014 [facility] URINE AND STOOL UA Bacteria Few /HPF None Seen /HPF 10/14/2014 [facility] URINE AND STOOL UA Color Colorless *NA* (10/14/14 1:50 PM) Yellow 10/14/2014 [facility] URINE AND STOOL UA pH 7.0 5.0 - 8.0 10/14/2014 [facility] URINE AND STOOL UA Turbidity Clear (10/14/14 1:50 PM) Clear 10/14/2014 [facility] URINE AND STOOL UA Ketones Negative mg/dL Negative mg/dL 10/14/2014 [facility] URINE AND STOOL UA Spec Grav 1.005 <=1.030 10/14/2014 [facility] URINE AND STOOL UA Bili Negative *NA* (10/14/14 1:50 PM) Negative 10/14/2014 [facility] URINE AND STOOL UA Protein Negative mg/dL Negative mg/dL 10/14/2014 [facility] URINE AND STOOL UA Glucose Negative mg/dL Negative mg/dL 10/14/2014 [facility] CARDIAC ENZYMES Troponin-I 0.03 0.00 - 0.40 10/09/2014 [facility] CHEM PANEL BUN 13 7 - 22 10/09/2014 [facility] CHEM PANEL eGFR 79 10/09/2014 <sup>1</sup>Result Comment: [...] should be multiplied by the estimated BMI. [facility] CHEM PANEL Glucose Lvl 174 70 - 99 10/09/2014 <sup>2</sup>Interpretive Data: Adult ref erence range values reflect the clinical guidelines
of the [place] [employer]. [facility] CHEM PANEL Creatinine Lvl 0.8 0.5 - 1.4 10/09/2014 [facility] CHEM PANEL Sodium Lvl 134 135 - 145 10/09/2014 [facility] CHEM PANEL Potassium Lvl 4.1 3.5 - 5.1 10/09/2014 [facility] CHEM PANEL Chloride Lvl 100 95 - 109 10/09/2014 [facility] CHEM PANEL CO2 26 24 - 32 10/09/2014 [facility] CHEM PANEL Calcium Lvl 8.4 8.5 - 10.5 10/09/2014 [facility] CHEM PANEL AGAP 12.1 10.0 - 20.0 10/09/2014 [facility] HEMATOLOGY PT 14.0 12.0 - 14.7 10/09/2014 [facility] HEMATOLOGY INR 1.08 0.85 - 1.17 10/09/2014 <sup>3</sup>Interpretive Data: RECOMMEND ED RANGES FOR PROTIME INR:
2.0- 3.0 for most medical and surgical thromboembolic states.
2.5-3.5 for artificial heart valves and recurrent embolism.

INR SHOULD BE USED ONLY FOR PATIENTS ON STABLE ANTICOAGULANT THERAPY. [facility] HEMATOLOGY Hgb 10.7 12.0 - 16.0 10/09/2014 [facility] RBC 3.33 4.20 - 5.40 10/09/2014 [facility] HEMATOLOGY WBC 12.4 3.7 - 10.4 10/09/2014 [facility] RDW 13.0 11.5 - 14.5 10/09/2014 [facility] MCHC 34.4 32.0 - 36.0 10/09/2014 [facility] Platelet 164 133 - 450 10/09/2014 [facility] MPV 9.7 7.4 - 10.4 10/09/2014 [facility] MCH 32.1 27.0 - 31.0 10/09/2014 [facility] Hct 31.0 36.0 - 48.0 10/09/2014 [facility] MCV 93.3 80.0 - 98.0 10/09/2014 [facility] HEMATOLOGY Segs 79.4 45.0 - 75.0 10/09/2014 [facility] Lymphocytes 14.7 20.0 - 40.0 10/09/2014 [facility] Monocytes 5.3 2.0 - 12.0 10/09/2014 [facility] HEMATOLOGY Eosinophils 0.1 0.0 - 4.0 10/09/2014 [facility] Basophils 0.5 0.0 - 1.0 10/09/2014 [facility] Basophils # 0.1 0.0 - 0.2 10/09/2014 [facility] Segs-Bands # 9.9 1.5 - 8.1 10/09/2014 [facility] Monocytes # 0.7 0.0 - 0.8 10/09/2014 [facility] Lymphocytes # 1.8 1.0 - 5.5 10/09/2014 [facility] CHEM PANEL Glucose Lvl 74 70 - 99 10/07/2014 <sup>1</sup>Interpretive Data: Adult ref erence range values reflect the clinical guidelines
of the [place] [employer]. [facility] HEMATOLOGY Hct 38.8 36.0 - 48.0 10/07/2014 [facility] HEMATOLOGY Hgb 12.7 12.0 - 16.0 10/07/2014 [facility] Pathology Reports No Data Provided for This Section Diagnostic Reports Report Value Date Source Abdomen complete US Patient Na me: JIM LEA : 1950; Age: 67 years y/o Female MR: [id number] Study: Abdomen complete US 08/09/2018 7:13 CDT [...] 2.0 cm. 3. Splenic granulomatous calcifications. SL: [id number] 08/09/2018 [facility] Shoulder w contrast MRI EXAM: MR ARTHROGRAM [...] on chronic [employer]s les ion. 09/29/2015 [facility] [place] Shoulder arthrogram DX EXAM: F LUOROSCOPY-GUIDED RIGHT [...] This exam was dictated and interpreted by [id number] for TERRENCE Montero 15. Abelardo Hou M.D., cm/valerie:03/30/2015 13:03:14 Book Mender: Melissa MOSLEY)(Jn), [facility] 03/26/2015 [facility] Shoulder arthrogram DX EXAM: S [facility] arthrogram HISTORY: 726.2 Other Affections of Shoulder [...] the right shoulder for MR arthrogram. [facility] Should[facility] w contrast MRI EXAMIN ATION: MR [...] Mild right subacromial subdeltoid bur sitis. 12/08/2014 [facility] Carotid artery Doppler bilat US EXAM: CAROTID [...] >230cm/sec, EDV >100cm/sec, ICA:CCA ratio >4 10/15/2014 [facility] Brain wo contrast CT Exam: CT scan [...] 1. No acute intracranial abnormalities appreciated. 10/14/2014 [facility] Chest Pulmonary Embolism CTA EXAM: Chest CTA [...] No CT evidence of pulmonary embolus. 10/14/2014 [facility] Chest 1view DX Exam: Chest x-r ay, one view Reason for Exam: Chest pain Comparison Exam: Chest x-ray 10/09/2014 Discussion: Cardiomediastinal silhouette is within normal limits. Both hemidiaphragms well visualized. No pulmonary edema or pleural effusions. No focal lung consolidations. No acute bony abnormalities. The patient is status post right rotator cuff surgery. Impression: 1. No acute cardiopulmonary abnormaliti es. 10/14/2014 [facility] Chest Pulmonary Embolism CTA HISTORY: Chest pain. [...] infiltrate. Correlate clinically for pneumonia. SL:12 10/09/2014 [facility] Chest 2 views DX HISTORY: Shor tness of breath. Chest 2 views. No previous chest radiograph for comparison Right diaphragm elevated. Right basilar atelectasis. No pleural effusion. Heart size normal. Surgical anchor screws in the right humeral head. IMPRESSION: Right diaphragm elevated. Right basilar atelectasis. SL:10/09/2014 [facility] Consultation Notes No Data Provided for This Section Discharge Summaries No Data Provided for This Section History and Physicals No Data Provided for This Section Vital Signs Vital Sign Value Date Comments Source Temperature Oral (F) 98.1 F 10/15/2014 [facility] Heart Rate 80 10/15/2014 [facility] Respitory Rate 18 10/15/2014 [facility] Systolic (mm Hg) 130 10/15/2014 [facility] Diastolic (mm Hg) 84 10/15/2014 [facility] Systolic (mm Hg) 137 10/15/2014 [facility] Diastolic (mm Hg) 82 10/15/2014 [facility] Respitory Rate 20 10/15/2014 [facility] Heart Rate 76 10/15/2014 [facility] Systolic (mm Hg) 126 10/15/2014 [facility] Diastolic (mm Hg) 79 10/15/2014 [facility] Respitory Rate 18 10/15/2014 [facility] Heart Rate 65 10/15/2014 [facility] Temperature Oral (F) 98.5 F 10/15/2014 [facility] Temperature Oral (F) 99.4 F 10/15/2014 [facility] BMI Calculated 25.02 10/15/2014 [facility] Weight 58.1 10/15/2014 [facility] Height 152.4 cm 10/15/2014 [facility] BMI Calculated 24.61 10/14/2014 [facility] Weight 59.091 10/14/2014 [facility] Height 154.94 cm 10/14/2014 [facility] Temperature Oral (F) 98.3 F 10/09/2014 [facility] Respitory Rate 18 10/09/2014 [facility] Heart Rate 78 10/09/2014 [facility] Systolic (mm Hg) 102 10/09/2014 [facility] Diastolic (mm Hg) 53 10/09/2014 [facility] Respitory Rate 15 10/09/2014 [facility] Temperature Oral (F) 98.3 F 10/09/2014 [facility] Respitory Rate 18 10/09/2014 [facility] Systolic (mm Hg) 146 10/09/2014 [facility] Diastolic (mm Hg) 80 10/09/2014 [facility] Heart Rate 81 10/09/2014 [facility] Heart Rate 73 10/09/2014 [facility] Systolic (mm Hg) 125 10/09/2014 [facility] Diastolic (mm Hg) 60 10/09/2014 [facility] Temperature Oral (F) 97.9 F 10/09/2014 [facility] Weight 57.273 10/09/2014 [facility] BMI Calculated 24.66 10/09/2014 [facility] Height 152.4 cm 10/09/2014 [facility] Systolic (mm Hg) 122 10/08/2014 [facility] Diastolic (mm Hg) 58 10/08/2014 [facility] Respitory Rate 16 10/08/2014 [facility] Systolic (mm Hg) 112 10/08/2014 [facility] Diastolic (mm Hg) 56 10/08/2014 [facility] Respitory Rate 15 10/08/2014 [facility] Systolic (mm Hg) 132 10/08/2014 [facility] Diastolic (mm Hg) 59 10/08/2014 [facility] Respitory Rate 14 10/08/2014 [facility] Heart Rate 71 10/08/2014 [facility] Weight 58.182 10/07/2014 [facility] BMI Calculated 25.05 10/07/2014 [facility] Height 152.4 cm 10/07/2014 [facility] Encounters Location Location Details Encounter Type Encounter Number Reason For Visit Attending Provider ADM Date DC Date Status Source [facility] OBS Day Surgery [id number] Sawyer Beal 10/08/2014 10/08/2014 [facility] [id number] 01 Latosha Darling 10/09/2014 10/09/2014 [facility] OBS Observation Patient [id number] Quirino Stuart 10/14/2014 10/16/2014 [facility] Outpatient Imaging [facility] [id number] 02 Josué Garcia 12/08/2014 12/09/2014 [facility] [place] [facility] [id number] 03 Ricci Moore 03/26/2015 [facility]27[facility] [place] Out[facility] [id number] Sawyer Beal 09/24/2015 09/25/[facility] [id number] Ling Maguireshima 08/09/2018 08/10/2018 [facility] Procedures Procedure Code Date Perfomer Comments Source Injection procedure for shoulder arthrog ender or enhanced CT/MRI shoulder arthrography 59995 09/24/2015 [facility] Miscellaneous operations<sup>1</sup> [id number] right shou lder surgery [facility], [facility], [facility] Assessment and Plan No Data Provided for This Section Plan of Care No Data Provided for This Section Social History Social History Date Source Social History TypeResponse Smoking Status Never smoker; Exposure to Tobacco Smoke None; Cigarette Smoking Last 365 Days No; Reg Smoking Cessation Counseling Yes entered on: 10/14/14 10/14/2014 [facility] Social History TypeResponse Smoking Status Never smoker; Exposure to Tobacco Smoke None; Cigarette Smoking Last 365 Days No; Reg Smoking Cessation Counseling Yes 10/14/2014 [facility] Social History TypeResponse Smoking Status Never smoker; [...] No; Reg Smoking Cessation Counseling Yes 10/14/2014 [facility] Family History No Data Provided for This Section Advance Directives No Data Provided for This Section Functional Status No Data Provided for This Section
--- OUTSIDE RECORDS SUMMARY | 2020-03-04 19:09 | XMS REPORT | Continuity of Care Document ---
Author Author [facility] t Organization [facility] Address [address] [place] [id number] Phone Unavailable Care Team Providers Care Row Boss Name Role Phone MEGAN JEAN BAPTISTE PCP KALE WILLAMS Attphys Unavailable RACHAEL MOODY Attphys Unavailable Tab Ritchie Attphys MELANIE SUMNER Attphys Unavailable DEBBIE PRADO Attphys Unavailable Nagi MARIE Attphys Unavailable Irma CABELLO Attphys Unavailable Byron MARTINEZ Attphys Unavailable MEGNA JEAN BAPTISTE Attphys Unavailable Evan Beal Attphys Tomeka Moore Attphys Dudley Garcia Attphys Unavailable Bright Stuart Attphys Abelino Darling Attphys KALE WILLAMS Admphys Unavailable DEBBIE PRADO Admphys Unavailable Byron MARTINEZ Admphys Unavailable Bright Stuart Admphys Payers Payer Name Policy Type Policy Number Effective Date Expiration Date Tomeka Neal o [id number] 2001 00:00:00 [facility] Problems Condition Name Condition Details Condition Category Status Onset Date Resolution Date Last Treatment Date Treating Clinician Comments Source DX: ABDOMINAL PAIN DX: ABDOMINAL PAIN Active 08/06/2018 [facility] Diagnosis Active 2018-08-06 00:00:00 2018-08-09 06:46:00 Orquidea Hogan PVD (peripheral vascular disease) with claudication PV D (peripheral vascular disease) with claudication Disease Active 2018-01-21 00:00:00 [facility] Chest pain Chest pain Disease Active 2017-10-12 00:00:00 Jose J Mccormick Essential hypertension Essential hypertension Disease Active 2017-10-12 00:00:[address] Mixed hyperlipidemia Mixed hyperlipidemia Disease Active 00:00:00 Jose J Mccormick Z13.820 - ENCOUNTER FOR SCREENING FOR OS Z13.820 - ENCOUNTER FOR SCREENING FOR OS Active 03/22/2015 SAHIL Gaspar Diagnosis Active 2015-03-22 00:01:00 2015-03-26 09:20:00 [facility] FACE NUMBNESS,NEAR SYNCOPE,SOB FACE NUMBNESS,NEAR SYNCOPE,SOB Active 10/14/2014 [facility] Diagnosis Active 2014-10-14 00:00:00 2014-10-14 18:28:00 Orquidea Hogan NEAR SYNCOPE, SOB NEAR SYNCOPE, SOB Active 10/14/2014 [facility] Diagnosis Active 2014-10-14 00:00:00 2014-10-15 13:52:00 Orquidea Hogan CHEST DISCOMFRONT CHES T DISCOMFRONT Active 10/08/2014 [facility] Diagnosis Active 2014-10-08 00:00:00 2014-10-08 23:55:00 [facility] [id number], RIGHT SHOULDER ROTATO [id number], RIGHT SHOULDER ROTATO Active 10/06/2014 [facility] Diagnosis Active 2014-10-06 00:00:00 2014-10-08 09:39:00 Orquidea Hogan Hypercholesterolemia (disorder) Hypercholesterolemia (disorder) Active Problem 08/11/2018 SAHIL Gaspar,[facility], SAHIL [facility], SAHIL Day,[facility] Problem Active 2018-08-11 22:42:03 [facility] Rotator cuff syndrome (disorder) Rotator cuff syndrome (disorder) Active Problem 08/11/2018 FRITZCelia Gaspar,[facility], SAHIL Day,[facility] Problem Active 2018-08-11 22:42:03 [facility] Discharge Diagnosis: Atelectasis of right lung Discharge Diagnosis: Atelectasis of right lung 10/09/2014 10/12/2014 [facility] Problem 2014-10-09 05:00:00 2014-10-12 07:09:32 2014-10-12 07:09:32 [facility] Allergies, Adverse Reactions, Alerts Allergy Name Allergy Type Status Severity Reaction(s) Onset Date Inacti ve Date Treating Clinician Comments Source No Known Allergies DA Active U 2018-07-03 00:00:00 [facility] No Known Allergies DA Active U 2018-01-12 00:00:00 [facility] No Known Allergies DA Active U 2017-09-23 00:00:00 [facility] NKFA NKFA Active [facility] Social History Social Habit Start Date Stop Date Quantity Comments Source Sex Assigned At [facility] Tobacco use and exposure 2018-02-27 00:00:00 2018-02-27 00:00:00 Jaya messer used [facility] Alcohol intake 2018-02-27 00:00:00 2018-02-27 00:00:00 Current non-drinker of alcohol (finding) [facility] Sange r Smoking Status Start Date Stop Date Source Social History [facility] Medications Ordered Medication Name Filled Medication Name Start Date Stop Da te Current Medication? Ordering Clinician Indication Dosage Frequency Signature (SIG) Comments Components Source hydroCHLOROthiazide (HYDRODIURIL) 25 MG tablet 2018-05-29 13:11: 33 Yes 25mg QD Take 25 mg by mouth daily. [facility] gabapentin (NEURONTIN) 300 MG capsule 2018-05-29 00:00 :00 2019-05-29 23:59:00 No 300mg QD Take 1 capsule (300 mg total) by mouth nightly May increase to BID after a week or two if there is no improvement. [facility] potassium chloride SA (K-DUR,KLOR-CON) 20 MEQ tablet 2 00:00:00 Yes 20meq QD Take 20 mEq by mouth daily. [facility] carvedilol (COREG) 6.25 MG tablet 2017-12-11 00:00:00 Yes 6.25mg Q.5D Take 6.25 mg by mouth 2 (two) times daily. [facility] amLODIPine (NORVASC) 5 MG tablet 2017-12-04 00:00:00 Yes 5mg QD Take 5 mg by mouth daily. [facility] omega-3 acid ethyl esters (LOVAZA) 1 gram capsule 2017-11-29 00:00:00 Yes 2{capsule} Q.5D Take 2 capsules by mouth 2 (two) times daily. [facility] ezetimibe-simvastatin (VYTORIN) 10-20 mg per tablet 11-04 00:00:00 Yes 1{tbl} QD Take 1 tablet by mouth daily. [facility] ALPRAZolam (XANAX) 0.25 MG tablet 2017-10-14 00:00:00 Yes .25mg Take 0.25 mg by mouth daily as needed for ANXIETY. [facility] Zocor 2014-10-15 22:00:00 No Notes: (Same a s: Zocor) [facility] Zetia 2014-10-15 22:00:00 No Notes: (Same a s: Francisco Javier) [facility] ezetimibe 10 MG / Simvastatin 20 MG [...] Stop date: 11/13/14 19:22:00, PRN Line Flush [facility] BD Normal Saline Flush 2014-10-15 00:23:00 No Notes: (Same as: BD Posiflush) [facility] Enoxaparin 2014-10-14 23:00:00 No Notes: (S burton as: Lovenox) [facility] Saline Flush 0.9% 2014-10-14 22:59:00 No 10 ml, Route: IVP, Drug Form: INJ, Dosing Weight 59.091, kg, PRN, PRN Line Flush, Start date: 10/14/14 17:59:00, Duration: 30 day, Stop date: 11/13/14 17:58:00 [facility] Docusate 2014-10-14 22:58:00 No Notes: (Same as: Colace) (Do Not Crush) [facility] Ondansetron 2014-10-14 22:58:00 No Notes: (Same as: Zofran) MEDICATION WASTE Product Size: 4 mg Product Wasted: ___ mg [facility] Acetaminophen 325 MG / Hydrocodone Bitartrate 5 MG Oral Tabl et 2014-10-14 22:58:00 No Notes: (Sa me as: Pilot 325/5) Do not exceed 4gm/day of acetaminophen. [facility] Acetaminophen 2014-10-14 22:58:00 No Notes: Do not exceed 4 gm/day. (Same as: Tylenol) [facility] Saline Flush 0.9% 2014-10-14 18:36:00 No Notes: (Same as: BD Posiflush) [facility] Levofloxacin 750 MG Oral Tablet [Levaquin] 2014-10-09 09:49:00 Yes 750 mg = 1 tab, PO, Q24H, X 7 day, # 7 tab, 0 Refill(s) Orquidea Hogan Ativan 2014-10-09 07:22:00 No 0.25 mg, Route: IVP, Drug form: INJ, ONCE, Dosing Weight 57.273, kg, Priority: STAT, Start date: 10/09/14 2:22:00, Stop date: 10/09/14 2:22:00 [facility] Her dave lidocaine 1% 2014-10-08 17:00:00 No 0.5 mL, Route: INTRADERM, Dosing Weight 58.182, kg, ONCALL, Start date: 10/08/14 12:00:00, Duration: 1 doses or times [facility] Calcium Chloride 0.0014 MEQ/ML / Potassi um Chloride 0.004 MEQ/ML / Sodium Chloride 0.103 MEQ/ML / Sodium Lactate 0.028 MEQ/ML Injectable Solution 2014-10-08 16:38:00 No 1,000 mL, Rate: 25 ml/hr, Infuse over: 40 hr, Route: IV, Dosing Weight 58.182 kg, Total Volume: 1,000, Start date: 10/08/14 11:38:00, Duration: 30 day, Stop date: 11/07/14 11:37:00 [facility] Ancef 2014-10-08 16:38:00 No Notes: Same as : Ancef [facility] Albuterol 0.83 MG/ML Inhalant Solution 2014-10-08 16:20:00 No Notes: SEE RT DOCUMENTATION (Same as: Proventil) [facility] Ondansetron 2014-10-08 16:20:00 No Notes: (Same as: Zofran) MEDICATION WASTE Product Size: 4 mg Product Wasted: ___ mg [facility] Promethazine 2014-10-08 16:20:00 No Notes: Do not give IV push. (Same as: Phenergan) [facility] Naloxone 2014-10-08 16:20:00 No Notes: Same as Narcan [facility] Flumazenil 2014-10-08 16:20:00 No Notes: (S burton as: Romazicon) [facility] Meperidine 2014-10-08 16:20:00 No Notes: (S burton As: Demerol) [facility] Hydromorphone 2014-10-08 16:20:00 No Notes: (Same as: Dilaudid) [facility] Morphine 2014-10-08 16:20:00 No Not es: (Same as: MORPhine Sulfate) [facility] Acetaminophen 2014-10-08 16:20:00 No Notes: Infuse over 15 minutes Do not exceed 4gm/day of acetaminophen MEDICATION WASTE Product Size: 1000 mg Product Wasted: ___ mg Lisa Gandhiann Hydralazine 2014-10-08 16:20:00 No Notes: (Same as: Apresoline) Push over 5 minutes [facility] ezetimibe 10 MG / Simvastatin 20 MG Oral Tablet [Vytorin 10/ 20] 2014-10-07 19:29:00 Yes 1 tab, PO, Daily, # 30 tab, 0 Refill(s) [facility] Ezetimibe/Simvastatin (Vytorin 10-10 Mg Tablet) 1 Each Tablet Ezetimibe/Simvastatin (Vytorin 10-10 Mg Tablet) 1 Each Tablet Ye s Daily [facility] Gabapentin 100 Mg Capsule, 100 Mg Oral Gabapentin 100 Mg Capsule , 100 Mg Oral 2014-09-21 00:00:00 No 100 Daily [facility] Vital Signs Vital Name Observation Time Observation Value Comments Source Temperature Oral (F) 2014-10-15 21:38:00 98.1 F [facility] Heart Rate 2014-10-15 21:38:00 [facility] Respitory Rate 2014-10-15 21:38:00 [facility] Systolic (mm Hg) 2014-10-15 21:38:00 [facility] Diastolic (mm Hg) 2014-10-15 21:38:00 [facility] Systolic (mm Hg) 2014-10-15 20:26:00 [facility] Diastolic (mm Hg) 2014-10-15 20:26:00 [facility] Respitory Rate 2014-10-15 20:26:00 [facility] Heart Rate 2014-10-15 20:26:00 [facility] Systolic (mm Hg) 2014-10-15 17:28:00 [facility] Diastolic (mm Hg) 2014-10-15 17:28:00 [facility] Respitory Rate 2014-10-15 17:28:00 [facility] Heart Rate 2014-10-15 17:28:00 [facility] Temperature Oral (F) 2014-10-15 17:28:00 98.5 F [facility] Temperature Oral (F) 2014-10-15 12:57:00 99.4 F [facility] BMI Calculated 2014-10-15 01:20:00 [facility] Weight 2014-10-15 01:20:00 [facility] Height 2014-10-15 01:20:00 152.4 cm [facility] BMI Calculated 2014-10-14 17:23:00 [facility] Weight 2014-10-14 17:23:00 [facility] Height 2014-10-14 17:23:00 154.94 cm [facility] Temperature Oral (F) 2014-10-09 10:18:00 98.3 F [facility] Respitory Rate 2014-10-09 10:18:00 [facility] Heart Rate 2014-10-09 10:18:00 [facility] Systolic (mm Hg) 2014-10-09 10:18:00 Ino [facility] Diastolic (mm Hg) 2014-10-09 10:18:00 [facility] Respitory Rate 2014-10-09 09:16:00 [facility] Temperature Oral (F) 2014-10-09 06:25:00 98.3 F [facility] Respitory Rate 2014-10-09 06:25:00 [facility] Systolic (mm Hg) 2014-10-09 06:25:00 [facility] Diastolic (mm Hg) 2014-10-09 06:25:00 [facility] Heart Rate 2014-10-09 06:25:00 [facility] Heart Rate 2014-10-09 04:00:00 [facility] Systolic (mm Hg) 2014-10-09 04:00:00 [facility] Diastolic (mm Hg) 2014-10-09 04:00:00 [facility] Temperature Oral (F) 2014-10-09 04:00:00 97.9 F [facility] Weight 2014-10-09 03:27:00 [facility] BMI Calculated 2014-10-09 03:27:00 [facility] Height 2014-10-09 03:27:00 152.4 cm [facility] Systolic (mm Hg) 2014-10-08 20:25:00 [facility] Diastolic (mm Hg) 2014-10-08 20:25:00 [facility] Respitory Rate 2014-10-08 20:25:00 [facility] Systolic (mm Hg) 2014-10-08 20:15:00 [facility] Diastolic (mm Hg) 2014-10-08 20:15:00 [facility] Respitory Rate 2014-10-08 20:15:00 [facility] Systolic (mm Hg) 2014-10-08 20:00:00 Ino [facility] Diastolic (mm Hg) 2014-10-08 20:00:00 [facility] Respitory Rate 2014-10-08 [facility] 2014-10-08 16:15:00 [facility] Weight 2014-10-07 19:27:00 [facility] BMI Calculated 2014-10-07 [facility]:27:00 [facility] 2014-10-07 19:27:00 152.4 cm [facility] Procedures Procedure Date / Time Performed Performing Clinician [facility] e X-ray of chest, two views 2017-09-29 00:00:00 HUGH CABELLO [facility] Magnetic resonance imaging of brain without contrast 2017-08 00:00:00 YAO MCKENZIE [facility] Computed tomography of brain without radiopaque contrast 201 12-03-27 00:00:00 SHARON RHOADES [facility] Injection procedure for shoulder arthrog ender or enhanced CT/MRI shoulder arthrography 2015-09-24 14:20:09 [facility] Miscellaneous operations<sup>1</sup> [facility] Plan of Care Planned Activity Planned Date Details Comments Source Future Scheduled Test 2019-12-30 00:00:00 INFLUENZA VACCINE (#1) [code = INFLUENZA VACCINE (#1)] [facility] Cent[facility] r Future Scheduled Test 2019-11-29 00:00:00 INFLUENZA VACCINE [code = INFLUENZA VACCINE] [facility] Future Scheduled Test 2016-12-09 00:00:00 65+ PNEUMOCOCCAL V ACCINE (1 of 1 - PPSV23) [code = 65+ PNEUMOCOCCAL VACCINE (1 of 1 - PPSV23)] [facility] Future Scheduled Test 2016-12-09 00:00:00 PNEUMOCOCCAL 65+ Y RS (1 of 1 - [id number] PCV13) [code = PNEUMOCOCCAL 65+ YRS (1 of 1 - [id number] PCV13)] [facility] Cente r Future Scheduled Test 2001-12-09 00:00:00 BREAST CANCER SCRE ENING [code = BREAST CANCER SCREENING] [facility] Future Scheduled Test 2001-12-09 00:00:00 COLONOSCOPY SCREEN ING [code = COLONOSCOPY SCREENING] [facility] Scheduled Test 2001-12-09 00:00:00 SHINGLES VACCINES (#1) [code = SHINGLES VACCINES (#1)] [facility] Scheduled Test 1950 00:00:00 Screening for clary gnant neoplasm of breast (procedure) [code = 795741224] [facility] Future Scheduled Test 1950 00:00:00 Screening for clary gnant neoplasm of colon (procedure) [code = 461301328] [facility] Encounters Start Date/Time End Date/Time Encounter Type Admission Type [facility] Care Department Encounter ID Source 2018-08-09 06:46:00 2018-08-09 23:59:00 [facility] [id number] 2018-08-09 06:46:00 2018-08-09 06:46:00 Outpatient MHSE [id number] 2017-09-28 23:15:00 2017-09-29 03:10:00 Departed Emergency Room 1 HUGH CABELLO [facility] [id number] [facility] 2017-09-24 18:56:00 2017-09-26 08:05:00 Discharged Inpatient (obs) 1 FRAN MARTINEZ [facility] [id number] [facility] 2017-02-15 11:45:00 2017-02-15 11:45:00 Registered Clinic MEGAN HOLLINS [facility] [id number] [facility] 2015-09-24 08:12:00 2015-09-24 23:59:00 Outpatient Sawyer Santos [id number] 2015-03-26 09:12:00 2015-03-26 23:59:00 [facility] [id number] 2014-12-08 08:48:00 2014-12-08 23:59:00 Outpatient Josué Garcia [id number] 2014-10-14 12:15:00 2014-10-15 20:30:00 Outpatient Qiurino Stuart Chianjana IE IE [id number] 2014-10-08 22:23:00 2014-10-09 05:47:00 Outpatient Latosha Darling MHIE IE [id number] 2014-10-08 09:37:00 2014-10-08 16:40:00 Outpatient Sawyer Beal IE IE [id number] Results Test Description Test Time Test Comments Results Result Comments Source MRI BRAIN WO 2020-03-03 14:40:[address] [facility] : 1950 Sex: F [facility] [place] [address] Patient Name: Byron HAIDER MR #: [id number] : 1950 Age/Sex: 69/F Req #: [id number] [facility] Physician: KALE WILLAMS MD Ordered by: Osiel Ponce MODELING ANALYST Report #: [id number] Location: MED/SURG2 Room/Bed: [facility] Procedure: [id number] MRI/MRI BRAIN WO Exam Date: Exam Time: [...] NP CHEST SINGLE (PORTABLE) 2020-03-03 06:53:00 [facility] : 1950 Sex: F [facility] [address] [place] [address] Patient Name: Byron HAIDER MR #: [id number] : 1950 Age/Sex: 69/F Req #: [id number] Adm Physician: KALE WILLAMS MD Ordered by: RISHI ESPARZA DO Report #: [id number] Location: [facility] Room/Bed: [facility] Procedure: [id number] DX/CHEST SINGLE (PORTABLE) Exam Date: 03/02/20 Exam Time: 1530 REPORT STATUS: Signed EXAMINATION: CHEST SINGLE (PO RTABLE) INDICATION: Y cva [id number] 1530 COMPARISON: 09/29/2017 FINDINGS: AP view TUBES [...] DO CT BRAIN WO 2020-03-02 16:21:00 [facility] : 1950 Sex: F [place] [address] Patient Name: Byron HAIDER MR #: [id number] : 1950 Age/Sex: 69/F Req #: [id number] Adm Physician: KALE WILLAMS MD Ordered by: RISHI ESPARZA DO Report #: [id number] Location: [facility] Room/Bed: [place] [address] Procedure: [id number] CT/CT BRAIN WO Exam Date: 03/02/20 Exam Time: 1530 REPORT STATUS: Signed Examination: CT head without contrast Clinical Indication: Y CVA [id number] 1530. Technique: Transaxial noncontrast images from the [...] 4:23 PM Dictated By: SHERRY SANDERS MD 162 Transcribed By: JENISE on 03/02/20 1623 COPY TO: RISHI ESPARZA DO MAMMOGRAPHY DIGITAL SCR BILAT 2019-04-09 15:06:00 [place] [address] Patient Name: JIM LEA MR #: [id number] : 1950 Age/Sex: 68/F Req #: [id number] Adm Physician: Ordered by: RACHAEL MOODY MD Report #: [id number] Location: [facility] Room/Bed: Procedure: [id number] MG/MAMMOGRAPHY DIGITAL SCR BILAT Exam Date: 04/09/19 Exam Time: 1421 REPORT STATUS: Signed #[id number] - MGSCRBIL #BILATERAL DIGITAL SCREENING MAMMOGRAM WITH CAD: 04/09/2019 CLINICAL: Routine screening. Comparison is made to exams dated: 03/28/2018 mammogram and 02/15/2017 mammogram - [facility]. There are scattered fibroglandular elements in both [...] letter of the results. MONICO marr/valerie:04/21/2019 17:23:26 Corduroy Cutter Operator: Emily MOSLEY)(M), [facility] letter sent: Compared to Prior B9 Mammogram [...] code = ALKP) 70 U/L 38-126 N [id number] 00:29:00* Test Item Value Reference Range Interpretation Comments TROPONIN-I (test code = TROPI) <0.015 ng/mL 0.00-0.056 N COMPREHENSIVE METABOLIC [id number] 00:17:00* Test Item Value Reference Range Interpretation [...] TOTAL (test code = ALKP) IUnit/L 45-117 [id number] 00:17:00* Test Item Value Reference Range Interpretation Comments TROPONIN-I (test code = TROPI) ng/mL 0-0.045 CBC W/AUTO [id number] 00:07:00* Test Item Value Reference Range Interpretation [...] (test code = MDIFF) NO CBC W/O [id number] 06:48:00* Test Item Value Reference Range Interpretation [...] MPV) 11.3 fL 6.7-11.0 H BASIC METABOLIC [id number] 06:29:00* Test Item Value Reference Range Interpretation [...] CA) 9.1 mg/dL 8.5-10.1 N HEPATIC FUNCTION [id number] 06:29:00* Test Item Value Reference Range Interpretation [...] reference range due to change in reagent. [id number] 06:29:00* Test Item Value Reference Range Interpretation Comments LIPASE (test code = LIP) 187 U/L 73.0-393.0 N BASIC METABOLIC [id number] 06:22:00* Test Item Value Reference Range Interpretation [...] code = CA) mg/dL 8.5-10.1 HEPATIC FUNCTION [id number] 06:22:00* Test Item Value Reference Range Interpretation [...] TOTAL (test code = ALKP) IUnit/L 45-117 [id number] 06:22:00* Test Item Value Reference Range Interpretation Comments LIPASE (test code = LIP) U/L 73.0-393.0 URINALYSIS [id number] 05:07:00* Test Item Value Reference Range Interpretation [...] #/HPF 0-5 Urine Source? Clean CatchCOMPREHENSIVE METABOLIC [id number] 10:56:00* Test Item Value Reference Range Interpretation [...] due to change in reagent. COMPREHENSIVE METABOLIC [id number] 10:45:00* Test Item Value Reference Range Interpretation [...] ALKP) IUnit/L 45-117 - XR CHEST 2 [id number] 10:26:00 FAX: Marco A Calixto MD [phone] [place]: O St: PRE FAX: Rachael Abdalla MD [phone] Name: JIM LEA [facility] : 1950 Age/S: 67/F [address] [facility] Unit #: [id number] Loc: [place] [address] Phys: Marco A Dobson MD Acct: [id number] Dis Date: Status: PRE SDC PHONE #: [phone] Exam Date: 06/18/2018 0940 FAX #: [phone] Reason: PRE OP EXAMS: CPT CODE: [id number] XR CHEST 2 V 73951 HISTORY: Preop. COMPARISON: July 25, 2017. AP and lateral view of the chest: No acute infiltrates, effusion or congestion. Cardiac and the mediastinal silhouette are normal. DJD of the dorsal spine IMPRESSION: No acute infiltrates, effusion or congestion. at 1026 Reported and signed by: Arnoldo Rincon M.D. CC: Marco A Dobson M.D.; Feliciano Moody Technologist: MELANY Brantley) Trnscrd Date/Time/By: 06/18/2018 (1026) : By: [email or web address] Orig Print D/T: S: 06/18/2018 (1997) PAGE 1 Signed Report CBC W/AUTO [id number] 10:13:00* Test Item Value Reference Range Interpretation [...] 0.00 K/mm3 0.0-0.1 N MAMMOGRAPHY DIGITAL SCR [id number] 15:02:00 [place] [address] Patient Name: JIM LEA MR #: [id number] : 1950 Age/Sex: 67/F Req #: [id number] [facility] Physician: Ordered by: RACHAEL MOODY MD Report #: [id number] Location: MAMMO Room/Bed: Procedure: [id number] MG/MAMMOGRAPHY DIGITAL SCR BILAT Exam Date: 03/28/18 Exam Time: 1407 REPORT STATUS: Signed #[id number] - MGSCRBIL #BILATERAL DIGITAL SCREENING MAMMOGRAM WITH CAD: 03/28/2018 CLINICAL: Routine screening. Comparison is made to exams dated: 02/15/2017 mammogram and 02/05/2015 mammogram - [facility]. Current study contains 4 films. The [...] of the res ults. Jolene mcdermott/valerie:04/03/2018 12:48:33 Corduroy Cutter Operator: Emily Anthony RT(R)(M), [facility] letter sent: Compared to Prior B9 Mammogram BI-RADS: 2 Benign Dictated By: JOLENE PALMER DO 1248 COPY TO: SAMANTHA MOODY SE, MD RENAL/LIVER DOPPLER [id number] 14:18:00 [place] [id number] Patient Name: JIM LEA MR #: [id number] : 0 1950 Age/Sex: 67/F Req #: [id number] Adm Physician: Ordered by: MELANIE SUMNER MD Report #: [id number] Location: Room/Bed: Procedure: US/US RENAL/LIVER DOPPLER LTD Exam [...] 03/22/181424 CO PY TO: MELANIE SUMNER MD [id number] 07:21:00* Test Item Value Reference Range Interpretation Comments MAGNESIUM (BEAKER) (test code = 627) 2.0 mg/dL 1.6-2.6 BASIC METABOLIC [id number] 07:21:00* Test Item Value Reference Range Interpretation [...] DIALYSIS PATIENTS. CBC W/PLT COUNT & AUTO [id number] 06:43:00* Test Item Value Reference Range Interpretation [...] 0 % 0-1 URINALYSIS W/ REFLEX URINE [id number] 23:49:00* Test Item Value Reference Range Interpretation [...] < /HPF SOURCE(BEAKER) (test code = 2795) [id number] 05:44:00* Test Item Value Reference Range Interpretation Comments MAGNESIUM (BEAKER) (test code = 627) 2.1 mg/dL 1.6-2.6 BASIC METABOLIC [id number] 05:44:00* Test Item Value Reference Range Interpretation [...] DIALYSIS PATIENTS. CBC W/PLT COUNT & AUTO [id number] 05:23:00* Test Item Value Reference Range Interpretation [...] code = 2801) 0 % 0-1 HEMOGLOBIN [id number] 05:30:00* Test Item Value Reference Range Interpretation Comments HEMOGLOBIN A1C (BEAKER) (test code = 368) 5.1 % 4.3-6.1 BASIC METABOLIC [id number] 23:18:00* Test Item Value Reference Range Interpretation [...] IS NOT APPLICABLE FOR DIALYSIS PATIENTS. POTASSIUM-STAT [id number] 23:00:00* Test Item Value Reference Range Interpretation Comments POTASSIUM (BEAKER) (test code = 379) 3.2 meq/L 3.6-5.5 L CBC W/PLT COUNT & AUTO [id number] 22:55:00* Test Item Value Reference Range Interpretation [...] code = 2801) 1 % 0-1 POTASSIUM-STAT [id number] 17:59:00* Test Item Value Reference Range Interpretation Comments POTASSIUM (BEAKER) (test code = 379) 2.8 meq/L 3.6-5.5 L BASIC METABOLIC [id number] 17:41:00* Test Item Value Reference Range Interpretation [...] NOT APPLICABLE FOR DIALYSIS PATIENTS. BASIC METABOLIC [id number] 12:41:00* Test Item Value Reference Range Interpretation [...] 0 /100 WBC 0 -0 CTA ABD/PEL/RUN [id number] 13:22:00 [place] [address] Patient Name: JIM LEA MR #: [id number] : 1950 Age/Sex: 67/F Req #: [id number] Adm Physician: Ordered by: RIANNA MARIE MD Report #: [id number] Location: CT Room/Bed: Procedure: [id number] CT/CTA ABD/PEL/RUN OFF Franklyn stephens Date: 12/14/17 [...] workstation under the direct supervision of t sisi interpreting physician. FINDINGS: Abdominal aorta and iliac [...] C OPY TO: RIANNA MARIE MD Sodium Lclpk0944-69-83 01:12:00* Test Item Value Reference Range Interpretation Comments Sodium Level (test code = 2951-2) 135 136-145 L [facility]Pot[facility] Awyla8294-25-53 01:12:00* Test Item Value Reference Range Interpretation Comments Potassium Level (test code = 2823-3) 4.2 3.5-5.1 [facility] CenterChloride Wronz0297-91-93 01:12:00* Test Item Value Reference Range Interpretation Comments Chloride Level (test code = 2075-0) 98 98-107 [facility] CenterCarbon Dioxide Fdirj6715-93-16 01:12:00* Test Item Value Reference Range Interpretation Comments Carbon Dioxide Level (test code = 2028-9) 28 22-29 [facility] CenterAnion Xpj5614-10-72 01:12:00* Test Item Value Reference Range Interpretation Comments Anion Gap (test code = 43922-6) 13.2 8-16 [facility] CenterBlood Urea Xrsqkiqb1673-33-95 01:12:00* Test Item Value Reference Range Interpretation Comments Blood Urea Nitrogen (test code = 3094-0) 10 7-26 [facility] CenterCreatinine2018-06-02 01:12:00* Test Item Value Reference Range Interpretation Comments Creatinine (test code = 2160-0) 0.74 0.57-1.11 [facility] CenterBUN/Creatinine Xcjjm4786-39-91 01:12:00* Test Item Value Reference Range Interpretation Comments BUN/Creatinine Ratio (test code = 3097-3) 14 6-25 [facility] CenterEstimat Glomerular Filtration Rate 2017-09-29 01:12:00* Test Item Value Reference Range Interpretation Comments Estimat Glomerular Filtration Rate (test code = 65280-7) 60- >60 Ranges were taken from the National Kidney Disease Education Program and the [facility] literature.Reference ranges:60 or greater: Ukupkm71-31 ( for 3 consecutive months): Chronic kidney disease 15 or less: Kidney failureCHI Detar Healthcare SystemGlucose Alkof6475-57-41 01:12:00* Test Item Value Reference Range Interpretation Comments Glucose Level (test code = CFS6028) 128 74-118 H [facility] CenterCalcium Ljkma1576-15-37 01:12:00* Test Item Value Reference Range Interpretation Comments Calcium Level (test code = 14533-1) 10.2 8.4-10.2 [facility] CenterTotal Uxznbcecr8979-53-61 01:12:00* Test Item Value Reference Range Interpretation Comments Total Bilirubin (test code = 1975-2) 0.8 0.2-1.2 [facility] CenterAspartate Amino Transf (AST/SGOT) 2017-09-29 01:12:00* Test Item Value Reference Range Interpretation Comments Aspartate Amino Transf (AST/SGOT) (test code = Aspartate Amino Transf (AST/SGOT)) 54 5-34 H [facility] CenterAlanine Aminotransferase (ALT/SGPT) 2017-09-29 01:12:00* Test Item Value Reference Range Interpretation Comments Alanine Aminotransferase (ALT/SGPT) (test code = 1742-6) 56 0-55 H [facility] CenterTotal Cvjqhqx1182-35-23 01:12:00* Test Item Value Reference Range Interpretation Comments Total Protein (test code = 2885-2) 8.1 6.5-8.1 [facility] CenterAlbumin2018-06-02 01:12:00* Test Item Value Reference Range Interpretation Comments Albumin (test code = 1751-7) 4.7 3.5-5.0 [facility] CenterGlobulin2018-06-02 01:12:00* Test Item Value Reference Range Interpretation Comments Globulin (test code = 24266-2) 3.4 2.3-3.5 [facility] CenterAlbumin/Globulin Xjmgl3806-93-80 01:12:00 * Test Item Value Reference Range Interpretation Comments Albumin/Globulin Ratio (test code = 1759-0) 1.4 0.8-2.0 [facility] CenterAlkaline Gytdthhwwwj7283-65-21 01:12:00* Test Item Value Reference Range Interpretation Comments Alkaline Phosphatase (test code = 6768-6) 78 40-150 [facility] CenterCreatine Zxafbo5322-27-95 01:12:00* Test Item Value Reference Range Interpretation Comments Creatine Kinase (test code = 2157-6) 86 29-168 [facility] CenterCreatine Kinase DE5034-43-34 01:12:00* Test Item Value Reference Range Interpretation Comments Creatine Kinase MB (test code = 15215-9) 2.30 0-5.0 [facility] CenterTroponin [id number] 01:12:00* Test Item Value Reference Range Interpretation Comments Troponin I (test code = UJZ1067) -0.001 0-0.300 [facility] CenterWhite Blood Ofjdp4868-69-37 00:50:00* Test Item Value Reference Range Interpretation Comments White Blood Count (test code = 6690-2) 7.76 4.8-10.8 [facility] CenterRed Blood Uvpws3075-36-89 00:50:00* Test Item Value Reference Range Interpretation Comments Red Blood Count (test code = 789-8) 4.50 3.6-5.1 [facility] CenterHemoglobin2018-06-02 00:50:00* Test Item Value Reference Range Interpretation Comments Hemoglobin (test code = 84608-1) 14.0 12.0-16.0 [facility] CenterHematocrit2018-06-02 00:50:00* Test Item Value Reference Range Interpretation Comments Hematocrit (test code = 4544-3) 41.3 34.2-44.1 [facility] CenterMean Corpuscular Yshqnu4876-54-03 00:50:00* Test Item Value Reference Range Interpretation Comments Mean Corpuscular Volume (test code = 787-2) 91.8 81-99 [facility] CenterMean Corpuscular Xdqgdmrbas3264-12-32 00:50:00* Test Item Value Reference Range Interpretation Comments Mean Corpuscular Hemoglobin (test code = 785-6) 31.1 28-32 [facility] CenterMean Corpuscular Hemoglobin Concent 2017-09-29 00:50:00* Test Item Value Reference Range Interpretation Comments Mean Corpuscular Hemoglobin Concent (test code = 786-4) 33.9 31-35 [facility] CenterRed Cell Distribution Sgioy9319-15-80 00:50:00* Test Item Value Reference Range Interpretation Comments Red Cell Distribution Width (test code = 91786-3) 12.1 11.7 -14.4 [facility] CenterPlatelet Ivrpe9458-86-42 00:50:00* Test Item Value Reference Range Interpretation Comments Platelet Count (test code = 777-3) 174 140-360 [facility] CenterNeutrophils (%) (Auto)2017-09-29 00:50:00 * Test Item Value Reference Range Interpretation Comments Neutrophils (%) (Auto) (test code = 45516-3) 51.7 38.7-80.0 [facility] CenterLymphocytes (%) (Auto)2017-09-29 00:50:00 * Test Item Value Reference Range Interpretation Comments Lymphocytes (%) (Auto) (test code = 736-9) 29.5 18.0-39.1 [facility] CenterMonocytes (%) (Auto)2017-09-29 00:50:00* Test Item Value Reference Range Interpretation Comments Monocytes (%) (Auto) (test code = 5905-5) 12.6 4.4-11.3 H [facility] CenterEosinophils (%) (Auto)2017-09-29 00:50:00 * Test Item Value Reference Range Interpretation Comments Eosinophils (%) (Auto) (test code = 713-8) 5.5 0.0-6.0 [facility] CenterBasophils (%) (Auto)2017-09-29 00:50:00* Test Item Value Reference Range Interpretation Comments Basophils (%) (Auto) (test code = 706-2) 0.4 0.0-1.0 [facility] CenterIM GRANULOCYTES %2017-09-29 00:50:00* Test Item Value Reference Range Interpretation Comments IM GRANULOCYTES % (test code = IM GRANULOCYTES %) 0.3 0.0- 1.0 [facility] CenterNeutrophils # (Auto)2017-09-29 00:50:00* Test Item Value Reference Range Interpretation Comments Neutrophils # (Auto) (test code = 751-8) 4.0 2.1-6.9 [facility] CenterLymphocytes # (Auto)2017-09-29 00:50:00* Test Item Value Reference Range Interpretation Comments Lymphocytes # (Auto) (test code = 53776-5) 2.3 1.0-3.2 [facility] CenterMonocytes # (Auto)2017-09-29 00:50:00* Test Item Value Reference Range Interpretation Comments Monocytes # (Auto) (test code = 742-7) 1.0 0.2-0.8 H [facility] CenterEosinophils # (Auto)2017-09-29 00:50:00* Test Item Value Reference Range Interpretation Comments Eosinophils # (Auto) (test code = 711-2) 0.4 0.0-0.4 [facility] CenterBasophils # (Auto)2017-09-29 00:50:00* Test Item Value Reference Range Interpretation Comments Basophils # (Auto) (test code = 704-7) 0.0 0.0-0.1 [facility] CenterAbsolute Immature Granulocyte (auto 2017-09-29 00:50:00* Test Item Value Reference Range Interpretation Comments Absolute Immature Granulocyte (auto (jess t code = Absolute Immature Granulocyte (auto) 0.02 0-0.1 [facility] CenterCreatine Kinase [id number] 10:41:00* Test Item Value Reference Range Interpretation Comments Creatine Kinase MB (test code = 68155-2) 1.30 0-5.0 [facility] CenterTroponin O5068-79-15 10:41:00* Test Item Value Reference Range Interpretation Comments Troponin I (test code = SBR8889) 0.003 0-0.300 [facility] CenterCreatine Avwroo0090-97-41 10:34:00* Test Item Value Reference Range Interpretation Comments Creatine Kinase (test code = 2157-6) 64 29-168 [facility] Centerodium Bfwfr6958-56-32 07:11:00* Test Item Value Reference Range Interpretation Comments Sodium Level (test code = 2951-2) 142 136-145 [facility] CenterPotassium Ogpbe9670-61-80 07:11:00* Test Item Value Reference Range Interpretation Comments Potassium Level (test code = 2823-3) 4.4 3.5-5.1 [facility] CenterChloride Rkvih2004-39-30 07:11:00* Test Item Value Reference Range Interpretation Comments Chloride Level (test code = 2075-0) 107 98-107 [facility] CenterCarbon Dioxide Nrhwn7866-03-83 07:11:00* Test Item Value Reference Range Interpretation Comments Carbon Dioxide Level (test code = 2028-9) 27 22-29 [facility] CenterAnion Qlz9026-55-46 07:11:00* Test Item Value Reference Range Interpretation Comments Anion Gap (test code = 72787-5) 12.4 8-16 [facility] CenterBlood Urea Adsvkjuy9524-84-93 07:11:00* Test Item Value Reference Range Interpretation Comments Blood Urea Nitrogen (test code = 3094-0) 13 7-26 [facility] CenterCreatinine2018-05-29 07:11:00* Test Item Value Reference Range Interpretation Comments Creatinine (test code = 2160-0) 0.73 0.57-1.11 [facility] CenterBUN/Creatinine Jzysq7830-98-62 07:11:00* Test Item Value Reference Range Interpretation Comments BUN/Creatinine Ratio (test code = 3097-3) 18 6-25 [facility] CenterEstimat Glomerular Filtration Rate 2017-09-25 07:11:00* Test Item Value Reference Range Interpretation Comments Estimat Glomerular Filtration Rate (test code = 58113-7) 60- >60 Ranges were taken from the National Kidney Disease Education Program and the [facility] literature.Reference ranges:60 or greater: Estxjd80-99 ( for 3 consecutive months): Chronic kidney disease 15 or less: Kidney failureD[facility] Medical CenterGlucose Kwafd3884-35-69 07:11:00* Test Item Value Reference Range Interpretation Comments Glucose Level (test code = VUA7333) 89 74-118 [facility] CenterCalcium Arphs8619-17-87 07:11:00* Test Item Value Reference Range Interpretation Comments Calcium Level (test code = 04628-0) 9.0 8.4-10.2 [facility] CenterMagnesium Xahbv0332-86-46 07:11:00* Test Item Value Reference Range Interpretation Comments Magnesium Level (test code = 55831-3) 2.2 1.3-2.1 H [facility] CenterTriglycerides Tkmqu5593-98-74 07:11:00* Test Item Value Reference Range Interpretation Comments Triglycerides Level (test code = 2571-8) 108 0-149 [facility] CenterCholesterol Sjrch1432-99-84 07:11:00* Test Item Value Reference Range Interpretation Comments Cholesterol Level (test code = 2093-3) 166 0-199 Less than 200 mg/dL Low Fgyu098 - 239 mg/dL Borderline Safg871 m g/dl and greater High Risk [facility] CenterLDL Actwhvhatpy5882-00-50 07:11:00* Test Item Value Reference Range Interpretation Comments LDL Cholesterol (test code = 2089-1) 74 60-130 [facility] CenterHDL Caeauthiodr4669-70-18 07:11:00* Test Item Value Reference Range Interpretation Comments HDL Cholesterol (test code = 2085-9) 70 40-60 H [facility] CenterCholesterol/HDL Qqhme8353-60-03 07:11:00 * Test Item Value Reference Range Interpretation Comments Cholesterol/HDL Ratio (test code = 9830-1) 2.4 3.0-3.6 L [facility] CenterMagnesium Coleu0728-99-31 07:11:00* Test Item Value Reference Range Interpretation Comments Magnesium Level (test code = 65707-8) 2.2 1.3-2.1 H [facility] CenterTriglycerides Krlps8795-44-87 07:11:00* Test Item Value Reference Range Interpretation Comments Triglycerides Level (test code = 2571-8) 108 0-149 [facility] CenterCholesterol Spmif2728-99-74 07:11:00* Test Item Value Reference Range Interpretation Comments Cholesterol Level (test code = 2093-3) 166 0-199 Less than 200 mg/dL Low Cakz703 - 239 mg/dL Borderline Rgag629 m g/dl and greater High Risk [facility] CenterLDL Hgdhwzqoqnq9569-67-81 07:11:00* Test Item Value Reference Range Interpretation Comments LDL Cholesterol (test code = 2089-1) 74 60-130 [facility] CenterHDL Rqeratwlrvf3099-87-50 07:11:00* Test Item Value Reference Range Interpretation Comments HDL Cholesterol (test code = 2085-9) 70 40-60 H [facility] CenterCholesterol/HDL Dnrew1698-98-72 07:11:00 * Test Item Value Reference Range Interpretation Comments Cholesterol/HDL Ratio (test code = 9830-1) 2.4 3.0-3.6 L [facility] CenterWhite Blood Zqedx0051-10-90 06:46:00* Test Item Value Reference Range Interpretation Comments White Blood Count (test code = 6690-2) 7.08 4.8-10.8 [facility] CenterRed Blood Vjhmk1745-21-02 06:46:00* Test Item Value Reference Range Interpretation Comments Red Blood Count (test code = 789-8) 4.23 3.6-5.1 [facility] CenterHemoglobin2018-05-29 06:46:00* Test Item Value Reference Range Interpretation Comments Hemoglobin (test code = 28454-5) 13.2 12.0-16.0 [facility] CenterHematocrit2018-05-29 06:46:00* Test Item Value Reference Range Interpretation Comments Hematocrit (test code = 4544-3) 40.3 34.2-44.1 [facility] CenterMean Corpuscular Xwrsnt2767-78-57 06:46:00* Test Item Value Reference Range Interpretation Comments Mean Corpuscular Volume (test code = 787-2) 95.3 81-99 [facility] CenterMean Corpuscular Clyqkjogdx8345-35-38 06:46:00* Test Item Value Reference Range Interpretation Comments Mean Corpuscular Hemoglobin (test code = 785-6) 31.2 28-32 [facility] CenterMean Corpuscular Hemoglobin Concent 2017-09-25 06:46:00* Test Item Value Reference Range Interpretation Comments Mean Corpuscular Hemoglobin Concent (test code = 786-4) 32.8 31-35 [facility] CenterRed Cell Distribution Qqhgp9262-00-67 06:46:00* Test Item Value Reference Range Interpretation Comments Red Cell Distribution Width (test code = 00976-1) 12.7 11.7 -14.4 [facility] CenterPlatelet Msdix5947-82-38 06:46:00* Test Item Value Reference Range Interpretation Comments Platelet Count (test code = 777-3) 184 140-360 [facility] CenterNeutrophils (%) (Auto)2017-09-25 06:46:00 * Test Item Value Reference Range Interpretation Comments Neutrophils (%) (Auto) (test code = 21468-3) 32.1 38.7-80.0 L [facility] CenterLymphocytes (%) (Auto)2017-09-25 06:46:00 * Test Item Value Reference Range Interpretation Comments Lymphocytes (%) (Auto) (test code = 736-9) 55.6 18.0-39.1 H [facility] CenterMonocytes (%) (Auto)2017-09-25 06:46:00* Test Item Value Reference Range Interpretation Comments Monocytes (%) (Auto) (test code = 5905-5) 9.2 4.4-11.3 [facility] CenterEosinophils (%) (Auto)2017-09-25 06:46:00 * Test Item Value Reference Range Interpretation Comments Eosinophils (%) (Auto) (test code = 713-8) 2.1 0.0-6.0 [facility] CenterBasophils (%) (Auto)2017-09-25 06:46:00* Test Item Value Reference Range Interpretation Comments Basophils (%) (Auto) (test code = 706-2) 0.6 0.0-1.0 [facility] CenterIM GRANULOCYTES %2017-09-25 06:46:00* Test Item Value Reference Range Interpretation Comments IM GRANULOCYTES % (test code = IM GRANULOCYTES %) 0.4 0.0- 1.0 [facility] CenterNeutrophils # (Auto)2017-09-25 06:46:00* Test Item Value Reference Range Interpretation Comments Neutrophils # (Auto) (test code = 751-8) 2.3 2.1-6.9 [facility] CenterLymphocytes # (Auto)2017-09-25 06:46:00* Test Item Value Reference Range Interpretation Comments Lymphocytes # (Auto) (test code = 65381-9) 3.9 1.0-3.2 H [facility] CenterMonocytes # (Auto)2017-09-25 06:46:00* Test Item Value Reference Range Interpretation Comments Monocytes # (Auto) (test code = 742-7) 0.7 0.2-0.8 [facility] CenterEosinophils # (Auto)2017-09-25 06:46:00* Test Item Value Reference Range Interpretation Comments Eosinophils # (Auto) (test code = 711-2) 0.2 0.0-0.4 [facility] CenterBasophils # (Auto)2017-09-25 06:46:00* Test Item Value Reference Range Interpretation Comments Basophils # (Auto) (test code = 704-7) 0.0 0.0-0.1 [facility] CenterAbsolute Immature Granulocyte (auto 2017-09-25 06:46:00* Test Item Value Reference Range Interpretation Comments Absolute Immature Granulocyte (auto (jess t code = Absolute Immature Granulocyte (auto) 0.03 0-0.1 [facility] CenterDifferential Total Cells Counted 2017-09-24 16:39:00* Test Item Value Reference Range Interpretation Comments Differential Total Cells Counted (test code = Differen tial Total Cells Counted) 100 [facility] CenterNeutrophils % (Manual)2017-09-24 16:39:00 * Test Item Value Reference Range Interpretation Comments Neutrophils % (Manual) (test code = 93490-4) 30 40-74 L [facility] CenterLymphocytes % (Manual)2017-09-24 16:39:00 * Test Item Value Reference Range Interpretation Comments Lymphocytes % (Manual) (test code = 737-7) 63 19-48 H [facility] CenterMonocytes % (Manual)2017-09-24 16:39:00* Test Item Value Reference Range Interpretation Comments Monocytes % (Manual) (test code = 744-3) 5 3.4-9.0 [facility] CenterEosinophils % (Manual)2017-09-24 16:39:00 * Test Item Value Reference Range Interpretation Comments Eosinophils % (Manual) (test code = 714-6) 1 0-7 [facility] CenterReactive Wypdjrnzwon7034-26-81 16:39:00* Test Item Value Reference Range Interpretation Comments Reactive Lymphocytes (test code = 36063-6) 1 [facility] CenterNucleated Red Blood Funim8896-88-98 16:39:00* Test Item Value Reference Range Interpretation Comments Nucleated Red Blood Cells (test code = 64543-4) 1 [facility] CenterPlatelet Siljucjs2405-89-84 16:39:00* Test Item Value Reference Range Interpretation Comments Platelet Estimate (test code = 88942-3) ADEQUATE [facility] CenterPlatelet Morphology Qhhspqn6907-72-08 16:39:00* Test Item Value Reference Range Interpretation Comments Platelet Morphology Comment (test code = 25527-1) NORMAL [facility] CenterRed Cell Morphology Koxhrab0119-84-95 16:39:00* Test Item Value Reference Range Interpretation Comments Red Cell Morphology Comment (test code = 6742-1) NORMAL [facility] CenterDifferential Total Cells Counted 2017-09-24 16:39:00* Test Item Value Reference Range Interpretation Comments Differential Total Cells Counted (test code = Differen tial Total Cells Counted) 100 [facility] CenterNeutrophils % (Manual)2017-09-24 16:39:00 * Test Item Value Reference Range Interpretation Comments Neutrophils % (Manual) (test code = 88838-1) 30 40-74 L [facility] CenterLymphocytes % (Manual)2017-09-24 16:39:00 * Test Item Value Reference Range Interpretation Comments Lymphocytes % (Manual) (test code = 737-7) 63 19-48 H [facility] CenterMonocytes % (Manual)2017-09-24 16:39:00* Test Item Value Reference Range Interpretation Comments Monocytes % (Manual) (test code = 744-3) 5 3.4-9.0 [facility] CenterEosinophils % (Manual)2017-09-24 16:39:00 * Test Item Value Reference Range Interpretation Comments Eosinophils % (Manual) (test code = 714-6) 1 0-7 [facility] CenterReactive Jlfduhjdirx8724-43-10 16:39:00* Test Item Value Reference Range Interpretation Comments Reactive Lymphocytes (test code = 87708-1) 1 [facility] CenterNucleated Red Blood Mhkgf2218-26-79 16:39:00* Test Item Value Reference Range Interpretation Comments Nucleated Red Blood Cells (test code = 32329-4) 1 [facility] CenterPlatelet Hysephhq4152-10-13 16:39:00* Test Item Value Reference Range Interpretation Comments Platelet Estimate (test code = 98560-4) ADEQUATE [facility] CenterPlatelet Morphology Xxnddbb0179-75-98 16:39:00* Test Item Value Reference Range Interpretation Comments Platelet Morphology Comment (test code = 35753-5) NORMAL [facility] CenterRed Cell Morphology Zhwxnrz6117-73-31 16:39:00* Test Item Value Reference Range Interpretation Comments Red Cell Morphology Comment (test code = 6742-1) NORMAL [facility] CenterUrine QXS1832-13-32 15:31:00* Test Item Value Reference Range Interpretation Comments Urine WBC (test code = 5821-4) 6-10 0-5 H [facility] CenterUrine BXB0764-88-66 15:31:00* Test Item Value Reference Range Interpretation Comments Urine RBC (test code = 66973-9) 0-5 0-5 [facility] Snzmcabr7066-04-56 15:31:00* Test Item Value Reference Range Interpretation Comments Urine Bacteria (test code = 89138-8) NONE NONE [facility] CenterUrine Epithelial Ufqcs8870-53-85 15:31:00 * Test Item Value Reference Range Interpretation Comments Urine Epithelial Cells (test code = 61817-8) FEW NONE [facility] Jwgdy4093-12-75 15:31:00* Test Item Value Reference Range Interpretation Comments Urine Mucus (test code = 8247-9) FEW RARE H [facility] LBJ9062-33-99 15:31:00* Test Item Value Reference Range Interpretation Comments Urine WBC (test code = 5821-4) 6-10 0-5 H [facility] CenterUrine YQA9923-80-55 15:31:00* Test Item Value Reference Range Interpretation Comments Urine RBC (test code = 13434-2) 0-5 0-5 [facility] CenterUrine Naypeelq1861-95-19 15:31:00* Test Item Value Reference Range Interpretation Comments Urine Bacteria (test code = 72896-7) NONE NONE [facility] CenterUrine Epithelial Oafhj5301-49-45 15:31:00 * Test Item Value Reference Range Interpretation Comments Urine Epithelial Cells (test code = 65970-9) FEW NONE [facility] Reyxp4125-63-27 15:31:00* Test Item Value Reference Range Interpretation Comments Urine Mucus (test code = 8247-9) FEW RARE H [facility] CenterTotal Ffzuhbmkm3756-21-28 15:26:00* Test Item Value Reference Range Interpretation Comments Total Bilirubin (test code = 1975-2) 0.7 0.2-1.2 [facility] CenterAspartate Amino Transf (AST/SGOT) 2017-09-24 15:26:00* Test Item Value Reference Range Interpretation Comments Aspartate Amino Transf (AST/SGOT) (test code = Aspartate Amino Transf (AST/SGOT)) 30 5-34 [facility] (ALT/SGPT) 2017-09-24 15:26:00* Test Item Value Reference Range Interpretation Comments Alanine Aminotransferase (ALT/SGPT) (test code = 1742-6) 35 0-55 [facility] Qclilsk5409-03-15 15:26:00* Test Item Value Reference Range Interpretation Comments Total Protein (test code = 2885-2) 8.3 6.5-8.1 H [facility] CenterAlbumin2018-05-28 15:26:00* Test Item Value Reference Range Interpretation Comments Albumin (test code = 1751-7) 4.8 3.5-5.0 [facility]Globulin2018-05-28 15:26:00* Test Item Value Reference Range Interpretation Comments Globulin (test code = 08798-6) 3.5 2.3-3.5 [facility] CenterAlbum[facility]/Globulin Kkjat0204-38-92 15:26:00 * Test Item Value Reference Range Interpretation Comments Albumin/Globulin Ratio (test code = 1759-0) 1.4 0.8-2.0 [facility] CenterAlkaline Hopvapfljmf5686-50-09 15:26:00* Test Item Value Reference Range Interpretation Comments Alkaline Phosphatase (test code = 6768-6) 69 40-150 [facility] CenterProthrombin Ozyx6265-79-12 15:18:00* Test Item Value Reference Range Interpretation Comments Prothrombin Time (test code = 5902-2) 13.1 11.9-14.5 [facility] CenterProthromb Time International Ratio 2017-09-24 15:18:00* Test Item Value Reference Range Interpretation Comments Prothromb Time International Ratio (test code = 6301-6) 1.07 Oral Anticoagulant Therapy INR Values:1. Low Intensity Therapy 1.5 - 2.02 . Moderate Intensity Therapy 2.0 - 3.03. High Intensity Therapy(1) 2.5 - 3. 54. High Intensity Therapy(2) 3.0 - 4.05. Panic Value INR > 5.0 [facility] CenterActivated Partial Thromboplast Time 2017-09-24 15:18:00* Test Item Value Reference Range Interpretation Comments Activated Partial Thromboplast Time (test code = 87978-8) 26.5 23.8-35.5 [facility] CenterProthrombin Fcuu5138-11-37 15:18:00* Test Item Value Reference Range Interpretation Comments Prothrombin Time (test code = 5902-2) 13.1 11.9-14.5 [facility] CenterProthromb Time International Ratio 2017-09-24 15:18:00* Test Item Value Reference Range Interpretation Comments Prothromb Time International Ratio (test code = 6301-6) 1.07 Oral Anticoagulant Therapy INR Values:1. Low Intensity Therapy 1.5 - 2.02 . Moderate Intensity Therapy 2.0 - 3.03. High Intensity Therapy(1) 2.5 - 3. 54. High Intensity Therapy(2) 3.0 - 4.05. Panic Value INR > 5.0 [facility] CenterAct[facility] Partial Thromboplast Time 2017-09-24 15:18:00* Test Item Value Reference Range Interpretation Comments Activated Partial Thromboplast Time (test code = 35725-3) 26.5 23.8-35.5 [facility] CenterUrine Dcarr4740-23-22 15:14:00* Test Item Value Reference Range Interpretation Comments Urine Color (test code = 5778-6) YELLOW YELLOW [facility] CenterU[facility] Pqfvipt1662-22-54 15:14:00* Test Item Value Reference Range Interpretation Comments Urine Clarity (test code = 90666-5) CLEAR CLEAR [facility] CenterU[facility] Specific Nyoiysi9710-81-13 15:14:00 * Test Item Value Reference Range Interpretation Comments Urine Specific [place] (test code = 5811-5) 1.010 1.010-1.02 5 [facility] CenterU[facility] rD0814-05-69 15:14:00* Test Item Value Reference Range Interpretation Comments Urine pH (test code = 65774-9) 7 5-7 [facility] Center[facility] Leukocyte Lxkbgybd9892-11-49 15:14:00* Test Item Value Reference Range Interpretation Comments Urine Leukocyte Esterase (test code = 5799-2) TRACE NEGATIVE H [facility] Ptnnyqw2170-02-09 15:14:00* Test Item Value Reference Range Interpretation Comments Urine Nitrite (test code = 01145-1) NEGATIVE NEGATIVE [facility] Dncigrx9449-81-44 15:14:00* Test Item Value Reference Range Interpretation Comments Urine Protein (test code = 5804-0) NEGATIVE NEGATIVE [facility] Glucose (UA)2017-09-24 15:14:00* Test Item Value Reference Range Interpretation Comments Urine Glucose (UA) (test code = 2349-9) NEGATIVE NEGATIVE [facility] Joucwte5550-59-31 15:14:00* Test Item Value Reference Range Interpretation Comments Urine Ketones (test code = 97676-3) NEGATIVE NEGATIVE [facility] Wakbagmiwulb1624-05-02 15:14:00* Test Item Value Reference Range Interpretation Comments Urine Urobilinogen (test code = 72901-5) 0.2 0.2-1 [facility] Center[facility] Ldlecapxt6113-43-94 15:14:00* Test Item Value Reference Range Interpretation Comments Urine Bilirubin (test code = 1978-6) NEGATIVE NEGATIVE [facility] Gdtog2969-52-95 15:14:00* Test Item Value Reference Range Interpretation Comments Urine Blood (test code = 49094-1) NEGATIVE NEGATIVE [facility] Center[facility] Wlzcc2576-09-14 15:14:00* Test Item Value Reference Range Interpretation Comments Urine Color (test code = 5778-6) YELLOW YELLOW [facility] Center[facility] Hizkdnd0155-10-25 15:14:00* Test Item Value Reference Range Interpretation Comments Urine Clarity (test code = 01369-4) CLEAR CLEAR [facility] Specific Rnyvbvg9535-13-31 15:14:00 * Test Item Value Reference Range Interpretation Comments Urine Specific [place] (test code = 5811-5) 1.010 1.010-1.02 5 [facility] CenterU[facility] uA3700-36-30 15:14:00* Test Item Value Reference Range Interpretation Comments Urine pH (test code = 84591-9) 7 5-7 [facility] Center[facility] Leukocyte Stodtcwn0710-97-10 15:14:00* Test Item Value Reference Range Interpretation Comments Urine Leukocyte Esterase (test code = 5799-2) TRACE NEGATIVE H [facility] Ejxjttj0912-04-49 15:14:00* Test Item Value Reference Range Interpretation Comments Urine Nitrite (test code = 00252-6) NEGATIVE NEGATIVE [facility] Utzvijg7098-90-44 15:14:00* Test Item Value Reference Range Interpretation Comments Urine Protein (test code = 5804-0) NEGATIVE NEGATIVE [facility] Glucose (UA)2017-09-24 15:14:00* Test Item Value Reference Range Interpretation Comments Urine Glucose (UA) (test code = 2349-9) NEGATIVE NEGATIVE [facility] Quvyqbi2494-61-24 15:14:00* Test Item Value Reference Range Interpretation Comments Urine Ketones (test code = 23016-7) NEGATIVE NEGATIVE [facility] Center[facility] Rwynzygxwijo8285-15-33 15:14:00* Test Item Value Reference Range Interpretation Comments Urine Urobilinogen (test code = 35625-7) 0.2 0.2-1 [facility] Center[facility] Mbkgooerd1473-61-51 15:14:00* Test Item Value Reference Range Interpretation Comments Urine Bilirubin (test code = 1978-6) NEGATIVE NEGATIVE [facility] Ihtlg4024-71-69 15:14:00* Test Item Value Reference Range Interpretation Comments Urine Blood (test code = 95387-1) NEGATIVE NEGATIVE [facility]CHE[facility] XCHCW6120-06-85 08:08:002.3[facility] NataonzIYNTIMKEKSNS6663-91-63 08:08:0011.7[facility] VxftbedTERPPMVHHBVS5356-86-27 08:08:31745Fpldlsva ZxsqgpbJUTKQNGLBAMR2764-99-40 08:08:0021[facility] AKAXMTJMRQBX9975-02-88 08:08:0025[facility] UvsyoswIRFJASPUBPKQ8809-25-96 08:08:00 98[facility] FdfqxewCZDGLFCUYNSP9750-59-79 08:08:00229Ndlgwpiy HermannELECTROLYTES 2014-10-15 08:08:008.5[facility] XiblqmoHWYCVFXJTPXZ4898-94-04 08:08:35562Xrvrpxgx KvksczePUURKJQVLIFF7662-97-36 08:08:003.7[facility] BksznukHGZQQOBSTVHS6226-20-50 08:08:000.6[facility] XjfovriFLGPTKRYVZ4729-36-71 08:08:0032.6[facility] JAKBPITQMM4412-87-44 08:08:0013.8[facility] PpemcqtOZSXRTCRBZ4609-09-84 08:08:00 219[facility] JvbdqfrIAXJVYHWOM8997-67-20 08:08:009.8[facility] HermannHEMATOLOGY 2014-10-15 08:08:009.2[facility] MsvamaeNNMAHXYWNE2411-63-87 08:08:0028.4[facility] QhyztniANOPWSOUKW5977-93-32 08:08:0094.7[facility] AoatjaaMDXSADMCLU8531-35-80 08:08:00* Test Item Value Reference Range Interpretation Comments MCH (test code = MCH) 30.9 pg 27.0-31.0 [facility] NatnccrFTMZTCFYXD7964-76-20 08:08:005.9[facility] HermannHEMATOLOGY 2014-10-15 08:08:002.99[facility] ZjzozzeYIUYXKMBEV4178-09-86 08:08:00* Test Item Value Reference Range Interpretation Comments PTT (test code = PTT) 33.3 s 22.9-35.8 [facility] VyclplwHWRBVKDRXS5094-55-63 08:08:29913Dmleapih HermannHEMATOLOGY 2014-10-15 08:08:000.4[facility] RbjjshnCVLXKZRPHH2757-54-92 08:08:002.7[facility] MltenfjGXQBRAKUKD1860-03-05 08:08:002.4[facility] PoypgebYPTJYFSZSX5861-38-22 08:08:000.5[facility] MxnuvxaVTRPECVYWQ0774-88-01 08:08:00Moderate *ABN*(10/15/14 3:08 AM)[facility] GaikgfxTWQSJGBOUS9765-78-85 08:08:006.0[facility] USVLLMBITM4288-09-45 08:08:000.0[facility] YvcrcklECQSNUBPRU9782-31-94 08:08:001+ *ABN*(10/15/14 3:08 AM)[facility] WophthdUYYBOXESSS5694-16-29 08:08:009.0[facility] SxmyeumZYXGEKACOH0725-65-46 08:08:0045.0[facility] GarhxutRWHYMKXSQE5215-59-78 08:08:000.0[facility] DqzodgwLGYHFICEGX8404-52-98 08:08:0040.0[facility] CARDIAC JSOEHUD5185-93-35 08:05:0061[facility] HermannCARDIAC COOBKFC0500-48-09 08:05:00<0.02[facility] HermannCARDIAC DPLZMJO7243-00-28 18:50:000.8[facility] HermannCARDIAC NQBUBML4924-78-20 18:50:00<0.02[facility] HermannCARDIAC ENZYMES 2014-10-14 18:50:0088[facility] HermannCARDIAC DTWONFL7582-92-45 18:50:000.7 [facility]annCARDIAC PMARUSB5091-91-44 18:50:0022[facility] HermannCHEM PANEL 2014-10-14 18:50:0098[facility] HermannCHEM GWTQU8775-74-89 18:50:78169Zzclcyqt HermannCHEM FXFUE8505-27-51 18:50:000.6[facility] HermannCHEM HMZXF1196-00-46 18:50:008.9[facility] HermannCHEM BXMZL5660-21-88 18:50:21225Smwmoaom HermannCHEM NYRPV4633-79-68 18:50:003.4[facility] HermannCHEM JCSUV6877-71-97 18:50:000.4 [facility]annCHEM NVVBI6762-05-85 18:50:0012.4[facility] HermannCHEM PANEL 2014-10-14 18:50:0038[facility] HermannCHEM OMIBE6368-89-77 18:50:003.9[facility] HermannCHEM VSVVB5353-73-92 18:50:001.0[facility] HermannCHEM PHMAD9113-03-22 18:50:0053[facility] HermannCHEM PQLPD8207-19-63 18:50:0046[facility] HermannCHEM IPLAK0120-69-60 18:50:0093[facility] HermannCHEM CPFDU3956-17-28 18:50:52007 [facility]annCHEM QOTOT3547-28-04 18:50:007.9[facility] HermannCHEM PANEL 2014-10-14 18:50:004.0[facility] HermannCHEM UZSXO9246-26-42 18:50:0023[facility] HermannCHEM EQHTK1078-57-30 18:50:0026[facility] HermannCHEM HVOVD3773-19-08 18:50:002.2[facility] QasouxwCCRFHSORCD2614-40-74 18:50:001.24[facility] TMUMZUGATT9874-17-82 18:50:000.92[facility] XjpigxsGUHUUMNVDQ3078-50-80 18:50:00* Test Item Value Reference Range Interpretation Comments PT (test code = PT) 12.3 s 12.0-14.7 [facility] ErfcrraGDVSGFSTPO1101-78-69 18:50:00* Test Item Value Reference Range Interpretation Comments PTT (test code = PTT) 20.6 s 22.9-35.8 [facility] PsodvfrBXOPPHOXPT6605-77-77 18:50:55035Qyncwfli HermannHEMATOLOGY 2014-10-14 18:50:009.4[facility] WtnumgwSDWQWNUXOT1923-42-18 18:50:0013.4[facility] QpgadlfEYQMBCTPID6659-84-45 18:50:0094.4[facility] XrhgskiFJGTYOBXTL7073-71-23 18:50:0031.9[facility] PzlkfmyHDCODOFUQE5586-65-67 18:50:0010.7[facility] GOXXGMVQLT0789-48-92 18:50:0033.5[facility] DducatvWFMQOAENFZ5860-87-80 18:50:00* Test Item Value Reference Range Interpretation Comments MCH (test code = MCH) 31.6 pg 27.0-31.0 [facility] FqftndgKHYHZOWZBL9591-42-44 18:50:003.38[facility] HermannHEMATOLOGY 2014-10-14 18:50:007.1[facility] QmqrgcvBMFJOXQLZG1042-82-09 18:50:001+ *ABN*(10/14/14 1:50 PM)[facility] PmfjukeTODTREMVXN2754-46-60 18:50:000.0[facility] EtacekvBKENWXSPOV5449-58-68 18:50:000.2[facility] WhbokdkCHRWVSMVNM5460-21-31 18:50:0064.2[facility] IcsfbwxTKNTWTVDUE5826-86-17 18:50:007.4[facility] DWNPOROBJM7037-87-33 18:50:0025.3[facility] QntpmzkACZVQEHPSS6664-62-29 18:50:00 0.7[facility] CbaldcgPOXJNIAKNC2819-24-40 18:50:002.4[facility] HermannHEMATOLOGY 2014-10-14 18:50:000.5[facility] DwzaizgVQIJBYSWWS5596-88-31 18:50:001.8[facility] WmoaaxwSJMKTQFYFN2007-01-75 18:50:004.5[facility] HermannURINE AND IADLT4181-92-98 18:50:00Trace *ABN*(10/14/14 1:50 PM)[facility]annURINE AND BMUDF6240-26-48 18:50:001[facility]annURINE AND XWETB5987-80-88 18:50:00Negative (10/14/14 1:50 PM)[facility]annURINE AND SGRDQ9408-77-80 18:50:00Negative (10/14/14 1:50 PM)[facility]annURINE AND SPXEW8649-09-64 18:50:003[facility]annURINE AND BHUVA4034-35-06 18:50:00Colorless *NA*(10/14/14 1:50 PM)[facility]annUR[facility] AND ATIGD4114-24-04 18:50:007.0[facility]annURINE AND TNFTJ3390-36-20 18:50:00 Clear (10/14/14 1:50 PM)[facility]annUR[facility] AND TDZUB5796-72-03 18:50:001.005 [facility]UR[facility] AND UJGJH0290-17-64 18:50:00Negative *NA*(10/14/14 1:50 PM) [facility] HermannCARDIAC GJOONMO8362-24-07 06:50:000.03[facility] HermannCHEM PANEL 2014-10-09 06:50:0013[facility] HermannCHEM RRQFN1718-12-68 06:50:0079[facility] HermannCHEM WQZKN7988-16-13 06:50:22258Blsmbxlh HermannCHEM OKIGL8589-82-80 06:50:000.8[facility] HermannCHEM ZUJCE2561-30-58 06:50:50614Ichrcndj HermannCHEM NIYCM4151-32-17 06:50:004.1[facility] HermannCHEM GTGUR6089-07-66 06:50:77494 [facility] HermannCHEM EKNDY3097-93-91 06:50:0026[facility] HermannCHEM PANEL 2014-10-09 06:50:008.4[facility] HermannCHEM NPPHN2849-85-93 06:50:0012.1[facility] CtnajzuBRKSJVYNVZ3898-83-32 06:50:00* Test Item Value Reference Range Interpretation Comments PT (test code = PT) 14.0 s 12.0-14.7 [facility] OuwjfguWAPNLVINLH5220-74-89 06:50:001.08[facility] HermannHEMATOLOGY 2014-10-09 06:50:0010.7[facility] MaxrbyqZCKFBYHROI5370-42-07 06:50:003.33[facility] MlmahjrCMFOZCEVBO5179-40-12 06:50:0012.4[facility] JvczegcFYFOKAMIUU9692-86-30 06:50:0013.0[facility] WmisuhqROXQSBJVHL0589-60-22 06:50:0034.4[facility] FYIEMXFDCG0717-22-06 06:50:81279Nofkewqz AfaxypzGVHHNETDVI1641-31-33 06:50:009.7 [facility] LajsxmfQLYZDRMTGT9798-26-89 06:50:00* Test Item Value Reference Range Interpretation Comments MCH (test code = MCH) 32.1 pg 27.0-31.0 [facility] ZgaobxoEQDXUYOCLV7031-74-71 06:50:0031.0[facility] HermannHEMATOLOGY 2014-10-09 06:50:0093.3[facility] MjlasouWWEEZYJMLJ2871-84-77 06:50:0079.4[facility] LuuwuryAAPJVOIIBG5582-27-28 06:50:0014.7[facility] IzccthaZGPTQZGQHQ6467-53-57 06:50:005.3[facility] JdzuzvmDGFCAAWVHW7112-39-85 06:50:000.1[facility] HRXRDWGSWY9754-25-68 06:50:000.5[facility] HnngmmeDJINKASPVK5348-76-17 06:50:000.1 [facility] JgfripsYOUSOAZNAA7069-24-99 06:50:009.9[facility] HermannHEMATOLOGY 2014-10-09 06:50:000.7[facility] SpnumioSJNJIVGMUV1032-21-79 06:50:001.8[facility] HermannCHEM KEUCL3517-35-20 20:23:0074[facility] MemtxgeUIETENPGJJ0605-66-61 20:23:0038.8[facility] AxwddfvXKXNRPMTKO0629-83-49 20:23:0012.7[facility] CHEST 2 VIEWS [facility] [address] [place] [address] Patient Name: JIM LEA MR #: [id number] : 1950 Age/Sex: 66/F Req #: [id number] Adm Physician: Ordered by: HUGH CABELLO MD Report #: [id number] Location: Room/Bed: Procedure: DX/CHEST 2 VIEWS Exam Date : 09/29/17 Exam Time: 0130 REPORT STATUS: Deya d CHEST 2 VIEWS, Technique: CHEST 2 VIEWS Comparison: 09/24/2017 Clinical history: S HTN, TINGLING TO FACE S [id number] S 0130 S Y DISCU SSION: Stable appearance of the heart, mediastinum, lungs and pleural spaces. Right humeral anchor screws again noted. IMPRESSION: No acute abnormali ty Signed by: Dr Taryn Moreno MD on 09/29/2017 2:04 AM Dictated By: TARYN MORENO MD 020 4 Transcribed By: JENISE on 09/29/17 0204 COPY TO: HUGH CABELLO MRI BRAIN [address] [address] Patient Name: JIM LEA MR #: [id number] : 1950 Age/Sex: 66/F Req #: [id number] Adm Physician: FRAN MARTINEZ MD Ordered by: YAO MCKENZIE MD Report #: [id number] Location: [facility] Room/Bed: [place] [address] Procedure: [id number] M RI/MRI BRAIN WO Exam Date: Exam [...] TO: YAO MCKENZIE MD ECHO COMPLETE (ECHOCARDIOGRAM) [place] [address] Patient Name : IJM LEA MR #: [id number] : 1950 Age/Sex: 66/F Adm Physician : FRAN MARTINEZ MD Admit Date : 09/24/17 Location : [facility] Room/Bed : IMCU 176- 1 REPORT: Cardiology Report DATE OF STUDY: September [...] ventricular ejection fraction is approximately 60%. Job#: [id number] cc: FRAN MARTINEZ MD Signature Date Dictated By: EROS BARRAZA MD Transcribed By: [facility] on 09/26/17 <Electronically signed by EROS BARRAZA MD>< <Signature on File>>09/27/17 0911 COPY TO: CAROTID DOPPLER [place] [address] Patient Name : JIM LEA MR #: [id number] : 1950 Age/Sex: 66/F Adm Physi ajith : FRAN MARTINEZ MD Admit Date : 09/24/17 Location : [facility] Room/Bed : [address] REPORT: Cardiology Report DATE OF STUDY: [...] in normal direction bilaterally. 11:0 1 Job#: [id number] cc: FRAN MARTINEZ MD Signature Date Dictated By: EROS BARRAZA MD Transcribed By: EDS on 09/26/17 < Electronically signed by EROS BARRAZA MD><<Signature on File>>09/27/17 0911 COPY TO: CHEST SINGLE (PORTABLE) [place] [address] Patient Name: JIM LEA MR #: [id number] : 1950 Age/Sex: 66/F Req #: [id number] Adm Physician: Ordered by: YAO MCKENZIE MD Report #: [id number] Location: ER Room/Bed: Procedure: [id number] DX/CHEST SINGLE (PORTABLE) E xam Date: 09/24/17 [...] TO: YAO MCKENZIE MD CT BRAIN WO [place] [address] Patient Name: JIM LEA MR #: [id number] : 1950 Age/Sex: 66/F Req #: [id number] Adm Physician: Ordered by: SHARON RHOADES MODELING ANALYST Report #: [id number] Location: ER Room/Bed: Procedure: [id number] CT/CT BRAIN WO Exam Date: Exam Time: [...] PILAR DAWN MD Transcribed By: JENISE on 09/24/171506 COPY TO: SHARON RHOADES NP MAMMOGRAPHY DIGITAL SCR BILAT [place] [address] Patient Name: JIM LEA MR #: [id number] : 0 1950 Age/Sex: 66/F Req #: [id number] Adm Physician: Ordered by: ITA MCMAHAN, MEGAN Liang MD Report #: [id number] Location: MAMMO Room/Bed: Procedure: [id number] MG/MAMMOGRAPHY DIGITAL SCR BILAT Exam Date: 02/15/17 Exam Time: 1213 REPORT STATUS: Signed #[id number] - MGSCRBIL #BILATERAL DIGITAL SCRE ENING MAMMOGRAM WITH CAD: 02/15/2017 CLINICAL: Routine screening. Jacek rison is made to exams dated: 02/11/2016 mammogram, 02/05/2015 mammogram and 12/05 mammogram - [facility]. Current study contains 4 films. There are [...] letter of the results. Jolene mcdermott/valerie:03/03/2017 10:32:51 Corduroy Cutter Operator: Emily MOSLEY)(Jn), [facility] letter sent: Compared to Prior B9 Mammogram BI-RADS: 2 Benign Dictated By: JOLENE PALMER DO El ectronically Signed By: JOLENE PALMER DO on 03/03/17 1032 Transcribed By: TOMMY Yang on 03/03/17 1032 COPY TO: MEGAN JEAN BAPTISTE
--- NOTE | 2020-03-05 02:56 | Discharge Summary ---
ADMISSION DIAGNOSES: 1. Paresthesia with weakness. 2. Hypertension. 3. Anxiety. DISCHARGE DIAGNOSES: 1. Paresthesia with weakness. 2. Hypertension. 3. Anxiety. 4. Rule out cerebrovascular accident. HISTORY: Hypertension and anxiety. SURGICAL HISTORY: Right arm surgery and left ear surgery. FAMILY HISTORY: The patient's mom and dad had diabetes. The patient's mom had a stroke. SOCIAL HISTORY: Noncontributory. HOSPITAL COURSE: A 69-year-old female admits with complaints of perioral paresthesia that began yesterday. Soon after the perioral paresthesia, the paresthesia radiated down her body and she had associated generalized weakness. The symptoms lasted intermittently for about 2 hours. She denies focal weakness, vision changes, dysphagia, and changes in speech. Upon admission, CT of the brain was negative. MRI of the brain was negative. Chest x-ray showed mild central vascular congestion. The patient's cholesterol was slightly elevated. Dietary changes were discussed with her. Echo showed an EF of 60% and bilateral carotid Doppler was negative. The patient says she was told by her fighting vehicle systems maintainer that her blood pressure gets high sometimes due to anxiety, but was never given any anxiety medicine, so she will discharge home with new prescription for Ativan p.r.n. Prior to admission, she had already stopped taking the Norvasc and hydrochlorothiazide. She will follow up with primary care in 1 to 2 weeks. The patient understands instructions and agrees to plan. Dictated by Kaylene Smith NP MD SHOAIB Mcnally/OLE /[phone]
== END 2020-03-03 18:18 | disposition home or self-care (01) ==
LOC: ER 15:58 → ERHOLD 16:22 → MED/SURG2 18:17
PROVIDERS: ADMIT Internal Medicine; ATTEND Internal Medicine
DX: R20.2 Paresthesia of skin (principal); R53.1 Weakness; F41.9 Anxiety disorder, unspecified; Z11.59 Encounter for screening for other viral diseases
CPT/HCPCS: 36415; 70450; 70551; 71045; 80053; 80061; 81001; 82550 ×2; 82553 ×2; 84484 ×2; 85025; 85610; 93005; 93306; 93880; 97161; 99284; G0378 ×2; J2060; U0002

== ENCOUNTER → 2020-04-12 | Outpatient (CLI) | payer MEDICARE, OTHER ==
[~2020-04-12] MED LIST changes: +ATIVAN0.5 MG PO; +ESIDRIX25 MG PO; +POTASSIUM CHLO10 ME1 PO
== END ==
LOC: MAMMO 13:24
PROVIDERS: ATTEND Family Medicine
DX: Z12.31 Encounter for screening mammogram for malignant neoplasm of breast (principal)
CPT/HCPCS: 77067

== ENCOUNTER → 2020-07-15 | Day surgery (SDC) | payer MEDICARE, OTHER ==
[2020-07-12 14:18] LABS: BASOPHILS % 0.3 % (0.0-1.0); EOSINOPHILS # (AUTO) 0.3 (0.0-0.4); EOSINOPHILS % 5.7 % (0.0-6.0); HEMATOCRIT 34.6 % (34.2-44.1); HEMOGLOBIN 11.2 g/dL (12.0-16.0); LYMPHOCYTES # (AUTO) 2.3 (1.0-3.2); LYMPHOCYTES % 39.2 % (18.0-39.1); MEAN CORPUSCULAR HEMOGLOBIN 31.5 pg (28-32); MEAN CORPUSCULAR HGB CONC 32.4 g/dL (31-35); MEAN CORPUSCULAR VOLUME 97.5 fL (81-99); MONOCYTES # (AUTO) 0.9 (0.2-0.8); MONOCYTES % 14.5 % (4.4-11.3); NEUTROPHILS # (AUTO) 2.4 (2.1-6.9); NEUTROPHILS % 40.3 % (38.7-80.0); PLATELET COUNT 175 x10e3/uL (140-360); RED BLOOD COUNT 3.55 x10e6/uL (3.6-5.1)
[2020-07-12 14:35] LABS: ANION GAP 15.7 mmol/L (8-16); BLOOD UREA NITROGEN 21 mg/dL (7-26); BUN/CREATININE RATIO 23 (6-25); CALCIUM 9.2 mg/dL (8.4-10.2); CARBON DIOXIDE 30 mmol/L (22-29); CHLORIDE 98 mmol/L (98-107); EST GLOMERULAR FILTRATION RATE > 60 ML/MIN (60-); GLUCOSE 89 mg/dL (74-118); POTASSIUM 3.7 mmol/L (3.5-5.1); SODIUM 140 mmol/L (136-145)
[~2020-07-15] MED LIST changes: +DEXAMETHASONE SOD PHOS INJ 4 MG/ML VIAL ONE; +EPHEDRINE SULFATE INJ 50 MG/ML VIAL ONE; +FENTANYL CITRATE/PF 100MCG/2 ML INJ ONE; +LIDOCAINE HCL 2% LOCAL INJ 5 ML SDV VIAL INJ ONE; +MIDAZOLAM HCL 2 MG/2 ML VIAL ONE; +MORPHINE SULFATE INJ 4 MG/ML INJ 1ML ONE; +ONDANSETRON HCL INJ 2MG/ML 2ML 2 MG/ML VIAL ONE; +PROPOFOL IV EMULSION 10 MG/ML 20 ML VIAL ONE; +SERTRALINE HCL100 MG PO; +SEVOFLURANE INHAL SOLN 250 ML PEN BTL ONE
[2020-07-15 13:15] VITALS: BP 159/68
== END | disposition home or self-care (01) ==
LOC: OR 08:25
PROVIDERS: ATTEND Surgery
DX: S80.11XA Contusion of right lower leg, initial encounter (principal); I83.91 Asymptomatic varicose veins of right lower extremity; I10 Essential (primary) hypertension; K21.9 Gastro-esophageal reflux disease without esophagitis; R00.1 Bradycardia, unspecified; F41.9 Anxiety disorder, unspecified; W19.XXXA Unspecified fall, initial encounter; Z01.810 Encounter for preprocedural cardiovascular examination; Z01.812 Encounter for preprocedural laboratory examination; Z01.818 Encounter for other preprocedural examination; Z20.822 Contact with and (suspected) exposure to COVID-19
CPT/HCPCS: 10140; 36415; 71046; 80048; 85025; 93005; J1100; J2001; J2250; J2270; J2405; J2704; J3010; U0002

== ENCOUNTER 2024-02-08 21:14 | Emergency (ER) | payer MEDICARE, OTHER ==
[~2024-02-08] VITALS: Ht 144.8 cm; Wt 59.0 kg
[~2024-02-08 21:14] MED LIST changes: -DEXAMETHASONE SOD PHOS INJ 4 MG/ML VIAL ONE; -EPHEDRINE SULFATE INJ 50 MG/ML VIAL ONE; -FENTANYL CITRATE/PF 100MCG/2 ML INJ ONE; -LIDOCAINE HCL 2% LOCAL INJ 5 ML SDV VIAL INJ ONE; -MIDAZOLAM HCL 2 MG/2 ML VIAL ONE; -MORPHINE SULFATE INJ 4 MG/ML INJ 1ML ONE; -ONDANSETRON HCL INJ 2MG/ML 2ML 2 MG/ML VIAL ONE; -PROPOFOL IV EMULSION 10 MG/ML 20 ML VIAL ONE; -SEVOFLURANE INHAL SOLN 250 ML PEN BTL ONE
[2024-02-08] MEDS ORDERED: SODIUM CHLORIDE FLUSH 10 ML SYR IV PRN (22:45)
[2024-02-08 22:50] LABS: BASOPHILS % 0.4 % (0.0-1.0); EOSINOPHILS # (AUTO) 0.2 (0.0-0.4); HEMATOCRIT 34.4 % (34.2-44.1); HEMOGLOBIN 11.6 g/dL (12.0-16.0); LYMPHOCYTES % 37.5 % (18.0-39.1); MEAN CORPUSCULAR HEMOGLOBIN 32.1 pg (28-32); MEAN CORPUSCULAR HGB CONC 33.7 g/dL (31-35); MEAN CORPUSCULAR VOLUME 95.3 fL (81-99); MONOCYTES # (AUTO) 0.7 (0.2-0.8); MONOCYTES % 12.8 % (4.4-11.3); NEUTROPHILS # (AUTO) 2.5 (2.1-6.9); NEUTROPHILS % 46.1 % (38.7-80.0); PLATELET COUNT 163 x10e3/uL (140-360); RED BLOOD COUNT 3.61 x10e6/uL (3.6-5.1); RED CELL DISTRIBUTION WIDTH 12.2 % (11.7-14.4); WHITE BLOOD COUNT 5.38 x10e3/uL (4.8-10.8)
[2024-02-08 23:06] LABS: ALANINE AMINOTRANSFERASE 32 IU/L (0-55); ALBUMIN 4.5 g/dL (3.5-5.0); ALBUMIN/GLOBULIN RATIO 1.3 (0.8-2.0); ALKALINE PHOSPHATASE 78 IU/L (40-150); ANION GAP 16.3 mmol/L (8-16); BILIRUBIN,TOTAL 0.5 mg/dL (0.2-1.2); BLOOD UREA NITROGEN 23 mg/dL (7-26); BUN/CREATININE RATIO 27 (6-25); CALCIUM 9.7 mg/dL (8.4-10.2); CARBON DIOXIDE 21 mmol/L (22-29); CHLORIDE 97 mmol/L (98-107); CREATININE, SERUM 0.86 mg/dL (0.57-1.11); EST GLOMERULAR FILTRATION RATE 72 ML/MIN (>=60); GLUCOSE 111 mg/dL (74-118); POTASSIUM 4.3 mmol/L (3.5-5.1); SODIUM 130 mmol/L (136-145); TOTAL PROTEIN 8.1 g/dL (6.5-8.1)
[2024-02-08 23:11] LABS: TROPONIN I < 0.05 ng/mL (0.0-0.40)
[2024-02-08] MEDS: ACETAMINOPHEN 325 MG TAB PO ONE (23:20)
[2024-02-09 01:30] VITALS: PULSE 50; RESP 16; TEMP 98.2; O2SAT 99
== END 2024-02-09 01:36 | disposition home or self-care (01) ==
LOC: ER 21:25
DX: R51.9 Headache, unspecified (principal); I10 Essential (primary) hypertension; E78.5 Hyperlipidemia, unspecified; E78.00 Pure hypercholesterolemia, unspecified; I73.9 Peripheral vascular disease, unspecified
CPT/HCPCS: 36415; 70450; 71045; 80053; 84484; 85025; 93005; 99284

== ENCOUNTER 2024-05-16 21:01 | Emergency (ER) | payer MEDICARE, OTHER ==
[~2024-05-16] VITALS: Ht 144.8 cm; Wt 59.0 kg
[2024-05-16 21:25] VITALS: PULSE 59; RESP 17; TEMP 98.3
[2024-05-16 22:09] LABS: ALBUMIN 4.1 g/dL (3.5-5.0); ALBUMIN/GLOBULIN RATIO 1.3 (0.8-2.0); ANION GAP 14.2 mmol/L (8-16); BILIRUBIN,TOTAL 0.6 mg/dL (0.2-1.2); CALCIUM 9.4 mg/dL (8.4-10.2); CREATININE, SERUM 0.7 mg/dL (0.57-1.11); POTASSIUM 4.2 mmol/L (3.5-5.1); TOTAL PROTEIN 7.2 g/dL (6.5-8.1)
[2024-05-16 22:15] LABS: TROPONIN I 0.008 ng/mL (0-0.300)
[2024-05-16 22:58] LABS: BASOPHILS % 0.4 % (0.0-1.0); EOSINOPHILS # (AUTO) 0.2 (0.0-0.4); EOSINOPHILS % 3.5 % (0.0-6.0); HEMOGLOBIN 10.9 g/dL (12.0-16.0); LYMPHOCYTES # (AUTO) 2.5 (1.0-3.2); LYMPHOCYTES % 47.1 % (18.0-39.1); MEAN CORPUSCULAR HEMOGLOBIN 32.9 pg (28-32); MEAN CORPUSCULAR VOLUME 99.7 fL (81-99); MONOCYTES # (AUTO) 0.7 (0.2-0.8); MONOCYTES % 13.5 % (4.4-11.3); NEUTROPHILS # (AUTO) 1.8 (2.1-6.9); NEUTROPHILS % 35.3 % (38.7-80.0); PLATELET COUNT 164 x10e3/uL (140-360); RED BLOOD COUNT 3.31 x10e6/uL (3.6-5.1); RED CELL DISTRIBUTION WIDTH 11.9 % (11.7-14.4)
[2024-05-16 23:52] VITALS: BP 137/84; PULSE 74; RESP 18; TEMP 98.6; O2SAT 98
== END 2024-05-16 23:46 | disposition home or self-care (01) ==
LOC: ER 21:14
DX: E87.1 Hypo-osmolality and hyponatremia (principal); I10 Essential (primary) hypertension; R20.0 Anesthesia of skin; E78.5 Hyperlipidemia, unspecified; R73.03 Prediabetes
CPT/HCPCS: 36415; 70450; 71045; 80053; 82550; 83690; 83880; 84484; 85025; 93005; 99284